=== PATIENT | female | born 1995 | race Caucasian/White ===

== ENCOUNTER 2024-03-14 14:55 | Outpatient (AMB) | payer OTHER, SELFPAY ==
--- NOTE | 2024-03-14 15:06 | MHC.OFFVIS ---
Vital Signs 03/14/24 15:10 Height 5 ft 5 in Weight 226 lb 8 oz BMI 37.7 BP 122/80 Blood Pressure Location Rt brachial Position Sitting Respiration 16 Pulse 79 Pulse Source Pulse Oximeter Pulse Oximetry (%) 98 Oxygen Delivery Method Room Air Intake Visit Reasons: ENP-L foot ? nerve pinched and vaginal shoot Intake Note: Pt presents to the office for new pt consultation for evaluation of a possibly pinched nerve that shoots pain to my vaginal area .She c/o numbness and tingling of left leg. 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 It started about 1 year ago - starts in her toes and moves up to her hip. If she strains to radiated to her pelvic area, vagina.she describes the pain as tingling , shooting pain with numbness and weakness.she also has chronic back pain which worsened. she became after and now her baby is 3 months old . Her labor and delivery was uneventful . But she started having sharp pain in her vagina .she didnt have any imaging done . she was sent for PT which helped a little. EMG showed Left L4-5 radiculopathy. Her discomfort in constant - numbness in her left leg and foot , when she strains she feels it in her thigh a swell/ She has trouble moving her left toe. [facility] Medical History Neuropathy Obesity UTI (urinary tract infection) Anxiety Bilateral carpal tunnel syndrome Multiple renal cysts Right ovarian cyst Social History Household Members: Spouse and Children Housing: Apartment Alcohol intake: current Comment: Seldom Patient Tobacco Use Status: Former Tobacco user Years Smoked: quit 2 years ago- on and off x 10years Use of substances other than those prescribed or required for medical reasons: No Physical Exam Vital Signs: Last Vital Signs Pulse 79 03/14/24 15:10 Resp 16 03/14/24 15:10 BP 122/80 03/14/24 15:10 Pulse Ox 98 03/14/24 15:10 Oxygen Delivery Method Room Air 03/14/24 15:10 BMI result Body Mass Index 37.7 Const General: cooperative, healthy appearing and comfortable Nutritional Appearance: obese Orientation/consciousness: patient oriented x3 Eyes Pupils: Equal, round and reactive pupils present Neck Neck: Yes no meningeal signs Neuro Other: Left foot drop- weakness of left dorsiflexion - 1/5 Knee extension 4/5 Gait- compensation, mild high steppage on right General: patient oriented x3, moves all extremities and no meningeal signs Cranial nerves: Yes Facial sensation intact/muscles of mastication intact, Yes Equal, round and reactive pupils present, Yes Bilaterally intact EOM present, Yes Nystagmus not present, Yes Normal facial strength present, Yes Midline tongue present and Yes Symmetric palate elevation present Cognition (Neuro): normal cognition Motor exam (neuro): Normal motor muscle tone present throughout Deep tendon reflexes (DTR's): Right triceps reflex intensity grade: 2+, Left triceps reflex intensity grade: 2+, Rt Biceps (C5, C6): 2+, Left biceps reflex intensity grade: 2+, Right brachioradialis reflex intensity grade: 2+, Left brachioradialis reflex intensity grade: 2+, Right patellar reflex intensity grade: 3+, Left patellar reflex intensity grade: 3+, Right ankle reflex intensity grade: 2+ and Left ankle reflex intensity grade: 2+ Coordination: [id number] test normal Assessment & Plan Assessment & Plan (1) Numbness and tingling of left leg: Comment: likely lumbar radiculopathy Code(s): R20.0 - Anesthesia of skin; R20.2 - Paresthesia of skin Category: Medical (2) Foot drop, left foot: Code(s): M21.372 - Foot drop, left foot Category: Medical Plan will evaluate her with MRI L spine EMGNCS PT for left leg weakness Orders: Orders NE electromyogram (EMG) Today M21.372 - Foot drop, left foot, R20.0 - Anesthesia of skin, R20.2 - Paresthesia of skin MR lumbar spine wo con Today M21.372 - Foot drop, left foot, R20.0 - Anesthesia of skin, R20.2 - Paresthesia of skin NE nerve conduction velocity Today M21.372 - Foot drop, left foot, R20.0 - Anesthesia of skin, R20.2 - Paresthesia of skin PT Evaluation and Treatment Today M21.372 - Foot drop, left foot Coding Level of Care Code New Pt Level 4 (14806) Diagnoses Numbness and tingling of left leg R20.0; R20.2 Foot drop, left foot M21.372
[2024-03-14 15:10] VITALS: BP 122/80; PULSE 79; RESP 16; O2SAT 98; BMI 37.7
== END 2024-03-14 15:48 | disposition home or self-care (01) ==
PROVIDERS: PCP Obstetrics & Gynecology; Visit Provider Psychiatry & Neurology Neurology
DX: R20.0 Anesthesia of skin (principal); R20.2 Paresthesia of skin; M21.372 Foot drop, left foot
CPT/HCPCS: 99204

== ENCOUNTER → 2024-03-14 14:55 | Outpatient (BNVA) | payer OTHER, SELFPAY | PROVIDERS: PCP Obstetrics & Gynecology; Visit Provider Psychiatry & Neurology Neurology | DX: M21.372 Foot drop, left foot (principal); R20.0 Anesthesia of skin; R20.2 Paresthesia of skin | CPT/HCPCS: 99202 ==

== ENCOUNTER 2024-03-17 18:54 | Outpatient (REF) | payer OTHER, SELFPAY ==
--- NOTE | ~2024-03-17 | MR_ITS ---
MRI OF THE LUMBAR SPINE WITHOUT CONTRAST CLINICAL INFORMATION: Foot drop. Left foot. COMPARISON: Lumbar spine radiographs March 23, 2013. TECHNIQUE: Multiplanar multisequence MR imaging of the lumbar spine obtained without contrast. FINDINGS: There are 5 non-rib bearing lumbar type vertebral bodies. Lumbar alignment is normal. Vertebral body heights are maintained. There is mild disc volume loss and disc desiccation at L5-S1. The remaining disc volumes are preserved and the remaining discs remain well-hydrated. Mild Modic type I endplate signal changes at L5-S1. There is no additional bone marrow edema. There are no acute fractures. The conus terminates at the L1-L2 level. There are no significant extraspinal soft tissue findings. Partially imaged sclerosis across the SI joints bilaterally. Retroaortic left renal vein. L1-L2: Disc contour is normal. No central canal stenosis and no foraminal stenosis. L2-L3: Disc contour is normal. No central canal stenosis and no foraminal stenosis. L3-L4: Disc contour is normal. No central canal stenosis and no foraminal stenosis. L4-L5: Small annular disc bulge and severe bilateral facet arthropathy. There is no central canal stenosis. There is mild foraminal encroachment bilaterally. L5-S1: There is a shallow right paracentral disc protrusion results in posterior deflection of the traversing right S1 nerve root within the right subarticular zone and neck contact the traversing left S1 nerve root within the left subarticular zone. There is also a left lateral disc osteophyte protrusion that results in moderate to severe left foraminal stenosis with compression of the foraminal and extraforaminal segments of the exiting left L5 nerve root. MR/MR lumbar spine wo con IMPRESSION: * At L5-S1, a shallow right paracentral disc protrusion results in posterior deflection of the traversing right S1 nerve root within the right subarticular zone and contacts the traversing left S1 nerve root within the left subarticular zone. There is also a left lateral disc osteophyte protrusion that results in moderate to severe left foraminal stenosis with compression of the foraminal and extraforaminal segments of the exiting left L5 nerve root. * Partially imaged sclerosis across the SI joints bilaterally. Electronically signed by: Ivan Prajapati MD 03/18/2024 08:41 AM EDT
== END 2024-03-17 18:55 | disposition home or self-care (01) ==
LOC: HO.MRI 18:54
PROVIDERS: PCP Internal Medicine; Visit Provider Psychiatry & Neurology Neurology
DX: M21.372 Foot drop, left foot (principal); R20.0 Anesthesia of skin; R20.2 Paresthesia of skin
CPT/HCPCS: 72148

== ENCOUNTER 2024-03-31 15:29 | Outpatient (REF) | payer OTHER, SELFPAY ==
--- NOTE | 2024-03-31 15:32 | EMG_ITS ---
Chief complaint: Left footdrop and numbness in left foot, chronic back pain 4/5 dorsiflexion, eversion, EHL left. Reason for referral: Evaluate for peroneal neuropathy versus lumbar radiculopathy Referred by: Dr. Bear Procedure done: Left lower extremity NCS/EMG Precautions and/or limitations: None The limb temperature was monitored continuously and remained between 32-36 degrees C during the performance of the NCS. Nerve Conduction Studies Anti Sensory Summary Table ?Stim Site NR Onset (ms) Norm Onset (ms) Peak (ms) Norm Peak (ms) O-P Amp (?V) Norm O-P Amp Site1 Site2 Delta-0 (ms) Dist (cm) Yanick (m/s) Norm Yanick (m/s) Left Sup Peron Anti Sensory (Ankle) Lateral Leg ? 1.3 1.8 <4.4 14.3 >5.0 Lateral Leg Ankle 1.3 14.0 108 Left Sural Anti Sensory (Lat Mall) Calf ? 2.8 3.4 <4.0 6.6 >5.0 Calf Lat Mall 2.8 14.0 50 Motor Summary Table ?Stim Site NR Onset (ms) Norm Onset (ms) O-P Amp (mV) Norm O-P Amp iAmp (mV) Amp (1st) (%) Site1 Site2 Delta-0 (ms) Dist (cm) Yanick (m/s) Norm Yanick (m/s) Left Peroneal Motor (Ext Dig Brev) Ankle ? 3.8 <4.0 7.0 >2.5 8.4 100.0 Ankle Ext Dig Brev 3.8 0.0 B Fib ? 9.9 6.5 7.9 92.9 B Fib Ankle 6.1 33.0 54 >40 Poplt ? 10.5 6.5 7.9 92.9 Poplt B Fib 0.6 4.5 75 >40 Left Tibial Motor (Abd Murrell Brev) Ankle ? 3.3 <5 7.7 >2.5 10.9 100.0 Ankle Abd Murrell Brev 3.3 0.0 Knee ? 10.9 5.5 7.6 71.4 Knee Ankle 7.6 39.0 51 >40 EMG ?Side Muscle Nerve Root Ins Act Fibs Psw Amp Dur Poly Recrt Int Pat Comment Left AbdHallucis MedPlantar S1-2 Nml Nml Nml Nml Nml 0 Nml Complete Left AntTibialis Dp Br Peron L4-5 Nml Nml Nml Nml Nml 0 Nml Complete Left MedGastroc Tibial S1-2 Nml Nml Nml Nml Nml 0 Nml Complete Left VastusMed Femoral L2-4 Nml Nml Nml Nml Nml 0 Nml Complete Left BicepsFemS Sciatic L5-S1 Nml Nml Nml Nml Nml 0 Nml Complete Paraspinal EMG ?Side Muscle Nerve Root Ins Act Fibs Psw Comment Left Lumbar Upper Rami Nml Nml Nml Left Lumbar Mid Rami Nml Nml Nml Left Lumbar Lower Rami Nml Nml Nml FINDINGS: All motor and sensory nerves tested showed normal latencies, amplitudes and conduction velocities. Concentric needle EMG was performed in selected muscles of the left lower extremity and lumbar paraspinals. Study did not reveal signs of electric abnormalities as shown in the table above. IMPRESSION: 1. This is a normal study. 2. There is no electrodiagnostic evidence for peroneal neuropathy, tibial neuropathy, lumbosacral plexopathy, lumbar radiculopathy, or peripheral neuropathy. Thank you for your kind referral. Josefina Montez MD, ANNE-MARIE Board Certified, [place] Board of Physical Medicine and Rehabilitation (ABPMR) Board Certified, [place] Board of Electrodiagnostic Medicine (ABEM) [place] [id number] [facility]
== END 2024-03-31 15:30 | disposition home or self-care (01) ==
LOC: HO.NEURO 15:29
PROVIDERS: PCP Internal Medicine; Visit Provider Psychiatry & Neurology Neurology
DX: M21.372 Foot drop, left foot (principal); R20.0 Anesthesia of skin; R20.2 Paresthesia of skin
CPT/HCPCS: 95886; 95908

== ENCOUNTER → 2024-03-31 15:32 | Outpatient (BNV) | payer OTHER, SELFPAY | PROVIDERS: PCP Internal Medicine; Visit Provider Physical Medicine & Rehabilitation | DX: M21.372 Foot drop, left foot (principal); R20.2 Paresthesia of skin; R20.0 Anesthesia of skin | CPT/HCPCS: 95886; 95908 ==

== ENCOUNTER 2024-05-11 15:05 | Outpatient (AMB) | payer OTHER, SELFPAY ==
--- NOTE | 2024-05-11 15:11 | A.SPINEOV_ITS ---
Intake Visit Reasons: Foot drop Intake Note: Ms. Isaac is here today c/o low back pain that radiates to the legs bilaterally. Director Biologics Required: No Allergies No Known Allergies Allergy (Verified 05/11/24 15:12) Assessment & Plan Assessment & Plan (1) Lumbar radiculopathy: Code(s): M54.16 - Radiculopathy, lumbar region Category: Medical Plan Dear Dr. Bear, Thank you for referring Leslie to our office today. She is a very pleasant 28 year old female who is referred to our office as a second opinion after being evaluated by [facility] neurosurgery. She presents with a CC of low back pain with shooting pain into her left lower extremity. She states that this has been ongoing for the past 1 year. She indentifies an inciting incident of spending a long day at a theme park going on rides. She reports by the end of the day she could hardly walk and had severe pain in her low back, shooting over her left hip, down her left anterior / lateral thigh, and into the top of her right foot. Her pain is slowly worsened over the course of the last few months and she has developed a left-sided footdrop. She has tried physical therapy, [id number] medications, and is scheduled to have a cortisone injection on 05/17/2014. She currently takes ibuprofen monotherapy for daily pain relief. She has a 5-month-old daughter and is unable to adequately care for due to her limited ability to complete basic ADLs. PMH: Partial removal of left kidney at 4 years old. Social hx: The patient does not smoke, reports no substance use. Medications: Ibuprofen. Allergies: NKDA. Physical exam: The patient has what I would call 2/5 strength with left-sided dorsiflexion and EHL. She has 4/5 strength with left-sided plantar flexion, knee extension, knee flexion, iliopsoas testing. Her right side lower extremity strength is 5/5. She has no upper extremity deficits. She has significant hypoesthesia over her left toes and on the top of her left foot. Her reflexes are 2+ intact. (+) left-sided straight leg raise. (-) clonus, (-) Babinski's. Imaging review: MRI of the lumbar spine completed here at [facility] shows a far lateral recess disc herniation causing severe compression of the exiting L5 nerve root in the left. Impression: Leslie is a pleasant 28-year-old female comes in today with a chief complaint of low back pain and shooting pain into her left lower extremity. She was previously told by individuals at [facility] that they do not believe she had any notable pathology in her lumbar spine, aside from minor disc bulge. I disagree with this and believe she has a lateral recess disc herniation that is difficult to assess in a plain sagittal view. This impression that I and reporting after reviewing this MRI imaging is also supported by the radiologist who read her MRI. I believe that unfortunately her symptoms have progressed to the point where she now has a left-sided L5 compression, and hypoesthesia in an L5 dermatomal distribution. I will be reviewing this case with Dr. Zelaya and recommending a left-sided L5-S1 microdiskectomy with metrics tubes to decompress the L5 nerve root and relieve her left leg pain. Unfortunately the extent to which numbness and weakness will recover is not known due to her longstanding nerve compression at this level. I will update this note after reviewing with Dr. Zelaya. Thank you for allowing us to care for your patient. The total time spent with this visit with this patient was 45 minutes reviewing history, physical exam, 45 imaging review, and implementation of treatment plan or further diagnostic testing Dante Zelaya MD,PhD [facility] Coding Level of Care Code New Pt Level 4 (98657) Diagnoses Lumbar radiculopathy M54.16
== END 2024-05-11 15:50 | disposition home or self-care (01) ==
LOC: HO.HNS 15:06
PROVIDERS: PCP Internal Medicine; Referring Provider Psychiatry & Neurology Neurology; Visit Provider Physician Assistant
DX: M54.16 Radiculopathy, lumbar region (principal)
CPT/HCPCS: 99204

== ENCOUNTER → 2024-05-11 15:05 | Outpatient (BNVA) | payer OTHER, SELFPAY | PROVIDERS: PCP Internal Medicine; Referring Provider Psychiatry & Neurology Neurology; Visit Provider Physician Assistant | DX: M54.16 Radiculopathy, lumbar region (principal) | CPT/HCPCS: 99202 ==

== ENCOUNTER 2024-05-19 11:00 | Day surgery (SDC) | payer OTHER, SELFPAY ==
[2024-05-17 10:36] VITALS: BMI 37.7
--- NOTE | 2024-05-17 14:31 | P.CONAN_ITS ---
Documented by User: Joan Cleary NP 05/17/24 14:32 HPI - Anesthesia Eval Consult details Narrative: 28yo F for Left L4-5 Foraminotomy PMFSH Active Problems Active Problems: All Active Problems Lumbar radiculopathy (Acute) Lumbosacral radiculopathy at S1 (Acute) Numbness and tingling of left leg (Acute) Foot drop, left foot (Acute) Past Medical History Medical History Lumbosacral radiculopathy at S1 Numbness and tingling of left leg Foot drop, left foot Neuropathy Obesity UTI (urinary tract infection) Anxiety Bilateral carpal tunnel syndrome Multiple renal cysts Right ovarian cyst Surgical History Surgical History Hx of partial nephrectomy Social History Social History Household Members: Spouse and Children Household Members Other:: in laws Housing: Apartment Are you a primary day care attendant to a significant other at home: No Do you presently have visiting nurse or other home services: No Alcohol intake: current Alcohol intake frequency: former alcohol drinker Comment: Seldom Patient Tobacco Use Status: Former Tobacco user Years Smoked: quit 2 years ago- on and off x 10years Have you been hit, kicked, punched, or otherwise hurt by someone within the past year? If so, by whom?: No Are you DNR?: No Advance Directives: No Advance Directives Information Provided: Yes Recently lost weight without trying: No Nutrition Risks: No Nutritional Risk FDLMP: just finished Meds Allergies Allergy/AdvReac Type Severity Reaction Status Date / Time No Known Allergies Allergy Verified 05/19/24 11:15 Home Medications ?Medication ?Instructions ?Recorded ?Confirmed ?Last Taken ?Type vitamin#30 30 mg iron-10 cap PO 03/11/24 03/14/24 05/18/24 History mg iron-folic acid 1 mg-omg3 capsule Exam Height,Weight and Vital Signs: Height 5 ft 5 in Weight 102.739 kg Assessment and Plan Assessment Anesthesia Assessment: Chart Reviewed Documented by User: Cindy Bernstein MD 05/19/24 12:03 [facility] Active Problems Active Problems: All Active Problems Lumbar radiculopathy (Acute) Lumbosacral radiculopathy at S1 (Acute) Numbness and tingling of left leg (Acute) Foot drop, left foot (Acute) Increased BMI 36.6 Ibuprofen for pain. Last 05/17/14 Snores but never had sleep study Past Medical History Medical History Lumbosacral radiculopathy at S1 Numbness and tingling of left leg Foot drop, left foot Neuropathy Obesity UTI (urinary tract infection) Anxiety Bilateral carpal tunnel syndrome Multiple renal cysts Right ovarian cyst Family History Family history of problems with anesthesia: No Surgical History Surgical History Hx of partial nephrectomy History of Problems with Anesthesia: No Social History Social History Household Members: Spouse and Children Household Members Other:: in laws Housing: Apartment Are you a primary day care attendant to a significant other at home: No Do you presently have visiting nurse or other home services: No Alcohol intake: current Alcohol intake frequency: former alcohol drinker Comment: Seldom Patient Tobacco Use Status: Former Tobacco user Years Smoked: quit 2 years ago- on and off x 10years Have you been hit, kicked, punched, or otherwise hurt by someone within the past year? If so, by whom?: No Are you DNR?: No Advance Directives: No Advance Directives Information Provided: Yes Recently lost weight without trying: No Nutrition Risks: No Nutritional Risk FDLMP: just finished Meds Allergies Allergy/AdvReac Type Severity Reaction Status Date / Time No Known Allergies Allergy Verified 05/19/24 11:15 Home Medications ?Medication ?Instructions ?Recorded ?Confirmed ?Last Taken ?Type vitamin#30 30 mg iron-10 cap PO 03/11/24 03/14/24 05/18/24 History mg iron-folic acid 1 mg-omg3 capsule Exam Height,Weight and Vital Signs: Height 5 ft 5 in Weight 102.739 kg Vital Signs Temp Pulse Resp BP Pulse Ox O2 Del Method 05/19/24 11:30 98.2 F 83 18 143/94 H 98 Room Air Pertinent Lab Results Pertinent Lab Results: Lab Results 05/19/24 Range/Units 11:00 Urine Test NEGATIVE (NEGATIVE) Airway Mallampati Class: II TM Dist: >3cm Neck ROM: Limited (Pain with extension ) Loose/Missing/Broken Teeth: No Heart: RRR Lungs: CTAB Assessment and Plan Assessment Anesthesia Assessment: Anesthesia Plan Discussed and Chart Reviewed Final Anesthetic Review Family History of Problems with Anesthesia: No History of Problems with Anesthesia: No NPO: Yes ASA Class: II Final Preanesthetic Review: No Changes in Pt Med Stat, Meds/Allgs Chart Reviewed, Consent Obtained/Reviewed and Anes Risks/Benef Reviewed Patient Risk: Intermediate Procedure Risk: Low Assessment/Block/Sedation in SS: Assess/Block/Sedation-SS Anesthetic Plan Anesthetic Plan: GA Disposition: Standard PACU
[2024-05-19] MEDS: Lactated Ringers 1,000 ML 100 ML IVCONT (11:21)
[2024-05-19 11:22] LABS: UPreg QC Valid YES; Urine Pregnancy NEGATIVE (NEGATIVE)
[2024-05-19 11:28] VITALS: BMI 36.6
[2024-05-19 11:30] VITALS: BP 143/94; PULSE 83; RESP 18; TEMP 36.8; O2SAT 98
--- NOTE | 2024-05-19 11:32 | MHC.SHP ---
Pre-Procedural Eval Section A - 24 Hr Update-Section A only Date of Service: 05/19/24 The patient is an INPATIENT: No Section B - Complete if H&P > 30 days Chief Complaint: Radiculopathy, lumbar region,foot drop Details of Present Illness: Left lumbar radiculopathy Allergies: Allergies Allergy/AdvReac Type Severity Reaction Status Date / Time No Known Allergies Allergy Verified 05/19/24 11:15 Review of Systems Sugical H&P ROS: Negative: Constitution, Cardiovascular, Respiratory, Neurological, Psychiatric, Hem-Onc, Allergic/Immunologic, Gastrointestinal, Genitourinary, Musculoskeletal, Integumentary, Endocrine and Eyes/Ears/Nose/Throat Exam Surgical H&P Exam: Normal: HEENT, Normal: Heart, Normal: Lungs, Normal: Extremities, Normal: Abdomen and Normal: Skin and Significant Findings: Neurological (Left footdrop) Plan I have reviewed the history and physical and performed a pertinent physical examination on my patient. No changes have occurred unless specified. Left L5 foraminotomy Time Spent With Patient Time: Total time managing care of this patient today __5__ minutes.
[2024-05-19] MEDS: methocarbamoL 750 MG TABLET PO (11:36)
[2024-05-19] MEDS: Gabapentin 300 MG CAPSULE PO (11:36)
--- NOTE | 2024-05-19 12:13 | PC.NURSE ---
patient was educated by her doctors regarding . patient stated has been supplementing formula at home due to upcoming procedure. dr sheppard discussed post op pain control as well.
--- NOTE | 2024-05-19 13:20 | W.PM.OPN ---
Operative Note Operative Note Date of Service: 05/19/24 Narrative: Preoperative Diagnosis: Spinal stenosis/lateral recess stenosis/neural foraminal stenosis Operation: Left L5 Laminotomy, Partial facetectomy and foraminotomy with use of microscope Consent Informed Consent was obtained for this operation. I have explained the nature, purpose and benefits of the operation. I have discussed the risks and benefit of the operation including possible complications or adverse events with patient/family. Alternative(s) were discussed with the patient with their relative benefits and risks as well as the consequences of not accepting the operation were included in obtaining consent. Surgeon: HAKEEM JACOBS MD, PHD Procedure Assisted By: Dante Mahan, [facility] Description of Procedure This patient is suffering from left leg pain, numbness and weakness. The MRI shows left L5 neuroforaminal stenosis. Neurological deficits are profound and although the foraminal stenosis is not severe, I offered her a decompression of the L5 nerve root. The patient was offered a decompression of the nervous structures. The procedure complications were explained. The patient was consented. The patient was brought to the operating room and endotracheally intubated. The patient was turned in prone position on the Favio frame. Prep and drape was done followed by timeout. Physician speech and language assistant provided access. A mid lumbar incision was made followed by release of the paravertebral muscle on the left side to expose the L5 lamina and facet joint. An intraoperative x-ray was obtained to confirm the correct level. The microscope was brought in. I took over the procedure. The high-speed drill was used to do a L5 laminotomy. #2 Kerrison was used to further remove the lamina towards the L5 foramen. With a nerve hook the medial wall of the L5 pedicle was palpated as well as the beginning of the L5 foramen. The facet joint was partially drilled down after which with a #2 Kerrison a foraminotomy was done. Finally a foraminotomy Kerrison was used to complete the foraminotomy. A long nerve hook could be easily passed lateral and dorsally from the nerve root, a sign of relief of the neuroforaminal stenosis and decompression of the nerve root . The microscope was removed. Hemostasis was done. Incision was closed in 2 layers. Steri-Strips were used to approximate incision. An OpSite with Tegaderm was used to cover the incision. All sponge needle counts were correct. Patient was extubated and transported in stable is to recovery room. Anesthesia: General Estimated Blood Loss (ml): Minimal Duration of Surgery: Under 40 Minutes Postoperative Plan: Discharge to home
--- NOTE | 2024-05-19 13:29 | P.DS_ITS ---
DS: Providers Provider Date of Service: 05/19/24 Primary care physician: Bobbi Conte MD DS: Summary Time Attestation Discharge Coordination Time (in mins): 10 Quality: Safe Use of Opioids Does Pt have an Active Cancer Diagnosis on the Problem List?: No Quality: Stroke Does the patient have a stroke diagnosis?: No Physical Exam Vital Signs: Vital Signs: Last Vital Signs Temp 98.2 F 05/19/24 11:30 Pulse 83 05/19/24 11:30 Resp 18 05/19/24 11:30 BP 143/94 H 05/19/24 11:30 Pulse Ox 98 05/19/24 11:30 O2 Del Method Room Air 05/19/24 11:30 BMI result Body Mass Index 36.6 DS: Data Data Completed and Pending Labs on day of discharge: Laboratory Results - last 24 hr 05/19/24 11:00 Urine Test NEGATIVE Discharge Plan Discharge Patient Disposition: Home, Self-Care Referrals: Bobbi Conte MD [Primary Care Provider] - 1 Week Discharge Medications: New tramadol 50 mg tablet See Rx Instructions .ROUTE .COMPLEX PRN (Reason: pain) Qty: 30 0RF Rx Instructions: Take 1-2 tablets by mouth every 6 hours. No Action PNV #[id number] acid-omega3 30 mg iron-10 mg iron-1 mg capsule PO Discharge Orders: Discharge Order (Routine); Ordered 05/19/24 Ordered By: Dante Mahan Diet: Advance to usual diet Activity on Discharge: As tolerated Activity Restrictions/Additional Instructions: After your spinal surgery we ask you to observe the following restrictions/guidelines: Activity: It is normal to feel some discomfort as you increase your activity, but that will improve with time. We ask you avoid heavy lifting or acitivities that cause pain. As a general rule, 8lbs is a safe limit for lifting right after surgery. Walk as much as you feel comfortable but not to exhaustion. You will feel extra tired the first few days after surgery. Stay well hydrated. It is OK to walk up and down stairs You may return to driving when you are off narcotics (such as vicodin, oxycodone, dilaudid, etc), and you are back to normal functional capacity. If you have any concerns please check with office before driving. Return to work is specific to each patient and each surgery, so please speak with your doctor/PA at first follow up. Please bring paperwork such as FMLA at that time if you need it filled out. Medications: Dr. Zelaya would like you to be prescribed Tramadol 50mg take 1-2 tablets by mouth every 6 hours as needed for pain. This medication shows no known risk of harm based on available human data, but it is a controlled narcotic medication that may secrete into breastmilk. We also recommend you take 1,000mg Tylenol every 8 hours for the first few weeks after surgery, if you do not have any liver issues and can tolerate this medication. Do not exceed 4,000mg daily. We will give you a short supply of narcotics after surgery (usually one weeks worth). If you need more please call the office but do not use more than prescribed. You will need to give our office 48 hours notice if you need narcotics refilled and we do not fill narcotics on weekends or evenings. If you are on a narcotic, it is a good idea to take a stool softener such as colace or senna to avoid constipation If you take blood thinner such as aspirin, Plavix, Coumadin, Effient, Eliquis etc for conditions such as Afib, DVT, Pulmonary embolus, coronary disease, garret nts etc please speak with your surgeon about specific details as to when you can resume these medications. You can resume NSAIDs on post op day 1 (eg: Motrin, Naproxen, etc). Follow up: Please call the office, , after surgery to arrange a 3 week follow up for wound check. Wound Care: You may remove your dressing on the first day after surgery. ?You may ?leave open to air. Please do not remove the steri strips underneath. they will fall off on their own in one week. IT IS NORMAL FOR THE WOUND TO OOZE OR BE BLOODY FOR A FEW DAYS AFTER SURGERY. ?IF THIS HAPPENS JUST PLACE NEW DRESSING OVER IT TO AVOID STAINING CLOTHES. You may shower on post op day # 1 We ask that you do not let the water soak the wound. If it does get wet, just towel dry lightly. Please do not scrub your incision or place any type of chemical/ointment on the wound. No tub baths, pools or jacuzzis for one month. If you have any leaking or redness from your wound, or fevers, please call the office. Print Language: Kyrgyz
[2024-05-19 13:43] VITALS: BP 164/86; PULSE 107; RESP 16; TEMP 36.4; O2SAT 100
[2024-05-19 13:45] VITALS: BP 143/85; PULSE 106; RESP 16; O2SAT 100
[2024-05-19 13:50] VITALS: BP 148/97; PULSE 106; RESP 16; O2SAT 100
[2024-05-19 13:55] VITALS: BP 158/98; PULSE 106; RESP 16; O2SAT 100
[2024-05-19 14:10] VITALS: BP 148/91; PULSE 92; RESP 16; TEMP 36.1; O2SAT 100
== END 2024-05-19 15:33 | disposition home or self-care (01) ==
PROVIDERS: Nurse Practitioner; PCP Internal Medicine; Visit Provider Neurological Surgery
PROC: (CPT 63047; principal; 2024-05-19 13:50)
DX: M48.061 Spinal stenosis, lumbar region without neurogenic claudication (principal); M54.16 Radiculopathy, lumbar region; M21.379 Foot drop, unspecified foot; Z90.5 Acquired absence of kidney; Z79.1 Long term (current) use of non-steroidal anti-inflammatories (NSAID)
CPT/HCPCS: 63047; 81025; J0131; J0690; J1100; J2003; J2405; J2704; J3010

== ENCOUNTER → 2024-05-19 11:00 | Outpatient (BNV) | payer OTHER, SELFPAY | PROVIDERS: PCP Internal Medicine; Visit Provider Neurological Surgery | DX: M48.062 Spinal stenosis, lumbar region with neurogenic claudication (principal) | CPT/HCPCS: 63047; 99499 ==

== ENCOUNTER 2024-06-09 15:03 | Outpatient (AMB) | payer OTHER, SELFPAY ==
--- NOTE | 2024-06-09 15:05 | A.SPINEOV_ITS ---
Intake Visit Reasons: 1st post op Intake Note: Ms. Isaac is here today for her 1st post op visit. [employer]essionals Required: No Allergies No Known Allergies Allergy (Verified 06/09/24 15:06) Assessment & Plan Assessment & Plan (1) Foot drop, left foot: Code(s): M21.372 - Foot drop, left foot Category: Medical Plan Mrs Isaac is here in follow-up. Unfortunately, her footdrop has returned after having improved right after surgery. She continues to have significant weakness with dorsiflexion and numbness going down from her lateral calf into the top of her foot. She continues to get fasciculations of her toes as well. Her wound is healed up very nicely. We discussed the fact that likely her footdrop is more than likely going to be permanent. Preoperatively she had an EMG showing a peroneal and tibial neuropathy from May of 2023 at the time of her initial evaluation at [facility]. It is not really understood well why this problem started, but unfortunately the L5 foraminotomy did not give her the relief she was hoping in terms of improvement in the strength in the numbness. She did feel some brief relief of the discomfort of the numbness on the gabapentin the day of surgery and was asking about filling this. I told her that I would be happy to give her a prescription for 300 t.i.d. but she needs to check with the pharmacist about the overlap with breast-feeding as it may cross over into the breast milk. She should start with it in the evening as well so she is does not get fatigued during the day as she is taking care of it young baby. We discussed activity guidelines restrictions etc. after lumbar laminotomy. I gave her prescription for an AFO. I would like to follow up with her in a month. Erick Zelaya MD, PhD [facility] Medications: New [AFO] left foot AFO 1 ea 0RF M21.372 - Foot drop, left foot gabapentin 300 mg PO TID 90 caps 0RF Coding Level of Care Code Global (51605) Diagnoses Foot drop, left foot M21.372
== END 2024-06-09 16:23 | disposition home or self-care (01) ==
PROVIDERS: PCP Internal Medicine; Visit Provider Physician Assistant
DX: M21.372 Foot drop, left foot (principal)
CPT/HCPCS: 99024

== ENCOUNTER → 2024-06-09 15:03 | Outpatient (BNVA) | payer OTHER, SELFPAY | PROVIDERS: PCP Internal Medicine; Visit Provider Physician Assistant | DX: M21.372 Foot drop, left foot (principal); Z47.89 Encounter for other orthopedic aftercare; Z98.890 Other specified postprocedural states | CPT/HCPCS: 99212 ==

== ENCOUNTER 2024-07-14 15:00 | Outpatient (AMB) | payer OTHER, SELFPAY ==
--- NOTE | 2024-07-14 15:03 | MHC.OFFVIS ---
Intake Visit Reasons: follow up L foot ? nerve pinched/vaginal shoot Intake Note: Patient presents for follow up nerve pinch Allergies No Known Allergies Allergy (Verified 07/14/24 15:07) Medication List - Last Reconciled 07/14/24 by Lynn Bear MD [AFO left foot AFO ] gabapentin 300 mg PO TID ibuprofen 600 mg PO TID PNV #27-[id number]-pztio acid-omega3 30 mg iron-10 mg iron-1 mg caps PO tramadol Take 1-2 tablets by mouth every 6 hours. HPI Comments Details: 28y/o female comes for evaluation of left leg pain . It started about 1 year ago - starts in her toes and moves up to her hip. If she strains to radiated to her pelvic area, vagina.she describes the pain as tingling , shooting pain with numbness and weakness.she also has chronic back pain which worsened. she became after and now her baby is 3 months old . Her labor and delivery was uneventful . But she started having sharp pain in her vagina .she didnt have any imaging done . she was sent for PT which helped a little. EMG showed Left L4-5 radiculopathy. Her discomfort in constant - numbness in her left leg and foot , when she strains she feels it in her thigh a swell/ She has trouble moving her left toe. [facility] Medical History Lumbosacral radiculopathy at S1 Numbness and tingling of left leg Foot drop, left foot Neuropathy Obesity UTI (urinary tract infection) Anxiety Bilateral carpal tunnel syndrome Multiple renal cysts Right ovarian cyst Surgical History Hx of partial nephrectomy Social History Household Members: Spouse and Children Household Members Other:: in laws Housing: Apartment Are you a primary transitional care nurse to a significant other at home: No Do you presently have visiting nurse or other home services: No Alcohol intake: current Alcohol intake frequency: former alcohol drinker Comment: Seldom Patient Tobacco Use Status: Former Tobacco user Years Smoked: quit 2 years ago- on and off x 10years Physical Exam Const General: cooperative, healthy appearing and comfortable Nutritional Appearance: obese Orientation/consciousness: patient oriented x3 Eyes Pupils: Equal, round and reactive pupils present Neck Neck: Yes no meningeal signs Neuro Other: Left foot drop- weakness of left dorsiflexion - 1/5 Knee extension 4/5 Gait- compensation, mild high steppage on right General: patient oriented x3, moves all extremities and no meningeal signs Cranial nerves: Yes Facial sensation intact/muscles of mastication intact, Yes Equal, round and reactive pupils present, Yes Bilaterally intact EOM present, Yes Nystagmus not present, Yes Normal facial strength present, Yes Midline tongue present and Yes Symmetric palate elevation present Cognition (Neuro): normal cognition Motor exam (neuro): Normal motor muscle tone present throughout Deep tendon reflexes (DTR's): Right triceps reflex intensity grade: 1+, Left triceps reflex intensity grade: 1+, Rt Biceps (C5, C6): 1+, Left biceps reflex intensity grade: 1+, Right brachioradialis reflex intensity grade: 1+, Left brachioradialis reflex intensity grade: 1+, Right patellar reflex intensity grade: 1+, Left patellar reflex intensity grade: 1+, Right ankle reflex intensity grade: 1+ and Left ankle reflex intensity grade: 1+ Coordination: eskxus-me-[id number] test normal Assessment & Plan Assessment & Plan (1) Acquired left foot drop: Comment: Left L5 radiculopathy s/P laminotomy on 05/2024 Code(s): M21.372 - Foot drop, left foot Category: Medical Plan reviewed Operative notes . PT for left leg weakness repeat EMG in 3 mths Orders: Orders PT Evaluation and Treatment Today M21.372 - Foot drop, left foot, M54.17 - Radiculopathy, lumbosacral region Referrals Pain Management Referral M54.16 - Radiculopathy, lumbar region, M54.17 - Radiculopathy, lumbosacral region Medications: New [left AFO] As directed 1 ea 0RF M21.372 - Foot drop, left foot Coding Level of Care Code Est Pt Level 4 (56217) Complex EM visit Add On G2211 Diagnoses Acquired left foot drop M21.372
== END 2024-07-14 15:36 | disposition home or self-care (01) ==
PROVIDERS: PCP Obstetrics & Gynecology; Visit Provider Psychiatry & Neurology Neurology
DX: M21.372 Foot drop, left foot (principal)
CPT/HCPCS: 99214; G2211

== ENCOUNTER → 2024-07-14 15:00 | Outpatient (BNVA) | payer OTHER, SELFPAY | PROVIDERS: PCP Obstetrics & Gynecology; Visit Provider Psychiatry & Neurology Neurology | DX: M21.372 Foot drop, left foot (principal) | CPT/HCPCS: 99212 ==

== ENCOUNTER 2024-07-28 14:25 | Outpatient (AMB) | payer OTHER, SELFPAY ==
--- NOTE | 2024-07-28 14:30 | A.OFFVIS_ITS ---
Vital Signs 07/28/24 14:34 Height 5 ft 5 in Weight 225 lb BMI 37.4 BP 148/78 H Blood Pressure Location Rt brachial Position Sitting Pulse 79 Pulse Source Pulse Oximeter Intake Visit Reasons: Radiculopathy, lumbar region Intake Note: Pain today 12/13 [employer] Worker Required: No Accompanied by: Spouse Allergies No Known Allergies Allergy (Verified 07/28/24 14:34) Is last menstrual period known: Yes Last menstrual period: 06/14/24 Patient : No (Home test was negative 07/28/24, behind on her period) HPI HPI Radiculopathy, lumbar region: Details: Patient is a pleasant 28-year-old female with history of recent left L5 Laminotomy, partial facetectomy and foraminotomy (05/19/24 Dr. Zelaya), presents today for initial evaluation of lower back pain with left-sided radiculopathy accompanied with constant burning, aching and numbness sensations. She reports back pain and left leg pain symptoms initially started in January of 2023 while she was in [employer] in hospital for special care and noted her left foot and toes with jerking movements and with shooting pains into her left hip. Patient completed EMG in May 2023 showing a peroneal and tibial neuropathy. She then got and had her baby girl in December 2023 but notes she has been experiencing significant shooting and sharp pains during in her pelvic floor and vagina without relief with Pelvic floor PT at that time. She continues to experiences same symptoms periodically. Patient reports no significant pain, left leg numbness and weakness improvement with recent back surgery. She is currently in active PT through [facility] but completes it virtually at home. Patient is concerned about ongoing back pain and left leg weakness which limits her ADLs, mobility, functioning or taking care of her baby. She was provided with AFO boot and also has been utilizing walker at home. Back pain is axial and also radiates into her left buttock and into her lateral calf and into her left foot. Pain is most severe during 10:00-15:00, rated at 8-9/10 and least severe at bedtime 21:00-0900, rated at 4-5/10. Denies previous spine injections. She has been taking Ibuprofen for pain and most of the time avoids medication as she is currently . Patient notes her menses are late by 18 days but recent home test was negative. Denies any fever or chills, rash, abdominal or groin pain, bladder or bowel dysfunction or saddle anesthesia. Patient also reports neck pain and bilateral hand weakness with numbness and tingling. Reports history of bilateral carpal tunnel syndrome. Oswestry Low Back Pain Disability Score=32 (severe disability) Location: Lower back radiates into left leg with left foot drop Duration: Chronic pain for 1.5 years Characteristics of symptom or complaint: Throbbing, stabbing, shooting, numbness, sharp, tingling, cramping Aggravating or associated factors: Movements, walking, climbing, bending, twisting, ADLs, weather changes Relieving factors: Ibuprofen, heat/cold therapy, rest, activity modifications Treatment: PT at [facility] ([facility] at home), Left L5 foraminotomy (2023) [facility] Medical History Acquired left foot drop Lumbosacral radiculopathy at S1 Numbness and tingling of left leg Foot drop, left foot Neuropathy Obesity UTI (urinary tract infection) Anxiety Bilateral carpal tunnel syndrome Multiple renal cysts Right ovarian cyst Surgical History (Updated 07/28/24 @ 20:57 by LILLY Rushing) Hx of decompressive lumbar laminectomy (05/19/24) Hx of partial nephrectomy (~1999) Social History Household Members: Spouse and Children Household Members Other:: in laws Housing: Apartment Are you a primary cardiac care nurse to a significant other at home: No Do you presently have visiting nurse or other home services: No Alcohol intake: current Alcohol intake frequency: former alcohol drinker Comment: Seldom Patient Tobacco Use Status: Former Tobacco user Years Smoked: quit 2 years ago- on and off x 10years Patient : No (Home test was negative 07/28/24, behind on her period) Female Reproductive History Menstrual Date of last menstrual period: 06/14/24 Review of Systems Const All systems reviewed & are unremarkable except as noted in HPI and below Physical Exam Vital Signs: Last Vital Signs Pulse 79 07/28/24 14:34 BP 148/78 H 07/28/24 14:34 BMI result Body Mass Index 37.4 General: Appears afebrile. Alert and oriented. Mood and affect appropriate. Follows and participates in conversation appropriately. Respiratory effort is unlabored. No cough. Able to transition from sit to stand unassisted. Uses walker at home per patient. Ambulates with right normal heel strike and toe off. Left foot drop. Presents w/o AFO on the left today. General: Yes no CVA tenderness Back/Spine/Pelvis Other: Patient is able to walk and stand on heels and tip toes with difficulty on the left due to pain and foot drop on the left. Antalgic gait. Can flex forward to 75-80 degrees and extend to 10-15 degrees before experiencing lumbar pain. Demonstrates 5/5 right and 4/5 left strength of quadriceps bilaterally as well as 5/5 right and 3/5 left flexion/dorsiflexion of bilateral feet against resistance. 2+ pedal pulses bilaterally. Straight leg rise with dorsiflexion is positive on the left. +2 patellar and +2 on the right and +1 left achilles reflexes bilaterally. Facet loading test positive bilaterally. Adele sign, Segun?s, Gaenslen and Stinchfield tests are positive bilaterally, left>right. No groin pain with I/E hip rotations. Valsalva maneuver is negative. Back: no CVA tenderness Cervical Spine: cervical ROM normal, cervical muscular tenderness, pain with cervical ROM, No Cervical spine scars present and No Cervical spine tenderness Thoracic/Lumbar Spine: thoracic and lumbar spine normal to inspection, Thoracic/lumbar spine scar(s), Lasegue's sign positive on the left and localized, pain with thoraco-lumbar ROM, paraspinal muscle tenderness, thoraco- lumbar ROM limited, No thoracic spinal tenderness and lumbar spinal tenderness (L4-S1) Pelvis: buttock tenderness on the left Sacroiliac joints: bilaterally (left>right) tender to palpation Extrem General: Yes capillary refill normal, Yes no clubbing, cyanosis or edema and Yes no calf tenderness Results Reviewed Results Reviewed: MRI OF THE LUMBAR SPINE WITHOUT CONTRAST 03/17/24 CLINICAL INFORMATION: Foot drop. Left foot. COMPARISON: Lumbar spine radiographs March 23, 2013. TECHNIQUE: Multiplanar multisequence MR imaging of the lumbar spine obtained without contrast. FINDINGS: There are 5 non-rib bearing lumbar type vertebral bodies. Lumbar alignment is normal. Vertebral body heights are maintained. There is mild disc volume loss and disc desiccation at L5-S1. The remaining disc volumes are preserved and the remaining discs remain well-hydrated. Mild Modic type I endplate signal changes at L5-S1. There is no additional bone marrow edema. There are no acute fractures. The conus terminates at the L1-L2 level. There are no significant extraspinal soft tissue findings. Partially imaged sclerosis across the SI joints bilaterally. Retroaortic left renal vein. L1-L2: Disc contour is normal. No central canal stenosis and no foraminal stenosis. L2-L3: Disc contour is normal. No central canal stenosis and no foraminal stenosis. L3-L4: Disc contour is normal. No central canal stenosis and no foraminal stenosis. L4-L5: Small annular disc bulge and severe bilateral facet arthropathy. There is no central canal stenosis. There is mild foraminal encroachment bilaterally. L5-S1: There is a shallow right paracentral disc protrusion results in posterior deflection of the traversing right S1 nerve root within the right subarticular zone and neck contact the traversing left S1 nerve root within the left subarticular zone. There is also a left lateral disc osteophyte protrusion that results in moderate to severe left foraminal stenosis with compression of the foraminal and extraforaminal segments of the exiting left L5 nerve root. IMPRESSION: * At L5-S1, a shallow right paracentral disc protrusion results in posterior deflection of the traversing right S1 nerve root within the right subarticular zone and contacts the traversing left S1 nerve root within the left subarticular zone. There is also a left lateral disc osteophyte protrusion that results in moderate to severe left foraminal stenosis with compression of the foraminal and extraforaminal segments of the exiting left L5 nerve root. * Partially imaged sclerosis across the SI joints bilaterally. Assessment & Plan Assessment & Plan (1) Numbness and tingling of left leg: Code(s): R20.0 - Anesthesia of skin; R20.2 - Paresthesia of skin Category: Medical (2) Lumbosacral radiculopathy at S1: Code(s): M54.17 - Radiculopathy, lumbosacral region Category: Medical (3) Acquired left foot drop: Comment: Left L5 radiculopathy s/P laminotomy on 05/2024 Code(s): M21.372 - Foot drop, left foot Category: Medical (4) Lumbar spondylosis: Code(s): M47.816 - Spondylosis without myelopathy or radiculopathy, lumbar region Category: Medical (5) Hx of decompressive lumbar laminectomy: Onset Date: 05/19/24 Code(s): Z98.890 - Other specified postprocedural states Category: Medical Plan MRI of the lumbar spine to assess for neural integrity and compression and follow up on previous MRI findings. Neurodiagnostic study of bilateral upper extremities and left lower extremity for follow up for chronic neuropathy sensations, reports previous history of bilateral CTS. For axial low back pain, we discussed diagnostic lumbar medial branch blocks for potential Sprint PNS trial vs RFA vs therapeutic injections. Informative pamphlet provided to patient and family. Continue daily physical therapy and home exercise program, AFO support for LLE, weight optimization, adequate hydration, good posture and well balanced diet. All questions and concerns have been answered and patient agreed with the treatment plan. Patient will return to the clinic to discuss results of the MRI? findings when it is done and consider interventional therapy as indicated.? Orders: Orders NE electromyogram (EMG) Today G56.03 - Carpal tunnel syndrome, bilateral upper limbs, M21.372 - Foot drop, left foot, R20.0 - Anesthesia of skin, R20.2 - Paresthesia of skin MR lumbar spine wo con Today M21.372 - Foot drop, left foot, M47.816 - Spondylosis without myelopathy or radiculopathy, lumbar region, M54.17 - Radiculopathy, lumbosacral region, R20.0 - Anesthesia of skin, R20.2 - Paresthesia of skin, Z98.890 - Other specified postprocedural states NE nerve conduction velocity Today G56.03 - Carpal tunnel syndrome, bilateral upper limbs, M21.372 - Foot drop, left foot, M54.17 - Radiculopathy, lumbosacral region, R20.0 - Anesthesia of skin, R20.2 - Paresthesia of skin Coding Level of Care Code New Pt Level 4 (16017) Complex EM visit Add On G2211 Diagnoses Numbness and tingling of left leg R20.0; R20.2 Lumbosacral radiculopathy at S1 M54.17 Acquired left foot drop M21.372 Lumbar spondylosis M47.816 Hx of decompressive lumbar laminectomy Z98.890
[2024-07-28 14:34] VITALS: BP 148/78; PULSE 79; BMI 37.4
== END 2024-07-28 15:29 | disposition home or self-care (01) ==
PROVIDERS: PCP Obstetrics & Gynecology; Referring Provider Psychiatry & Neurology Neurology; Visit Provider Nurse Practitioner Family
DX: R20.0 Anesthesia of skin (principal); R20.2 Paresthesia of skin; M54.17 Radiculopathy, lumbosacral region; M21.372 Foot drop, left foot; M47.816 Spondylosis without myelopathy or radiculopathy, lumbar region; Z98.890 Other specified postprocedural states
CPT/HCPCS: 99204; G2211

== ENCOUNTER → 2024-07-28 14:25 | Outpatient (BNVA) | payer OTHER, SELFPAY | PROVIDERS: PCP Obstetrics & Gynecology; Referring Provider Psychiatry & Neurology Neurology; Visit Provider Nurse Practitioner Family | DX: R20.0 Anesthesia of skin (principal); R20.2 Paresthesia of skin; M54.17 Radiculopathy, lumbosacral region; M21.372 Foot drop, left foot; M47.816 Spondylosis without myelopathy or radiculopathy, lumbar region; Z98.890 Other specified postprocedural states | CPT/HCPCS: 99202 ==

== ENCOUNTER 2024-08-20 13:04 | Outpatient (REF) | payer OTHER, SELFPAY ==
--- NOTE | ~2024-08-20 | MR_ITS ---
CLINICAL HISTORY: R20.0 - Anesthesia of skin Worsening lower back pain post lumbar surgery w/ numbne ss radiating through lower left extremity. MR lumbar spine with and without gadolinium Comparison: 03/17/2024 Findings: No scoliosis or spondylolisthesis. No acute fracture or pathologic bone lesion. Cauda equina and conus medullaris within normal limits. Postsurgical changes are present at L5-S1, with postsurgical enhancement of the paraspinal soft tissues and enhancement extending up to the thecal sac and along the posterior aspect of the disc space. This is likely expected postsurgical enhancement. No epidural abscess or epidural hematoma. Individual levels: T12-L5: No central canal stenosis or neural foraminal narrowing. L5-S1: No significant central canal stenosis. There is moderately severe left-sided neural foraminal narrowing. Reference post lesley axial T1 weighted image 38, there is asymmetric signal/enhancement involving the left L5 nerve root. Impression: No epidural abscess or hematoma. Postsurgical soft tissue and mild dural enhancement with asymmetric enhancement of the left L5 nerve root. Mild neuritis versus expected postoperative change. Continued follow-up recommended. There is moderately severe left-sided neural foraminal narrowing at L5-S1. This document has been electronically signed by: Jeremy Salomon MD on 08/20/2024 14:57:40
--- OUTSIDE RECORDS SUMMARY | 2024-08-20 13:07 | XMS_ITS | Encounter Summary ---
Author Organization [facility] Address [address] [place] [address] Care Team Providers Care High Speed Warper Tender Name Role Phone Bobbi Conte MD Primary Care Provider [phone] Kacy Velasquez MD Unavailable [phone] Akua Crenshaw PA-C Unavailable [phone] Alden Coates PA-C Unavailable [phone] Reason for Visit * Reason Onset Date Comments Nail Problem, Toes 11/27/2021 Encounter Details Date Type Department Care Team Description 11/27/2021 Telephone Internal Medicine - [address], [address] [place] [address] Bobbi Conte MD [address] [place] [phone] Nail Problem, Toes Social History Tobacco Use Types Packs/Day Years Used Date Smoking Tobacco: Light Smoker Cigarettes Smokeless Tobacco: Never Comments:on and off. Quit 3 months ago but smoked last week. Alcohol Use Standard Drinks/Week Comments Yes 0 (1 standard drink = 0.6 oz pur e alcohol) ocass Intimate Partner Violence Answer Date R ecorded Within the last year, have y ou been afraid of your partner or ex-partner? No 02/15/2020 Within the last year, have y ou been humiliated or emotionally abused in other ways by your partner or ex-partner? No Within the last year, have y ou been kicked, hit, slapped, or otherwise physically hurt by your partner or ex-partner? No 02/15/2020 Within the last year, have y ou been raped or forced to have any kind of sexual activity by your partner or ex-partner? No 02/15/2020 Sex Assigned at Date Recorded Not on file Job Start Date Occupation Industry Not on file Not on file Not on file COVID-19 Exposure Response Date Recorded In the last 10 days, have yo u been in contact with someone who was confirmed or suspected to have Coronavirus/COVID-19? Unable to assess 11/27/2021 9:16 AM EDT documented as of this encounter Miscellaneous Notes * Telephone Encounter - Antonette Beal RN - 11/27/2021 8:43 AM EDT Called patient, reports Thursday she noticed her feet were itchy and she had bumps which she thought for mosquito bites, didn't think anything of it, yesterday noticed that behind nails they are scabbyand have a pus like discharge, skin is very dry. Has the flu so is running a temp and feeling shortof breath at times, nothing severe. Had COVID 20 days ago, thought might be COVID toes, she also not ed rash on neck and shoulders. Denies injury to her feet, and reports she wears good fitting shoes. Scheduled telehealth appt at 10:15am with Ana María. * Telephone Encounter - Deanna Isaac - 11/27/2021 8:35 AM EDT Symptoms patient is presenting: Patient is having toe nail issues, her toe nails are turning purpleand itchy. For ALL patients calling to schedule any appointment (routine, sick visit, follow up, consult, etc.) in the outpatient setting please ask the following questions: ?? Do you have fever of higher than 101, sore throat with difficulty swallowing or severe shortnessof breath? NO If YES to any of these above symptoms, send a message to triage and do not book. Red dot. If no, an audio or video visit should be booked. ?? Have you had close contact with someone with Coronavirus in the last 14 days? NO ?? Have you traveled abroad? NO ?? Have you traveled recently to another state outside of [place], [place], [place], [place], [place], [place], [place]? NO o If yes, did you quarantine for 14 days or have a negative covid test? NO If yes to any of the above, patient is not to be scheduled in office until after 14 day quarantine or negative covid test. If pain or injury related was it due to an accident at work or from a motor vehicle accident? NO If yes, gather 3rd libertarian insurance information Date of accident/Injury: N/A How long has patient had these symptoms?: Yesterday PCP: Bobbi Conte Payor: [employer] / Plan: [employer] / Product Type: MEDICAID RISK documented in this encounter Plan of Treatment Not on file documented as of this encounter Visit Diagnoses Not on filedocumented in this encounter Care Teams High Speed Warper Tender Relationship Specialty Start Date End Date Bobbi Conte MD PCP - General Internal Medicine 11/06/20 Kacy Velasquez MD [address] [address] Surgeon Neurosurgery 07/09/23 Akua Crenshaw PA-C [address] [address] Specialist Neurosurgery 07/09/23 Alden Coates PA-C [address] [address] Specialist Neurosurgery 07/09/23 documented as of this encounter
--- OUTSIDE RECORDS SUMMARY | 2024-08-20 13:07 | XMS_ITS | Encounter Summary ---
Author Organization [facility] Address [address] [place] [address] Care Team Providers Care Macaroni Press Operator Name Role Phone Bobbi Conte MD Primary Care Provider [phone] Kacy Velasquez MD Unavailable [phone] Akua Crenshaw PA-C Unavailable [phone] Alden Coates PA-C Unavailable [phone] Encounter Details Date Type Department Care Team Description 04/20/2023 Pt. Non Urgent Medical Question Internal Medicine - [address], [address] [place] [address] Lizy Carpio MD [address] [place] [phone] Social History Tobacco Use Types Packs/Day Years Used Date Smoking Tobacco: Former Cigarettes Q uit: 08/2022 Smokeless Tobacco: Never Comments:on and off. Quit [...] was confirmed or suspected to have Coronavirus/COVID-19? No / Unsure 04/17/2023 8:56 AM EDT documented as of this encounter Miscellaneous Notes * Telephone Encounter - Akua Nicolas - 04/20/2023 10:43 AM EDTFrom: Leslie Isaac To: Irina Carpio Sent: 04/20/2023 9:20 AM EDT Subject: Work letter Andres just want to know when will I be able to bean picker my work letter? documented in this encounter Plan of Treatment Not on file documented as of this encounter Visit Diagnoses Not on filedocumented in this encounter Care Teams Macaroni Press Operator Relationship Specialty Start Date End Date Bobbi Conte MD PCP - General Internal Medicine 11/06/20 Kacy Velasquez MD [address] [address] Surgeon Neurosurgery 07/09/23 Akua Crenshaw PA-C [address] [address] Specialist Neurosurgery 07/09/23 Alden Coates PA-C [address] [address] Specialist Neurosurgery 07/09/23 documented as of this encounter
--- OUTSIDE RECORDS SUMMARY | 2024-08-20 13:07 | XMS_ITS | Encounter Summary ---
Author Organization [facility] Address [address] [place] [address] Care Team Providers Care Nurse Research Name Role Phone Bobbi Conte MD Primary Care Provider [phone] Kacy Velasquez MD Unavailable [phone] Akua Crenshaw PA-C Unavailable [phone] Alden Coates PA-C Unavailable [phone] Reason for Visit * Reason Onset Date Comments refill request 12/09/2023 Encounter Details Date Type Department Care Team Description 12/09/2023 Telephone OBGYN - [address] [place] [address] Cassandra Davis CN [address] [place] [address] refill request Social History Tobacco Use Types Packs/Day Years Used Date Smoking Tobacco: Former Cigarettes Q uit: 08/2022 Smokeless Tobacco: Never Comments:Pt quit vaping in a ugust 2022 Alcohol Use Standard Drinks/Week Comments Not Currently 0 (1 standard drink = 0.6 oz [...] file Not on file Not on file documented as of this encounter Miscellaneous Notes * Telephone Encounter - Ayesha Dukes M.A. - 2023 10:23 AM EDT Auth approved Exp 12/09/24 Ayesha Dukes Prior Auth Dep Ext [id number] * Telephone Encounter - Ayesha Dukes M.A. - 12/10/2023 2:52 PM EDT Auth called into [facility] Ayesha Dukes Prior Auth Dep Ext [id number] * Telephone Encounter - Jie Millan R.N. - 12/09/2023 2:55 PM EDT Prior auth, please obtain quantity limit override to allow for testing four times a day. Pt only has enough test strips to get her to Thursday. Thank you! Dx Gestational Diabetes Code: O24.419 * Telephone Encounter - Melonie Martinez - 12/09/2023 2:23 PM EDT Pt calling states her insurance will not cover her test strips for 4 times a day and patient is concerned because she only has enough to get her through 12-11-23. Pls advise documented in this encounter Plan of Treatment Not on file documented as of this encounter Visit Diagnoses Diagnosis Diet controlled gestational diabetes mellitus (GDM) in third trimester- Primary COVID-19 affecting in second trimester Rubella non-immune status, antepartum Other specified complication, antepartum Maternal obesity, antepartum Edema or excessive weight gain, antepartum Encounter for supervision of other normal , first trimester UTI in , antepartum Infections of genitourinary tract in , unspecified as to episode of care documented in this encounter Care Teams Nurse Research Relationship Specialty Start Date End Date Bobbi Conte MD PCP - General Internal Medicine 11/06/20 Kacy Velasquez MD 175 [facility] [address] [place] [address] Surgeon Neurosurgery 07/09/23 Akua Crenshaw PA-C [address] [address] Specialist Neurosurgery 07/09/23 Alden Coates PA-C 175 [facility] [address] [place] [address] Specialist Neurosurgery 07/09/23 documented as of this encounter
--- OUTSIDE RECORDS SUMMARY | 2024-08-20 13:07 | XMS_ITS | Encounter Summary ---
Author Organization [facility] Address [address] [place] [address] Care Team Providers Care Senior Site Manager Name Role Phone Bobbi Conte MD Primary Care Provider [phone] Kacy Velasquez MD Unavailable [phone] Akua Crenshaw PA-C Unavailable [phone] Alden Coates PA-C Unavailable [phone] Encounter Details Date Type Department Care Team Description 11/16/2023 Refill OBGYN - 271 [facility] [address] [place] [address] Cassandra Davis, DARSHAN [address] [place] [address] Social History Tobacco Use Types Packs/Day Years [...] on file documented as of this encounter Plan of Treatment Not on file documented as of this encounter Visit Diagnoses Diagnosis Diet controlled gestational diabetes mellitus (GDM) in third trimester documented in this encounter Care Teams Senior Site Manager Relationship Specialty Start Date End Date Bobbi Conte MD PCP - General Internal Medicine 11/06/20 Kacy Velasquez MD [address] [address] Surgeon Neurosurgery 07/09/23 Akua Crenshaw PA-C [address] [address] Specialist Neurosurgery 07/09/23 Alden Coates PA-C [address] [address] Specialist Neurosurgery 07/09/23 documented as of this encounter
--- OUTSIDE RECORDS SUMMARY | 2024-08-20 13:07 | XMS_ITS | Encounter Summary ---
Author Organization [facility] Address [address] [place] [address] Care Team Providers Care Customer Service Security Officer Name Role Phone Bobbi Conte MD Primary Care Provider [phone] Kacy Velasquez MD Unavailable [phone] Akua Crenshaw PA-C Unavailable [phone] Alden Coates PA-C Unavailable [phone] Encounter Details Date Type Department Care Team Description 04/24/2023 Pt. Non Urgent Medical Question Internal Medicine - [address], [address] [place] [address] Lizy Carpio MD [address] [place] [phone] Social History Tobacco Use Types Packs/Day [...] suspected to have Coronavirus/COVID-19? No / Unsure 04/27/2023 3:28 PM EDT documented as of this encounter Plan of Treatment Not on file documented as of this encounter Visit Diagnoses Not on filedocumented in this encounter Care Teams Customer Service Security Officer Relationship Specialty Start Date End Date Bobbi oCnte MD PCP - General Internal Medicine 11/06/20 Kacy Velasquez MD [address] [address] Surgeon Neurosurgery 07/09/23 Akua Crenshaw PA-C [address] [address] Specialist Neurosurgery 07/09/23 Alden Coates PA-C [address] [address] Specialist Neurosurgery 07/09/23 documented as of this encounter
--- OUTSIDE RECORDS SUMMARY | 2024-08-20 13:07 | XMS_ITS | Encounter Summary ---
Author Organization [facility] Address [address] [place] [address] Care Team Providers Care Pipeline Gang Supervisor Name Role Phone Bobbi Conte MD Primary Care Provider [phone] Kacy Velasquez MD Unavailable [phone] Akua Crenshaw PA-C Unavailable [phone] Alden Coates PA-C Unavailable [phone] Encounter Details Date Type Department Care Team Description 12/01/2023 Pt. Non Urgent Medical Question OBGYN - 271 [facility] 271 [place] [address] Chelsie Pal CN 175 [place] [address] Social History Tobacco Use Types [...] on filedocumented in this encounter Care Teams Pipeline Gang Supervisor Relationship Specialty Start Date End Date Bobbi Conte MD PCP - General Internal Medicine 11/06/20 Kacy Velasquez MD [address] [address] Surgeon Neurosurgery 07/09/23 Akua Crenshaw PA-C [address] [address] Specialist Neurosurgery 07/09/23 Alden Coates PA-C [address] [address] Specialist Neurosurgery 07/09/23 documented as of this encounter
--- OUTSIDE RECORDS SUMMARY | 2024-08-20 13:07 | XMS_ITS | Encounter Summary ---
Author Organization [facility] Address [address] [place] [address] Care Team Providers Care Labor Trainer Name Role Phone Bobbi Conte MD Primary Care Provider [phone] Kacy Velasquez MD Unavailable [phone] Akua Crenshaw PA-C Unavailable [phone] Alden Coates PA-C Unavailable [phone] Encounter Details Date Type Department Care Team Description 12/17/2023 Pt. Non Urgent Medical Question OBGYN - 271 [facility] [address] [place] [address] Chelsie Pal CN [address] [place] [address] Social History Tobacco Use Types [...] on filedocumented in this encounter Care Teams Labor Trainer Relationship Specialty Start Date End Date Bobbi Conte MD PCP - General Internal Medicine 11/06/20 Kacy Velasquez MD [address] [address] Surgeon Neurosurgery 07/09/23 Akua Crenshaw PA-C [address] [address] Specialist Neurosurgery 07/09/23 Alden Coates PA-C [address] [address] Specialist Neurosurgery 07/09/23 documented as of this encounter
--- OUTSIDE RECORDS SUMMARY | 2024-08-20 13:07 | XMS_ITS | Encounter Summary ---
Author Organization [facility] Address [address] [place] [address] Care Team Providers Care Gas Welding Equipment Mechanic Name Role Phone Bobbi Conte MD Primary Care Provider [phone] Kacy Velasquez MD Unavailable [phone] Akua Crenshaw PA-C Unavailable [phone] Alden Coates PA-C Unavailable [phone] Encounter Details Date Type Department Care Team Description 12/23/2023 Ichthyologist Report Medical Records [address] [place] [address] Abstract, Provider Social History Tobacco Use Types Packs/Day Years [...] on filedocumented in this encounter Care Teams Gas Welding Equipment Mechanic Relationship Specialty Start Date End Date Bobbi Conte MD PCP - General Internal Medicine 11/06/20 Kacy Velasquez MD [address] [address] Surgeon Neurosurgery 07/09/23 Akua Crenshaw PA-C [address] [address] Specialist Neurosurgery 07/09/23 Alden Coates PA-C [address] [address] Specialist Neurosurgery 07/09/23 documented as of this encounter
--- OUTSIDE RECORDS SUMMARY | 2024-08-20 13:07 | XMS_ITS | Encounter Summary ---
Author Organization [facility] Address [address] [place] [address] Care Team Providers Care Thermit Welding Machine Operator Name Role Phone Bobbi Conte MD Primary Care Provider [phone] Kacy Velasquez MD Unavailable [phone] Akua Crenshaw PA-C Unavailable [phone] Alden Coates PA-C Unavailable [phone] Encounter Details Date Type Department Care Team Description 08/20/2021 Refill Internal Medicine - [address], [address] [place] [address] Bobbi Conte MD [address] [place] [phone] Social History Tobacco Use Types Packs/Day [...] encounter Miscellaneous Notes * Telephone Encounter - Dilshad Miranda M.A. - 08/20/2021 1:30 PM EST Chris 01/25/21 Nov 08/27/21 Last filled on 08/02/21 Rx pended fwd to dr. Conte documented in this encounter Plan of Treatment Not on file documented as of this encounter Visit Diagnoses Not on filedocumented in this encounter Care Teams Thermit Welding Machine Operator Relationship Specialty Start Date End Date Bobbi Conte MD PCP - General Internal Medicine 11/06/20 Kacy Velasquez MD [address] [address] Surgeon Neurosurgery 07/09/23 Akua Crenshaw PA-C [address] [address] Specialist Neurosurgery 07/09/23 Alden Coates PA-C 175 [facility] [address] [place] [address] Specialist Neurosurgery 07/09/23 documented as of this encounter
--- OUTSIDE RECORDS SUMMARY | 2024-08-20 13:07 | XMS_ITS | Clinical Summary ---
Author Organization [facility] Address [address] [place] [address] Phone Care Team Providers Care Parts Counterperson Name Role Phone Bobbi Conte MD Primary Care Provider [phone] Allergies Active Allergy Reactions Criticality Noted Date Comments Allison 01/30/2021 Fish Containing Products 01/30/2021 Other 01/26/2020 Food allergy:cherries Medications cholecalciferol (VITAMIN D-3) 50 mcg (2,000 unit) tablet Take 1 tablet (2,000 Units total) by mouth 1 (one) time each day. 4 Active cyanocobalamin (VITAMIN B-12) 500 mcg tablet Take 1 tablet (500 mcg total) by mouth 1 (one) time each day. 4 Active famotidine (PEPCID) 20 mg tablet Take 1 tablet (20 mg total) by mouth 2 (two) times a day. 4 025 Active Vitamin iron fum-folic acid 27-0.8 mg per tablet Take 1 tablet by mouth 1 (one) time each day. 3 Active hydrOXYzine HCL (ATARAX) 25 mg tablet Take 1 tablet (25 mg total) by mouth every 8 (eight) hours if needed for itching. 3 Active ibuprofen (ADVIL,MOTRIN) 600 mg tablet Take 1 tablet (600 mg total) by mouth every 8 (eight) hours if needed for mild pain. 60 tablet 1 4 Active etonogestreL-ethi nyl estradioL (NUVARING) 0.12-0.015 mg/24 hr vaginal ringIndications:E ncounter for initial prescription of vaginal ring hormonal contraceptive Insert 1 each into the vagina every 28 (twenty-eight) days. Insert vaginally and leave in place for 3 consecutive weeks, then remove for 1 week. 1 each 026 Active Active Problems Problem Noted Date Diagnosed Date Paresthesias with subjective weakness 04/27/2024 Overview (05/18/2024): Last Assessment & Plan: Ms. Isaac describes an episode short while ago when she had some neck pain and felt like her arms froze and position out in front of her. She went to the emergency room at [facility] and it resolved spontaneously. She says the only other time she was ever paralyzed was after her second COVID shot. She denies any weakness in the arms at this time but does say that she has tingling in the bilateral upper extremities. She still has some neck pain. I am going to send her for some x-rays of the cervical spine and then for physical therapy of her neck including cervical traction. She will follow-up with us afterwards. I will try to obtain the report from [facility] emergency room. Gestational diabetes 10/22/2023 Overview (05/18/2024): Dx 31w3d 1hr glucose 243 1 hour test at 24-28 wks: >140 Perform 3 hour if 1 hr >200, patient is diagnosed with GDM and does not need 3-hr GTT Forward chart to P [id number] ([facility]) Nutrition: Appt 10/29/23 at 3:30pm with Talisha Adler RD- completed Diabetic teaching and visit with diabetic provider (Rufino or Vanda): Appt 11/01 at 3:00pm with Vanda Garcia CNM 4 times per day testing (fasting and 2 hour postprandial) to be reviewed weekly Goals: fasting <95, 2 hr PP <120 If > or = 1/3 elevated, send to diabetic provider for insulin therapy IF DIAGNOSED ON EARLY SCREENING: order a echocardiogram between 22-24 weeks - N/A Serial growth ultrasounds after diagnosis 11/19/23 at 2pm Growth Ultrasound: 6lb4oz ~ 62%tile 12/17/23 Growth: Cardiac Specialist on shoulder dystocia Deliver by 40 6/7 weeks 2 hour GTT at 6-12 weeks PP leave on problem list as ?history of? and add to overview recommendation for Q 1-3 year GTT with PCP Anemia 10/21/2023 Overview (05/18/2024): Cutoff hemoglobin levels: First trimester <11.0 Second trimester <10.5 Third trimester <11.0 <10.0 -If micro or normocytic anemia - tx with oral Fe (sulfate or gluconate) every other day, repeat CBC 2-3 weeks -If normalized, continue until 6 weeks -If not normalized, make sure compliant and if so, refer to Heme for iron infusion -If macrocytic anemia with MCV>100, then order B12 and folate levels and treat prn, recheck in 2-3 weeks -If normalized, continue until 6 weeks -If not, make sure compliant and if so, refer to Heme Iron deficiency anemia aliyah barboza to inadequate dietary iron intake 10/21/2023 COVID-19 affecting in second trimester 08/26/2023 Overview (05/18/2024): COVID in Growth scan at 4-6 weeks after COVID or 32 weeks, whichever is later. No other surveillance. Dx: 08/25/23 Sx: Started 08/24/23 Fever,Sore throat,Congestion,Body aches Chronic bilateral low back pain with left-sided sciatica 07/09/2023 Overview (05/18/2024): Last Assessment & Plan: Ms. Isaac describes chronic low back pain going on since before she knew she was last year. She describes pain from the low back coming down the anterolateral thigh to the knee and ca. She also has pain and numbness in the dorsum and toes of her foot. On exam, she walks with a short shuffling gait and does not lift her feet up much off of the floor. She has a little bit of a left-sided foot drop and some difficulty wiggling the toes of the left foot. Her MRI from [facility] on March 17, 2024 revealed degenerative changes with a disc bulge at L5-S1 with bilateral components. It deflected the traversing right S1 nerve root within the right subarticular zone. It also contacted the left S1 nerve root in the subarticular zone. There was a foraminal component that contacted the left L5 nerve root in the foramen. I explained to the patient that the MRI revealed disc bulging at L5-S1 but it did not really correlate with her symptoms which seemed more in line with a left L4 radiculopathy. 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 I told the patient I would review her films with Dr. Velasquez but that the MRI did not seem to match her symptoms and I did not think that there would be any surgery to offer. She asked for something for the neuropathy and we talked about Neurontin, but I would have concerns about the side effects as she says that her mental health is not good. I gave her a prescription for an AFO for the left foot. She is going to go for physical therapy and I will include the low back with her neck. She will follow-up with us in 6 to 8 weeks for repeat evaluation. ASCUS with positive high risk HPV cervical 06/30 Overview (05/18/2024): 2016 negative pap smear Colpo Alpha thalassemia silent carrier 06/15/2023 Overview (05/18/2024): + carrier for alpha thalessemia 06/15/2023 pt notified via [employer] in regards to getting fob tested.- NAYELI,RN Rubella non-immune status, antepartum 05/26/2023 Overview (05/18/2024): Equivocal Vaccinate PP - given 12/13/23 Maternal obesity, antepartum 05/25/2023 Overview (05/18/2024): BMI 37.4 HgbA1C and 1 hour GTT at initial labs ASA 162mg at 12 weeks until delivery Detailed anatomy ultrasound Repeat GTT 24-28 weeks if early is normal Pre-preg BMI 35-39.9: NST weekly at 37 weeks Pre-preg BMI >40: NST weekly at 34 weeks Pre-preg BMI >45: NST weekly at 32 weeks Growth US at 32 and 36 weeks for BMI >40 BMI of 50 by 28wks transfer to [facility] DVT prophylaxis- Lovenox if CS and BMI >35 Neuropathy 05/25/2023 Overview (05/18/2024): Of left leg and left foot Being followed by dr veras and physiatry. Pt wearing leg brace. She states the patient care will provide fmla forms if the condition should worsen as the progresses. UTI in , antepartum 05/25/2023 Overview (05/18/2024): Tx'd 05-20-23 WAN: 06/02/2023- Neg Anxiety 05/20/2023 Overview (05/18/2024): 05-19-23 pt advised she can take the vistaril as rx'd for anxiety and depression sx. [facility] going to refer her to behavioral health but pt also advised she can self refer herself. 05/25/2023 pt talks to a therapist q other week who she likes and is comfortable with. Pt states this person has known her since childhood. Pt denies depression or ever having negative thoughts about self/others - NAYELIRN Vaginal pain 05/18/2023 Overview (05/18/2024): Dr garcia referred pt to pelvic commercial floor covering installer 05-18-23 Last Assessment & Plan: GC/CT and genital culture collected to r/o infection. UA suspicious for UTI - urine culture sent, will treat as indicated. I suspect the pain is MSK related given exam findings. Recommend referral to pelvic floor PT, which patient accepts. I have agreed to give this patient intermittent leave given severity of symptoms every few days. Bilateral carpal tunnel syndrome 03/11/2023 Multiple renal cysts 03/20/2020 Overview (05/18/2024): Left upper pole nephrectomy age 4; multiple cysts Encounters Date Type Department Care Team Description 08/18/2024 2:45 PM EST Office Visit [facility] [address] [place] [phone] Vanda Garcia, DARSHANM Encounter for initial prescription of vaginal ring hormonal contraceptive (Primary Dx) 07/29/2024 3:00 PM EST Clinical Support [facility] [address] [place] [phone] Bad odor of urine (Primary Dx); Late menses from Last 3 Months Immunizations Name Administration Dates Next Due DTaP (Infanrix) 6wks to less than 7yo ,01/26/1996,12/23/1994,07/29,04/07/1994 DHaH-DYY-JIR (Pentacel) 2mo to less than 5yo 01/26/1996,07/29/1994,04/07/1994 HPV, Quadrivalent 04/04/2009,11/21/2008,08/31/19 09 Hepatitis A Adult (Havrix; V aqta) 19yo and older 02/05/2015 Hepatitis B Pediatric (Enger ix B; Recombivax HB) to less than 20 yo 01/02/1995,06/04/1994,01/02/1994 Influenza Quadravalent, MDCK , 0.5ml, preservative free (Flucelvax) 6mo and older 08/31/2023 Influenza trivalent, 0.5mL, preservative free (Fluarix; FluLaval; Fluzone) ages 6mo and older (Afluria) 3 years and older 05/21/2020,05/09/2014 MMR, measles mumps and rubel la Live (Priorix; M-M-R II) 12mo and older 12/13/2023,01/23/1999,12/23/1994 Meningococcal MCV4P 01/27/2006 OPV 01/23/1999, 5,07/29/1994,04/07 Tdap Tetanus diptheria acell ular pertussis (Boostrix; Adacel) 7yo and older 10/02/2023,01/27/2006 Surgical History Surgery Date Site/Laterality Comments NEPHRECTOMY 2000 Left PROCEDURE: HISTORICAL NEPHRECTOMY; COMMENT: partial WISDOM TOOTH EXTRACTION PROCEDURE: HISTORICAL WISDOM TEETH EXTRACTION Medical History Medical History Date Comments Infection of kidney 1999 DX:Infection of kidney; COMMENT: partial removal of left kidney Multiple renal cysts 03/20/2020 DX:Multiple renal cysts; COMMENT: Left upper pole nephrectomy age 4; multiple cysts Anxiety and depression 05/20/2023 DX:Anxiet y and depression Obesity 05/25/2023 DX:Obesity; COMM ENT: 37.4 Bilateral carpal tunnel syndrome DX:Bilateral carpal tunnel syndrome Mononeuropathy DX:Mononeuropath y; COMMENT: of left leg and left foot. being followed by physiatry, wearing a leg brace Thalassemia alpha carrier DX:Alex lassemia alpha carrier ASCUS with positive high ris k HPV cervical 06/30/2023 DX:ASCUS with positive high risk HPV cervical Right ovarian cyst 09/09/2022 DX:Right ovar rick cyst; COMMENT: 09/2022 The larger measures 4.1 x 3.7 x 4.9 cm. The smaller measures 4.5 x 3.8 x 2.4 cm. Resolved as of 06/2023 Iron deficiency anemia secon tamra to inadequate dietary iron intake 10/21/2023 DX:Iron deficiency anem ia secondary to inadequate dietary iron intake Gestational diabetes 10/22/2023 DX:Gestatio nal diabetes Family History Medical History Relation Name Comments No Known Problems Brother x2 Bipolar disorder Father Hypertension Father Hypertension Maternal Grandfather Diabetes Maternal Grandmother Hypertension Maternal Grandmother diabete s, arthritis Hypertension Mother history of DVT, Fibromyalgia; anxiety and depression Other: dvt Mother No Known Problems Paternal Grandfather No Known Problems Paternal Grandmother No Known Problems Sister x1 Other: autistic Son Other: kidney reflux Son Breast cancer Neg Hx Ovarian cancer Neg Hx Relation Name Status Comments Brother x2 Alive Father Alive Maternal Grandfather Alive Maternal Grandmother Alive Mother Alive Paternal Grandfather Paternal Grandmother Alive Sister x1 Alive Son Alive Social History Tobacco Use Types Packs/Day Years Used Date Smoking Tobacco: Former Cigarettes Q uit: 08/06/2022 Smokeless Tobacco: Never Alcohol Use Standard Drinks/Week Comments Not Currently 0 (1 standard drink = 0.6 oz pur e alcohol) Housing Instability Answer Date Recorde d Are you worried that in the next 2 months you may not have stable housing? No 08/18/2024 Food Access & Nutrition Answer Date Rec orded Do you have access to a vari ety of food including fruits and vegetables? Yes 08/18/2024 Health Literacy Answer Date Recorded How often do you need to hav e someone help you when you read instructions, pamphlets, or other written material from your doctor or pharmacy? Never 08/18/2024 Caregiver: How often do you need to have someone help you when you read instructions, pamphlets, or other written material from your doctor or pharmacy? Not on file 08/18/2024 Financial Risk Answer Date Recorded How hard is it for you to pa y for the very basics like food, housing, medical care, and air conditioning / heating? Not very hard 08/18/2024 Transportation Answer Date Recorded Has the lack of transportati on kept you from meetings, work, or from getting things needed for daily living? No Has the lack of transportati on kept you from medical appointments or from getting medications? No 08/18/2024 Social Isolation Answer Date Recorded How often do you feel lonely or isolated from those around you? Sometimes 08/18/2024 Food Risk Answer Date Recorded Within the past 12 months we worried whether our food would run out before we got money to buy more. Never true 08/18/2024 Within the past 12 months th e food we bought just didn't last and we didn't have money to get more. Never true 08/18/2024 Dependent Care Answer Date Recorded Do you need help finding or paying for care for your loved ones. For example, childhood teacher or elderly care for an older adult? No 08/18/2024 Education Answer Date Recorded Do you think completing more education or training, like finishing a GED, going to college, or learning a trade, would be helpful for you? Yes 08/18/2024 Employment and Income Answer Date Recor ded During the last four weeks, have you been actively looking for work? No 08/18/2024 Living Situation Answer Date Recorded What is your living situation? 0 08/18/2024 Comments No Sex and Gender Information Value Date Recorded Sex Assigned at Not on file Legal Sex Female 4:38 AM EST Gender Identity Not on file Sexual Orientation Not on file Obstetrics History Para Term AB IAB SAB Ectopic Multiple Livin g Live Births 2 2 2 2 2 Date Outcome GA Total Labor Labor/2nd/3rd Weight Sex Type Anes PTL Mily A1 A5 Name Clin 2011 Term 39w 0d 3175 g (112 oz) M Vag-S pont Epidur al N Livin g Jesse Complications:None Delivery Location:[facility] 2023 Term 38w 6d 3260 g (115 oz) F Vag-S pont Epidur al Livin g 8 9 Nhung ndra Allar d CNM Complications:None,Gestation al diabetes mellitus (GDM) Delivery Location:[facility] Comments:SROM. nuchal body cord & true knot. GDMA1 Last Filed Vital Signs Vital Sign Reading Time Taken Comments Blood Pressure 120/84 08/18/2024 2:49 PM EST Pulse 77 08/18/2024 2:49 PM EST Temperature - - Respiratory Rate 18 08/18/2024 2:49 PM EST Oxygen Saturation - - Inhaled Oxygen Concentration - - Weight 104 kg (229 lb) 08/18/2024 2:49 PM EST Height 165.1 cm (5' 5 ) 08/18/2024 2:49 PM EST Body Mass Index 38.11 08/18/2024 2:49 PM EST Plan of Treatment Health Maintenance Due Date Last Done Comments COVID-19 Vaccine ( season) 2024 10/16/2020, 09/25/2020 Influenza Vaccine (#1) 2024 , 05/21/2020, 05/09/2014, Additional history exists Depression Screening 08/18/2025 08/18/2024, 05/19/20 Social Influencers of Health Screening 08/18/2025 08/18/2024 Cholesterol Screening (Lipid Panel) 12/27/2027 12/26/2022 Cervical Cancer Screening: HPV 06/08/2028 06/08/2023 DTaP,Tdap,and Td Vaccines (8 - Td or Tdap) 10/01/2033 10/02/2023, 01/27/2006, 01/23/1999, Additional history exists Hepatitis B Vaccines Completed 01/02/1995, 06/04/1994, 01/02/1994 HIB Vaccines Completed 01/26/1996, 01/04, 07/29/1994, Additional history exists IPV Vaccines Completed 01/23/1999, 01/04, 12/23/1994, Additional history exists Meningococcal ACWY Vaccine Aged Out 01/27/2006 N o longer eligible based on patient's age to complete this topic HPV Vaccines Completed 04/04/2009, 11/03, 08/31/2008 Hepatitis A Vaccines Aged Out 02/05/2015 No long er eligible based on patient's age to complete this topic HIV Screening Completed 05/25/2023 Hepatitis C Screening Completed 05/25/2023 MMR Vaccines Completed 12/13/2023, 01/04, 12/23/1994 Meningococcal B Vacine Aged Out No lo nger eligible based on patient's age to complete this topic Pneumococcal Vaccine: Pediatrics (0 to 5 Years) and At-Risk Patients (6 to 64 Years) Aged Out No longer eligible based on patient's age to complete this topic RSV Immunization Patients Under 20 months Aged Out No longer eligible based on patient's age to complete this topic Varicella Vaccines Aged Out No longer eligible based on patient's age to complete this topic Procedures Procedure Name Priority Date/Time Associated Diagnosis Comments POC , URINE DIAGNOSTIC Routine 08/18/2024 3:41 PM EST Encounter for initial prescription of vaginal ring hormonal contraceptive POC , URINE DIAGNOSTIC Routine 07/29/2024 3:35 PM EST Late menses POC URINE AUTO W/O MICRO Routine 07/29/2024 3:27 PM EST Bad odor of urine HPV Routine 06/08/2023 HEPATITIS C SCREENING Routine 05/25/2023 HIV SCREENING Routine 05/25/2023 DEPRESSION SCREENING Routine 05/19/2023 LIPID PANEL Routine 12/26/2022 from Last 3 Months or Most Recently Relevant to Health Maintenance Results * POC , urine manually resulted (08/18/2024 3:41 PM EST) Only the most recent of2 resultswithin the time period is included. HCG, Ur POC Negative Negative POC hCG Int QC Pass? Yes Yes Urine Urine specimen obtained by clean catch procedure / Unknown 08/18/2024 3:41 PM EST Result [facility] Vanda Garcia [facility] POINT OF CARE TEST ENTE R/EDIT ORDERABLES Final Result * (ABNORMAL) POC Urine Auto W/O Micro (07/29/2024 3:27 PM EST) [facility] Leukocytes UA POC Positive(A) Negative Nitrite UA POC Negative Negative Urobilinogen UA POC Negative Negative Protein UA POC Negative Negative PH UA POC 5.0 5.0 - 9.0 Blood UA POC Negative Negative, Trace Specific [place] UA POC 1.020 1.001 - 1.035 Ketones UA POC Negative Negative Bilirubin UA POC Positive(A) Negative Glucose UA POC Normal Normal, Trace Urine Urine specimen obtained by clean catch procedure / Unknown 07/29/2024 3:27 PM EST Narrative Jie Millan RN - 07/29/2024 3:27 PM EST Dylan 1mg/dL ASC 10mg/dL Leuk 500 silverio/ul Result [facility] Talisha Cortes [facility] POINT OF CARE TEST ENTER/FLYNN T ORDERABLES Final Result * Cervical Cancer Screening: HPV (06/08/2023) [facility] Cervical Cancer Screening: HPV positive, abstracted [facility] Provider HEALTH MAINTENANCE Final Result * HIV Screening (05/25/2023) [facility] HIV Screening abstracted [facility] Provider HEALTH MAINTENANCE Final Result * Hepatitis C Screening (05/25/2023) [facility] Hepatitis C Screening abstracted [facility] Provider HEALTH MAINTENANCE Final Result * Depression Screening (05/19/2023) [facility] Depression Screening abstracted [facility] Provider HEALTH MAINTENANCE Final Result * Lipid panel (12/26/2022) LDL/HDL Ratio 3 0 - 4 Triglycerides 95 0 - 150 mg/dL Cholesterol 135 0 - 200 mg/dL HDL 46 >=40 mg/dL LDL Cholesterol 70 0 - 100 mg/dL Blood Venous blood specimen / Unknown us Historical Provider LAB BLOOD ORDERABLES Maribell l Result from Last 3 Months or Most Recently Relevant to Health Maintenance Insurance [address] [address] [place] [address] Care Teams Parts Counterperson Relationship Specialty Start Date End Date Bobbi Conte MD [address] [phone] PCP - General Internal Medicine 06/07/24
--- OUTSIDE RECORDS SUMMARY | 2024-08-20 13:07 | XMS_ITS | Encounter Summary ---
Author Organization [facility] Address [address] [place] [address] Care Team Providers Care Macaroni Maker Name Role Phone Bobbi Conte MD Primary Care Provider [phone] Kacy Velasquez MD Unavailable [phone] Akua Crenshaw PA-C Unavailable [phone] Alden Coates PA-C Unavailable [phone] Encounter Details Date Type Department Care Team Description 11/23/2023 Pt. Non Urgent Medical Question OBGYN - [address] [facility] [address] [place] [address] Chelsie Pal CN [address] [place] [address] Social History Tobacco Use Types [...] filedocumented in this encounter Care Teams Macaroni Maker Relationship Specialty Start Date End Date Bobbi Conte MD PCP - General Internal Medicine 11/06/20 Kacy Velasquez MD [address] [address] Surgeon Neurosurgery 07/09/23 Akua Crenshaw PA-C [address] [address] Specialist Neurosurgery 07/09/23 Alden Coates PA-C [address] [address] Specialist Neurosurgery 07/09/23 documented as of this encounter
--- OUTSIDE RECORDS SUMMARY | 2024-08-20 13:07 | XMS_ITS | Encounter Summary ---
Author Organization [facility] Address [address] [place] [address] Care Team Providers Care Remediation Consultant Name Role Phone Bobbi Conte MD Primary Care Provider [phone] Kacy Velasquez MD Unavailable [phone] Akua Crenshaw PA-C Unavailable [phone] Alden Coates PA-C Unavailable [phone] Encounter Details Date Type Department Care Team Description 08/02/2021 Refill Internal Medicine - [address], [address] [place] [address] Bobbi Conte MD [address] [place] [phone] Social History Tobacco Use Types Packs/Day [...] on filedocumented in this encounter Care Teams Remediation Consultant Relationship Specialty Start Date End Date Bobbi Conte MD PCP - General Internal Medicine 11/06/20 Kacy Velasquez MD 175 [facility] [address] [place] [address] Surgeon Neurosurgery 07/09/23 Akua Crenshaw PA-C [address] [address] Specialist Neurosurgery 07/09/23 Alden Coates PA-C 175 [facility] [address] [place] [address] Specialist Neurosurgery 07/09/23 documented as of this encounter
--- OUTSIDE RECORDS SUMMARY | 2024-08-20 13:07 | XMS_ITS | Encounter Summary ---
Author Organization [facility] Address [address] [place] [address] Care Team Providers Care Shop Mechanic Helper Name Role Phone Bobbi Conte MD Primary Care Provider [phone] Kacy Velasquez MD Unavailable [phone] Akua Crenshaw PA-C Unavailable [phone] Alden Coates PA-C Unavailable [phone] Reason for Visit * Reason Onset Date Comments 05/06/2023 Encounter Details Date Type Department Care Team Description 05/06/2023 Telephone OBGYN - 271 [facility] [address] [place] [address] Chelsie Pal CN 175 [place] [address] Social History Tobacco Use Types [...] suspected to have Coronavirus/COVID-19? No / Unsure 05/05/2023 10:50 AM EDT documented as of this encounter Miscellaneous Notes * Telephone Encounter - Candice Gilbert - 05/06/2023 11:39 AM EDT Chief Complaint/problem: Pt is 7 weeks and is having acute pelvic pain/cramps. Had some bleeding on Thursday. Is at work right now. How long has the patient had this problem? 20 mins ago Pt???s STOCK SORTER provider: Chelsie Pal CNM Last menstrual period (LMP) or EDC (due date): edc 12/27 Spoke with nurse and advised to go to the hospital documented in this encounter Plan of Treatment Not on file documented as of this encounter Visit Diagnoses Not on filedocumented in this encounter Care Teams Shop Mechanic Helper Relationship Specialty Start Date End Date Bobbi Conte MD PCP - General Internal Medicine 11/06/20 Kacy Velasquez MD 175 [facility] [address] [place] [address] Surgeon Neurosurgery 07/09/23 Akua Crenshaw PA-C 175 [facility] [address] [place] [address] Specialist Neurosurgery 07/09/23 Alden Coates PA-C 175 [facility] [address] [place] [address] Specialist Neurosurgery 07/09/23 documented as of this encounter
--- OUTSIDE RECORDS SUMMARY | 2024-08-20 13:08 | XMS_ITS | Encounter Summary ---
Author Organization [facility] Address [address] [place] [address] Care Team Providers Care Car Stower Name Role Phone Bobbi Conte MD Primary Care Provider Kacy Velasquez MD Unavailable [phone] Akua Crenshaw PA-C Unavailable [phone] Alden Coates PA-C Unavailable [phone] Encounter Details Date Type Department Care Team Description 06/18/2023 Pt. Non Urgent Medical Question OBGYN - 271 [facility] 271 [place] [address] Chelsie Pal CN 175 [place] [address] Social History Tobacco Use Types [...] on filedocumented in this encounter Care Teams Car Stower Relationship Specialty Start Date End Date Bobbi Conte MD PCP - General Internal Medicine 11/06/20 Kacy Velasquez MD [address] [address] Surgeon Neurosurgery 07/09/23 Akua Crenshaw PA-C [address] [address] Specialist Neurosurgery 07/09/23 Alden Coates PA-C [address] [address] Specialist Neurosurgery 07/09/23 documented as of this encounter
--- OUTSIDE RECORDS SUMMARY | 2024-08-20 13:08 | XMS_ITS | Encounter Summary ---
Author Organization [facility] Address [address] [place] [address] Care Team Providers Care Helicopter Repairer Name Role Phone Bobbi Conte MD Primary Care Provider Kacy Velasquez MD Unavailable [phone] Akua Crenshaw PA-C Unavailable Alden Coates PA-C Unavailable Encounter Details Date Type Department Care Team Description 04/27/2024 SCAN [facility] Neurosurgery [facility] [address] [phone] Alden Coates PA-C [address] [id number] Social History Tobacco Use Types Packs/Day Years [...] on filedocumented in this encounter Care Teams Helicopter Repairer Relationship Specialty Start Date End Date Bobbi Conte MD PCP - General Internal Medicine 11/06/20 Kacy Velasquez MD [address] [address] Surgeon Neurosurgery 07/09/23 Akua Crenshaw PA-C [address] [address] Specialist Neurosurgery 07/09/23 Alden Coates PA-C [address] [address] Specialist Neurosurgery 07/09/23 documented as of this encounter
--- OUTSIDE RECORDS SUMMARY | 2024-08-20 13:08 | XMS_ITS | Encounter Summary ---
Author Organization [facility] Address [address] [place] [address] Care Team Providers Care Underground Mine Machinery Mechanic Name Role Phone Bobbi Conte MD Primary Care Provider [phone] Kacy Velasquez MD Unavailable [phone] Akua Crenshaw PA-C Unavailable [phone] Alden Coates PA-C Unavailable [phone] Reason for Visit * Reason Onset Date Comments PT-1 03/03/2024 Encounter Details Date Type Department Care Team Description 03/03/2024 Telephone Internal Medicine - [address], [address] [place], [place] [phone] Bobbi Conte MD [address] [place] [address] PT-1 Social History Tobacco Use Types Packs/Day Years [...] on filedocumented in this encounter Care Teams Underground Mine Machinery Mechanic Relationship Specialty Start Date End Date Bobbi Conte MD PCP - General Internal Medicine 11/06/20 Kacy Velasquez MD [address] [address] Surgeon Neurosurgery 07/09/23 Akua Crenshaw PA-C [address] [address] Specialist Neurosurgery 07/09/23 Alden Coates PA-C [address] [address] Specialist Neurosurgery 07/09/23 documented as of this encounter
--- OUTSIDE RECORDS SUMMARY | 2024-08-20 13:08 | XMS_ITS | Encounter Summary ---
Author Organization [facility] Address [address] [place] [address] Care Team Providers Care Academic Affairs Director Name Role Phone Bobbi Conte MD Primary Care Provider [phone] Reason for Visit * Reason Comments Procedure Encounter Details Date Type Department Care Team (Latest Contact Info) Description 08/18/2024 2:45 PM EST Office Visit [facility]st[facility]s [facility] [address] [place] [address] Vanda Garcia, POWER [address] [place] [address] Encounter for initial prescription of vaginal ring hormonal contraceptive (Primary Dx) Social History Tobacco Use Types Packs/Day Years [...] care for your loved ones. For example, early childhood assistant or elderly care for an older adult? [...] on file Sexual Orientation Not on file documented as of this encounter Last Filed Vital Signs Vital Sign Reading [...] Mass Index 38.11 08/18/2024 2:49 PM EST documented in this encounter Ordered Prescriptions Prescription Sig Dispense Quantity Refills Last Filled Start Date End Date etonogestreL-ethin yl estradioL (NUVARING) 0.12-0.015 mg/24 hr vaginal ringIndications:En counter for initial prescription of vaginal ring hormonal contraceptive Insert 1 each into the vagina every 28 (twenty-eight) days. Insert vaginally and leave in place for 3 consecutive weeks, then remove for 1 week. 1 each 08/18/2024 documented in this encounter Progress Notes * Vanda Garcia, POWRE - 08/18/2024 2:45 PM EST 08/18/2024 Chief Complaint Patient presents with Procedure Subjective: Leslie Isaac is a 28 y.o. No obstetric history on file. who presents for discussion of control. Originally thought she wanted a paragard. When we discussed side effects and bleeding with paragard she wanted to know what her other options were. She has had the Mirena in the past but took it out because of abnormal bleeding. LMP07/30/2024. Normal periods. Reg x 4-5 days. Heavy first day. NoUPIC since LMP. UPT neg. Review of Systems: As in HPI. Review of Systems - General ROS: negative Psychological ROS: negative Breast ROS: negative for breast lumps Respiratory ROS: no cough, shortness of breath, or wheezing Cardiovascular ROS: no chest pain or dyspnea on exertion Gastrointestinal ROS: no abdominal pain, change in bowel habits, or black or bloody stools Genito-Urinary ROS: no dysuria, trouble voiding, or hematuria Patient Active Problem List Diagnosis Alpha thalassemia silent carrier Anemia Anxiety ASCUS with positive high risk HPV cervical Bilateral carpal tunnel syndrome Chronic bilateral low back pain with left-sided sciatica COVID-19 affecting in second trimester Gestational diabetes Iron deficiency anemia secondary to inadequate dietary iron intake Maternal obesity, antepartum Multiple renal cysts Neuropathy Paresthesias with subjective weakness Rubella non-immune status, antepartum UTI in , antepartum Vaginal pain Past Medical History: Diagnosis Date Anxiety and depression 05/20/2023 DX:Anxiety and depression ASCUS with positive high risk HPV cervical 06/30/2023 DX:ASCUS with positive high risk HPV cervical Bilateral carpal tunnel syndrome DX:Bilateral carpal tunnel syndrome Gestational diabetes 10/22/2023 DX:Gestational diabetes Infection of kidney 1999 DX:Infection of kidney; COMMENT: partial removal of left kidney Iron deficiency anemia secondary to inadequate dietary iron intake 10/21/2023 DX:Iron deficiency anemia secondary to inadequate dietary iron intake Mononeuropathy DX:Mononeuropathy; COMMENT: of left leg and left foot. being followed by physiatry, wearing a leg brace Multiple renal cysts 03/20/2020 DX:Multiple renal cysts; COMMENT: Left upper pole nephrectomy age 4; multiple cysts Obesity 05/25/2023 DX:Obesity; COMMENT: 37.4 Right ovarian cyst 09/09/2022 DX:Right ovarian cyst; COMMENT: 09/2022 The larger measures 4.1 x 3.7 x 4.9 cm. The smaller measures4.5 x 3.8 x 2.4 cm. Resolved as of 06/2023 Thalassemia alpha carrier DX:Thalassemia alpha carrier Past Surgical History: Procedure Laterality Date NEPHRECTOMY Left 1999 PROCEDURE: HISTORICAL NEPHRECTOMY; COMMENT: partial WISDOM TOOTH EXTRACTION PROCEDURE: HISTORICAL WISDOM TEETH EXTRACTION Family History Problem Relation Name Age of Onset Other (Other: dvt) Mother Hypertension Mother history of DVT, Fibromyalgia; anxiety and depression Hypertension Father Bipolar disorder Father No Known Problems Sister x1 No Known Problems Brother x2 Diabetes Maternal Grandmother Hypertension Maternal Grandmother diabetes, arthritis Hypertension Maternal Grandfather No Known Problems Paternal Grandmother No Known Problems Paternal Grandfather Other (Other: kidney reflux) Son Other (Other: autistic) Son Breast cancer Neg Hx Ovarian cancer Neg Hx Social History Socioeconomic History Marital status: Single Spouse name: Not on file Number of children: Not on file Years of education: Not on file Highest education level: Not on file Occupational History Not on file Tobacco Use Smoking status: Former Current packs/day: 0.00 Types: Cigarettes Quit date: 08/06/2022 Years since quittin.0 Smokeless tobacco: Never Substance and Sexual Activity Alcohol use: Not Currently Drug use: No Sexual activity: Not on file Other Topics Concern Not on file Social History Narrative Lives with her son in her own apartment 05/25/2023 10w1d based off of lmp confirmed by ultrasound. Pt is present with boyfriend of 7 months Clifford Verma 01[birth year]02[birth year]93, . Bothare happy about planned . FOB asking quest ions appropriately and interested in care. He has no living children. He is hoping for a boy. They currently live together in her apartment but just got pre-approved to buy a house. 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 She is taking otc vitamins. Her pregnacy has been c/b vaginal pain for which she saw dr garcia, referred to pelvic floor therapy, left leg/foot neuropathy referred to physiatry by dr veras, and nausea/vomiting. Pt states the fancy needleworker told her they could write her fmla if she is not able to work because of the pain and leg giving out. Ptis aware of early 1 hr and asa regimen . She accepts panorama and horizon genetic screening. She denies dv, substance abuse or mental illness. She does stewart ve anxiety , she talks to a therapist once q 2 weeks. Her therapist has known her since childhood. Per dr ballard pt can take vistaril prn for anxiety. Pt has one dose left of antibiotics for uti.Urine culture will be repeated at upcoming visit. Pts son goes to [facility]. Baby basics reviewed - NAYELI,RN 2023: Lives with son and partner, preg, unemployed now, OB History No obstetric history on file. Prior to Admission medications Medication Sig Start Date End Date Taking? Authorizing Provider cholecalciferol (VITAMIN D-3) 50 mcg (2,000 unit) tablet Take 1 tablet (2,000 Units total) by mouth1 (one) time each day. 04/07/24 Historical Provider, cyanocobalamin (VITAMIN B-12) 500 mcg tablet Take 1 tablet (500 mcg total) by mouth 1 (one) time each day. 04/07/24 Historical Provider, famotidine (PEPCID) 20 mg tablet Take 1 tablet (20 mg total) by mouth 2 (two) times a day. Patient not taking: Reported on 07/29/2024 08/04/23 08/28/24 Historical Provider, hydrOXYzine HCL (ATARAX) 25 mg tablet Take 1 tablet (25 mg total) by mouth every 8 (eight) hours ifneeded for itching. 03/11/23 Historical Provider, ibuprofen (ADVIL,MOTRIN) 600 mg tablet Take 1 tablet (600 mg total) by mouth every 8 (eight) hours if needed for mild pain. 06/16/24 Bobbi Conte MD Vitamin iron fum-folic acid 27-0.8 mg per tablet Take 1 tablet by mouth 1 (one) time each day. Patient not taking: Reported on 07/29/2024 04/17/23 Historical Provider, Allergies Allergen Reactions Allison Fish Containing Products Other Food allergy:cherries Objective: Vitals: 08/18/24 1449 BP: 120/84 BP Location: Left arm Patient Position: Sitting Pulse: 77 Resp: 18 Weight: 104 kg (229 lb) Height: 1.651 m (65 ) Gen: Well-appearing on today's exam NEUROLOGIC: speech fluent, grossly intact PSYCH: Mood and affect appropriate. Alert and oriented x 3. 1) control pill. This is the method that is the most popular and many consider the easiest. It also leads to a reduction in the intensity of bleeding and cramping with periods. However, it is dependent on a woman remembering to take the pill on a daily basis. Occasional side effects can include bloating, breast tenderness, headaches, and irregular bleeding, but these are usually short term and resolve with time. 2) The Nuvaring. This works in the same principle as the control pill. However, it does not require a daily action by the woman to be effective. The Nuvaring is inserted on the Thursday of her period. The ring isthen left in place for 3 weeks (until the Thursday). It is then removed and left out for a week. A new Nuvaring is then inserted the following Thursday and the cycle starts over. The potential side ef fects are similar to the pill, but the Nuvaring is slightly more effective because it won't be affected by GI issues. 3) Depo Provera. This is a shot that is given in the office every 90 days (3 months). The follow up shots can be scheduled and noted on a calendar to make it easy to remember. Some women do have irregular bleeding inthe first few months of the depo, but periods often subside after a woman has utilized this methos for several months. However, if a woman decides that they don't like the depo Provera, they have to wait for it to wear off, which can be a few months (longer than the 90 days from the last shot). 4) IUD. I discussed the device and the insertion procedure. I discussed that there is a 10 year copper IUD and a 8 year progesterone IUD. I discussed that women generally have a reduction in bleeding with the hormonal IUD. Less than 5% of women wish to have the IUD removed because of side effects they attribute to the IUD. Less than 5% of IUDs are displaced or expelled after being placed. We have women come back in a fewweeks after insertion to check proper placement with ultrasound. Significant risks are uncommon, but I did discuss the risk is of uterine perforation. If the IUD becomes embedded in the wall of the uterus during insertion it could eventually perforate all the way through the wall of the uterus into the abdominal cavity. If this occurred it would have to be removed surgically. 5) Nexplanon. I discussed the device and the insertion procedure. I told her that the Nexplanon is approved for 3 years. Many women have a reduction in bleeding, although there can be irregular vaginal bleeding at the beginning. This is the most effective method of the ones mentioned. PLAN: Reviewed with patient all options including pills, patch, ring, IUDs, implants and depoprovera. Discussed side effects, risks and benefits. After careful consideration, she has chosen NuvaRing vaginal inserts . Hormonal method. She was instructed in the proper initiation of the method and how to use, as well as the following side effects and potential complications, including headaches, nausea, irregular breakthrough bleeding for a few months, weight gain, risk of DVT, migraine headaches, cholelithiasis, hypertension. Advised control does not protect against STI and condoms should be used when entering a new relationship or in relationships that involve mulitple partners. Discussed strategies to reduce risk of exposure to STIs such as yearly screening, condoms. monogomous relationships, and communication with partners about STI status. documented in this encounter Plan of Treatment Not on file documented as of this encounter Procedures Procedure Name Priority Date/Time Associated Diagnosis Comments POC , URINE DIAGNOSTIC Routine 08/18/2024 3:41 PM EST Encounter for initial prescription of vaginal ring hormonal contraceptive documented in this encounter Results * POC , urine manually resulted (08/18/2024 3:41 PM EST) HCG, Ur POC Negative Negative POC hCG Int QC Pass? Yes Yes Urine Urine specimen obtained by clean catch procedure / Unknown 08/18/2024 3:41 PM EST Vanda Garcia CNM POINT OF CARE TEST ENTE R/EDIT ORDERABLES Final Result documented in this encounter Visit Diagnoses Diagnosis Encounter for initial prescription of vaginal ring hormonal contraceptive- Primary documented in this encounter Additional Health Concerns Assessment Noted Time PHQ-9 Depression Total Score: 5 08/18/19 25 10:29 AM EST documented as of this encounter Care Teams Academic Affairs Director Relationship Specialty Start Date End Date Bobbi Conte MD [address] [place] [phone] PCP - General Internal Medicine 06/07/24 documented as of this encounter
--- OUTSIDE RECORDS SUMMARY | 2024-08-20 13:08 | XMS_ITS | Encounter Summary ---
Author Organization [facility] Address [address] [place] [address] Care Team Providers Care Statistical Financial Analyst Name Role Phone Bobbi Conte MD Primary Care Provider [phone] Kacy Velasquez MD Unavailable [phone] Akua Crenshaw PA-C Unavailable [phone] Alden Coates PA-C Unavailable [phone] Encounter Details Date Type Department Care Team Description 09/23/2023 Pt. Non Urgent Medical Question OBGYN - 271 [facility] [address] [place] [address] Chelsie Pal CN 175 [place] [address] Social History Tobacco Use Types [...] on filedocumented in this encounter Care Teams Statistical Financial Analyst Relationship Specialty Start Date End Date Bobbi Conte MD PCP - General Internal Medicine 11/06/20 Kacy Velasquez MD [address] [address] Surgeon Neurosurgery 07/09/23 Akua Crenshaw PA-C [address] [address] Specialist Neurosurgery 07/09/23 Alden Coates PA-C [address] [address] Specialist Neurosurgery 07/09/23 documented as of this encounter
--- OUTSIDE RECORDS SUMMARY | 2024-08-20 13:08 | XMS_ITS | Encounter Summary ---
Author Organization [facility] Address [address] [place] [address] Care Team Providers Care Cracking Still Operator Name Role Phone Bobbi Conte MD Primary Care Provider [phone] Kacy Velasquez MD Unavailable [phone] Akua Crenshaw PA-C Unavailable [phone] Alden Coates PA-C Unavailable [phone] Reason for Visit * Reason Onset Date Comments Knee Pain 01/23/2021 Encounter Details Date Type Department Care Team Description 01/23/2021 Telephone Adult Medicine [address] [address] Bobbi Conte MD [address] [place] [phone] Knee Pain Social History Tobacco Use Types Packs/Day Years Used Date Smoking Tobacco: Some Days Cigarettes Smokeless Tobacco: Never Comments:on and off. [...] Exposure Response Date Recorded In the last month, have you been in contact with someone who was confirmed or suspected to have Coronavirus / COVID-19? No / Unsure 01/25/2021 11:02 AM EDT documented as of this encounter Miscellaneous Notes * Telephone Encounter - Karina Solano L.P.N. - 01/24/2021 10:47 AM EDT Spoke with patient states mone knee pain X 1 week with unsteady gait, painful when walks up stairs or long distance Denies any swelling or redness States mone ankles swell up at times Using ibuprofen and tylenol prn with minimal effect Will see you on Thursday thanks * Telephone Encounter - Kylah Jimi - 01/23/2021 2:51 PM EDT Symptoms patient is presenting: Both knees hurting. Pt states that it hurts when she goes up stairsand, long walks also, sometimes looses her balance. For ALL patients calling to schedule any [...] traveled recently to another state outside of [place], [place], [place], [place], [place], [place], [place]? NO o If yes, did you [...] vehicle accident? NO If yes, gather 3rd constitution party insurance information Date of accident/Injury: How long has patient had these symptoms?: ongoing for months PCP: Bobbi Conte Payor: [employer] FFS / Plan: Local Plant Source ALLIANCE / Product Type: MEDICAID RISK documented in this encounter Plan of Treatment Not on file documented as of this encounter Visit Diagnoses Not on filedocumented in this encounter Care Teams Cracking Still Operator Relationship Specialty Start Date End Date Bobbi Conte MD PCP - General Internal Medicine 11/06/20 Kacy Velasquez MD [address] [address] Surgeon Neurosurgery 07/09/23 Akua Crenshaw PA-C [address] [address] Specialist Neurosurgery 07/09/23 Alden Coates PA-C [address] [address] Specialist Neurosurgery 07/09/23 documented as of this encounter
--- OUTSIDE RECORDS SUMMARY | 2024-08-20 13:08 | XMS_ITS | Encounter Summary ---
Author Organization [facility] Address [address] [place] [address] Care Team Providers Care Installer Molding And Trim Name Role Phone Bobbi Conte MD Primary Care Provider [phone] Kacy Velasquez MD Unavailable [phone] Akua Crenshaw PA-C Unavailable [phone] Alden Coates PA-C Unavailable [phone] Encounter Details Date Type Department Care Team Description 04/04/2024 Refill Internal Medicine - [address], [address] [place] [address] Bobbi Conte MD [address] [place] [phone] Social History Tobacco Use Types Packs/Day [...] Miscellaneous Notes * Telephone Encounter - Akua Blount M.A. - 04/06/2024 12:59 PM EDT VITAMIN B12 Date/Time Value Ref Range Status 12/26/2022 07:43 AM 286 250 - 900 pg/mL Final Lab Results Component Value Date 25OHD 29 12/26/2022 documented in this encounter Plan of Treatment Not on file documented as of this encounter Visit Diagnoses Not on filedocumented in this encounter Care Teams Installer Molding And Trim Relationship Specialty Start Date End Date Bobbi Conte MD PCP - General Internal Medicine 11/06/20 Kacy Velasquez MD 175 [facility] [address] [place] [address] Surgeon Neurosurgery 07/09/23 Akua Crenshaw PA-C 175 [facility] [address] [place] [address] Specialist Neurosurgery 07/09/23 Alden Coates PA-C 175 [facility] [address] [place] [address] Specialist Neurosurgery 07/09/23 documented as of this encounter
--- OUTSIDE RECORDS SUMMARY | 2024-08-20 13:08 | XMS_ITS | Encounter Summary ---
Author Organization [facility] Address [address] [place] [address] Care Team Providers Care Child Health Associate Name Role Phone Basil Mcallister MD Primary Care Provider Bobbi Meek MD Primary Care Provider [phone] Kacy Velasquez MD Unavailable [phone] Akua Crenshaw PA-C Unavailable [phone] Alden Coates PA-C Unavailable [phone] Encounter Details Date Type Department Care Team Description 02/01/2020 Release of Information Medical Records [address] [place] [address] Abstract, Provider Social History Tobacco Use Types [...] on file documented as of this encounter Nursing Notes * Renuka Ferny - 02/01/2020 3:18 PM EDT AUTHORIZATION TO OBTAIN RECORDS MAILED TO [facility]. documented in this encounter Plan of Treatment Not on file documented as of this encounter Visit Diagnoses Not on filedocumented in this encounter Care Teams Child Health Associate Relationship Specialty Start Date End Date Basil Mcallister MD PCP - General Internal Medicine 07/28/19 11/05/20 Bobbi Conte MD PCP - General Internal Medicine 11/06/20 Kacy Velasquez MD [address] [address] Surgeon Neurosurgery 07/09/23 Akua Crenshaw PA-C [address] [address] Specialist Neurosurgery 07/09/23 Alden Coates PA-C 175 [facility] [address] [place] [address] Specialist Neurosurgery 07/09/23 documented as of this encounter
--- OUTSIDE RECORDS SUMMARY | 2024-08-20 13:08 | XMS_ITS | Encounter Summary ---
Author Organization [facility] Address [address] [place] [address] Care Team Providers Care Counseling Psychologist Name Role Phone Bobbi Conte MD Primary Care Provider [phone] Kacy Velasquez MD Unavailable [phone] Akua Crenshaw PA-C Unavailable [phone] Alden Coates PA-C Unavailable [phone] Reason for Visit * Reason Onset Date Comments REFERRAL 06/16/2023 Neurology Encounter Details Date Type Department Care Team Description 06/16/2023 Telephone OBGYN - 271 [facility] [address] [place] [address] Cassandra Davis CNM 175 [place] [address] REFERRAL (Neurology ) Social History Tobacco Use Types Packs/Day Years [...] suspected to have Coronavirus/COVID-19? No / Unsure 05/18/2023 1:01 PM EST documented as of this encounter Miscellaneous Notes * Telephone Encounter - Melonie Martinez - 06/16/2023 2:09 PM EST [facility] neurology calling, state they had received an referral for patient, however they state there is no further testing to be done at this point, due to patient being . They ask patientcan be referred once again once patient delivers. [phone] documented in this encounter Plan of Treatment Not on file documented as of this encounter Visit Diagnoses Diagnosis Obesity (BMI 35.0-39.9 without comorbidity)- Primary Obesity, unspecified Encounter for supervision of other normal , first trimester Neuropathy Mononeuritis of unspecified site Anxiety Anxiety state, unspecified Abnormal genetic test documented in this encounter Care Teams Counseling Psychologist Relationship Specialty Start Date End Date Bobbi Conte MD PCP - General Internal Medicine 11/06/20 Kacy Velasquez MD [address] [address] Surgeon Neurosurgery 07/09/23 Akua Crenshaw PA-C [address] [address] Specialist Neurosurgery 07/09/23 Alden Coates PA-C [address] [address] Specialist Neurosurgery 07/09/23 documented as of this encounter
--- OUTSIDE RECORDS SUMMARY | 2024-08-20 13:08 | XMS_ITS | Encounter Summary ---
Author Organization [facility] Address [address] [place] [address] Care Team Providers Care Armhole Baster Hand Name Role Phone Bobbi Conte MD Primary Care Provider [phone] Kacy Velasquez MD Unavailable [phone] Akua Crenshaw PA-C Unavailable [phone] Alden Coates PA-C Unavailable [phone] Encounter Details Date Type Department Care Team Description 06/16/2023 Pt. Non Urgent Medical Question OBGYN - 271 [facility] 271 [place] [address] Chelsie Pal CN 175 [place] [address] Social History Tobacco Use Types [...] PM EST documented as of this encounter Plan of Treatment Not on file documented as of this encounter Visit Diagnoses Not on filedocumented in this encounter Care Teams Armhole Baster Hand Relationship Specialty Start Date End Date Bobbi Conte MD PCP - General Internal Medicine 11/06/20 Kacy Velasquez MD [address] [address] Surgeon Neurosurgery 07/09/23 Akua Crenshaw PA-C [address] [address] Specialist Neurosurgery 07/09/23 Alden Coates PA-C [address] [address] Specialist Neurosurgery 07/09/23 documented as of this encounter
--- OUTSIDE RECORDS SUMMARY | 2024-08-20 13:08 | XMS_ITS | Encounter Summary ---
Author Organization [employer] Address [address] [place] [address] Care Team Providers Care Rod Tape Operator Name Role Phone Bobbi Conte MD Primary Care Provider [phone] Reason for Visit * Reason Comments test Encounter Details Date Type Department Care Team (Latest Contact Info) Description 07/29/2024 3:00 PM EST Clinical Support Obstetrics [facility]necology [facility] [address] [place] [address] Bad odor of urine (Primary Dx); Late menses Social History Tobacco Use Types Packs/Day Years Used Date Smoking Tobacco: Former Cigarettes Q uit: 08/06/2022 Smokeless Tobacco: Never Alcohol Use Standard Drinks/Week Comments Not Currently 0 (1 standard drink = 0.6 oz pur e alcohol) Comments Unknown Sex and Gender Information Value Date Recorded Sex Assigned at Not on file Legal Sex Female 4:38 AM EST Gender Identity Not on file Sexual Orientation Not on file documented as of this encounter Last Filed Vital Signs Vital Sign Reading Time Taken Comments Blood Pressure 114/72 07/29/2024 2:58 PM EST Pulse - - Temperature - - Respiratory Rate - - Oxygen Saturation - - Inhaled Oxygen Concentration - - Weight 101 kg (223 lb) 07/29/2024 2:58 PM EST Height 162.6 cm (5' 4 ) 07/29/2024 2:58 PM EST Body Mass Index 38.28 07/29/2024 2:58 PM EST documented in this encounter Progress Notes * Jie Millan RN - 07/29/2024 3:00 PM EST Pt here for test. LMP 06/14/24. Sent below [email or web address] message: Andres, I have an appointment scheduled for August 18 for IUD but it has been 16 days since my last menstrual cycle and I would like to know if you have any openings to do test. I did 2 at home but one I didn???t do correctly and the second one came out negative but I???m concerned on why my period hasn???t. I will need an appointment after 2:30 pm if possible. She is currently late with her menses. Does report surgery couple months ago. No other changes. Notcurrently sexually active so not sure why no period yet. Office test negative today. Discussed common causes of irregular/late periods. Pt is also complaining of foul odor to the urine when she voids. One time had burning but none currently. Urine sample was not a clean catch. Negative for nitrites. She is scheduled next month for control consult - wants Paragard IUD. Advised to call few days prior to appt to make sure we have IUD in stock. Advised no unprotected intercourse between now and appt. No questions offered at this time. Component Latest Ref Rng 07/29/2024 Leukocytes UA POC Negative Positive ! Nitrite UA POC Negative Negative Urobilinogen UA POC Negative Negative Protein UA POC Negative Negative PH UA POC 5.0 - 9.0 5.0 Blood UA POC Negative, Trace Negative Specific Hughes UA POC 1.001 - 1.035 1.020 Ketones UA POC Negative Negative Bilirubin UA POC Negative Positive ! Glucose UA POC Normal, Trace Normal HCG, Ur POC Negative Negative POC hCG Int QC Pass? Yes Yes Legend: ! Abnormal documented in this encounter Plan of Treatment Not on file documented as of this encounter Procedures Procedure Name Priority Date/Time Associated Diagnosis Comments POC , URINE DIAGNOSTIC Routine 07/29/2024 3:35 PM EST Late menses POC URINE AUTO W/O MICRO Routine 07/29/2024 3:27 PM EST Bad odor of urine documented in this encounter Results * POC , urine manually resulted (07/29/2024 3:35 PM EST) HCG, Ur POC Negative Negative POC hCG Int QC Pass? Yes Yes Urine Urine specimen obtained by clean catch procedure / Unknown 07/29/2024 3:35 PM EST Talisha SEXTON POINT OF CARE TEST ENTER/FLYNN T ORDERABLES Final Result * (ABNORMAL) POC Urine Auto W/O Micro (07/29/2024 3:27 PM EST) Leukocytes UA POC Positive(A) Negative Nitrite UA POC Negative Negative Urobilinogen UA POC Negative Negative Protein UA POC Negative Negative PH UA POC 5.0 5.0 - 9.0 Blood UA POC Negative Negative, Trace Specific Hughes UA POC 1.020 1.001 - 1.035 Ketones UA POC Negative Negative Bilirubin UA POC Positive(A) Negative Glucose UA POC Normal Normal, Trace Urine Urine specimen obtained by clean catch procedure / Unknown 07/29/2024 3:27 PM EST Narrative Jie Millan RN - 07/29/2024 3:27 PM EST Dylan 1mg/dL ASC 10mg/dL Leuk 500 silverio/ul Talisha SEXTON POINT OF CARE TEST ENTER/FLYNN T ORDERABLES Final Result documented in this encounter Visit Diagnoses Diagnosis Bad odor of urine- Primary Late menses Other disorder of menstruation and other abnormal bleeding from female genital tract documented in this encounter Care Teams Rod Tape Operator Relationship Specialty Start Date End Date Bobbi Conte MD [address] [place] [phone] PCP - General Internal Medicine 06/07/24 documented as of this encounter
--- OUTSIDE RECORDS SUMMARY | 2024-08-20 13:08 | XMS_ITS | Encounter Summary ---
Author Organization [facility] Address [address] [place] [address] Care Team Providers Care Glue Size Machine Operator Name Role Phone Basil Mcallister MD Primary Care Provider UnaBobbi Urbina MD Primary Care Provider Kacy Velasquez MD Unavailable [phone] Akua Crenshaw PA-C Unavailable [phone] Alden Coates PA-C Unavailable [phone] Encounter Details Date Type Department Care Team Description 05/24/2020 Orders Only OBGYN - 271 [facility] [address] [place] [address] Cassandra Davis, [facility] 175 [place] [id number] IUD (intrauterine device) in place; Left ovarian cyst Social History Tobacco Use Types Packs/Day Years [...] or suspected to have Coronavirus / COVID-19? Unable to assess 05/01/2020 8:06 AM EDT documented as of this encounter Plan of Treatment Not on file documented as of this encounter Procedures Procedure Name Priority Date/Time Associated Diagnosis Comments SONO PELVIS COMPLETE Routine 05/24/2020 IUD (intrauterine device) in place Left ovarian cyst documented in this encounter Results * SONO PELVIS COMPLETE (05/24/2020) Cassandra Davis CNM ULTRASOUND documented in this encounter Visit Diagnoses Diagnosis IUD (intrauterine device) in place Presence of intrauterine contraceptive device Left ovarian cyst Other and unspecified ovarian cyst documented in this encounter Care Teams Glue Size Machine Operator Relationship Specialty Start Date End Date Basil Mcallister MD PCP - General Internal Medicine 07/28/19 11/05/20 Bobbi Conte MD PCP - General Internal Medicine 11/06/20 Kacy Velasquez MD [address] [address] Surgeon Neurosurgery 07/09/23 Akua Crenshaw PA-C [address] [address] Specialist Neurosurgery 07/09/23 Alden Coates PA-C [address] [address] Specialist Neurosurgery 07/09/23 documented as of this encounter
--- OUTSIDE RECORDS SUMMARY | 2024-08-20 13:08 | XMS_ITS | Clinical Summary ---
Author Organization [facility] Address [address] [place] [address] Care Team Providers Care Associate Sales Name Role Phone Bobbi Conte MD Primary Care Provider [phone] Kacy Velasquez MD Unavailable [phone] Akua Crenshaw PA-C Unavailable Alden Coates PA-C Unavailable [phone] Allergies Active Allergy Reactions Severity Noted Date Comments Allison 01/30/2021 Fish 01/30/2021 Food Allergy 01/26/2020 cherries Medications Medication Sig Dispensed Refills Start Date End Date Status hydrOXYzine (ATARAX) 25 MG tablet Take 1 Tablet by mouth every 8 hours as needed for Itching. 60 Tablet 5 03/11/2023 Active Vit-Fe Fumarate-FA ( Vitamin) 27-0.8 MG Tab Take 1 Tablet by mouth daily. 90 Tablet 3 04/17/2023 Active metoclopramide (Reglan) 10 MG tablet Take 1 Tablet by mouth 4 times daily for 30 days. 60 Tablet 1 06/08/2023 Active famotidine (Pepcid) 20 MG tablet Take 1 Tablet by mouth 2 times daily. 60 Tablet 5 08/04/2023 08/28/2024 Active Cholecalciferol (Vitamin D) 50 MCG (1999) Tab Take 1 Tablet by mouth daily. 90 Tablet 1 04/07/2024 Active vitamin B-12 (CYANOCOBALAMIN) 500 MCG tablet Take 1 Tablet by mouth daily. 90 Tablet 1 04/07/2024 Active ibuprofen (ADVIL,MOTRIN) 600 MG tablet Take 1 Tablet by mouth every 8 hours as needed for Pain for up to 20 days. 60 Tablet 0 04/13/2024 Active Active Problems Problem Noted Date Paresthesias with subjective weakness Last Assessment & Plan: Ms. Isaac describes an episode short while ago when she had some neck pain and felt like her arms froze and position out in front of her. She went to the emergency room at [facility] and it resolved spontaneously. She says the [...] will try to obtain the report from [facility] emergency room. History of diet controlled gestational d iabetes mellitus (GDM) 12/14/2023 Overview: 2023 GDMA1 2 hour GTT at 6-12 weeks PP leave on problem list as ? history of? 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 history of? and add to overview recommendation for Q 1-3 year GTT with PCP Iron deficiency anemia secondary to inad equate dietary iron intake 10/21/2023 Anemia 10/21/2023 Overview: Cutoff hemoglobin levels: First trimester <11.0 Second [...] compliant and if so, refer to Heme COVID-19 affecting in second t rimester 08/26/2023 Overview: COVID in Growth scan at 4-6 weeks after COVID or 32 weeks, whichever is later. No other surveillance. Dx: 08/25/23 Sx: Started 08/24/23 Fever,Sore throat,Congestion,Body aches Chronic bilateral low back pain with lef t-sided sciatica 07/09/2023 Last Assessment & Plan: Ms. Isaac describes [...] of the left foot. Her MRI from [facility] on March 17, 2024 revealed degenerative [...] evaluation. ASCUS with positive high risk HPV cervic al 06/30/2023 Overview: 2016 negative pap smear Colpo Alpha thalassemia silent carrier 023 Overview: + carrier for alpha thalessemia 06/15/2023 pt notified via [employer] in regards to getting fob tested.- NAYELI,RN Rubella non-immune status, antepartum Overview: Equivocal Vaccinate PP - given 12/13/23 UTI in , antepartum 05/25/2023 Overview: Tx'd 05-20-23 WAN: 06/02/2023- Neg Maternal obesity, antepartum 05/25/2023 Overview: BMI 37.4 HgbA1C and 1 hour GTT [...] BMI of 50 by 28wks transfer to [facility] DVT prophylaxis- Lovenox if CS and BMI >35 Encounter for supervision of other jai sanabria , first trimester 05/25/2023 Overview: 1. [facility] site: [address]) 2. Delivery site: [facility] 3. Mobile Mommas: 4. Dating criteria: LMP confirmed by 1st trimester ultrasound 5. Blood type: Lab Results Component Value Date BLDTYPE B POSITIVE 05/25/2023 6. 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 GBS: Date: Neg 11/24/23 7. FOB name: Clifford Verma DOB [birth year] 8. Plans A. Epidural or other pain management - B. Labor support identified - C. Tdap - Date:, Flu - Date: 08/31/23 D. Breast or Bottle feed: breast E. Baby's name -baby girl F. Circumcision - 9. Hospital Course: Neuropathy 05/25/2023 Overview: Of left leg and left foot Being followed by dr veras and physiatry. Pt wearing leg brace. She states the coal inspector will provide fmla forms if the condition should worsen as the progresses. Anxiety 05/20/2023 Overview: 05-19-23 pt advised she can take the vistaril as rx'd for anxiety and depression sx. Her pcp at [facility] was going to refer her to behavioral health but pt also advised she can self refer herself. 05/25/2023 pt talks to a therapist q other week who she likes and is comfortable with. Pt states this person has known her since childhood. Pt denies depression or ever having negative thoughts about self/others - NAYELI,RN Vaginal pain 05/18/2023 Overview: Dr garcia referred pt to pelvic supervising floorperson 05-18-23 Last Assessment & Plan: GC/CT and [...] every few days. Bilateral carpal tunnel syndrome 023 Multiple renal cysts 03/20/2020 Overview: Left upper pole nephrectomy age 4; multiple cysts Resolved Problems Problem Noted Date Resolved Date Tarsal tunnel syndrome of left side 03/11/2023 05/25/2023 Right ovarian cyst 09/09/2022 07/07/2023 Overview: 09/2022 The larger measures 4.1 x 3.7 x 4.9 cm. The smaller measures 4.5 x 3.8 x 2.4 cm. Follow up 8-10 wks repeat sono Immunizations Name Administration Dates Next Due COVID-19 (Pfizer) 10/16/2020,09/25/2020 DTaP 01/23/1999, 6,12/23/1994,07/07,04/07/1994 HIB 01/26/1996,07/29/1994,04/07/1994 HPV (Gardasil) 04/04/2009,11/21/2008,08/31/2008 Hepatitis B-3 Dose (<19yrs) 01/02/1995, 4,01/02/1994 Hepatitis-A (>19YRS) 02/05/2015 Influenza (> 6 Months) 05/21/2020,05/09/2014 Influenza Vaccine-preservati ve Free-quadrivalent 4 Years 08/31/2023 08/31/2024 MMR (Tolyfjd-Xhlmr-Fnbldpq) 12/13/2023, 9,12/23/1994 Meningococcal (Menactra) 01/27/2006 Polio (OPV) 01/23/1999, 5,07/29/1994,09/1993 Tdap 10/02/2023,01/27/2006 Family History Medical History Relation Name Comments No Known Problems Brother x2 Bipolar Disorder Father Hypertension Father Hypertension Maternal Grandfather Diabetes Maternal Grandmother Hypertension Maternal Grandmother diabete s, arthritis Hypertension Mother history of DVT, Fibromyalgia; anxiety and depression dvt Mother No Known Problems Paternal Grandfather No Known Problems Paternal Grandmother No Known Problems Sister x1 autistic Son kidney reflux Son CA Breast Negative Hx CA Ovarian Negative Hx Relation Name Status Comments Brother x2 Alive Father Alive Maternal Grandfather Alive Maternal Grandmother Alive Mother Alive Paternal Grandfather Paternal Grandmother Alive Sister x1 Alive Son Alive Social History Tobacco Use Types Packs/Day Years Used Date Smoking Tobacco: Former Cigarettes Q uit: 08/2022 Smokeless Tobacco: Never Tobacco Cessation:Counseling Given: Not Answered Comments:Pt quit vaping in february 2023 Alcohol Use Standard Drinks/Week Comments Not Currently [...] file Not on file Not on file Last Filed Vital Signs Vital Sign Reading Time Taken Comments Blood Pressure 118/68 04/13/2024 3:36 PM EDT Pulse 85 04/13/2024 3:36 PM EDT Temperature 36.4 ??C (97.5 ??F) 04/13/2024 3:36 PM ED T Respiratory Rate 14 11/02/2023 3:04 PM EDT Oxygen Saturation 97% 04/13/2024 3:36 PM EDT Inhaled Oxygen Concentration - - Weight 99.3 kg (219 lb) 04/27/2024 2:17 PM EDT Height 162.6 cm (5' 4 ) 04/27/2024 2:17 PM EDT Body Mass Index 37.59 04/27/2024 2:17 PM EDT Plan of Treatment Health Maintenance Due Date Last Done Comments Covid-19 Vaccine (2022-2 4 season) 2024 10/16/2020, 09/25/2020 INFLUENZA (#1) 2024 08/31/2023, 05/06, 05/09/2014 BMI CHECK/ADVISE 07/06/2024 04/13/2024, 02/2024, 10/08/2023, Additional history exists DEPRESSION SCREENING/FOLLOWUP 07/06/2024, 05/19/2023, 11/07/2020 SOCIAL NEEDS SCREENING 07/06/2024 10/06/2023 CERVICAL CANCER SCREENING 06/08/20262022, 02/15/2020, 09/17/2015 CHOLESTEROL SCREENING 12/27/2027 12/26/2022, 020 BASELINE HEALTH EXAM 18-39 10/07/202810/07, 12/26/2022, 12/25/2022, Additional history exists DTAP/TDAP/TD (8 - Td or Tdap) 10/01/2033, 01/27/2006, 01/23/1999, Additional history exists PNEUMOCOCCAL VACCINE FOR HIG H RISK PATIENTS (#1) 2058 Care Teams Associate Sales Relationship Specialty Start Date End Date Bobbi Conte MD PCP - General Internal Medicine 11/06/20 Kacy Velasquez MD [address] [address] Surgeon Neurosurgery 07/09/23 Akua Crenshaw PA-C [address] [address] Specialist Neurosurgery 07/09/23 Alden Coates PA-C [address] [address] Specialist Neurosurgery 07/09/23
--- OUTSIDE RECORDS SUMMARY | 2024-08-20 13:08 | XMS_ITS | Encounter Summary ---
Author Organization [facility] Address [address] [place] [address] Care Team Providers Care Office Copy Selector Name Role Phone Basil Mcallister MD Primary Care Provider Bobbi Meek MD Primary Care Provider [phone] Kacy Velasquez MD Unavailable [phone] Akua Crenshaw PA-C Unavailable [phone] Alden Coates PA-C Unavailable [phone] Encounter Details Date Type Department Care Team Description 03/27/2020 Transfer Records Medical Records [address] [place] [address] Abstract, Provider Social History Tobacco Use Types [...] on filedocumented in this encounter Care Teams Office Copy Selector Relationship Specialty Start Date End Date Basil Mcallister MD PCP - General Internal Medicine 07/28/19 11/05/20 Bobbi Conte MD PCP - General Internal Medicine 11/06/20 Kacy Velasquez MD 175 [facility] [address] [place] [address] Surgeon Neurosurgery 07/09/23 Akua Crenshaw PA-C 175 [facility] [address] [place] [address] Specialist Neurosurgery 07/09/23 Alden Coates PA-C 175 [facility] [address] [place] [address] Specialist Neurosurgery 07/09/23 documented as of this encounter
--- OUTSIDE RECORDS SUMMARY | 2024-08-20 13:08 | XMS_ITS | Encounter Summary ---
Author Organization [facility] Address [address] [place] [address] Care Team Providers Care Head Of Marketing Analytics Name Role Phone Community, Pcp Primary Care Provider Nikko Rogers Primary Care Provider Basil Conryo MD Primary Care Provider Bobbi Meek MD Primary Care Provider Kacy Velasquez MD Unavailable [phone] Akua Crenshaw PA-C Unavailable [phone] Alden Coates PA-C Unavailable [phone] Encounter Details Date Type Department Care Team Description 04/04/2017 Transfer Records Medical Records [address] [place] [address] Abstract, Provider Social History Tobacco Use Types Packs/Day Years Used Date Smoking Tobacco: Never Smokeless Tobacco: Never Alcohol Use Standard Drinks/Week Comments No 0 (1 standard drink = 0.6 oz pur e alcohol) Intimate Partner Violence Answer Date R ecorded [...] on filedocumented in this encounter Care Teams Head Of Marketing Analytics Relationship Specialty Start Date End Date [facility], Pcp PCP - General Internal Medicine 11/04/11 10/15/17 Nikko Kaufman PCP - General Internal Medicine 10/16/17 07/27/19 Basil Mcallister MD PCP - General Internal Medicine 07/28/19 11/05/20 Bobbi Conte MD PCP - General Internal Medicine 11/06/20 Kacy Velasquez MD [address] [address] Surgeon Neurosurgery 07/09/23 Akua Crenshaw PA-C [address] [address] Specialist Neurosurgery 07/09/23 Alden Coates PA-C 175 [facility] [address] [place] [address] Specialist Neurosurgery 07/09/23 documented as of this encounter
--- OUTSIDE RECORDS SUMMARY | 2024-08-20 13:08 | XMS_ITS | Encounter Summary ---
Author Organization [facility] Address [address] [place] [address] Care Team Providers Care Developmental Mathematics Instructor Name Role Phone Bobbi Conte MD Primary Care Provider [phone] Kacy Velasquez MD Unavailable [phone] Akua Crenshaw PA-C Unavailable [phone] Alden Coates PA-C Unavailable Encounter Details Date Type Department Care Team Description 07/15/2023 SCAN [facility] Neurosurgery [place] [address] [phone] Alden Coates PA-C [address] [phone] Social History Tobacco Use Types Packs/Day Years [...] on filedocumented in this encounter Care Teams Developmental Mathematics Instructor Relationship Specialty Start Date End Date Bobbi Conte MD PCP - General Internal Medicine 11/06/20 Kacy Velasquze MD [address] [address] Surgeon Neurosurgery 07/09/23 Akua Crenshaw PA-C [address] [address] Specialist Neurosurgery 07/09/23 Alden Coates PA-C [address] [address] Specialist Neurosurgery 07/09/23 documented as of this encounter
--- OUTSIDE RECORDS SUMMARY | 2024-08-20 13:08 | XMS_ITS | Encounter Summary ---
Author Organization [facility] Address [address] [place] [address] Care Team Providers Care Police Booking Officer Name Role Phone Bobbi Conte MD Primary Care Provider [phone] Kacy Velasquez MD Unavailable [phone] Akua Crenshaw PA-C Unavailable [phone] Alden Coates PA-C Unavailable [phone] Encounter Details Date Type Department Care Team Description 11/08/2020 Telephone Adult Medicine [facility] [address] [place] [address] Bobbi Conte MD [address] [place] [phone] Social History Tobacco Use Types Packs/Day [...] on filedocumented in this encounter Care Teams Police Booking Officer Relationship Specialty Start Date End Date Bobbi Conte MD PCP - General Internal Medicine 11/06/20 Kacy Velasquez MD 175 [facility] [address] [place] [address] Surgeon Neurosurgery 07/09/23 Akua Crenshaw PA-C [address] [address] Specialist Neurosurgery 07/09/23 Alden Coates PA-C 175 [facility] [address] [place] [address] Specialist Neurosurgery 07/09/23 documented as of this encounter
--- OUTSIDE RECORDS SUMMARY | 2024-08-20 13:08 | XMS_ITS | Encounter Summary ---
Author Organization [facility] Address [address] [place] [address] Care Team Providers Care Telegraphic Typewriter Operator Name Role Phone Bobbi Conte MD Primary Care Provider Kacy Velasquez MD Unavailable [phone] Akua Crenshaw PA-C Unavailable [phone] Alden Coates PA-C Unavailable [phone] Encounter Details Date Type Department Care Team Description 05/27/2023 Pt. Non Urgent Medical Question OBGYN - 271 [facility] [address] [place] [address] Chelsie Pal CN 175 [place] [address] Social History Tobacco Use Types [...] on filedocumented in this encounter Care Teams Telegraphic Typewriter Operator Relationship Specialty Start Date End Date Bobbi Conte MD PCP - General Internal Medicine 11/06/20 Kacy Velasquez MD [address] [address] Surgeon Neurosurgery 07/09/23 Akua Crenshaw PA-C [address] [address] Specialist Neurosurgery 07/09/23 Alden Coates PA-C [address] [address] Specialist Neurosurgery 07/09/23 documented as of this encounter
--- OUTSIDE RECORDS SUMMARY | 2024-08-20 13:08 | XMS_ITS | Encounter Summary ---
Author Organization [facility] Address [address] [place] [address] Care Team Providers Care Rim Roller Operator Name Role Phone Bobbi Conte MD Primary Care Provider [phone] Kacy Velasquez MD Unavailable [phone] Akua Crenshaw PA-C Unavailable [phone] Alden Coates PA-C Unavailable [phone] Encounter Details Date Type Department Care Team Description 06/10/2023 Pt. Non Urgent Medical Question OBGYN - 271 [facility] [address] [place] [address] Chelsie Pal CN 175 [place] [address] Social History Tobacco Use Types [...] on filedocumented in this encounter Care Teams Rim Roller Operator Relationship Specialty Start Date End Date Bobbi Conte MD PCP - General Internal Medicine 11/06/20 Kacy Velasquez MD [address] [address] Surgeon Neurosurgery 07/09/23 Akua Crenshaw PA-C [address] [address] Specialist Neurosurgery 07/09/23 Alden Coates PA-C [address] [address] Specialist Neurosurgery 07/09/23 documented as of this encounter
[2024-08-20] MEDS: gadobutroL 10 ML VIAL IVPUSH (13:50)
== END 2024-08-20 13:05 | disposition home or self-care (01) ==
LOC: HO.MRI 13:04
PROVIDERS: PCP Internal Medicine; Visit Provider Nurse Practitioner Family
DX: M54.16 Radiculopathy, lumbar region (principal); R20.0 Anesthesia of skin; R20.2 Paresthesia of skin; M21.372 Foot drop, left foot; Z98.890 Other specified postprocedural states
CPT/HCPCS: 72158; A9585

== ENCOUNTER → 2024-08-20 13:13 | Outpatient (BNV) | payer OTHER, SELFPAY | PROVIDERS: PCP Internal Medicine; Visit Provider Radiology Vascular & Interventional Radiology | DX: M99.63 Osseous and subluxation stenosis of intervertebral foramina of lumbar region (principal) | CPT/HCPCS: 72158 ==

== ENCOUNTER 2024-09-01 14:55 | Outpatient (REF) | payer OTHER, SELFPAY ==
--- NOTE | 2024-09-01 14:57 | EMG_ITS ---
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 EMG left lower extremity done by me 03/31/2024 was normal. Patient underwent left L5 Laminotomy, partial facetectomy and foraminotomy 05/19/2024. Patient continues to have left footdrop. On exam today, it appears that she has full range on left ankle dorsiflexion but painful (tested while laying down). Left big toe extension appeared weak, less full range, 2/5, as compared to right. Reason for referral: Re-evaluate left lower extremity, evaluate bilateral upper extremities for Carpal Tunnel Syndrome Referred by: Ernestine Wilkerson NP Procedure done: Bilateral upper extremities and left lower extremity NCS/EMG Precautions and/or limitations: Previous lumbar surgery The limb temperature was monitored continuously and remained between 32-36 degrees C during the performance of the NCS. Nerve Conduction Studies Anti Sensory Summary Table ?Stim Site NR Onset (ms) Norm Onset (ms) Peak (ms) Norm Peak (ms) O-P Amp (?V) Norm O-P Amp Site1 Site2 Delta-0 (ms) Dist (cm) Yanick (m/s) Norm Yanick (m/s) Left Median Anti Sensory (2nd Digit) Wrist ? 2.4 2.9 <3.6 59.9 >10 Wrist 2nd Digit 2.4 14.0 58 Right Median Anti Sensory (2nd Digit) Wrist ? 2.2 2.9 <3.6 47.8 >10 Wrist 2nd Digit 2.2 14.0 64 Right Radial Anti Sensory (Thumb) Forearm ? 1.8 2.3 <3.1 16.4 Forearm Thumb 1.8 0.0 Left Sural Anti Sensory (Lat Mall) Calf ? 3.2 4.0 <4.0 13.2 >5.0 Calf Lat Mall 3.2 14.0 44 Left Ulnar Anti Sensory (5th Digit) Wrist ? 2.3 3.0 <3.7 30.7 >15.0 Wrist 5th Digit 2.3 14.0 61 Right Ulnar Anti Sensory (5th Digit) Wrist ? 2.4 3.1 <3.7 16.4 >15.0 Wrist 5th Digit 2.4 14.0 58 Motor Summary Table ?Stim Site NR Onset (ms) Norm Onset (ms) O-P Amp (mV) Norm O-P Amp iAmp (mV) Amp (1st) (%) Site1 Site2 Delta-0 (ms) Dist (cm) Yanick (m/s) Norm Yanick (m/s) Left Median Motor (Abd Poll Brev) Wrist ? 3.4 <3.9 14.7 >4.5 16.7 100.0 Elbow Wrist 3.3 20.0 61 >45 Elbow ? 6.7 14.6 17.2 99.3 Right Median Motor (Abd Poll Brev) Wrist ? 3.2 <3.9 12.4 >4.5 15.2 100.0 Elbow Wrist 3.4 20.0 59 >45 Elbow ? 6.6 12.4 15.3 100.0 Left Peroneal Motor (Ext Dig Brev) Ankle ? 4.0 <4.0 7.5 >2.5 9.7 100.0 Ankle Ext Dig Brev 4.0 0.0 B Fib ? 9.8 6.6 8.6 88.0 B Fib Ankle 5.8 32.0 55 >40 Poplt ? 10.9 6.4 8.3 85.3 Poplt B Fib 1.1 6.0 55 >40 Left Tibial Motor (Abd Murrell Brev) Ankle ? 4.0 <5 8.7 >2.5 14.1 100.0 Ankle Abd Murrell Brev 4.0 0.0 Knee ? 12.2 6.6 10.6 75.9 Knee Ankle 8.2 38.0 46 >40 Left Ulnar Motor (Abd Dig Minimi) Wrist ? 2.8 <3.0 8.7 >5 11.6 100.0 B Elbow Wrist 2.8 18.0 64 >45 B Elbow ? 5.6 8.8 10.5 101.1 A Elbow B Elbow 1.4 10.0 71 >45 A Elbow ? 7.0 8.5 10.1 97.7 Right Ulnar Motor (Abd Dig Minimi) Wrist ? 2.7 <3.0 8.8 >5 10.1 100.0 B Elbow Wrist 2.8 18.0 64 >45 B Elbow ? 5.5 8.6 10.2 97.7 A Elbow B Elbow 0.9 10.0 111 >45 A Elbow ? 6.4 8.4 10.0 95.5 EMG ?Side Muscle Nerve Root Ins Act Fibs Psw Amp Dur Poly Recrt Int Pat Comment Right 1stDorInt Ulnar C8-T1 Nml Nml Nml Nml Nml 0 Nml Complete Right FlexCarRad Median C6-7 Nml Nml Nml Nml Nml 0 Nml Complete Right Biceps Musculocut C5-6 Nml Nml Nml Nml Nml 0 Nml Complete Right Triceps Radial C6-7-8 Nml Nml Nml Nml Nml 0 Nml Complete Right Deltoid Axillary C5-6 Nml Nml Nml Nml Nml 0 Nml Complete Left 1stDorInt Ulnar C8-T1 Nml Nml Nml Nml Nml 0 Nml Complete Left FlexCarRad Median C6-7 Nml Nml Nml Nml Nml 0 Nml Complete Left Biceps Musculocut C5-6 Nml Nml Nml Nml Nml 0 Nml Complete Left Triceps Radial C6-7-8 Nml Nml Nml Nml Nml 0 Nml Complete Left Deltoid Axillary C5-6 Nml Nml Nml Nml Nml 0 Nml Complete Left AbdHallucis MedPlantar S1-2 Nml Nml Nml Nml Nml 0 Nml Complete Left AntTibialis Dp Br Peron L4-5 Nml Nml Nml Nml Nml 0 Nml Complete Left MedGastroc Tibial S1-2 Nml Nml Nml Nml Nml 0 Nml Complete Left VastusMed Femoral L2-4 Nml Nml Nml Nml Nml 0 Nml Complete Left ExtHallLong Dp Br Peron L5, S1 Nml Nml Nml Nml Nml 0 Nml Complete Left Peroneus Long Sup Br Peron L5-S1 Nml Nml Nml Nml Nml 0 Nml Complete FINDINGS: All motor and sensory nerves tested showed normal latencies, amplitudes and conduction velocities. Concentric needle EMG was performed in selected muscles of the bilateral upper extremities and left lower extremity. Study did not reveal signs of electric abnormalities as shown in the table above. IMPRESSION: 1. This is a normal study. 2. There is no electrodiagnostic evidence for median neuropathy, ulnar neuropathy, brachial plexopathy, or cervical radiculopathy on bilateral upper extremities. 3. There is no electrodiagnostic evidence for peroneal neuropathy, tibial neuropathy, lumbosacral plexopathy, lumbar radiculopathy, or peripheral neuropathy on left lower extremity. Clinical comment: Although still within normal, noted slight prolongation of left peroneal distal latency compared to study 03/31/2024. But no conduction block seen across fibular neck. Tibial and sural nerves within normal. Needle EMG did not show any active denervation on any peroneal or L5 innervated muscles. Thank you for your kind referral. Josefina Montez MD, ANNE-MARIE Board Certified, [place] Board of Physical Medicine and Rehabilitation (ABPMR) Board Certified, [place] Board of Electrodiagnostic Medicine (ABEM) CODIN 26070 x 3 MTDD
--- OUTSIDE RECORDS SUMMARY | 2024-09-01 18:16 | XMS_ITS | Clinical Summary ---
Author Organization [facility] Address [address] [place] [address] Phone Care Team Providers Care Inside Outside Sales Representative Name Role Phone Bobbi Conte MD Primary Care Provider [phone] Allergies Active Allergy Reactions Criticality Noted Date Comments Allison 01/30/2021 Fish Containing Products 01/30/2021 Other 01/26/2020 Food allergy:cherries Medications cholecalciferol (VITAMIN D-3) 50 mcg (2,000 unit) tablet Take 1 tablet (2,000 Units total) by mouth 1 (one) time each day. 04/07/20 24 Active cyanocobalamin (VITAMIN B-12) 500 mcg tablet Take 1 tablet (500 mcg total) by mouth 1 (one) time each day. 04/07/20 24 Active Vitamin iron fum-folic acid 27-0.8 mg per tablet Take 1 tablet by mouth 1 (one) time each day. 04/17/20 23 Active hydrOXYzine HCL (ATARAX) 25 mg tablet Take 1 tablet (25 mg total) by mouth every 8 (eight) hours if needed for itching. 03/11/20 23 Active ibuprofen (ADVIL,MOTRIN) 600 mg tablet Take 1 tablet (600 mg total) by mouth every 8 (eight) hours if needed for mild pain. 60 tablet 1 06/16/20 24 Active etonogestreL-ethi nyl estradioL (NUVARING) 0.12-0.015 mg/24 hr vaginal ringIndications:E ncounter for initial prescription of vaginal ring hormonal contraceptive Insert 1 each into the vagina every 28 (twenty-eight) days. Insert vaginally and leave in place for 3 consecutive weeks, then remove for 1 week. 1 each 08/18/19 026 Active famotidine (PEPCID) 20 mg tablet Take 1 tablet (20 mg total) by mouth 2 (two) times a day. 08/04/19 24 025 Active Problems Problem Noted Date Diagnosed Date Paresthesias with subjective weakness 04/27/2024 Overview (05/18/2024): Last Assessment & Plan: Ms. Isaac describes an episode short while ago when she had some neck pain and felt like her arms froze and position out in front of her. She went to the emergency room at [facility] and it resolved spontaneously. She says [...] will try to obtain the report from [facility] emergency room. 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 Her MRI from [facility] on March 17, 2024 revealed degenerative changes [...] for alpha thalessemia 06/15/2023 pt notified via [facility] in regards to getting fob tested.- NAYELI,RN [...] BMI of 50 by 28wks transfer [place] [facility] DVT prophylaxis- Lovenox if CS and BMI >35 Neuropathy 05/25/2023 Overview (05/18/2024): Of left leg and left foot Being followed by dr veras and physiatry. Pt wearing leg brace. She states the refinery operator gas plant will provide fmla forms if the condition should worsen as the progresses. UTI in , antepartum 05/25/2023 Overview (05/18/2024): Tx'd 05-20-23 WAN: 06/02/2023- Neg Anxiety 05/20/2023 Overview (05/18/2024): 05-19-23 pt advised she can take the vistaril as rx'd for anxiety and depression sx. [facility]cp at [facility] was going to refer her to behavioral [...] (05/18/2024): Dr garcia referred pt to pelvic floorhand 05-18-23 Last Assessment & Plan: GC/CT and [...] - [facility] [address] [place] [phone] Vanda Garcia, DARSHANM Encounter for initial prescription of vaginal ring hormonal contraceptive (Primary Dx) 07/29/2024 3:00 PM EST Clinical Support Obstetrics and Gynecology - [facility] [address] [place] [phone] Bad odor of urine (Primary Dx); Late menses from Last 3 Months Immunizations Name Administration Dates Next Due DTaP (Infanrix) 6wks to less than 7yo ,01/26/1996,12/23/1994,07/29,04/07/1994 [id number] (Pentacel) 2mo to less than 5yo 01/26/1996,07/29/1994,04/07/1994 [...] Surgical History Surgery Date Site/Laterality Comments NEPHRECTOMY 1999 Left PROCEDURE: HISTORICAL NEPHRECTOMY; COMMENT: partial WISDOM [...] care for your loved ones. For example, child & adolescent psychiatrist or elderly care for an older adult? [...] al N Livin g Jesse Complications:None Delivery Location:[facility] 2023 Term 38w 6d 3260 g (115 oz) F Vag-S pont Epidur al Livin g 8 9 Nhung ndra Allar d CNM Complications:None,Gestation al diabetes mellitus (GDM) Delivery Location:[facility] Comments:SROM. nuchal body cord & true [...] 08/18/2024 2:49 PM EST Plan of Treatment Upcoming Encounters Date Type Department Care Team ([facility] st Contact Info) Description 09/12/2024 3:00 PM EDT Office Visit Internal Medicine - [place] 175 [facility] [address] [place] [phone] Lizy Carpio MD [address] [address] Health Maintenance Due Date Last Done Comments COVID-19 Vaccine ( season) 2024 10/16/2020, 09/25/2020 Influenza Vaccine (#1) 2024 , 05/21/2020, 05/09/2014, Additional history exists Depression Screening 08/18/2025 08/18/2024, 05/19/20 23 Social Influencers of Health Screening 08/18/2025 08/18/2024 [...] of2 resultswithin the time period is included. Pathologist [facility] HCG, Ur POC Negative Negative POC hCG Int QC Pass? Yes Yes Urine Urine specimen obtained by clean catch procedure / Unknown 08/18/2024 3:41 PM EST Vanda SEXTON POINT OF CARE TEST ENTE R/EDIT ORDERABLES Final Result * (ABNORMAL) POC Urine Auto W/O Micro (07/29/2024 3:27 PM EST) Pathologist [facility] Leukocytes UA POC Positive(A) Negative Nitrite UA POC Negative Negative Urobilinogen UA POC Negative Negative Protein UA POC Negative Negative PH UA POC 5.0 5.0 - 9.0 Blood UA POC Negative Negative, Trace Specific [place] UA POC 1.020 1.001 - 1.035 Ketones UA POC Negative Negative Bilirubin UA POC Positive(A) Negative Glucose UA POC Normal Normal, Trace Urine Urine specimen obtained by clean catch procedure / Unknown 07/29/2024 3:27 PM EST Narrative Jie Millan RN - 07/29/2024 3:27 PM EST Dylan 1mg/dL ASC 10mg/dL Leuk 500 silverio/ul Talisha Cortes CNM POINT OF CARE TEST ENTER/FLYNN T ORDERABLES Final Result * Cervical Cancer Screening: HPV (06/08/2023) [facility] Cervical Cancer Screening: HPV positive, abstracted Historical Provider HEALTH MAINTENANCE Final Result * HIV Screening (05/25/2023) Pathologist [facility] HIV Screening abstracted Historical Provider HEALTH MAINTENANCE Final Result * Hepatitis C Screening (05/25/2023) Hepatitis C Screening abstracted Historical Provider HEALTH MAINTENANCE Final Result * Depression Screening (05/19/2023) Depression Screening abstracted Historical Provider HEALTH MAINTENANCE Final Result * Lipid panel (12/26/2022) LDL/HDL Ratio 3 0 - 4 Triglycerides 95 0 - 150 mg/dL Cholesterol 135 0 - 200 mg/dL HDL 46 >=40 mg/dL LDL Cholesterol 70 0 - 100 mg/dL Blood Venous blood specimen / Unknown Historical Provider LAB BLOOD ORDERABLES Maribell l Result from Last 3 Months or Most Recently Relevant to Health Maintenance [place] [address] [employer]ALTH PLAN Care Teams Inside Outside Sales Representative Relationship Specialty Start Date End Date Bobbi Conte MD [address] [place] [phone] PCP - General Internal Medicine 06/07/24
--- OUTSIDE RECORDS SUMMARY | 2024-09-01 18:16 | XMS_ITS | Encounter Summary ---
Author Organization [facility] Address [address] [place] [address] Care Team Providers Care Utility Engineer Name Role Phone Bobbi Conte MD Primary Care Provider [phone] Reason for Visit * Reason Comments Procedure Encounter Details Date Type Department Care Team (Latest Contact Info) Description 08/18/2024 2:45 PM EST Office Visit Obstetrics and Gynecology - [facility] [address] [place] [address] Vanda Garcia, POWER [address] [place] [address] Encounter for initial prescription of vaginal ring [...] care for your loved ones. For example, childcare administrator or elderly care for an older adult? [...] this encounter Progress Notes * Vanda Garcia, POWER - 08/18/2024 2:45 PM EST 08/18/2024 Chief [...] dr veras, and nausea/vomiting. Pt states the process control tech told her they could write her fmla [...] at upcoming visit. Pts son goes to [facility]. Baby basics reviewed - NAYELI,RN 2023: [...] documented in this encounter Plan of Treatment Upcoming Encounters Date Type Department Care Team ([facility] st Contact Info) Description 09/12/2024 3:00 PM EDT Office Visit Internal Medicine - [address] [phone] Lizy Carpio MD [address] [place] [phone] documented as of this encounter Procedures Procedure [...] Unknown 08/18/2024 3:41 PM EST Vanda Garcia [facility] POINT OF CARE TEST ENTE R/EDIT ORDERABLES Final Result documented in this encounter Visit Diagnoses Diagnosis Encounter for initial prescription of vaginal ring hormonal contraceptive- Primary documented in this encounter Additional Health Concerns Assessment Noted Time PHQ-9 Depression Total Score: 5 08/18/19 25 10:29 AM EST documented as of this encounter Care Teams Utility Engineer Relationship Specialty Start Date End Date Bobbi Conte MD [address] [place] [phone] PCP - General Internal Medicine 06/07/24 documented as of this encounter
== END 2024-09-01 14:56 | disposition home or self-care (01) ==
LOC: HO.NEURO 14:55
PROVIDERS: PCP Internal Medicine; Visit Provider Nurse Practitioner Family
DX: R20.0 Anesthesia of skin (principal); R20.2 Paresthesia of skin; G56.03 Carpal tunnel syndrome, bilateral upper limbs; M21.372 Foot drop, left foot
CPT/HCPCS: 95886; 95912

== ENCOUNTER → 2024-09-01 14:57 | Outpatient (BNV) | payer OTHER, SELFPAY | PROVIDERS: PCP Internal Medicine; Visit Provider Physical Medicine & Rehabilitation | DX: R20.0 Anesthesia of skin (principal); R20.2 Paresthesia of skin | CPT/HCPCS: 95886; 95912 ==

== ENCOUNTER 2024-09-26 15:08 | Outpatient (AMB) | payer OTHER, SELFPAY ==
--- NOTE | 2024-09-26 15:11 | A.SPINEOV_ITS ---
Vital Signs 09/26/24 15:12 Height 5 ft 5 in Weight 223 lb BMI 37.1 Intake Visit Reasons: Low back pain/leg is worst/nerve pain left foot Intake Note: Ms. Isaac is here today to Discuss the MRI results and C/o Low back pain/Leg that is getting worse. Digital Sales Executive Required: No Allergies No Known Allergies Allergy (Verified 09/26/24 15:13) Physical Exam Vital Signs: BMI result Body Mass Index 37.1 Assessment & Plan Assessment & Plan (1) Lumbar radiculopathy: Code(s): M54.16 - Radiculopathy, lumbar region Category: Medical Plan Leslie comes in today for a follow up visit after having a repeat lumbar MRI with gadolinium completed showing left sided foraminal stenosis at L5-S1. She is being followed by our colleagues in pain management and is scheduled to undergo left sided L5 TFESI. She comes in today wishing to discuss possible subsequent surgical interventions to resolve her current issues. She reports that she continues to have severe left leg pain shooting down from her low back. The pain radiates in a posterior fashion from her buttocks down to her ankle then wraps around to the top of her left foot. She also has developed a spasm of sorts in her left foot, causing her toes to curl and shake when she attempts to fully dorsiflex her left foot. This spasms she reports is the worst symptom she has. She is willing to consider any surgical options that could permanently fix this. On examination today the patient has about 3+/5 strength with left sided EHL, dorsiflexion, and 4/5 strength with left sided plantarflexion & knee extension. The remainder of her upper and lower extremity exam is 5/5. She has some sensational deficits reported over the left knee / anterior tibilias. She has L4 hyperreflexia, but her reflexes are 2+ intact elsewhere. (-) White's, (-) clonus, (-) Babinski's bilaterally. MRI of the lumbar spine w/wo gado completed here [place] [facility] shows ongoing foraminal stenosis of L5-S1. I believe that Leslie is most likely suffering from nerve damage of the L5 nerve to some extent, likely secondary to the compression that was seen in the foramen. After reviewing the microdiscectomy operative report I believe we did get a good posterior decompression on this nerve, however it may still be impinged in the foramen. My main concern for a subsequent foraminotomy in this patient is the obvious possibility of destabilization of L5-S1, as part of the lamina and part of the facet on that side have already been removed. I would like her to follow through with her injection at pain management. If she has very good relief from this injection then I may review her case with Dr. Zelaya for consideration of left L5 foraminotomy. She understands and agrees to this plan. Dante Zelaya MD,PhD [facility] Coding Level of Care Code Est Pt Level 3 (01403) Diagnoses Lumbar radiculopathy M54.16
[2024-09-26 15:12] VITALS: BMI 37.1
--- OUTSIDE RECORDS SUMMARY | 2024-09-26 18:03 | XMS_ITS | Encounter Summary ---
Author Organization [facility] Address [address] [place] [address] Care Team Providers Care Loan Interviewer Name Role Phone Bobbi Conte MD Primary Care Provider [phone] Reason for Referral * Consultation (Routine) - Pending Review Specialty Diagnoses / Procedures Referred By Daljit morel Referred To Contact Allergy Diagnoses Food allergy Lizy Carpio MD [address] [place] [phone] Phone: tel: fax: Referral ID Status Reason Start Date Expiration Date Visits Requested Visits Authorized [id number] Pending Review Specialty Services Required 09/12/2024 09/12/2025 9 9 Reason for Visit * Reason Comments Follow-up Encounter Details Date Type Department Care Team ([facility] Contact Info) Description 09/12/2024 3:00 PM EDT Office Visit Internal Medicine - [address] [phone] Lizy Carpio MD [address] [place] [id number] 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); Neuropathy; Iron deficiency anemia secondary to inadequate dietary iron intake; Diet controlled gestational diabetes mellitus (GDM), antepartum; Obesity (BMI 30-39.9); Food allergy Social History Tobacco Use Types Packs/Day Years [...] for your loved ones. For example, child abuse worker or elderly care for an older adult? [...] Sign Reading Time Taken Comments Blood Pressure 128/86 09/12/2024 3:16 PM EDT Pulse - - Temperature - - Respiratory Rate - - Oxygen Saturation 98% 09/12/2024 3:16 PM EDT Inhaled Oxygen Concentration - - Weight 101 kg (223 lb) 09/12/2024 3:16 PM EDT Height - - Body Mass Index 37.11 08/18/2024 2:49 PM EST documented in this encounter Progress Notes * Lizy Carpio MD - 09/12/2024 3:00 PM EDT Images from the original note were not included. Patient Education Learning About Cutting Calories How do calories affect your weight? Food gives your body energy. Energy from the food you eat is measured in calories. This energy keeps your heart beating, your brain active, and your muscles working. Your body needs a certain number of calories each day. After your body uses the calories it needs, it stores extra calories as fat. To lose weight safely, you have to eat fewer calories while eating in a healthy way. How many calories do you need each day? The more active you are, the more calories you need. When you are less active, you need fewer calories. How many calories you need each day also depends on several things, including your age and whether you are male or female. Here are some general guidelines for adults: Less active women and older adults need 1,600 to 2,000 calories each day. Active women and less active men need 2,000 to 2,400 calories each day. Active men need 2,400 to 3,000 calories each day. How can you cut calories and eat healthy meals? Whole grains, vegetables and fruits, and dried beans are good lower-calorie foods. They give you lots of nutrients and fiber. And they fill you up. Sweets, energy drinks, and soda pop are high in calories. They give you few nutrients and no fiber.Try to limit soda pop, fruit juice, and energy drinks. Drink water instead. Some fats can be part of a healthy diet. But cutting back on fats from highly processed foods like fast foods and many snack foods is a good way to lower the calories in your diet. Also, use smaller amounts of fats like butter, margarine, salad dressing, and mayonnaise. Add fresh garlic, lemon, or herbs to your meals to add flavor without adding fat. Meats and dairy products can be a big source of hidden fats. Try to choose lean or low-fat versionsof these products. Fat-free cookies, candies, chips, and frozen treats can still be high in sugar and calories. Some fat-free foods have more calories than regular ones. Eat fat- free treats in moderation, as you would other foods. If your favorite foods are high in fat, salt, sugar, or calories, limit how often you eat them. Eatsmaller servings, or look for healthy substitutes. Fill up on fruits, vegetables, and whole grains. Eating at home Use meat as a side dish instead of as the main part of your meal. Try main dishes that use whole wheat pasta, brown rice, dried beans, or vegetables. Find ways to cook with little or no fat, such as broiling, steaming, or grilling. Use cooking spray instead of oil. If you use oil, use a monounsaturated oil, such as canola or olive oil. Trim fat from meats before you cook them. Drain off fat after you brown the meat or while you roast it. Chill soups and stews after you cook them. Then skim the fat off the top after it hardens. Eating out Order foods that are broiled or poached rather than fried or breaded. Cut back on the amount of butter or margarine that you use on bread. Order sauces, gravies, and salad dressings on the side, and use only a little. When you order pasta, choose tomato sauce rather than cream sauce. Ask for salsa with your baked potato instead of sour cream, butter, cheese, or keys. Order meals in a small size instead of upgrading to a large. Share an entree, or take part of your food home to eat as another meal. Share appetizers and desserts. Where can you learn more? Scan the [employer] code or Go to https://www.Tethis.net/trinitymychart Enter V914 in the search box to learn more about Learning About Cutting Calories. Current as of: March 25, 2023 Content Version: 14.2 ?? 2023 [facility] [employer]. Care instructions adapted under license by your healthcare professional. If you have questions about a medical condition or this instruction, always ask your healthcare professional. [employer] disclaims any warranty or liability for your use of this information. * Lizy Carpio MD - 09/12/2024 3:00 PM EDT CHIEF COMPLAINT: Follow-up IDENTIFIER: Leslie Isaac is a 28 y.o. old female. History of Present Illness The patient is a 28-year-old female who presents for a follow-up visit. Leg Issues/back pain from prolapsed disc - Experiencing leg issues for 2 years, worsened post L5 decompression on 05/20/2024. - Initially planned L5-S1 microdiscectomy, but decompression performed due to sufficient space. - Mobility significantly compromised, difficulty walking, fatigue after 10 minutes. - History of pinched nerve, surgically addressed, no improvement post-surgery. - Second opinion at identified back issue. 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 - Seeking second opinion before considering another surgery. - Requesting referral for handicap sticker. - Scheduled for cortisone injection on 10/27/2024. - Experiences electric-like pain, numbness, fears dropping child due to leg weakness. - Two normal EMGs. - Unable to work, concerned about mental health. - , trying to wean. - Prescribed gabapentin, hesitant to start due to potential side effects on child. Diabetes - Had gestational diabetes, unsure about regular diabetes. - Overweight, difficult to exercise due to leg weakness. Allergies - Has a couple of allergies, wants to know if allergic to fish. - Can eat chicken in limited amounts. Supplemental information: None. MEDICATIONS Current: gabapentin ROS: as per HPI. GENERAL: No malaise, significant weight loss or fever HEENT: No changes in hearing or vision, nose bleeds or other nasal problems NECK: No lumps, goiter, pain or significant neck swelling RESPIRATORY: No cough, wheezing or shortness of breath CARDIOVASCULAR: No chest pain, leg swelling or palpitations BREAST: No lumps, discharge, pain or change in skin GI: No abdominal discomfort, blood in stools or black stools : No dysuria, frequency or incontinence DATA STORAGE SPECIALIST: No abnormal vaginal bleeding or abnormal vaginal discharge. MUSCULOSKELETAL: No joint pain or swelling, back pain, or muscle pain. SKIN: No lesions, rash or itching PSYCH: No sleep disturbance, mood disorder or recent psychosocial stressors. HEMATOLOGY/LYMPHOLOGY No prolonged bleeding, easy bruisability or swollen nodes ENDOCRINE: No cold or heat intolerance, polyuria, polydipsia or goiter. NEURO: No persistent headache, syncope, seizures, weakness or numbness The remainder of the review of systems is noncontributory PAST MEDICAL HISTORY: Patient Active Problem List Diagnosis Date Noted Obesity (BMI 30-39.9) 09/12/2024 Paresthesias with subjective weakness 04/27/2024 Gestational diabetes 10/22/2023 Anemia 10/21/2023 Iron deficiency anemia secondary to inadequate dietary iron intake 10/21/2023 COVID-19 affecting in second trimester 08/26/2023 Chronic bilateral low back pain with left-sided sciatica 07/09/2023 ASCUS with positive high risk HPV cervical 06/30/2023 Alpha thalassemia silent carrier 06/15/2023 Rubella non-immune status, antepartum 05/26/2023 Maternal obesity, antepartum 05/25/2023 Neuropathy 05/25/2023 UTI in , antepartum 05/25/2023 Anxiety 05/20/2023 Vaginal pain 05/18/2023 Bilateral carpal tunnel syndrome 03/11/2023 Multiple renal cysts 03/20/2020 Past Surgical History: Procedure Laterality Date NEPHRECTOMY Left 1999 PROCEDURE: HISTORICAL NEPHRECTOMY; COMMENT: partial WISDOM TOOTH EXTRACTION PROCEDURE: HISTORICAL WISDOM TEETH EXTRACTION SOCIAL HISTORY: Social History Tobacco Use Smoking status: Former Current packs/day: 0.00 Types: Cigarettes Quit date: 08/06/2022 Years since quittin.1 Smokeless tobacco: Never Substance Use Topics Alcohol use: Not Currently FAMILY HISTORY: Family History Problem Relation Name Age of [...] cancer Neg Hx Ovarian cancer Neg Hx Family Status Relation Name Status Mother Alive Father Alive Sister x1 Alive Brother x2 Alive MGM Alive MGF Alive PGM Alive PGF Son Alive Neg Hx (Not Specified) No partnership data on file MEDICATIONS DISCONTINUED/REORDERED: There are no discontinued medications. ACTIVE MEDICATIONS: No outpatient medications have been marked as taking for the 09/12/24 encounter (Office Visit) with Lizy Carpio MD. ALLERGIES: Allergies Allergen Reactions Allison Fish Containing Products Other Food allergy:cherries PHYSICAL EXAM: Visit Vitals BP 128/86 (BP Location: Left arm, Patient Position: Sitting, BP Cuff Size: Large adult) Wt 101 kg (223 lb) LMP 07/30/2024 (Exact Date) Comment: menses late this month SpO2 98% BMI 37.11 kg/m?? OB Status Having periods Smoking Status Former BSA 2.07 m?? Physical Exam Physical Exam General Appearance: well appearing and not in acute distress HEENT: Normocephalic. External ears normal. Nose normal. Mucous membranes are moist. Oropharynx is clear. Eyes: Conjunctivae normal. Respiratory: Lungs are clear. Cardiovascular: Heart rhythm is regular with no murmur. Gastrointestinal: Bowel sounds are normal. Abdomen is soft. Genitourinary: Lymphatic: Back, Musculoskeletal: Normal range of motion. Normal cervical range of motion and neck supple. Extremities: Skin: Warm and dry, no rash. Neurological: Alert. Psychiatric: Other observations: LABS/IMAGING: Office Visit on 08/18/2024 Component Date Value Ref Range Status HCG, Ur POC 08/18/2024 Negative Negative Final POC hCG Int QC Pass? 08/18/2024 Yes Yes Final Clinical Support on 07/29/2024 Component Date Value Ref Range Status HCG, Ur POC 07/29/2024 Negative Negative Final POC hCG Int QC Pass? 07/29/2024 Yes Yes Final Leukocytes UA POC 07/29/2024 Positive (A) Negative Final Nitrite UA POC 07/29/2024 Negative Negative Final Urobilinogen UA POC 07/29/2024 Negative Negative Final Protein UA POC 07/29/2024 Negative Negative Final PH UA POC 07/29/2024 5.0 5.0 - 9.0 Final Blood UA POC 07/29/2024 Negative Negative, Trace Final Specific [place] UA POC 07/29/2024 1.020 1.001 - 1.035 Final Ketones UA POC 07/29/2024 Negative Negative Final Bilirubin UA POC 07/29/2024 Positive (A) Negative Final Glucose UA POC 07/29/2024 Normal Normal, Trace Final Abstract on 05/18/2024 Component Date Value Ref Range Status Gonorrhea/Chlamydia Screening 06/08/2023 abstracted Final Hepatitis C Screening 05/25/2023 abstracted Final HIV Screening 05/25/2023 abstracted Final HM Depression Screening 05/19/2023 abstracted Final Annual BMP Blood Test 12/26/2022 abstracted Final Cervical Cancer Screening: HPV 06/08/2023 positive, abstracted Final Pap smear 06/08/2023 negative, abstracted Final LDL/HDL Ratio 12/26/2022 3 0 - 4 Final Triglycerides 12/26/2022 95 0 - 150 mg/dL Final Cholesterol 12/26/2022 135 0 - 200 mg/dL Final HDL 12/26/2022 46 >=40 mg/dL Final LDL Cholesterol 12/26/2022 70 0 - 100 mg/dL Final Hemoglobin A1C 05/25/2023 5.3 <=6.5 % Final Results Imaging MRI shows moderate to severe left sided foraminal stenosis. IMPRESSION: 1. Chronic bilateral low back pain with left-sided sciatica 2. Neuropathy 3. Iron deficiency anemia secondary to inadequate dietary iron intake 4. Diet controlled gestational diabetes mellitus (GDM), antepartum 5. Obesity (BMI 30-39.9) 6. Food allergy PLAN: Chronic bilateral low back pain with left-sided sciatica (Primary) Neuropathy Iron deficiency anemia secondary to inadequate dietary iron intake Diet controlled gestational diabetes mellitus (GDM), antepartum - Hemoglobin A1c; Future Obesity (BMI 30-39.9) Food allergy - Ambulatory referral to Allergy; Future Assessment & Plan 1. Post-surgical status following L5 decompression: Worsening symptoms post- surgery, difficulty walking, increased pain. 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 - Follow up with neurosurgeon for second opinion - Update phone number - Ensure specialist accepts insurance - Referral for handicap sticker - Scheduled for cortisone injection on 10/27/2024 by physiatry doctor - Avoid holding child while standing. -For given for handicap placard and ordered for wheelchair for the patient, as patient cannot walk more than 5 minutes 2. Gestational diabetes. - Maintain calorie-restricted diet - Incorporate more vegetables - Ensure half of plate consists of vegetables - Monitor portion sizes, especially rice and pasta - Referral for diabetes screening to determine if developed diabetes or prediabetes 3. Allergies. - Referral to regional telecommunications specialist for necessary tests Follow-up - Follow up with neurosurgeon for second opinion - Scheduled for cortisone injection on 10/27/2024 by physiatry doctor PROCEDURE The patient underwent an L5 decompression surgery on 05/20/2024. I have obtained verbal consent from Leslie Isaac prior to the recording. I have advised Leslie Isaac that she may refuse the recording and require the recording to be turned off at any time during this encounter. Advised the patient to call me if any problems. Patient understands the plan. Patient is in agreement with the plan. Lizy Carpio MD on 09/12/2024 at 5:48 PM EDT documented in this encounter Plan of Treatment Upcoming Encounters Date Type Department Care Team (Late st Contact Info) Description 09/29/2024 2:15 PM EDT Office Visit Obstetrics and Gynecology - [address] [phone] Talisha Cortes [address] [address] Scheduled Orders Name Type Priority Associated Diagnoses Orde r Schedule Hemoglobin A1c Lab Routine Diet controlled gestational diabetes mellitus (GDM), antepartum 1 Occurrences starting 09/12/2024 until 09/12/2025 Scheduled Referrals Name Type Priority Associated Diagnoses Order Schedule Ambulatory referral to Allergy Outpatient Referral Routine Food allergy Expected: 10/13/2024, Expires: 09/12/2025 documented as of this encounter Visit Diagnoses Diagnosis Chronic bilateral low back pain with left-sided sciatica- Primary Neuropathy Mononeuritis of unspecified site Iron deficiency anemia secondary to inadequate dietary iron intake Diet controlled gestational diabetes mellitus (GDM), antepartum Obesity (BMI 30-39.9) Food allergy 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
--- OUTSIDE RECORDS SUMMARY | 2024-09-26 18:03 | XMS_ITS | Clinical Summary ---
Author Organization [facility] Address [address] [place] [address] Phone Care Team Providers Care Digital Media Associate Name Role Phone Bobbi Conte MD Primary Care Provider [phone] Allergies Active Allergy Reactions Criticality Noted Date [...] if needed for itching. 03/11/20 23 Active etonogestreL-eth inyl estradioL (NUVARING) 0.12-0.015 mg/24 hr vaginal ringIndications: Encounter for initial prescription of vaginal ring hormonal contraceptive Insert 1 each into the vagina every 28 (twenty-eight) days. Insert vaginally and leave in place for 3 consecutive weeks, then remove for 1 week. 1 each 11 08/18/192025 Active ibuprofen (ADVIL,MOTRIN) 600 mg tablet TAKE 1 TABLET BY MOUTH EVERY 8 HOURS IF NEEDED FOR MILD PAIN. 60 tablet 1 09/08/19 25 Active levonorgestreL (PLAN B) 1.5 mg tabletIndication s:Unprotected sexual intercourse Take 1 tablet (1.5 mg total) by mouth 1 (one) time for 1 dose. 1 tablet 09/27/19 25 Active famotidine (PEPCID) 20 mg tablet Take 1 tablet (20 mg total) by mouth 2 (two) times a day. 08/04/19 24 2024 ibuprofen (ADVIL,MOTRIN) 600 mg tablet Take 1 tablet (600 mg total) by mouth every 8 (eight) hours if needed for mild pain. 60 tablet 1 06/16/20 24 2024 Discontinued Active Problems Problem Noted Date Diagnosed Date Obesity (BMI 30-39.9) 09/12/2024 Paresthesias with subjective weakness 04/27/2024 Overview (05/18/2024): Last Assessment & Plan: Ms. Isaac describes an episode short while ago when she had some neck pain and felt like her arms froze and position out in front of her. She went to the emergency room at [facility] and it resolved spontaneously. She says [...] will try to obtain the report from [facility] emergency room. 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 Her MRI from [facility] on March 17, 2024 revealed degenerative changes [...] for alpha thalessemia 06/15/2023 pt notified via [employer] in regards to getting fob tested.- NAYELI,RN [...] BMI of 50 by [address] transfer to [facility] DVT prophylaxis- Lovenox if CS and BMI >35 Neuropathy 05/25/2023 Overview (05/18/2024): Of left leg and left foot Being followed by dr veras and physiatry. Pt wearing leg brace. She states the valet cashier will provide fmla forms if the condition should worsen as the progresses. UTI in , antepartum 05/25/2023 Overview (05/18/2024): Tx'd 05-20-23 WAN: 06/02/2023- Neg Anxiety 05/20/2023 Overview (05/18/2024): 05-19-23 pt advised she can take the vistaril as rx'd for anxiety and depression sx. Her pcp at one was going to refer her to behavioral health but pt also advised she can self refer herself. 05/25/2023 pt talks to a therapist q other week who she likes and is comfortable with. Pt states this person has known her since childhood. Pt denies depression or ever having negative thoughts about self/others - NAYELI,RN Vaginal pain 05/18/2023 Overview (05/18/2024): Dr garcia referred pt to pelvic shock absorption floor layer 05-18-23 Last Assessment & Plan: GC/CT and [...] Encounters Date Type Department Care Team Description 09/21/2024 Nurse Triage Internal Medicine [address] [phone] Lizy Carpio MD Wheelchair Evaluation 09/12/2024 3:00 PM EDT Office Visit Internal Medicine [address] [phone] Lizy Carpio MD 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); Neuropathy; Iron deficiency anemia secondary to inadequate dietary iron intake; Diet controlled gestational diabetes mellitus (GDM), antepartum; Obesity (BMI 30-39.9); Food allergy 09/12/2024 Telephone Internal Medicine [address] [address] Bobbi Conte MD Form:RMAlida Segovia 09/12/2024 Telephone Internal Medicine [address] [phone] Rita Isaac MA DME 08/18/2024 2:45 PM EST Office Visit [facility] [address] [place] [address] Vanda Garcia CNM Encounter for initial prescription of vaginal ring hormonal contraceptive (Primary Dx) 07/29/2024 3:00 PM EST Clinical Support Obstetrics and Gynecology - [facility] [address] [facility] [place] [address] Bad odor of urine (Primary Dx); Late menses from Last 3 Months Immunizations Name Administration Dates Next Due DTaP (Infanrix) 6wks to less than 7yo ,01/26/1996,12/23/1994,07/29,04/07/1994 [id number] (Pentacel) 2mo to less than 5yo 01/26/1996,07/29/1994,04/07/1994 [...] care for your loved ones. For example, attendant children's institution or elderly care for an older adult? [...] al N Livin g Jesse Complications:None Delivery Location:[facility] 2023 Term 38w 6d 3260 g (115 oz) F Vag-S pont Epidur al Livin g 8 9 Nhung adair bond CNM Complications:None,Gestation al diabetes mellitus (GDM) Delivery Location:[facility] Comments:SROM. nuchal body cord & true knot. GDMA1 Last Filed Vital Signs Vital Sign Reading Time Taken Comments Blood Pressure 128/86 09/12/2024 3:16 PM EDT Pulse 77 08/18/2024 2:49 PM EST Temperature - - Respiratory Rate 18 08/18/2024 2:49 PM EST Oxygen Saturation 98% 09/12/2024 3:16 PM EDT Inhaled Oxygen Concentration - - Weight 101 kg (223 lb) 09/12/2024 3:16 PM EDT Height 165.1 cm (5' 5 ) 08/18/2024 2:49 PM EST Body Mass Index 37.11 08/18/2024 2:49 PM EST Plan of Treatment Upcoming Encounters Date Type Department Care Team (Late st Contact Info) Description 09/29/2024 2:15 PM EDT Office Visit Obstetrics and Gynecology - [address] [phone] Talisha Cortes CNM [address] [place] [phone] Health Maintenance Due Date Last Done Comments [...] Procedure Name Priority Date/Time Associated Diagnosis Comments EXTERNAL MRI REPORT 08/20/2024 EXTERNAL MRI REPORT 08/20/2024 POC , URINE DIAGNOSTIC Routine 08/18/2024 3:41 [...] Recently Relevant to Health Maintenance Results * External MRI Report (08/20/2024) Only the most recent of2 resultswithin the time period is included. Anatomical Region Laterality Modality Magnetic Resonan ce Provider [facility] MRI PROCEDURES Final Result * POC , urine manually resulted (08/18/2024 3:41 PM EST) Only the most recent of2 resultswithin the time period is included. [facility] HCG, Ur POC Negative Negative POC hCG Int QC Pass? Yes Yes Urine Urine specimen obtained by clean catch procedure / Unknown 08/18/2024 3:41 PM EST Result [facility] Vanda Garcia [facility] POINT OF CARE TEST ENTE R/EDIT ORDERABLES Final Result * (ABNORMAL) POC Urine Auto W/O Micro (07/29/2024 3:27 PM EST) [facility] Leukocytes UA POC Positive(A) Negative Nitrite UA POC Negative Negative Urobilinogen UA POC Negative Negative Protein UA POC Negative Negative PH UA POC 5.0 5.0 - 9.0 Blood UA POC Negative Negative, Trace Specific [place]well UA POC 1.020 1.001 - 1.035 Ketones UA POC Negative Negative Bilirubin UA POC Positive(A) Negative Glucose UA POC Normal Normal, Trace Urine Urine specimen obtained by clean catch procedure / Unknown 07/29/2024 3:27 PM EST Narrative Jie Millan RN - 07/29/2024 3:27 PM EST Dylan 1mg/dL ASC 10mg/dL Leuk 500 silverio/ul Result [facility] Talisha Cortes [facility] POINT OF CARE TEST ENTER/FLYNN T ORDERABLES Final Result * Cervical Cancer Screening: HPV (06/08/2023) [facility] Cervical Cancer Screening: HPV positive, abstracted Historical Provider HEALTH MAINTENANCE Final Result * HIV Screening (05/25/2023) [facility] HIV Screening abstracted Result [facility] Historical Provider HEALTH MAINTENANCE Final Result * Hepatitis C Screening (05/25/2023) [facility] Hepatitis C Screening abstracted Historical Provider HEALTH MAINTENANCE Final Result * Depression Screening (05/19/2023) Pathologist [facility] Depression Screening abstracted Historical Provider HEALTH MAINTENANCE [...] Most Recently Relevant to Health Maintenance Insurance [facility] Care Teams Digital Media Associate Relationship Specialty Start Date End Date Bobbi Conte MD [address] [phone] PCP - General Internal Medicine 06/07/24
--- OUTSIDE RECORDS SUMMARY | 2024-09-26 18:03 | XMS_ITS | Encounter Summary ---
Author Organization [facility] Address [address] [place] [address] Care Team Providers Care Child Protective Services Specialist Name Role Phone Bobbi Conte MD Primary Care Provider [phone] Reason for Visit * Reason Onset Date Comments Wheelchair Evaluation 09/21/2024 Encounter Details Date Type Department Care Team (Late st Contact Info) Description 09/21/2024 Nurse Triage Internal Medicine - [place] 175 [facility] [address] [place] [address] Lizy Carpio MD 175 [facility] [address] [place] [address] Wheelchair Evaluation Social History Tobacco Use Types Packs/Day Years [...] for your loved ones. For example, child care group leader or elderly care for an older adult? [...] on file documented as of this encounter Progress Notes * Rita Isaac MA - 09/26/2024 12:34 PM EDT Trey will need to fax medical necessity form. * Akua Nicolas MA - 09/26/2024 10:53 AM EDT Pt called stated she called [facility] today and they need you to put ' lifetime qty on ordereven if she is using it temporally, pls advise? documented in this encounter Plan of Treatment Upcoming Encounters Date Type Department Care Team (Late st Contact Info) Description 09/29/2024 2:15 PM EDT Office Visit Obstetrics and Gynecology - [address] [phone] Talisha Cortes CNM [address] [place] [address] documented as of this encounter Visit Diagnoses Not on filedocumented in this encounter Additional Health Concerns Assessment Noted Time PHQ-9 Depression Total Score: 5 08/18/19 25 10:29 AM EST documented as of this encounter Care Teams Child Protective Services Specialist Relationship Specialty Start Date End Date Bobbi Conte MD 175 [facility] [address] [place] [address] PCP - General Internal Medicine 06/07/24 documented as of this encounter
--- OUTSIDE RECORDS SUMMARY | 2024-09-26 18:03 | XMS_ITS | Encounter Summary ---
Author Organization [facility] Address [address] [place] [address] Care Team Providers Care Hatchery Manager Name Role Phone Bobbi Conte MD Primary Care Provider [phone] Reason for Visit * Reason Onset Date Comments DME 09/12/2024 Encounter Details Date Type Department Care Team (Late st Contact Info) Description 09/12/2024 Telephone Internal Medicine [facility] [address] [place] [phone] Rita Isaac MA DME Social History Tobacco Use Types Packs/Day Years [...] for your loved ones. For example, childcare teacher or elderly care for an older [...] Notes * Rita Isaac MA - 09/26/2024 11:25 AM EDT Trey will need to fax medical necessity form. * Jocelyn Cash - 09/26/2024 10:42 AM EDT Patient called and requested for this DME be sent to [facility] as necessary indefinitely so she wont have to call every month to ask for the same item. Please advise Cb# [phone] * iRta Isaac MA - 09/13/2024 1:02 PM EDT Faxed to [facility] [phone] * Rita Isaac MA - 09/12/2024 3:59 PM EDT Pended. documented in this encounter Plan of Treatment Upcoming Encounters Date Type Department Care Team (Late st Contact Info) Description 09/29/2024 2:15 PM EDT Office Visit Obstetrics and Gynecology - [address] [phone] [address] [address] documented as of this encounter Visit Diagnoses Diagnosis Chronic bilateral low back pain with left-sided sciatica- Primary Paresthesias with subjective weakness documented in this encounter Orders General Supply Count Last Ordered Date First Or dered Date WHEELCHAIR 1 09/13/2024 documented in this encounter Additional Health Concerns Assessment Noted Time PHQ-9 Depression Total Score: 5 08/18/19 25 10:29 AM EST documented as of this encounter Care Teams Hatchery Manager Relationship Specialty Start Date End Date Bobbi Conte MD [address] [place] [address] [address] [place] [address] PCP - General Internal Medicine 06/07/24 documented as of this encounter
--- OUTSIDE RECORDS SUMMARY | 2024-09-26 18:03 | XMS_ITS | Encounter Summary ---
Author Organization [facility] Address [address] [place] [address] Care Team Providers Care Steel Placer Name Role Phone Bobbi Conte MD Primary Care Provider [phone] Reason for Visit * Reason Onset Date Comments Form:DEBORA Segovia 09/12/2024 Encounter Details Date Type Department Care Team ([facility] st Contact Info) Description 09/12/2024 Telephone Internal Medicine - [place] [address] [place] [phone] Bobbi Conte MD [address] [place] [phone] Form:DEBORA Segovia Social History Tobacco Use Types Packs/Day Years [...] for your loved ones. For example, child welfare specialist or elderly care for an older adult? [...] Progress Notes * Rita Isaac MA - 09/20/2024 8:30 AM EDT Mailed to [facility]. [address] [address] [place] [address] * Rita Isaac MA - 09/15/2024 3:45 PM EDT Placed in providers folder for signature. * Lizy Carpio MD - 09/12/2024 5:20 PM EDT Patient want a wheelchair, not a walker * Alee Cabrera - 09/12/2024 4:01 PM EDT [employer] Neuropsychologist: Partner (Evy Campo) Medical Reasoning: Numbness of left leg due to pinched nerve. documented in this encounter Plan of Treatment Upcoming Encounters Date Type Department Care Team (Late st Contact Info) Description 09/29/2024 2:15 PM EDT Office Visit Obstetrics and Gynecology - [address] [phone] Talisha Cortes [address] [address] documented as of this encounter Visit Diagnoses Not on filedocumented in this encounter Additional Health Concerns Assessment Noted Time PHQ-9 Depression Total Score: 5 08/18/19 25 10:29 AM EST documented as of this encounter Care Teams Steel Placer Relationship Specialty Start Date End Date Bobbi Conte MD [address] [phone] PCP - General Internal Medicine 06/07/24 documented as of this encounter
== END 2024-09-26 16:00 | disposition home or self-care (01) ==
LOC: HO.HNS 15:09
PROVIDERS: PCP Internal Medicine; Visit Provider Physician Assistant
DX: M54.16 Radiculopathy, lumbar region (principal)
CPT/HCPCS: 99213

== ENCOUNTER → 2024-09-26 15:08 | Outpatient (BNVA) | payer OTHER, SELFPAY | PROVIDERS: PCP Internal Medicine; Visit Provider Physician Assistant | DX: M54.16 Radiculopathy, lumbar region (principal) | CPT/HCPCS: 99212 ==

== ENCOUNTER 2024-10-06 15:22 | Outpatient (AMB) | payer OTHER, SELFPAY ==
[2024-10-06 15:25] VITALS: BP 124/76; PULSE 84; O2SAT 97
--- NOTE | 2024-10-06 15:25 | MHC.OFFVIS ---
Vital Signs 10/06/24 15:25 Height 5 ft 5 in BP 124/76 Blood Pressure Location Rt brachial Position Sitting Pulse 84 Pulse Source Pulse Oximeter Pulse Oximetry (%) 97 Oxygen Delivery Method Room Air Intake Visit Reasons: follow up L foot ? nerve pinched/vaginal shoot Intake Note: Patient presents 3 month follow up for Acquired left foot numbness. Shop Supervisor Required: No Accompanied by: Self / Same As Patient Allergies No Known Allergies Allergy (Verified 09/26/24 15:13) HPI Comments Details: 28y/o female comes for evaluation of left leg pain. It started about 1 year ago - starts in her toes and moves up to her hip. If she strains radiated to her pelvic area, vagina.she describes the pain as tingling , shooting pain with numbness and weakness.she also has chronic back pain which worsened. she became after and now her baby is 3 months old. Her labor and delivery was uneventful. But she started having sharp pain in her vagina .she didnt have any imaging done . she was sent for PT which helped a little. EMG showed Left L4-5 radiculopathy. 09/01/2024. Labs are pending. Lumbar decompression and laminectomy was completed in [facility] December 2023, with little relief L5 nerve root impingement at S1, so the nerve traverses. She continues to have pain with spasms of the L toes on flexion and extension, cramps at rest at night so severe they wake her up from sleep. She no longer has numbness or tingling in her arms and is not dropping things. [facility] ER Visit DecemberMar 2024. She has difficulty caring for her 9month old baby and requesting SOLAR THERMAL TECHNICIAN services, referred to jovan Sam f/u. She was nursing and Gabapentin not started, will r/o today and she will start Gabapentin and Tramadol as needed. MRI 08/20/2024 Impression: No epidural abscess or hematoma. Postsurgical soft tissue and mild dural enhancement with asymmetric enhancement of the left L5 nerve root. Mild neuritis versus expected postoperative change. Continued follow-up recommended. There is moderately severe left-sided neural foraminal narrowing at L5-S1. [facility] Medical History Acquired left foot drop Lumbosacral radiculopathy at S1 Numbness and tingling of left leg Foot drop, left foot Neuropathy Obesity UTI (urinary tract infection) Anxiety Bilateral carpal tunnel syndrome Multiple renal cysts Right ovarian cyst Surgical History Hx of decompressive lumbar laminectomy (05/19/24) Hx of partial nephrectomy (~1999) Social History Household Members: Spouse and Children Household Members Other:: in laws Housing: Apartment Are you a primary health care specialist to a significant other at home: No Do you presently have visiting nurse or other home services: No Alcohol intake: current Alcohol intake frequency: former alcohol drinker Comment: Seldom Patient Tobacco Use Status: Former Tobacco user Years Smoked: quit 2 years ago- on and off x 10years Review of Systems Const All systems reviewed & are unremarkable except as noted in HPI and below Physical Exam Vital Signs: Last Vital Signs Pulse 84 10/06/24 15:25 BP 124/76 10/06/24 15:25 Pulse Ox 97 10/06/24 15:25 Oxygen Delivery Method Room Air 10/06/24 15:25 Const General: cooperative, healthy appearing and comfortable Nutritional Appearance: obese Orientation/consciousness: patient oriented x3 Eyes Pupils: Equal, round and reactive pupils present Neck Neck: Yes no meningeal signs Neuro Other: Left foot drop- weakness of left dorsiflexion - 1/5 Knee extension 4/5 Gait- compensation, mild high steppage on right General: patient oriented x3, moves all extremities and no meningeal signs Cranial nerves: Yes Facial sensation intact/muscles of mastication intact, Yes Equal, round and reactive pupils present, Yes Bilaterally intact EOM present, Yes Nystagmus not present, Yes Normal facial strength present, Yes Midline tongue present and Yes Symmetric palate elevation present Cognition (Neuro): normal cognition Motor exam (neuro): Normal motor muscle tone present throughout Deep tendon reflexes (DTR's): Right triceps reflex intensity grade: 1+, Left triceps reflex intensity grade: 1+, Rt Biceps (C5, C6): 1+, Left biceps reflex intensity grade: 1+, Right brachioradialis reflex intensity grade: 1+, Left brachioradialis reflex intensity grade: 1+, Right patellar reflex intensity grade: 1+, Left patellar reflex intensity grade: 1+, Right ankle reflex intensity grade: 1+ and Left ankle reflex intensity grade: 1+ Coordination: [id number] test normal Results Reviewed Results Reviewed: Lumbar MRI 08/20/2024 Impression: No epidural abscess or hematoma. Postsurgical soft tissue and mild dural enhancement with asymmetric enhancement of the left L5 nerve root. Mild neuritis versus expected postoperative change. Continued follow-up recommended. There is moderately severe left-sided neural foraminal narrowing at L5-S1. Neuro Spine note: 09/2024 My main concern for a subsequent foraminotomy in this patient is the obvious possibility of destabilization of L5-S1, as part of the lamina and part of the facet on that side have already been removed. I would like her to follow through with her injection at pain management. If she has very good relief from this injection then I may review her case with Dr. Zelaya for consideration of left L5 foraminotomy. She understands and agrees to this plan. Assessment & Plan Assessment & Plan (1) Acquired left foot drop: Comment: Left L5 radiculopathy s/P laminotomy on 05/2024 Code(s): M21.372 - Foot drop, left foot Category: Medical (2) Lumbar radiculopathy: Code(s): M54.16 - Radiculopathy, lumbar region Category: Medical (3) Numbness and tingling of left leg: Code(s): R20.0 - Anesthesia of skin; R20.2 - Paresthesia of skin Category: Medical (4) Lumbosacral radiculopathy at S1: Code(s): M54.17 - Radiculopathy, lumbosacral region Category: Medical (5) Cramps of left lower extremity: Code(s): R25.2 - Cramp and spasm Category: Medical Plan L. Foot cramps Complete Labs to r/o deficiencies. Lumbar Radiculopathy she will start Gabapentin 300mg TID after r/o HCG Quant today. Reviewed Operative notes with patient re: laminectomy with Dr. Zelaya at [facility] Continue PT for left leg weakness and foot drop AFOs f/u with [facility] or check [facility] L. foot orthosis. Orthopedic consult for L. foot orhtosis if insurance does not cover this expense with FSA account. Repeat EMG in 3 mths ? F/U in 2 months Orders: Orders Hemoglobin A1c Today R20.0 - Anesthesia of skin, R20.2 - Paresthesia of skin Lipid Panel with Reflex Today M54.17 - Radiculopathy, lumbosacral region, R20.0 - Anesthesia of skin, R20.2 - Paresthesia of skin TSH reflex Free T4 Today M54.17 - Radiculopathy, lumbosacral region Calcium Today M21.372 - Foot drop, left foot, M54.16 - Radiculopathy, lumbar region HCG Quantitative Today M21.372 - Foot drop, left foot Complete Blood Count no Diff Today R20.0 - Anesthesia of skin, R20.2 - Paresthesia of skin Comprehensive Met. Panel Today R20.0 - Anesthesia of skin, R20.2 - Paresthesia of skin Ferritin Today R20.0 - Anesthesia of skin, R20.2 - Paresthesia of skin IRON PROFILE Today G47.9 - Sleep disorder, unspecified, R53.83 - Other fatigue Vitamin D 25-OH Total Today R20.0 - Anesthesia of skin, R20.2 - Paresthesia of skin Magnesium Today R20.0 - Anesthesia of skin, R20.2 - Paresthesia of skin Vitamin B12 and Folate Today R20.0 - Anesthesia of skin, R20.2 - Paresthesia of skin Methylmalonic Acid Today G47.9 - Sleep disorder, unspecified, R53.83 - Other fatigue Homocysteine Today G47.9 - Sleep disorder, unspecified, R53.83 - Other fatigue Referrals Orthopedics Referral M21.372 - Foot drop, left foot Medications: Refilled gabapentin 300 mg PO TID 90 caps 0RF Patient Instructions: RE: Radiculopathy, Nueropathy: Start Gabapentin 300mg TID RE: F/U with Orthopedic re: AFO braarabella LLucia foot or purchase on [employer] if Karla is not able to fill the RX. Complete all labs, r/o and deficiencies. SOLAR THERMAL TECHNICIAN services f/u with [facility] to see about assessment for services. Pain management Ernestine Stout, as needed Tramadol or PT services. Weight management to decrease weight, and better eating strategies with meal planning, weight loss can help with LBP compression at the nerve root. L5/ S1. Coding Level of Care Code Est Pt Level 4 (84555) Complex EM visit Add On G2211 Diagnoses Acquired left foot drop M21.372 Lumbar radiculopathy M54.16 Numbness and tingling of left leg R20.0; R20.2 Lumbosacral radiculopathy at S1 M54.17 Cramps of left lower extremity R25.2 Time Spent (min) 40
--- OUTSIDE RECORDS SUMMARY | 2024-10-06 16:46 | XMS_ITS | Encounter Summary ---
Author Organization [facility] Address [address] [place] [address] Care Team Providers Care Wharf Builder Name Role Phone Bobbi Conte MD Primary Care Provider [phone] Reason for Visit * Reason Onset Date Comments faxed order 10/04/2024 L&C Encounter Details Date Type Department Care Team (Late st Contact Info) Description 10/04/2024 Telephone Internal Medicine - [place] [address] [place] [phone] Rita Isaac MA faxed order (L&C) Social History Tobacco Use Types Packs/Day Years [...] care for your loved ones. For example, infant childcare provider or elderly care for an older adult? [...] Progress Notes * Rita Isaac MA - 10/06/2024 1:35 PM EDT Faxed to L&C [phone] * Rita Isaac MA - 10/04/2024 1:41 PM EDT [facility]la [facility] prescription K1 / K3 wheelchair K0001 w/ footrest Placed in providers folder for signature. documented in this encounter Plan of Treatment Upcoming Encounters Date Type Department Care Team (Late st Contact Info) Description 10/11/2024 3:30 PM EDT Office Visit Internal Medicine - [place] 175 [facility] 200 [place] [address] Bobbi Conte MD 175 [facility] 200 [place] [phone] documented as of this encounter Visit Diagnoses Not on filedocumented in this encounter Additional Health Concerns Assessment Noted Time PHQ-9 Depression Total Score: 5 08/18/19 25 10:29 AM EST documented as of this encounter Care Teams Wharf Builder Relationship Specialty Start Date End Date Bobbi Conte MD [address] [address] PCP - General Internal Medicine 06/07/24 documented as of this encounter
--- OUTSIDE RECORDS SUMMARY | 2024-10-06 16:46 | XMS_ITS | Clinical Summary ---
Author Organization [facility] Address [address] [place] [address] Phone Care Team Providers Care Machine Adjuster Leader Case Trim Name Role Phone Bobbi Conte MD Primary Care Provider [phone] Allergies Active Allergy Reactions Criticality Noted Date [...] 1 dose. 1 tablet 09/27/19 25 Active norethindrone (MADHURI,CORTNEY,HE ATHER,MICRONOR) 0.35 mg tablet Take 1 tablet (0.35 mg total) by mouth 1 (one) time each day. 28 tablet 11 09/30/19 25 2025 Active ibuprofen (ADVIL,MOTRIN) 600 mg tablet Take [...] She went to the emergency room at [facility] and it resolved spontaneously. She says the [...] will try to obtain the report from [facility] emergency room. Gestational diabetes 10/22/2023 Overview (05/18/2024): Dx 31w3d 1hr glucose 243 1 hour test at 24-28 wks: >140 Perform 3 hour if 1 hr >200, patient is diagnosed with GDM and does not need 3-hr GTT Forward chart to P [id number] ([facility]) Nutrition: Appt 10/29/23 at 3:30pm with [...] Growth Ultrasound: 6lb4oz ~ 62%tile 12/17/23 Growth: [employer] on shoulder dystocia Deliver by 40 6/7 [...] for alpha thalessemia 06/15/2023 pt notified via [email or web address] in regards to getting fob tested.- NAYELI,RN [...] BMI of 50 by 28wks transfer to [facility] [place] DVT prophylaxis- Lovenox if CS and BMI >35 Neuropathy 05/25/2023 Overview (05/18/2024): Of left leg and left foot Being followed by dr veras and physiatry. Pt wearing leg brace. She states the tar roofer will provide fmla forms if the condition should worsen as the progresses. UTI in , antepartum 05/25/2023 Overview (05/18/2024): Tx'd 05-20-23 WAN: 06/02/2023- Neg Anxiety 05/20/2023 Overview (05/18/2024): 05-19-23 pt advised she can take the vistaril as rx'd for anxiety and depression sx. Her pcp at [facility] was going to refer her to [...] (05/18/2024): Dr garcia referred pt to pelvic floor mechanic 05-18-23 Last Assessment & Plan: GC/CT and [...] Encounters Date Type Department Care Team Description 10/04/2024 Telephone Internal Medicine [address] [address] Rita Isaac MA faxed order (L&C) 09/29/2024 2:15 PM EDT Office Visit Obstetrics and Gynecology [place] [address] [place], [place] [address] [place] [address] Talisha Cortes CNM control counseling (Primary Dx); test negative 09/21/2024 Nurse Triage Internal Medicine [address] [address] Lizy Carpio MD Wheelchair Evaluation 09/12/2024 3:00 PM EDT Office Visit Internal Medicine [address] [address] Lizy Carpio MD 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); Neuropathy; Iron deficiency anemia secondary to inadequate dietary iron intake; Diet controlled gestational diabetes mellitus (GDM), antepartum; Obesity (BMI 30-39.9); Food allergy 09/12/2024 Telephone Internal Medicine [address] [address] Bobbi Conte MD Form:DEBORA Segovia 09/12/2024 Telephone Internal Medicine [address] [address] Rita Isaac MA DME 08/18/2024 2:45 PM EST Office Visit Obstetrics and Gynecology - [place] [address] [facility] [place] [address] Vanda Garcia, DARSHANM Encounter for initial prescription of vaginal ring hormonal contraceptive (Primary Dx) 07/29/2024 3:00 PM EST Clinical Support Obstetrics and Gynecology - [place] [address] [place] [address] Bad odor of urine (Primary Dx); Late menses from Last 3 Months Immunizations Name Administration Dates Next Due DTaP (Infanrix) 6wks to less than 7yo ,01/26/1996,12/23/1994,07/29,04/07/1994 [id number] (Pentacel) 2mo to less than 5yo 01/26/1996,07/29/1994,04/07/1994 [...] al N Livin g Jesse Complications:None Delivery Location:[facility] 2023 Term 38w 6d 3260 g (115 oz) F Vag-S pont Epidur al Livin g 8 9 Nhung adair bond CNM Complications:None,Gestation al diabetes mellitus (GDM) Delivery Location:[facility] Comments:SROM. nuchal body cord & true knot. GDMA1 Last Filed Vital Signs Vital Sign Reading Time Taken Comments Blood Pressure 124/90 09/29/2024 2:16 PM EDT Pulse 71 09/29/2024 2:16 PM EDT Temperature - - Respiratory Rate 18 09/29/2024 2:16 PM EDT Oxygen Saturation 98% 09/12/2024 3:16 PM EDT Inhaled Oxygen Concentration - - Weight 101 kg (223 lb) 09/29/2024 2:16 PM EDT Height 165.1 cm (5' 5 ) 09/29/2024 2:16 PM EDT Body Mass Index 37.11 09/29/2024 2:16 PM EDT Plan of Treatment Upcoming Encounters Date Type Department Care Team (Late st Contact Info) Description 10/11/2024 3:30 PM EDT Office Visit Internal Medicine - [place] [address] [facility] [address] [place] [phone] Bobbi Conte MD [address] [facility] [address] [place] [phone] Health Maintenance Due Date Last Done Comments COVID-19 Vaccine ( season) 2024 10/16/2020, 09/25/2020 Influenza Vaccine (Season Ended) 2025 08/31/2023, 05/21/2020, 05/09/2014, Additional history exists Depression Screening [...] Diagnosis Comments POC , URINE DIAGNOSTIC Routine 09/29/2024 2:27 PM EDT test negative EXTERNAL MRI REPORT 08/20/2024 EXTERNAL MRI REPORT 08/20/2024 POC , URINE DIAGNOSTIC Routine 08/18/2024 3:41 PM EST Encounter for initial prescription of vaginal ring hormonal contraceptive POC , URINE DIAGNOSTIC Routine 07/29/2024 3:35 PM EST Late menses POC URINE AUTO W/O MICRO Routine 07/29/2024 3:27 PM EST Bad odor of urine HM HPV Routine 06/08/2023 HEPATITIS C SCREENING Routine 05/25/2023 HIV SCREENING Routine 05/25/2023 DEPRESSION SCREENING Routine 05/19/2023 LIPID PANEL Routine 12/26/2022 from Last 3 Months or Most Recently Relevant to Health Maintenance Results * POC , urine manually resulted (09/29/2024 2:27 PM EDT) Only the most recent of3 resultswithin the time period is included. HCG, Ur POC Negative Negative POC hCG Int QC Pass? Yes Yes Urine Urine specimen obtained by clean catch procedure / Unknown 09/29/2024 2:27 PM EDT Talisha SEXTON POINT OF CARE TEST ENTER/FLYNN T ORDERABLES Final Result * External MRI Report (08/20/2024) Only the most recent of2 resultswithin the time period is included. Anatomical Region Laterality Modality Magnetic Resonan ce Provider [facility] IMG MRI PROCEDURES Final Result * (ABNORMAL) POC Urine Auto W/O Micro (07/29/2024 3:27 PM EST) Leukocytes UA POC Positive(A) Negative Nitrite UA POC Negative Negative Urobilinogen UA POC Negative Negative Protein UA POC Negative Negative PH UA POC 5.0 5.0 - 9.0 Blood UA POC Negative Negative, Trace Specific Bronson UA POC 1.020 1.001 - 1.035 Ketones UA POC Negative Negative Bilirubin UA POC Positive(A) Negative Glucose UA POC Normal Normal, Trace Urine Urine specimen obtained by clean catch procedure / Unknown 07/29/2024 3:27 PM EST Narrative Jie Millan RN - 07/29/2024 3:27 PM EST Dylan 1mg/dL ASC 10mg/dL Leuk 500 silverio/ul Talisha Sebastian CNM POINT OF CARE TEST ENTER/FLYNN T ORDERABLES Final Result * Cervical Cancer Screening: HPV (06/08/2023) [facility] Cervical Cancer Screening: HPV positive, abstracted [facility] Provider HEALTH MAINTENANCE Final Result * HIV Screening (05/25/2023) [facility] HIV Screening abstracted [facility] Provider HEALTH MAINTENANCE Final Result * Hepatitis C Screening (05/25/2023) [facility] Hepatitis C Screening abstracted [facility] Provider HEALTH MAINTENANCE Final Result * Depression Screening (05/19/2023) [facility] Depression Screening abstracted Result [facility] Provider HEALTH MAINTENANCE Final Result * Lipid panel (12/26/2022) [facility] LDL/HDL Ratio 3 0 - 4 Triglycerides 95 0 - 150 mg/dL Cholesterol 135 0 - 200 mg/dL HDL 46 >=40 mg/dL LDL Cholesterol 70 0 - 100 mg/dL Blood Venous blood specimen / Unknown Result [facility] Provider LAB BLOOD ORDERABLES Maribell l Result from Last 3 Months or Most Recently Relevant to Health Maintenance Insurance [facility] [facility] Care Teams Machine Adjuster Leader Case Trim Relationship Specialty Start Date End Date Bobbi Conte MD [address] [place] [phone] PCP - General Internal Medicine 06/07/24
== END 2024-10-06 16:39 | disposition home or self-care (01) ==
LOC: HO.HSMS 15:23
PROVIDERS: PCP Obstetrics & Gynecology; Visit Provider Physician Assistant Medical
DX: M21.372 Foot drop, left foot (principal); M54.16 Radiculopathy, lumbar region; R20.0 Anesthesia of skin; R20.2 Paresthesia of skin; M54.17 Radiculopathy, lumbosacral region; R25.2 Cramp and spasm
CPT/HCPCS: 99214; G2211

== ENCOUNTER 2024-10-06 15:22 | Outpatient (REF) | payer OTHER, SELFPAY ==
--- OUTSIDE RECORDS SUMMARY | 2024-10-06 17:10 | XMS_ITS | Encounter Summary ---
Author Organization [facility] Address [address] [place] [address] Care Team Providers Care Fuel Island Attendant Name Role Phone Bobbi Conte MD Primary Care Provider [phone] Kacy Velasquez MD Unavailable [phone] Akua Crenshaw PA-C Unavailable [phone] Alden Coates PA-C Unavailable [phone] Reason for Visit * Reason Onset Date Comments TEST RESULTS 01/23/2023 Encounter Details Date Type Department Care Team Description 01/23/2023 Tele[facility] [address] [place], [place] [phone] Cassandra Davis, DARSHAN 175 [place] [address] TEST RESULTS Social History Tobacco Use Types Packs/Day Years [...] suspected to have Coronavirus/COVID-19? No / Unsure 01/22/2023 9:17 AM EDT documented as of this encounter Miscellaneous Notes * Telephone Encounter - Tiffanie Isaac - 01/23/2023 2:18 PM EDT Left message for pt to return call to office. * Telephone Encounter - Tiffanie Isaac - 01/23/2023 2:18 PM EDT ----- Message from Cassandra Davis CNM sent at 01/23/2023 2:11 PM EDT ----- + BV, script Flagy po bid x 7 days sent to pharmacy documented in this encounter Plan of Treatment Not on file documented as of this encounter Visit Diagnoses Not on filedocumented in this encounter Care Teams Fuel Island Attendant Relationship Specialty Start Date End Date Bobbi Conte MD PCP - General Internal Medicine 11/06/20 Kacy Velasquez MD [address] [address] Surgeon Neurosurgery 07/09/23 Akua Crenshaw PA-C [address] [address] Specialist Neurosurgery 07/09/23 Alden Coates PA-C [address] [address] Specialist Neurosurgery 07/09/23 documented as of this encounter
--- OUTSIDE RECORDS SUMMARY | 2024-10-06 17:10 | XMS_ITS | Encounter Summary ---
Author Organization [facility] Address [address] [place] [address] Care Team Providers Care Retail Tire Sales Manager Name Role Phone Bobbi Conte MD Primary Care Provider [phone] Kacy Velasquez MD Unavailable [phone] Akua Crenshaw PA-C Unavailable [phone] Alden Coates PA-C Unavailable [phone] Encounter Details Date Type Department Care Team Description 02/23/2023 Refill Internal Medicine - [address], [address] [place] [address] Bobbi Conte MD [address] [place] [address] Social History Tobacco Use Types Packs/Day [...] encounter Miscellaneous Notes * Telephone Encounter - Earlene Hope - 02/24/2023 7:37 AM EDT BP Readings from Last 3 Encounters: 01/22/23 128/86 12/25/22 118/72 11/21/22 110/72 documented in this encounter Plan of Treatment Not on file documented as of this encounter Visit Diagnoses Not on filedocumented in this encounter Care Teams Retail Tire Sales Manager Relationship Specialty Start Date End Date Bobbi Conte MD PCP - General Internal Medicine 11/06/20 Kacy Velasquez MD 175 [facility] [address] [place] [address] Surgeon Neurosurgery 07/09/23 Akua Crenshaw PA-C [address] [address] Specialist Neurosurgery 07/09/23 Alden Coates PA-C 175 [facility] [address] [place] [address] Specialist Neurosurgery 07/09/23 documented as of this encounter
--- OUTSIDE RECORDS SUMMARY | 2024-10-06 17:10 | XMS_ITS | Encounter Summary ---
Author Organization [facility] Address [address] [place] [address] Care Team Providers Care Commercial Truck Driver Name Role Phone Bobbi Conte MD Primary Care Provider [phone] Kacy Velasquez MD Unavailable [phone] Akua Crenshaw PA-C Unavailable [phone] Alden Coates PA-C Unavailable [phone] Encounter Details Date Type Department Care Team Description 09/19/2021 Telephone Adult Medicine [facility] [address] [place] [address] Bobbi Conte MD [address] [place] [address] Social History Tobacco Use Types Packs/Day [...] on filedocumented in this encounter Care Teams Commercial Truck Driver Relationship Specialty Start Date End Date Bobbi Conte MD PCP - General Internal Medicine 11/06/20 Kacy Velasquez MD 175 [facility] [address] [place] [address] Surgeon Neurosurgery 07/09/23 Akua Crenshaw PA-C [address] [address] Specialist Neurosurgery 07/09/23 Alden Coates PA-C 175 [facility] [address] [place] [address] Specialist Neurosurgery 07/09/23 documented as of this encounter
--- OUTSIDE RECORDS SUMMARY | 2024-10-06 17:10 | XMS_ITS | Encounter Summary ---
Author Organization [facility] Address [address] [place] [address] Care Team Providers Care Recreational Therapy Aide Name Role Phone Bobbi Conte MD Primary Care Provider [phone] Kacy Velasquez MD Unavailable [phone] Akua Crenshaw PA-C Unavailable [phone] Alden Coates PA-C Unavailable [phone] Encounter Details Date Type Department Care Team Description 11/23/2023 Pt. Non Urgent Medical Question OBGYN - 271 [facility] 271 [place] [address] Chelsie Pal CN 175 [place] [address] Social History Tobacco Use Types [...] on filedocumented in this encounter Care Teams Recreational Therapy Aide Relationship Specialty Start Date End Date Bobbi Conte MD PCP - General Internal Medicine 11/06/20 Kacy Velasquez MD [address] [address] Surgeon Neurosurgery 07/09/23 Akua Crenshaw PA-C [address] [address] Specialist Neurosurgery 07/09/23 Alden Coates PA-C [address] [address] Specialist Neurosurgery 07/09/23 documented as of this encounter
--- OUTSIDE RECORDS SUMMARY | 2024-10-06 17:10 | XMS_ITS | Encounter Summary ---
Author Organization [facility] Address [address] [place] [address] Care Team Providers Care Electrician Apprentice Powerhouse Name Role Phone Bobbi Conte MD Primary Care Provider [phone] Kacy Velasquez MD Unavailable [phone] Akua Crenshaw PA-C Unavailable [phone] Alden Coates PA-C Unavailable [phone] Encounter Details Date Type Department Care Team Description 12/23/2023 Card Clothier Report Medical Records [address] [place] [address] Abstract, Provider Social History Tobacco Use Types [...] on filedocumented in this encounter Care Teams Electrician Apprentice Powerhouse Relationship Specialty Start Date End Date Bobbi Conte MD PCP - General Internal Medicine 11/06/20 Kacy Velasquez MD [address] [address] Surgeon Neurosurgery 07/09/23 Akua Crenshaw PA-C [address] [address] Specialist Neurosurgery 07/09/23 Alden Coates PA-C [address] [address] Specialist Neurosurgery 07/09/23 documented as of this encounter
--- OUTSIDE RECORDS SUMMARY | 2024-10-06 17:10 | XMS_ITS | Encounter Summary ---
Author Organization [facility] Address [address] [place] [address] Care Team Providers Care Stringed Instrument Repairer Name Role Phone Bobbi Conte MD Primary Care Provider [phone] Kacy Velasquez MD Unavailable [phone] Akua Crenshaw PA-C Unavailable [phone] Alden Coates PA-C Unavailable [phone] Encounter Details Date Type Department Care Team Description 10/01/2021 Refill Internal Medicine - [address], [address] [place] [address] Bobbi Conte MD [address] [place] [address] Social History Tobacco Use Types Packs/Day [...] on filedocumented in this encounter Care Teams Stringed Instrument Repairer Relationship Specialty Start Date End Date Bobbi Conte MD PCP - General Internal Medicine 11/06/20 Kacy Velasquez MD 175 [facility] [address] [place] [address] Surgeon Neurosurgery 07/09/23 Akua Crenshaw PA-C [address] [address] Specialist Neurosurgery 07/09/23 Alden Coates PA-C 175 [facility] [address] [place] [address] Specialist Neurosurgery 07/09/23 documented as of this encounter
--- OUTSIDE RECORDS SUMMARY | 2024-10-06 17:10 | XMS_ITS | Encounter Summary ---
Author Organization [facility] Address [address] [place] [address] Care Team Providers Care Urologist Physician Name Role Phone Bobbi Conte MD Primary Care Provider [phone] Kacy Velasquez MD Unavailable [phone] Akua Crenshaw PA-C Unavailable [phone] Alden Coates PA-C Unavailable [phone] Encounter Details Date Type Department Care Team Description 05/13/2023 Pt. Non Urgent Medical Question [facility] [address] [phone] Franco Crawley DPM [address] [address] Social History Tobacco Use Types Packs/Day Years [...] encounter Miscellaneous Notes * Telephone Encounter - Criss Peters C.M.A. - 05/13/2023 10:19 AM ESTFrom: Leslie Isaac To: Franco Crawley DPM Sent: 05/13/2023 10:09 AM EST Subject: Fmla Good morning I recently got off the phone with you guys regarding the fmla. I wanted to take a second to further explain what is going on. Since March I have continuously attempted to fight through the pain of my leg and continued to work. As the the time goes by the pain in my leg has become more and more unbearable. It has gotten to the point where I can???t feel it anymore and it gives outon me. On top of all that I am 2 months . 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 It???s an intensive classroom where the kids have higher needs and area lot more physical. The students run off and you have to glenys them. Due to issues with staffing the classroom has been understaffed. They pull the other supporting paraprofessional to other classrooms leaving me alone at times. Just this week my leg gave out making me almost fall. As I mentioned I am and this has become a huge risk for me and my baby. I have had to use up all of my sick time and am put in such a difficult position. At this time I am not able to work under this conditio n. So I write this letter for the doctor to consider all of this and possibly put me on bed rest until a solution is found. documented in this encounter Plan of Treatment Not on file documented as of this encounter Visit Diagnoses Not on filedocumented in this encounter Care Teams Urologist Physician Relationship Specialty Start Date End Date Bobbi Conte MD PCP - General Internal Medicine 11/06/20 Kacy Velasquez MD [address] [phone] Surgeon Neurosurgery 07/09/23 Akua Crenshaw PA-C [address] [address] Specialist Neurosurgery 07/09/23 Alden Coates PA-C 175 [facility] [address] [place] [address] Specialist Neurosurgery 07/09/23 documented as of this encounter
--- OUTSIDE RECORDS SUMMARY | 2024-10-06 17:10 | XMS_ITS | Encounter Summary ---
Author Organization [facility] Address [address] [place] [address] Care Team Providers Care Shell Mold Bonder Name Role Phone Bobbi Conte MD Primary Care Provider [phone] Kacy Velasquez MD Unavailable [phone] Akua Crenshaw PA-C Unavailable [phone] Alden Coates PA-C Unavailable [phone] Encounter Details Date Type Department Care Team Description 09/23/2023 Pt. Non Urgent Medical Question OBGYN - 271 [facility] 271 [place] [address] Chelsie Pal CN 175 [place] [address] Social History Tobacco Use Types [...] on filedocumented in this encounter Care Teams Shell Mold Bonder Relationship Specialty Start Date End Date Bobbi Conte MD PCP - General Internal Medicine 11/06/20 Kacy Velasquez MD [address] [address] Surgeon Neurosurgery 07/09/23 Akua Crenshaw PA-C [address] [address] Specialist Neurosurgery 07/09/23 Alden Coates PA-C [address] [address] Specialist Neurosurgery 07/09/23 documented as of this encounter
--- OUTSIDE RECORDS SUMMARY | 2024-10-06 17:10 | XMS_ITS | Encounter Summary ---
Author Organization [facility] Address [address] [place] [address] Care Team Providers Care Pipefitter Helper Name Role Phone Bobbi Conte MD Primary Care Provider [phone] Kacy Velasquez MD Unavailable [phone] Akua Crenshaw PA-C Unavailable [phone] Alden Coates PA-C Unavailable [phone] Reason for Visit * Reason Onset Date Comments 05/06/2023 Encounter Details Date Type Department Care Team Description 05/06/2023 Telephone OBGYN - 271 [facility] 271 [place] [address] Chelsie Pal CN 175 [place] [address] Social History Tobacco Use Types [...] had this problem? 20 mins ago Pt???s CLINICAL LABORATORY ASSISTANT provider: Chelsie Pal CNM Last menstrual period (LMP) or EDC (due date): edc 12/27 Spoke with nurse and advised to go to the hospital documented in this encounter Plan of Treatment Not on file documented as of this encounter Visit Diagnoses Not on filedocumented in this encounter Care Teams Pipefitter Helper Relationship Specialty Start Date End Date Bobbi Conte MD PCP - General Internal Medicine 11/06/20 Kacy Vealsquez MD 175 [facility] [address] [place] [address] Surgeon Neurosurgery 07/09/23 Akua Crenshaw PA-C 175 [facility] [address] [place] [address] Specialist Neurosurgery 07/09/23 Alden Coates PA-C 175 [facility] [address] [place] [address] Specialist Neurosurgery 07/09/23 documented as of this encounter
--- OUTSIDE RECORDS SUMMARY | 2024-10-06 17:10 | XMS_ITS | Encounter Summary ---
Author Organization [facility] Address [address] [place] [address] Care Team Providers Care Gui Developer Name Role Phone Bobbi Conte MD Primary Care Provider +[phone]- [phone] Kacy Velasquez MD Unavailable [phone] Akua Crenshaw PA-C Unavailable [phone] Alden Coates PA-C Unavailable [phone] Encounter Details Date Type Department Care Team Description 07/15/2023 SCAN [facility] Medical [facility] Neurosurgery [place] [address] [phone] Alden Coates PA-C [address] [id number] Social History Tobacco Use Types Packs/Day Years [...] on filedocumented in this encounter Care Teams Gui Developer Relationship Specialty Start Date End Date Bobbi Conte MD PCP - General Internal Medicine 11/06/20 Kacy Velasquez MD [address] [address] Surgeon Neurosurgery 07/09/23 Akua Crenshaw PA-C [address] [address] Specialist Neurosurgery 07/09/23 Alden Coates PA-C [address] [address] Specialist Neurosurgery 07/09/23 documented as of this encounter
--- OUTSIDE RECORDS SUMMARY | 2024-10-06 17:10 | XMS_ITS | Encounter Summary ---
Author Organization [facility] Address [address] [place] [address] Care Team Providers Care Bleacher Pulp Name Role Phone Bobbi Conte MD Primary Care Provider Kacy Velasquez MD Unavailable [phone] Akua Crenshaw PA-C Unavailable [phone] Alden Coates PA-C Unavailable [phone] Encounter Details Date Type Department Care Team Description 06/18/2023 Pt. Non Urgent Medical Question OBGYN - 271 [facility] 271 [place] [address] Chelsie Pal CN 175 [place] [address] Social History Tobacco Use Types [...] on filedocumented in this encounter Care Teams Bleacher Pulp Relationship Specialty Start Date End Date Bobbi Conte MD PCP - General Internal Medicine 11/06/20 Kacy Velasquez MD [address] [address] Surgeon Neurosurgery 07/09/23 Akua Crenshaw PA-C [address] [address] Specialist Neurosurgery 07/09/23 Alden Coates PA-C [address] [address] Specialist Neurosurgery 07/09/23 documented as of this encounter
--- OUTSIDE RECORDS SUMMARY | 2024-10-06 17:10 | XMS_ITS | Encounter Summary ---
Author Organization [facility] Address [address] [place] [address] Care Team Providers Care Wire Preparation Machine Tender Name Role Phone Bobbi Conte MD Primary Care Provider Kacy Velasquez MD Unavailable [phone] Akua Crenshaw PA-C Unavailable [phone] Alden Coates PA-C Unavailable [phone] Reason for Referral * EXTERNAL (Routine) - Authorized/Booked Specialty Diagnoses / Procedures Referred By Daljit morel Referred To Contact Mental Health Procedures REFERRAL TO BEHAVIORAL HEALTH Bobbi Conte MD [address] [place] [address] External B/Health Referral ID Status Reason Start Date Expiration Date V isits Requested Visits Authorized [id number] Authorized/B ooked 05/19/2023 08/20/2023 1 1 Reason for Visit * Reason Onset Date Comments Orders Call 05/19/2023 Encounter Details Date Type Department Care Team Description 05/19/2023 Telephone Internal Medicine - [place] 175 [facility], [address] [place] [address] Bobbi Conte MD [address] [place] [address] Orders Call Social History Tobacco Use Types Packs/Day Years [...] encounter Miscellaneous Notes * Telephone Encounter - Bobbi Conte MD - 05/19/2023 3:41 PM EST I placed a referal, but she does not really need a referral for behavior health. She can call the places on her own and schedule an appointment * Telephone Encounter - Akua Nicolas - 05/19/2023 12:03 PM EST Spoke to pt, she is asking for a referral to see someone for therapy and depression and anxiety help? * Telephone Encounter - Bobbi Conte MD - 05/19/2023 11:52 AM EST Ask her to get therapy.not pills * Telephone Encounter - Akua Nicolas - 05/19/2023 11:30 AM EST Pls advise? Patient is and requested anxiety medication from [facility] which they refused to order. Suggested she contact her PCP re: What anxiety medication would she be able to order Contact patient with reponse if in fact dr. Conte will order medication. * Telephone Encounter - Darleen Gallego - 05/19/2023 11:07 AM EST Patient is and requested anxiety medication from [facility] which they refused to order. Suggested she contact her PCP re: What anxiety medication would she be able to order Contact patient with reponse if in fact dr. Conte will order medication. Patient has upcoming appt with dr. Carpio on 05-25-2023 for leg numbness documented in this encounter Plan of Treatment Not on file documented as of this encounter Visit Diagnoses Not on filedocumented in this encounter Care Teams Wire Preparation Machine Tender Relationship Specialty Start Date End Date Bobbi Conte MD PCP - General Internal Medicine 11/06/20 Kacy Velasquez MD [address] [address] Surgeon Neurosurgery 07/09/23 Akua Crenshaw PA-C [address] [address] Specialist Neurosurgery 07/09/23 Alden Coates PA-C 175 [facility] [address] [place] [address] Specialist Neurosurgery 07/09/23 documented as of this encounter
--- OUTSIDE RECORDS SUMMARY | 2024-10-06 17:10 | XMS_ITS | Encounter Summary ---
Author Organization [facility] Address [address] [place] [address] Care Team Providers Care Parenting Skills Instructor Name Role Phone Bobbi Conte MD Primary Care Provider [phone]- [phone] Kacy Velasquez MD Unavailable [phone] Akua Crenshaw PA-C Unavailable [phone] Alden Coates PA-C Unavailable Encounter Details Date Type Department Care Team Description 07/10/2023 SCAN [facility] Medical [facility] Neurosurgery [place] [address] [phone] Alden Coates PA-C [address] [phone] Social History Tobacco Use Types Packs/Day Years [...] on filedocumented in this encounter Care Teams Parenting Skills Instructor Relationship Specialty Start Date End Date Bobbi Conte MD PCP - General Internal Medicine 11/06/20 Kacy Velasquez MD [address] [address] Surgeon Neurosurgery 07/09/23 Akua Crenshaw PA-C [address] [address] Specialist Neurosurgery 07/09/23 Alden Coates PA-C [address] [address] Specialist Neurosurgery 07/09/23 documented as of this encounter
--- OUTSIDE RECORDS SUMMARY | 2024-10-06 17:10 | XMS_ITS | Encounter Summary ---
Author Organization [facility] Address [address] [place] [address] Care Team Providers Care Gold Leaf Layer Name Role Phone Bobbi Conte MD Primary Care Provider [phone]- [phone] Kacy Velasquez MD Unavailable [phone] Akua Crenshaw PA-C Unavailable [phone] Alden Coates PA-C Unavailable [phone] Encounter Details Date Type Department Care Team Description 06/16/2023 Pt. Non Urgent Medical Question OBGYN - 271 [facility] 271 [place] [address] Chelsie Pal CN 175 [place] [address] Social History Tobacco Use Types [...] on filedocumented in this encounter Care Teams Gold Leaf Layer Relationship Specialty Start Date End Date Bobbi Conte MD PCP - General Internal Medicine 11/06/20 Kacy Velasquez MD [address] [address] Surgeon Neurosurgery 07/09/23 Akua Crenshaw PA-C [address] [address] Specialist Neurosurgery 07/09/23 Alden Coates PA-C [address] [address] Specialist Neurosurgery 07/09/23 documented as of this encounter
--- OUTSIDE RECORDS SUMMARY | 2024-10-06 17:10 | XMS_ITS | Encounter Summary ---
Author Organization [facility] Address [address] [place] [address] Care Team Providers Care Manager China Name Role Phone Bobbi Conte MD Primary Care Provider [phone]- [phone] Kacy Velasquez MD Unavailable [phone] Akua Crenshaw PA-C Unavailable [phone] Alden Coates PA-C Unavailable [phone] Encounter Details Date Type Department Care Team Description 11/08/2020 Telephone Adult Medicine [facility] [address] [place] [address] Bobbi Conte MD [address] [place] [address] Social History Tobacco Use Types Packs/Day [...] on filedocumented in this encounter Care Teams Manager China Relationship Specialty Start Date End Date Bobbi Conte MD PCP - General Internal Medicine 11/06/20 Kacy Velasquez MD 175 [facility] [address] [place] [address] Surgeon Neurosurgery 07/09/23 Akua Crenshaw PA-C [address] [address] Specialist Neurosurgery 07/09/23 Alden Coates PA-C 175 [facility] [address] [place] [address] Specialist Neurosurgery 07/09/23 documented as of this encounter
--- OUTSIDE RECORDS SUMMARY | 2024-10-06 17:10 | XMS_ITS | Encounter Summary ---
Author Organization [facility] Address [address] [place] [address] Care Team Providers Care Customs Inspector Name Role Phone Bobbi Conte MD Primary Care Provider [phone]- [phone] Kacy Velasquez MD Unavailable [phone] Akua Crenshaw PA-C Unavailable [phone] Alden Coates PA-C Unavailable [phone] Encounter Details Date Type Department Care Team Description 12/01/2023 Pt. Non Urgent Medical Question OBGYN - 271 [facility] 271 [place] [address] Chelsie Pal CN 175 [place] [address] Social History Tobacco Use Types [...] on filedocumented in this encounter Care Teams Customs Inspector Relationship Specialty Start Date End Date Bobbi Conte MD PCP - General Internal Medicine 11/06/20 Kacy Velasquez MD [address] [address] Surgeon Neurosurgery 07/09/23 Akua Crenshaw PA-C [address] [address] Specialist Neurosurgery 07/09/23 Alden Coates PA-C [address] [address] Specialist Neurosurgery 07/09/23 documented as of this encounter
--- OUTSIDE RECORDS SUMMARY | 2024-10-06 17:10 | XMS_ITS | Encounter Summary ---
Author Organization [facility] Address [address] [place] [address] Care Team Providers Care Flotation Tender Helper Name Role Phone Basil Mcallister MD Primary Care Provider UnaBobbi Urbina MD Primary Care Provider [phone] Kacy Velasquez MD Unavailable [phone] Akua Crenshaw PA-C Unavailable [phone] Alden Coaets PA-C Unavailable [phone] Encounter Details Date Type Department Care Team Description 05/24/2020 Orders Only OBGYN - 271 [facility] 271 [place] [address] Cassandra Davis, [facility] 175 [place] [phone] IUD (intrauterine device) in place; Left ovarian [...] cyst documented in this encounter Care Teams Flotation Tender Helper Relationship Specialty Start Date End Date Basil Mcallister MD PCP - General Internal Medicine 07/28/19 11/05/20 Bobbi Conte MD PCP - General Internal Medicine 11/06/20 Kacy Velasquez MD [address] [address] Surgeon Neurosurgery 07/09/23 Akua Crenshaw PA-C [address] [address] Specialist Neurosurgery 07/09/23 Alden Coates PA-C [address] [address] Specialist Neurosurgery 07/09/23 documented as of this encounter
--- OUTSIDE RECORDS SUMMARY | 2024-10-06 17:10 | XMS_ITS | Encounter Summary ---
Author Organization [facility] Address [address] [place] [address] Care Team Providers Care Deployment Manager Name Role Phone Bobbi Conte MD Primary Care Provider [phone]- [phone] Kacy Velasquez MD Unavailable [phone] Akua Crenshaw PA-C Unavailable [phone] Alden Coates PA-C Unavailable [phone] Reason for Visit * Reason Onset Date Comments refill request 12/09/2023 Encounter Details Date Type Department Care Team Description 12/09/2023 Telephone OBGYN - 271 [facility] 271 [place] [address] Cassandra Davis CN 175 [place] [address] refill request Social History Tobacco [...] 12/09/24 Ayesha Dukes Prior Auth Dep Ext [id number] * Telephone Encounter - Ayesha Dueks M.A. - 12/10/2023 2:52 PM EDT Auth called into [facility] Ayesha Dukes Prior Auth Dep Ext [id number] * Telephone Encounter - Jie Millan R.N. [...] care documented in this encounter Care Teams Deployment Manager Relationship Specialty Start Date End Date Bobbi Conte MD PCP - General Internal Medicine 11/06/20 Kacy Velasquez MD 175 [facility] [address] [place] [address] Surgeon Neurosurgery 07/09/23 Akua Crenshaw PA-C [address] [address] Specialist Neurosurgery 07/09/23 Alden Coates PA-C 175 [facility] [address] [place] [address] Specialist Neurosurgery 07/09/23 documented as of this encounter
--- OUTSIDE RECORDS SUMMARY | 2024-10-06 17:10 | XMS_ITS | Encounter Summary ---
Author Organization [facility] Address [address] [place] [address] Care Team Providers Care Service Mechanic Name Role Phone Basil Mcallister MD Primary Care Provider Bobbi Meek MD Primary Care Provider [phone] Kacy Velasquez MD Unavailable [phone] Akua Crenshaw PA-C Unavailable [phone] Alden Coates PA-C Unavailable [phone] Encounter Details Date Type Department Care Team Description 03/27/2020 Transfer Records Medical Records [address] [place] [address] Abstract, Provider Social History Tobacco Use Types [...] on filedocumented in this encounter Care Teams Service Mechanic Relationship Specialty Start Date End Date Basil Mcallister MD PCP - General Internal Medicine 07/28/19 11/05/20 Bobbi Conte MD PCP - General Internal Medicine 11/06/20 Kacy Velasquez MD 175 [facility] [address] [place] [address] Surgeon Neurosurgery 07/09/23 Akua Crenshaw PA-C 175 [facility] [address] [place] [address] Specialist Neurosurgery 07/09/23 Alden Coates PA-C 175 [facility] [address] [place] [address] Specialist Neurosurgery 07/09/23 documented as of this encounter
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
--- OUTSIDE RECORDS SUMMARY | 2024-10-06 17:10 | XMS_ITS | Encounter Summary ---
Author Organization [facility] Address [address] [place] [address] Care Team Providers Care Returns Processor Name Role Phone Bobbi Conte MD Primary Care Provider [phone] Kacy Velasquez MD Unavailable [phone] Akua Crenshaw PA-C Unavailable [phone] Alden Coates PA-C Unavailable [phone] Encounter Details Date Type Department Care Team Description 12/12/2023 Hospital Medical Records [address] [place], [place] [phone] [place] [address] Social History Tobacco Use Types Packs/Day Years [...] on filedocumented in this encounter Care Teams Returns Processor Relationship Specialty Start Date End Date Bobbi Conte MD PCP - General Internal Medicine 11/06/20 Kacy Velasquez MD [address] [phone] Surgeon Neurosurgery 07/09/23 Akua Crenshaw PA-C [address] [address] Specialist Neurosurgery 07/09/23 Alden Coates PA-C [address] [address] Specialist Neurosurgery 07/09/23 documented as of this encounter
--- OUTSIDE RECORDS SUMMARY | 2024-10-06 17:10 | XMS_ITS | Encounter Summary ---
Author Organization [facility] Address [address] [place] [address] Care Team Providers Care Cup Setter Lockstitch Name Role Phone Bobbi Conte MD Primary Care Provider [phone]- [phone] Kacy Velasquez MD Unavailable [phone] Akua Crenshaw PA-C Unavailable [phone] Alden Coates PA-C Unavailable [phone] Encounter Details Date Type Department Care Team Description 06/10/2023 Pt. Non Urgent Medical Question OBGYN - 271 [facility] 271 [place] [address] Chelsie Pal CN 175 [place] [address] Social History Tobacco Use Types [...] on filedocumented in this encounter Care Teams Cup Setter Lockstitch Relationship Specialty Start Date End Date Bobbi Conte MD PCP - General Internal Medicine 11/06/20 Kacy Velasquez MD [address] [address] Surgeon Neurosurgery 07/09/23 Akua Crenshaw PA-C [address] [address] Specialist Neurosurgery 07/09/23 Alden Coates PA-C [address] [address] Specialist Neurosurgery 07/09/23 documented as of this encounter
--- OUTSIDE RECORDS SUMMARY | 2024-10-06 17:10 | XMS_ITS | Clinical Summary ---
Author Organization [facility] Address [address] [place] [address] Care Team Providers Care Water Plant Pump Operator Name Role Phone Bobbi Conte MD Primary Care Provider Kacy Velasquez MD Unavailable [phone] Akua Crenshaw PA-C Unavailable [phone] Alden Coates PA-C Unavailable Allergies Active Allergy Reactions Severity Noted Date [...] 2 times daily. 60 Tablet 5 08/04/2023 Active Cholecalciferol (Vitamin D) 50 MCG (1999) [...] She went to the emergency room at [facility] and it resolved spontaneously. She says [...] will try to obtain the report from [facility] emergency room. History of diet controlled gestational [...] need 3-hr GTT Forward chart to P [id number] ([place] [facility]) Nutrition: Appt 10/29/23 at 3:30pm [...] Growth Ultrasound: 6lb4oz ~ 62%tile 12/17/23 Growth: Membership Administrator on shoulder dystocia Deliver by 40 6/7 [...] of the left foot. Her MRI from [facility] on March 17, 2024 revealed degenerative [...] for alpha thalessemia 06/15/2023 pt notified via [employer] in regards to getting fob tested.- NAYELI,RN [...] BMI of 50 by 28wks transfer to [facility] DVT prophylaxis- Lovenox if CS and BMI >35 Encounter for supervision of other jai sanabria , first trimester 05/25/2023 Overview: 1. [facility] site: [address] ([place]) 2. Delivery site: [facility] 3. Mobile Mommas: 4. Dating criteria: LMP confirmed by 1st trimester ultrasound 5. Blood type: Lab Results Component Value Date BLDTYPE B POSITIVE 05/25/2023 6. 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 GBS: Date: Neg 11/24/23 7. FOB name: Clifford Verma [birth year] 8. Plans A. Epidural or other pain management - B. Labor support identified - C. Tdap - Date:, Flu - Date: 08/31/23 D. Breast or Bottle feed: breast E. Baby's name -baby girl F. Circumcision - 9. Hospital Course: Neuropathy 05/25/2023 Overview: Of left leg and left foot Being followed by dr veras and physiatry. Pt wearing leg brace. She states the tooth cutter spur will provide fmla forms if the condition [...] Overview: Dr garcia referred pt to pelvic packing floor worker 05-18-23 Last Assessment & Plan: GC/CT and [...] ve Free-quadrivalent 4 Years 08/31/2023 08/31/2024 MMR (Gdastom-Lonws-Htqgiqd) 12/13/2023, 9,12/23/1994 Meningococcal (Menactra) 01/27/2006 Polio (OPV) [...] Due Date Last Done Comments Covid-19 Vaccine (2022- 4 season) 2024 10/16/2020, 09/25/2020 BMI CHECK/ADVISE 07/06/2024 04/13/2024, 02/2024, 10/08/2023, Additional history exists DEPRESSION SCREENING/FOLLOWUP 07/06/2024, 05/19/2023, 11/07/2020 SOCIAL NEEDS SCREENING 07/06/2024 10/06/2023 INFLUENZA (Season Ended) 2025 024, 05/21/2020, 05/09/2014 CERVICAL CANCER SCREENING 06/08/20262022, 02/15/2020, 09/17/2015 CHOLESTEROL SCREENING 12/27/2027 12/26/2022, 020 BASELINE HEALTH EXAM 18-39 10/07/202810/07, 12/26/2022, 12/25/2022, Additional history exists DTAP/TDAP/TD (8 - Td or Tdap) 10/01/2033, 01/27/2006, 01/23/1999, Additional history exists PNEUMOCOCCAL VACCINE FOR HIG H RISK PATIENTS (#1) 2058 Care Teams Water Plant Pump Operator Relationship Specialty Start Date End Date Bobbi Conte MD PCP - General Internal Medicine 11/06/20 Kacy Velasquez MD [address] [address] Surgeon Neurosurgery 07/09/23 Akua Crenshaw PA-C [address] [address] Specialist Neurosurgery 07/09/23 Alden Coates PA-C [address] [address] Specialist Neurosurgery 07/09/23
--- OUTSIDE RECORDS SUMMARY | 2024-10-06 17:10 | XMS_ITS | Encounter Summary ---
Author Organization [facility] Address [address] [place] [address] Care Team Providers Care Religious Education Director Name Role Phone Bobbi Conte MD Primary Care Provider [phone]- [phone] Kacy Velasquez MD Unavailable [phone] Akua Crenshaw PA-C Unavailable [phone] Alden Coates PA-C Unavailable [phone] Reason for Visit * Reason Onset Date Comments Nail Problem, Toes 11/27/2021 Encounter Details Date Type Department Care Team Description 11/27/2021 Telephone Internal Medicine - [address], [address] [place] [address] Bobbi Conte MD [address] [place] [address] Nail Problem, Toes Social History Tobacco [...] these symptoms?: Yesterday PCP: Bobbi Conte Payor: [employer] FFS / Plan: [employer] / Product Type: MEDICAID RISK documented in this encounter Plan of Treatment Not on file documented as of this encounter Visit Diagnoses Not on filedocumented in this encounter Care Teams Religious Education Director Relationship Specialty Start Date End Date Bobbi Conte MD PCP - General Internal Medicine 11/06/20 Kacy Velasquez MD [address] [address] Surgeon Neurosurgery 07/09/23 Akua Crenshaw PA-C [address] [address] Specialist Neurosurgery 07/09/23 Alden Coates PA-C [address] [address] Specialist Neurosurgery 07/09/23 documented as of this encounter
--- OUTSIDE RECORDS SUMMARY | 2024-10-06 17:10 | XMS_ITS | Encounter Summary ---
Author Organization [facility] Address [address] [place] [address] Care Team Providers Care Transformer Builder Name Role Phone Bobbi Conte MD Primary Care Provider [phone]- [phone] Kacy Velasquez MD Unavailable [phone] Akua Crenshaw PA-C Unavailable [phone] Alden Coates PA-C Unavailable [phone] Encounter Details Date Type Department Care Team Description 05/13/2023 Pt. Non Urgent Medical Question OBGYN - 271 [facility] 271 [place] [address] Chelsie Pal CN 175 [place] [address] Social History Tobacco Use Types [...] on filedocumented in this encounter Care Teams Transformer Builder Relationship Specialty Start Date End Date Bobbi Conte MD PCP - General Internal Medicine 11/06/20 Kacy Velasquez MD [address] [address] Surgeon Neurosurgery 07/09/23 Akua Crenshaw PA-C [address] [address] Specialist Neurosurgery 07/09/23 Alden Coates PA-C [address] [address] Specialist Neurosurgery 07/09/23 documented as of this encounter
--- OUTSIDE RECORDS SUMMARY | 2024-10-06 17:10 | XMS_ITS | Encounter Summary ---
Author Organization [facility] Address [address] [place] [address] Care Team Providers Care Group Marketing Vp Name Role Phone Bobbi Conte MD Primary Care Provider [phone] Kacy Velasquez MD Unavailable [phone] Akua Crenshaw PA-C Unavailable [phone] Alden Coates PA-C Unavailable [phone] Encounter Details Date Type Department Care Team Description 04/20/2023 Pt. Non Urgent Medical Question Internal Medicine - [address], [address] [place] [address] Lizy Carpio MD [address] [place] [phone] Social History Tobacco Use Types Packs/Day [...] know when will I be able to crop picker my work letter? documented in this encounter Plan of Treatment Not on file documented as of this encounter Visit Diagnoses Not on filedocumented in this encounter Care Teams Group Marketing Vp Relationship Specialty Start Date End Date Bobbi Conte MD PCP - General Internal Medicine 11/06/20 Kacy Velasquez MD [address] [address] Surgeon Neurosurgery 07/09/23 Akua Crenshaw PA-C [address] [address] Specialist Neurosurgery 07/09/23 Alden Coates PA-C [address] [address] Specialist Neurosurgery 07/09/23 documented as of this encounter
--- OUTSIDE RECORDS SUMMARY | 2024-10-06 17:10 | XMS_ITS | Clinical Summary ---
Author Organization [facility] Address [address] [place] [address] Phone Care Team Providers Care Charging Plug Placer Name Role Phone Bobbi Conte MD Primary Care Provider [phone] Allergies Active Allergy Reactions Criticality Noted Date [...] went to the emergency room at [facility] and it resolved spontaneously. She says [...] try to obtain the report from [facility] emergency room. Gestational diabetes 10/22/2023 Overview (05/18/2024): Dx 31w3d 1hr glucose 243 1 hour test at 24-28 wks: >140 Perform 3 hour if 1 hr >200, patient is diagnosed with GDM and does not need 3-hr GTT Forward chart to P [id number] ([facility]) Nutrition: Appt 10/29/23 at 3:30pm [...] Growth Ultrasound: 6lb4oz ~ 62%tile 12/17/23 Growth: Web Applications Programmer on shoulder dystocia Deliver by 40 6/7 [...] of the left foot. Her MRI from [facility] on March 17, 2024 revealed degenerative [...] for alpha thalessemia 06/15/2023 pt notified via [employer] in regards to getting fob tested.- NAYELI,RN [...] BMI of 50 by 28wks transfer to [facility] DVT prophylaxis- Lovenox if CS and BMI >35 Neuropathy 05/25/2023 Overview (05/18/2024): Of left leg and left foot Being followed by dr veras and physiatry. Pt wearing leg brace. She states the terrazzo tile setter will provide fmla forms if the condition should worsen as the progresses. UTI in , antepartum 05/25/2023 Overview (05/18/2024): Tx'd 05-20-23 WAN: 06/02/2023- Neg Anxiety 05/20/2023 Overview (05/18/2024): 05-19-23 pt advised she can take the vistaril as rx'd for anxiety and depression sx. Her pcp at [facility] was going to refer her to [...] Dr garcia referred pt to pelvic floor covering printer 05-18-23 Last Assessment & Plan: GC/CT and [...] Care Team Description 10/04/2024 Telephone Internal Medicine [address] [address] Rita Isaac MA faxed order (L&C) 09/29/2024 2:15 PM EDT Office Visit Obstetrics [facility]necology - [place] [address] [place], [place] [address] [place] [address] Talisha Cortes CNM control counseling (Primary Dx); test negative 09/21/2024 Nurse Triage Internal Medicine [address] [address] Lizy Carpio MD Wheelchair Evaluation 09/12/2024 3:00 PM EDT Office Visit Internal Medicine [address] [address] Lizy Carpio MD 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); Neuropathy; Iron deficiency anemia secondary to inadequate dietary iron intake; Diet controlled gestational diabetes mellitus (GDM), antepartum; Obesity (BMI 30-39.9); Food allergy 09/12/2024 Telephone Internal Medicine [address] [address] Bobbi Conte MD Form:DEBORA Segovia 09/12/2024 Telephone Internal Medicine [address] [address] Rita Isaac MA DME 08/18/2024 2:45 PM EST Office Visit Obstetrics and Gynecology - [place] [address] [place] [address] Vanda Garcia, DARSHANM Encounter for initial prescription of vaginal ring hormonal contraceptive (Primary Dx) 07/29/2024 3:00 PM EST Clinical Support Obstetrics and Gynecology - [place] [address] [place] [address] Bad odor of urine (Primary Dx); Late menses from Last 3 Months Immunizations Name Administration Dates Next Due DTaP (Infanrix) 6wks to less than 7yo ,01/26/1996,12/23/1994,07/29,04/07/1994 BIfD-NYK-[id number] (Pentacel) 2mo to less than 5yo 01/26/1996,07/29/1994,04/07/1994 [...] your loved ones. For example, early childhood associate or elderly care for an older adult? [...] al N Livin g Jesse Complications:None Delivery Location:[facility] 2023 Term 38w 6d 3260 g (115 oz) F Vag-S pont Epidur al Livin g 8 9 Nhung adair bond CNM Complications:None,Gestation al diabetes mellitus (GDM) Delivery Location:[facility] Comments:SROM. nuchal body cord & true [...] PM EDT Office Visit Internal Medicine - [place] [address] [place] [phone] Bobbi Conte MD [address] [place] [phone] Health Maintenance Due Date Last Done Comments [...] Blood UA POC Negative Negative, Trace Specific [place] UA POC 1.020 1.001 - 1.035 Ketones [...] Result * Cervical Cancer Screening: HPV (06/08/2023) [facility] Cervical Cancer Screening: HPV positive, abstracted [facility] Provider HEALTH MAINTENANCE Final Result * HIV Screening (05/25/2023) [facility] HIV Screening abstracted [facility] Provider HEALTH MAINTENANCE Final Result * Hepatitis C Screening (05/25/2023) [facility] Hepatitis C Screening abstracted [facility] Provider HEALTH MAINTENANCE Final Result * Depression Screening (05/19/2023) [facility] Depression Screening abstracted Result [facility] Provider HEALTH MAINTENANCE Final Result * Lipid panel (12/26/2022) [facility] LDL/HDL Ratio 3 0 - 4 Triglycerides 95 0 - 150 mg/dL Cholesterol 135 0 - 200 mg/dL HDL 46 >=40 mg/dL LDL Cholesterol 70 0 - 100 mg/dL Blood Venous blood specimen / Unknown Result [facility] Provider LAB BLOOD ORDERABLES Maribell l Result from Last 3 Months or Most Recently Relevant to Health Maintenance Insurance [facility] Care Teams Charging Plug Placer Relationship Specialty Start Date End Date Bobbi Conte MD [address] [place] [phone] PCP - General Internal Medicine 06/07/24
--- OUTSIDE RECORDS SUMMARY | 2024-10-06 17:11 | XMS_ITS | Encounter Summary ---
Author Organization [facility] Address [address] [place] [address] Care Team Providers Care Hvac Sheet Metal Installer Helper Name Role Phone Bobbi Conte MD Primary Care Provider Kacy Velasquez MD Unavailable [phone] Akua Crenshaw PA-C Unavailable [phone] Alden Coates PA-C Unavailable [phone] Encounter Details Date Type Department Care Team Description 05/27/2023 Pt. Non Urgent Medical Question OBGYN - [address] [facility] [address] [place] [address] Chelsie Pal CN [address] [place] [address] Social History Tobacco Use Types [...] on filedocumented in this encounter Care Teams Hvac Sheet Metal Installer Helper Relationship Specialty Start Date End Date Bobbi Conte MD PCP - General Internal Medicine 11/06/20 Kacy Velasquez MD [address] [address] Surgeon Neurosurgery 07/09/23 Akua Crenshaw PA-C [address] [address] Specialist Neurosurgery 07/09/23 Alden Coates PA-C [address] [address] Specialist Neurosurgery 07/09/23 documented as of this encounter
--- OUTSIDE RECORDS SUMMARY | 2024-10-06 17:11 | XMS_ITS | Encounter Summary ---
Author Organization [facility] Address [address] [place] [address] Care Team Providers Care Rrt Name Role Phone Community, Pcp Primary Care Provider Nikko Rogers Primary Care Provider Basil Conroy MD Primary Care Provider Bobbi Meek MD Primary Care Provider Kacy Velasquez MD Unavailable [phone] Akua Crenshaw PA-C Unavailable [phone] Alden Coates PA-C Unavailable [phone] Encounter Details Date Type Department Care Team Description 02/19/2017 Release of Information Medical Records [address] [place] [address] Abstract, Provider Social History Tobacco Use Types [...] on filedocumented in this encounter Care Teams Rrt Relationship Specialty Start Date End Date [facility], Pcp PCP - General Internal Medicine 11/04/11 10/15/17 Nikko Kaufman PCP - General Internal Medicine 10/16/17 07/27/19 Basil Mcallister MD PCP - General Internal Medicine 07/28/19 11/05/20 Bobbi Conte MD PCP - General Internal Medicine 11/06/20 Kacy Velasquez MD [address] [address] Surgeon Neurosurgery 07/09/23 Akua Crenshaw PA-C [address] [address] Specialist Neurosurgery 07/09/23 Alden Coates PA-C 175 [facility] [address] [place] [address] Specialist Neurosurgery 07/09/23 documented as of this encounter
--- OUTSIDE RECORDS SUMMARY | 2024-10-06 17:11 | XMS_ITS | Encounter Summary ---
Author Organization [facility] Address [address] [place] [address] Care Team Providers Care Power Plant Operator Name Role Phone Community, Pcp Primary Care Provider Nikko Rogers Primary Care Provider Basil Conroy MD Primary Care Provider Bobbi Meek MD Primary Care Provider [phone] Kacy Velasquez MD Unavailable [phone] Akua Crenshaw PA-C Unavailable [phone] Alden Coates PA-C Unavailable [phone] Encounter Details Date Type Department Care Team Description 04/04/2017 Transfer Records Medical Records [address] [place] [address] Abstract, Provider Social History Tobacco Use Types [...] on filedocumented in this encounter Care Teams Power Plant Operator Relationship Specialty Start Date End Date [facility], Pcp PCP - General Internal Medicine 11/04/11 10/15/17 Nikko Kaufman PCP - General Internal Medicine 10/16/17 07/27/19 Basil Mcallister MD PCP - General Internal Medicine 07/28/19 11/05/20 Bobbi Conte MD PCP - General Internal Medicine 11/06/20 Kacy Velasquez MD [address] [address] Surgeon Neurosurgery 07/09/23 Akua Crenshaw PA-C [address] [address] Specialist Neurosurgery 07/09/23 Alden Coates PA-C 175 [facility] [address] [place] [address] Specialist Neurosurgery 07/09/23 documented as of this encounter
--- OUTSIDE RECORDS SUMMARY | 2024-10-06 17:11 | XMS_ITS | Encounter Summary ---
Author Organization [facility] Address [address] [place] [address] Care Team Providers Care Technical Support 1 Software Engineer Name Role Phone Bobbi Conte MD Primary Care Provider [phone] Kacy Velasquez MD Unavailable [phone] Akua Crenshaw PA-C Unavailable [phone] Alden Coates PA-C Unavailable [phone] Reason for Visit * Reason Onset Date Comments PT-1 03/03/2024 Encounter Details Date Type Department Care Team Description 03/03/2024 Telephone Internal Medicine - [address], [address] [place], [place] [phone] Bobbi Conte MD [address] [place] [address] PT-1 Social History Tobacco Use Types [...] on filedocumented in this encounter Care Teams Technical Support 1 Software Engineer Relationship Specialty Start Date End Date Bobbi Conte MD PCP - General Internal Medicine 11/06/20 Kayc Velasquez MD [address] [address] Surgeon Neurosurgery 07/09/23 Akua Crenshaw PA-C [address] [address] Specialist Neurosurgery 07/09/23 Alden Coates PA-C [address] [address] Specialist Neurosurgery 07/09/23 documented as of this encounter
--- OUTSIDE RECORDS SUMMARY | 2024-10-06 17:11 | XMS_ITS | Encounter Summary ---
Author Organization [facility] Address [address] [place] [address] Care Team Providers Care Coating Engineer Name Role Phone Bobbi Conte MD Primary Care Provider [phone] Reason for Visit * Reason Onset Date Comments faxed order 10/04/2024 L&C Encounter Details Date Type Department Care Team (Late st Contact Info) Description 10/04/2024 Telephone Internal Medicine - [place] [address] [place] [address] Rita Isaac MA faxed order (L&C) Social [...] your loved ones. For example, early childhood or elderly care for an older adult? [...] 10/06/2024 1:35 PM EDT Faxed to L&C [phone] * Rita Isaac MA - 10/04/2024 1:41 PM EDT [facility] General prescription K1 / K3 wheelchair K0001 w/ footrest Placed in providers folder for signature. documented in this encounter Plan of Treatment Upcoming Encounters Date Type Department Care Team (Late st Contact Info) Description 10/11/2024 3:30 PM EDT Office Visit Internal Medicine - [place] 175 [facility] [address] [place] [address] Bobbi Conte MD 175 [facility] [address] [place] [phone] documented as of this encounter Visit Diagnoses Not on filedocumented in this encounter Additional Health Concerns Assessment Noted Time PHQ-9 Depression Total Score: 5 08/18/19 25 10:29 AM EST documented as of this encounter Care Teams Coating Engineer Relationship Specialty Start Date End Date Bobbi Conte MD [address] [address] PCP - General Internal Medicine 06/07/24 documented as of this encounter
--- OUTSIDE RECORDS SUMMARY | 2024-10-06 17:11 | XMS_ITS | Encounter Summary ---
Author Organization [facility] Address [address] [place] [address] Care Team Providers Care Skull Splitter Name Role Phone Bobbi Conte MD Primary Care Provider [phone] Kacy Velasquez MD Unavailable [phone] Akua Crenshaw PA-C Unavailable [phone] Alden Coates PA-C Unavailable [phone] Reason for Referral * EXTERNAL (Routine) - Authorized/Booked Specialty Diagnoses / Procedures Referred By Daljit morel Referred To Contact Physical Therapy Diagnoses Pelvic pressure in female Encounter for supervision of other normal , first trimester Procedures REFERRAL TO PHYSICAL THERAPY Rahat Ram DO [address] [place] [address] Referral ID Status Reason Start Date Expiration Date V isits Requested Visits Authorized [id number] Authorized/B ooked 06/04/2023 09/23/2023 1 1 Encounter Details Date Type Department Care Team Description 06/04/2023 Orders Only OBGYN - [address] [address] Rahat Ram DO Pelvic pressure in female (Primary Dx); Encounter for supervision of other normal , first trimester Social History Tobacco Use Types Packs/Day Years [...] as of this encounter Visit Diagnoses Diagnosis Pelvic pressure in female- Primary Other specified symptom associated with female genital organs Encounter for supervision of other normal , first trimester documented in this encounter Care Teams Skull Splitter Relationship Specialty Start Date End Date Bobbi Conte MD PCP - General Internal Medicine 11/06/20 Kacy Velasquez MD [address] [address] Surgeon Neurosurgery 07/09/23 Akua Crenshaw PA-C [address] [address] Specialist Neurosurgery 07/09/23 Alden Coates PA-C [address] [address] Specialist Neurosurgery 07/09/23 documented as of this encounter
[2024-10-06 17:53] LABS: Estimated Average Glucose 108 mg/dL; Hemoglobin A1C 127.3024 umol/L; Hemoglobin A1c % 5.4 % (<6.0); Total Hemoglobin (HGBA1C) 3547.8261 umol/L
[2024-10-06 18:12] LABS: Calcium 9.4 mg/dL (8.4-10.2); Iron 50 mcg/dL (30-160); Magnesium 2.3 mg/dL (1.6-2.6); Percent Iron Saturation 16 % (15-50); Total Iron Binding Capacity 307 mcg/dL (228-428); Unsaturated Iron Binding 257 ug/dL
[2024-10-06 18:14] LABS: Hematocrit 42.8 % (37.0-47.0); Hemoglobin 13.9 g/dl (12.0-16.0); Mean Corpuscular HGB Conc 32.5 g/dl (31.0-35.0); Mean Corpuscular Hemoglobin 26.4 pg (27.0-33.0); Mean Corpuscular Volume 81.2 fL (80.0-98.0); Mean Platelet Volume 9.6 fL (9.4-12.3); Platelet Count 319 X10*3/uL (160-400); Red Blood Count 5.27 X10*6/uL (4.20-5.50); Red Cell Distribution Width 13.3 % (11.0-16.0); White Blood Count 9.9 X10*3/uL (4.8-10.8)
[2024-10-06 18:32] LABS: Ferritin 58 ng/mL (10-122); HCG Quantitative < 2 mIU/mL; Vitamin D 25-OH Total 29.9 ng/mL (>30)
[2024-10-06 18:38] LABS: TSH reflex Free T4 1.55 uIU/mL (0.32-4.0)
[2024-10-06 18:46] LABS: Folate 12.7 ng/mL (> or = 4.0); Vitamin B12 503 pg/mL (200-900)
[2024-10-11 08:33] LABS: Methylmalonic Acid 96 nmol/L (55-335)
== END 2024-10-06 15:23 | disposition home or self-care (01) ==
LOC: HO.HKASLDS 15:22
PROVIDERS: PCP Obstetrics & Gynecology; Visit Provider Physician Assistant Medical
DX: M21.372 Foot drop, left foot (principal); R20.0 Anesthesia of skin; R20.2 Paresthesia of skin; M54.17 Radiculopathy, lumbosacral region; M54.16 Radiculopathy, lumbar region; R25.2 Cramp and spasm; G47.9 Sleep disorder, unspecified; R53.83 Other fatigue
CPT/HCPCS: 36415; 82306; 82310; 82607; 82728; 82746; 83036; 83540; 83735; 83921; 84443; 84702; 85027; 99212

== ENCOUNTER 2024-10-27 06:18 | Outpatient (REF) | payer OTHER, SELFPAY ==
--- NOTE | ~2024-10-27 | FL_ITS ---
EXAMINATION: FL GUIDANCE ONLY HISTORY: M54.16 - Radiculopathy, lumbar region COMPARISON: None available. TECHNIQUE: Fluoroscopy time: 0.1 minutes. Cumulative Dose: 3.55 mGy. DAP: 0.0224 mGym2 Images: 2. FINDINGS: Images demonstrate a needle and contrast material in the region of the left L4-5 facet joint. FL/FL guidance in treatment room IMPRESSION: Fluoroscopy during procedure. Please see procedure report for additional information. Electronically signed by: Bob Mitchell MD 10/28/2024 11:13 AM EDT
[2024-10-27 12:36] LABS: Alanine Aminotransferase 28 U/L (0-31); Albumin Level 4.2 g/dL (3.5-5.0); Alkaline Phosphatase 66 U/L (39-117); Anion Gap 9 (12-20); Aspartate Amino Transferase 25 U/L (5-31); Bilirubin Total 0.5 mg/dL (0.0-1.0); Blood Urea Nitrogen 11 mg/dL (9-16); Calcium 9.4 mg/dL (8.4-10.2); Carbon Dioxide 24 mmol/L (22-29); Chloride 109 mmol/L (96-108); Cholesterol 131 mg/dL (<200); Estimated Glomerular Filt Rate > 60; Glucose Random 89 mg/dL (60-115); HDL Cholesterol 41 mg/dL (>40); LDL Cholesterol Calculated 73 mg/dL (<100); Potassium 4.2 mmol/L (3.3-5.1); Sodium 138 mmol/L (135-145); Total Protein 7.4 g/dL (6.5-8.0); Triglycerides 88 mg/dL (<150)
[2024-10-27 13:50] LABS: Reflex LDLD? No
[2024-10-28 18:09] LABS: Homocysteine 5.7 umol/L (<10.4)
== END 2024-10-27 06:19 | disposition home or self-care (01) ==
LOC: HO.LAB 06:18
PROVIDERS: Absent Provider Physician Assistant Medical; PCP Internal Medicine; Visit Provider Internal Medicine
DX: M54.16 Radiculopathy, lumbar region (principal); R20.0 Anesthesia of skin; R20.2 Paresthesia of skin; G47.9 Sleep disorder, unspecified; R53.83 Other fatigue
CPT/HCPCS: 36415; 64483; 80053; 80061; 83090; J1100; J2003; Q9967

== ENCOUNTER 2024-10-27 10:44 | Outpatient (AMB) | payer OTHER, SELFPAY ==
[2024-10-27 10:53] VITALS: BP 108/78; PULSE 82; RESP 16; O2SAT 97
--- NOTE | 2024-10-27 10:53 | A.OFFVIS_ITS ---
Vital Signs 10/27/24 10:53 10/27/24 11:23 BP 108/78 120/70 Blood Pressure Location Lt brachial Lt brachial Position Sitting Sitting Respiration 16 16 Pulse 82 77 Pulse Source Pulse Oximeter Pulse Oximeter Pulse Oximetry (%) 97 100 Oxygen Delivery Method Room Air Room Air Intake Visit Reasons: Left L5-S1 TFESI/ Ativan Mechanical Supervisor Required: No Allergies No Known Allergies Allergy (Verified 10/27/24 10:54) Medication List - Last Reconciled 10/27/24 by Staci Suero LPN [AFO left foot AFO ] cholecalciferol (vitamin D3) 1,250 mcg PO QWEEK 12 days gabapentin 300 mg PO TID ibuprofen 600 mg PO TID [left AFO As directed- to prevent falls] lorazepam (Ativan) 1 mg PO ONCE magnesium oxide 400 mg PO DAILY 90 days pyridoxine (vitamin B6) 200 mg (2 x 100 mg) PO BID 60 days tramadol Take 1-2 tablets by mouth every 6 hours. HPI HPI Left L5-S1 TFESI/ Ativan: Details: Patient presents for scheduled procedure. Denies any recent cough, cold, infection, fever or other significant changes in medical history since last office visit. [facility] Medical History Acquired left foot drop Lumbosacral radiculopathy at S1 Numbness and tingling of left leg Foot drop, left foot Neuropathy Obesity UTI (urinary tract infection) Anxiety Bilateral carpal tunnel syndrome Multiple renal cysts Right ovarian cyst Surgical History Hx of decompressive lumbar laminectomy (05/19/24) Hx of partial nephrectomy (~1999) Social History Household Members: Spouse and Children Household Members Other:: in laws Housing: Apartment Are you a primary career specialist to a significant other at home: No Do you presently have visiting nurse or other home services: No Alcohol intake: current Alcohol intake frequency: former alcohol drinker Comment: Seldom Patient Tobacco Use Status: Former Tobacco user Years Smoked: quit 2 years ago- on and off x 10years Physical Exam Vital Signs: Last Vital Signs Pulse 77 04/24/25 11:23 Resp 16 10/27/24 11:23 BP 120/70 10/27/24 11:23 Pulse Ox 100 10/27/24 11:23 Oxygen Delivery Method Room Air 10/27/24 11:23 Office Procedures Details: Transforaminal epidural steroid injection, Left L5/S1 After obtaining written consent, pre-procedure blood pressure and heart rate were stable and recorded in the nursing record. The patient was placed in the prone position on the fluoroscopy table. The lumb osacral area was prepped with chloraprep, allowed to dry and draped in sterile fashion. Using fluoroscopy, the skin overlying our target was anesthetized with 0.5% lidocaine. A 22 gauge 3.5 inch spinal needle was advanced to the safe triangle in the upper pole of the left L5 foramen. No paresthesias were elicited with needle placement and aspiration was negative for blood and CSF. Correct needle position was confirmed with approximately 1 ml contrast dye (Omnipaque 180 mg/ml) injected under real-time fluoroscopy. No evidence of vascular or intrathecal uptake was seen and there was both epidural and peripheral spread of the contrast agent. 10 mg dexamethasone plus 1 ml containing 0.5% lidocaine was slowly injected. The needle was flushed and removed. The skin was cleansed and a sterile bandages were applied. The patient tolerated the procedure well and no complications were encountered. Following the procedure the patient's vital signs were stable. The patient was discharged home in good condition with post-procedural instructions. Time Out: Immediately prior to the procedure, the following was verbally confirmed that there is a signed consent form and that the correct patient, p lanned procedure, site and side are consistent with documentation and that necessary equipment and/or blood products are available prior to the start of the case. Complications: none EBL: <5 cc 32758 - Lumbar/Sacral Procedure code (CPT) selection complete Assessment & Plan Assessment & Plan (1) Lumbar radiculopathy: Code(s): M54.16 - Radiculopathy, lumbar region Category: Medical Plan Patient is status post left L5 TFESI. Patient tolerated procedure well and was discharged home in stable condition with discharge instructions. All questions were answered. We will follow-up via telephone or in clinic to assess response to therapy. A follow-up appointment was made during today's visit. Orders: Orders FL guidance in treatment room Today M54.16 - Radiculopathy, lumbar region Medications: New lorazepam (Ativan) Take 30 minutes prior to arrival to procedure 1 mg PO ONCE 1 tab 0RF anxiety Coding Level of Care Code Procedure Only Diagnoses Lumbar radiculopathy M54.16 CPT Codes Transforaminal Epidural Steroid Inj - TESI 3: 34947 - Lumbar/Sacral ([id number])
[2024-10-27 11:23] VITALS: BP 120/70; PULSE 77; RESP 16; O2SAT 100
--- OUTSIDE RECORDS SUMMARY | 2024-10-27 12:33 | XMS_ITS | Clinical Summary ---
Author Organization [facility] Address [address] [place] [address] Phone Care Team Providers Care Sample Weaver Name Role Phone Bobbi Conte MD Primary Care Provider Allergies Active Allergy Reactions Criticality Noted Date Comments Allison 01/30/2021 Fish Containing Products 01/30/2021 Other 01/26/2020 Food allergy:cherries Medications cholecalciferol (VITAMIN D-3) 50 mcg (2,000 unit) tablet Take 1 tablet (2,000 Units total) by mouth 1 (one) time each day. 4 Active cyanocobalamin (VITAMIN B-12) 500 mcg tablet Take 1 tablet (500 mcg total) by mouth 1 (one) time each day. 4 Active Vitamin iron fum-folic acid 27-0.8 mg per tablet Take 1 tablet by mouth 1 (one) time each day. 3 Active hydrOXYzine HCL (ATARAX) 25 mg tablet Take 1 tablet (25 mg total) by mouth every 8 (eight) hours if needed for itching. 3 Active etonogestreL-ethi nyl estradioL (NUVARING) 0.12-0.015 mg/24 hr vaginal ringIndications:E ncounter for initial prescription of vaginal ring hormonal contraceptive Insert 1 each into the vagina every 28 (twenty-eight) days. Insert vaginally and leave in place for 3 consecutive weeks, then remove for 1 week. 1 each 11 5 026 Active ibuprofen (ADVIL,MOTRIN) 600 mg tablet TAKE 1 TABLET BY MOUTH EVERY 8 HOURS IF NEEDED FOR MILD PAIN. 60 tablet 1 Active levonorgestreL (PLAN B) 1.5 mg tabletIndications :Unprotected sexual intercourse Take 1 tablet (1.5 mg total) by mouth 1 (one) time for 1 dose. 1 tablet Active Additional Information Patient not taking.Reported on 10/11/2024 norethindrone (MADHURI,CORTNEY,HEA THER,MICRONOR) 0.35 mg tablet Take 1 tablet (0.35 mg total) by mouth 1 (one) time each day. 28 tablet 11 5 026 Active gabapentin (NEURONTIN) 300 mg capsule Take 1 capsule (300 mg total) by mouth. 5 Active Active Problems Problem Noted Date Diagnosed Date Obesity (BMI 30-39.9) 09/12/2024 Paresthesias with subjective weakness 04/27/2024 Overview (05/18/2024): Last Assessment & Plan: Ms. Isaac describes an episode short while ago when she had some neck pain and felt like her arms froze and position out in front of her. She went to the emergency room at [facility] and it resolved spontaneously. She says [...] will try to obtain the report from [facility] emergency room. Gestational diabetes 10/22/2023 Overview (05/18/2024): Dx 31w3d 1hr glucose 243 1 hour test at 24-28 wks: >140 Perform 3 hour if 1 hr >200, patient is diagnosed with GDM and does not need 3-hr GTT Forward chart to P [id number] [facility] Nutrition: Appt 10/29/23 at 3:30pm [...] Growth Ultrasound: 6lb4oz ~ 62%tile 12/17/23 Growth: Mold Maker Plaster on shoulder dystocia Deliver by 40 6/7 [...] refer to Heme Iron deficiency anemia aliyah zeey to inadequate dietary iron intake 10/21/2023 COVID-19 [...] of the left foot. Her MRI from [facility] on March 17, 2024 revealed degenerative [...] for alpha thalessemia 06/15/2023 pt notified via [employer] in regards to getting fob tested.- NAYELI,RN [...] BMI of 50 by 28wks transfer to [facility] DVT prophylaxis- Lovenox if CS and BMI >35 Neuropathy 05/25/2023 Overview (05/18/2024): Of left leg and left foot Being followed by dr veras and physiatry. Pt wearing leg brace. She states the plush cutter will provide fmla forms if the condition should worsen as the progresses. UTI in , antepartum 05/25/2023 Overview (05/18/2024): Tx'd 05-20-23 WAN: 06/02/2023- Neg Anxiety 05/20/2023 Overview (05/18/2024): 05-19-23 pt advised she can take the vistaril as rx'd for anxiety and depression sx. Her pcp at [facility] was going to refer her to [...] (05/18/2024): Dr garcia referred pt to pelvic machine feeder floorperson 05-18-23 Last Assessment & Plan: GC/CT [...] Encounters Date Type Department Care Team Description 10/11/2024 3:30 PM EDT Office Visit Internal Medicine [address] [phone] Bobbi Conte MD Adult general medical examination (Primary Dx); Obesity (BMI 30-39.9); Diet controlled gestational diabetes mellitus (GDM), antepartum; Vitamin D deficiency 10/04/2024 Telephone Internal Medicine [address] [phone] Rita Isaac MA faxed order (L&C) 09/29/2024 2:15 PM EDT Office Visit Obstetrics [facility]necology [facility] [address] [place] [phone] Talisha Cortes CNM control counseling (Primary Dx); test negative 09/21/2024 Nurse Triage Internal Medicine [address] [phone] Lizy Carpio MD Wheelchair Evaluation 09/12/2024 3:00 PM EDT Office Visit Internal Medicine [address] [phone] Lizy Carpio MD 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); Neuropathy; Iron deficiency anemia secondary to inadequate dietary iron intake; Diet controlled gestational diabetes mellitus (GDM), antepartum; Obesity (BMI 30-39.9); Food allergy 09/12/2024 Telephone Internal [address] [phone] Bobbi Conte MD Form:DEBORA Segovia 09/12/2024 Telephone Internal Medicine - [address] [place] [address] Rita Isaac MA DME 08/18/2024 2:45 PM EST Office Visit Obstetrics and Gynecology - [address] [phone] Vanda Garcia, CNM Encounter for initial prescription of vaginal ring hormonal contraceptive (Primary Dx) 07/29/2024 3:00 PM EST Clinical Support Obstetrics and Gynecology - [address] [phone] Bad odor of urine (Primary Dx); Late menses from Last 3 Months Immunizations Name Administration Dates Next Due DTaP (Infanrix) 6wks to less than 7yo ,01/26/1996,12/23/1994,07/29,04/07/1994 [id number] (Pentacel) 2mo to less than 5yo 01/26/1996,07/29/1994,04/07/1994 [...] Cigarettes Q uit: 08/06/2022 Smokeless Tobacco: Never Tobacco Cessation:Counseling Given: Not Answered Alcohol Use Standard Drinks/Week Comments Not Currently [...] al N Livin g Jesse Complications:None Delivery Location:[facility] 2023 Term 38w 6d 3260 g (115 oz) F Vag-S pont Epidur al Livin g 8 9 Nhung ndra Allar d CNM Complications:None,Gestation al diabetes mellitus (GDM) Delivery Location:[facility] Comments:SROM. nuchal body cord & true knot. GDMA1 Last Filed Vital Signs Vital Sign Reading Time Taken Comments Blood Pressure 124/86 10/11/2024 3:43 PM EDT Pulse 70 10/11/2024 3:43 PM EDT Temperature 36.4 ??C (97.5 ??F) 10/11/2024 3:43 PM ED T Respiratory Rate 18 09/29/2024 2:16 PM EDT Oxygen Saturation 100% 10/11/2024 3:43 PM EDT Inhaled Oxygen Concentration - - Weight 99.8 kg (220 lb) 10/11/2024 3:43 PM EDT Height 165.1 cm (5' 5 ) 09/29/2024 2:16 PM EDT Body Mass Index 36.61 09/29/2024 2:16 PM EDT Plan of Treatment Health Maintenance [...] Vaccines Completed 12/13/2023, 01/04, 12/23/1994 Meningococcal B Vaccine Aged Out No l onger eligible based on patient's age to complete [...] / Unknown 09/29/2024 2:27 PM EDT Talisha Cortes CNM POINT OF CARE TEST [...] Blood UA POC Negative Negative, Trace Specific [place] UA POC 1.020 1.001 - 1.035 Ketones [...] Result * Cervical Cancer Screening: HPV (06/08/2023) [facility] Cervical Cancer Screening: HPV positive, abstracted Historical Provider HEALTH MAINTENANCE Final Result * HIV Screening (05/25/2023) [facility] HIV Screening abstracted Result [facility] Historical Provider HEALTH MAINTENANCE Final Result * Hepatitis C Screening (05/25/2023) [facility] Hepatitis C Screening abstracted [facility] Provider HEALTH MAINTENANCE Final Result * Depression Screening (05/19/2023) [facility] Depression Screening abstracted Result [facility] Provider HEALTH MAINTENANCE Final Result * Lipid panel (12/26/2022) [facility] LDL/HDL Ratio 3 0 - 4 Triglycerides 95 0 - 150 mg/dL Cholesterol 135 0 - 200 mg/dL HDL 46 >=40 mg/dL LDL Cholesterol 70 0 - 100 mg/dL Blood Venous blood specimen / Unknown Result [facility] Historical Provider LAB BLOOD ORDERABLES Maribell l Result from Last 3 Months or Most Recently Relevant to Health Maintenance Insurance [facility] Care Teams Sample Weaver Relationship Specialty Start Date End Date Bobbi Conte MD [address] [place] [phone] PCP - General Internal Medicine 06/07/24
== END 2024-10-27 11:25 | disposition home or self-care (01) ==
LOC: HO.PMCPRC 10:44
PROVIDERS: PCP Obstetrics & Gynecology; Visit Provider Internal Medicine
DX: M54.16 Radiculopathy, lumbar region (principal)
CPT/HCPCS: 64483

== ENCOUNTER → 2024-11-07 15:54 | Outpatient (BNV) | payer OTHER, SELFPAY | PROVIDERS: Visit Provider Radiology Diagnostic Radiology | DX: M99.63 Osseous and subluxation stenosis of intervertebral foramina of lumbar region (principal) | CPT/HCPCS: 72158 ==

== ENCOUNTER 2024-11-07 15:55 | Outpatient (REF) | payer OTHER, SELFPAY ==
--- NOTE | ~2024-11-07 | MR_ITS ---
CLINICAL HISTORY: R20.0 - Anesthesia of skin --- Additional Notes or Special Instructions: Status pos t Left L5-S1 TFESI on 10 27 24, now reports leg numbness and pain in low back. Left leg/foot twitchin g uncontrollable, unable to repeat any picture due to pt was in so much pain. MR lumbar spine with and without IV contrast. COMPARISON: MR lumbar spine dated 08/20/24 at 13:25 EST FINDINGS: Normal alignment of the anterior and posterior elements without evidence of subluxation. Vertebral heights are maintained. Marrow signal is benign. The conus terminates at inferior endplate of L1 and is otherwise unremarkable. Increased sclerosis along the sacroiliac joints bilaterally, unchanged. L5-S1: Desiccation of the disc. Posterior disc annular tear. Facet joint arthrosis. [id number] left neural foraminal narrowing. There is persistent enhancement of the paraspinal muscles at L5-S1 on the left. And No organizing fluid collection. L4-L5: Intervertebral disc is normal in height. No significant disc bulge or central canal stenosis. L3-L4: Intervertebral disc is normal in height. No significant disc bulge or central canal stenosis. L2-L3: Intervertebral disc is normal in height. No significant disc bulge or central canal stenosis. L1-L2: Intervertebral disc is normal in height. No significant disc bulge or central canal stenosis. IMPRESSION: 1. Persistent enhancement of the paraspinal soft tissues at L5-S1 on the left with involvement of the facet joint consistent with facet joint synovitis and myositis. No organizing or drainable fluid collection identified. 2. [id number] left-sided neural foraminal narrowing at L5-S1 This document has been electronically signed by: Mohinder Hector MD on 11/07/2024 17:32:44
[2024-11-07] MEDS: gadobutroL 10 ML VIAL IVPUSH (16:38)
--- OUTSIDE RECORDS SUMMARY | 2024-11-07 17:26 | XMS_ITS | Encounter Summary ---
Author Organization [facility] Address [address] [place] [address] Care Team Providers Care Roller Maker Name Role Phone Bobbi Conte MD Primary Care Provider [phone] Kacy Velasquez MD Unavailable [phone] Akua Crenshaw PA-C Unavailable [phone] Alden Coates PA-C Unavailable [phone] Encounter Details Date Type Department Care Team Description 2023 Pt. Non Urgent Medical Question OBGYN - 271 [facility] [address] [place] [address] Chelsie Pal CN [address] [place] [address] Social History Tobacco Use Types [...] on filedocumented in this encounter Care Teams Roller Maker Relationship Specialty Start Date End Date Bobbi Conte MD PCP - General Internal Medicine 11/06/20 Kacy Velasquez MD [address] [address] Surgeon Neurosurgery 07/09/23 Akua Crenshaw PA-C [address] [address] Specialist Neurosurgery 07/09/23 Alden Coates PA-C [address] [address] Specialist Neurosurgery 07/09/23 documented as of this encounter
--- OUTSIDE RECORDS SUMMARY | 2024-11-07 17:26 | XMS_ITS | Encounter Summary ---
Author Organization [facility] Address [address] [place] [address] Care Team Providers Care Packer Fuser Name Role Phone Bobbi Conte MD Primary Care Provider [phone] Kacy Velasquez MD Unavailable [phone] Akua Crenshaw PA-C Unavailable [phone] Alden Coates PA-C Unavailable [phone] Reason for Visit * Reason Onset Date Comments refill request 12/09/2023 Encounter Details Date Type Department Care Team Description 12/09/2023 Telephone OBGYN - 271 [facility] [address] [place] [address] Cassandra Davis CN [address] [place] [address] refill request Social History Tobacco [...] 12/09/24 Ayesha Dukes Prior Auth Dep Ext 510 * Telephone Encounter - Ayesha Dukes M.A. - 12/10/2023 2:52 PM EDT Auth called into [facility] Ayesha Dukes Prior Auth Dep Ext 4098 * Telephone Encounter - Jie Millan R.N. [...] care documented in this encounter Care Teams Packer Fuser Relationship Specialty Start Date End Date Bobbi Conte MD PCP - General Internal Medicine 11/06/20 Kacy Velasquez MD 175 [facility] [address] [place] [address] Surgeon Neurosurgery 07/09/23 Akua Crenshaw PA-C [address] [address] Specialist Neurosurgery 07/09/23 Alden Coates PA-C 175 [facility] [address] [place] [address] Specialist Neurosurgery 07/09/23 documented as of this encounter
--- OUTSIDE RECORDS SUMMARY | 2024-11-07 17:26 | XMS_ITS | Encounter Summary ---
Author Organization [facility] Address [address] [place] [address] Care Team Providers Care Linux Vmware Administrator Name Role Phone Bobbi Conte MD Primary Care Provider [phone] Kacy Velasquez MD Unavailable [phone] Akua Crenshaw PA-C Unavailable [phone] Alden Coates PA-C Unavailable [phone] Encounter Details Date Type Department Care Team Description 12/23/2023 Sheet Pile Hammer Operator Report Medical Records [address] [place] [address] Abstract, Provider Social History Tobacco Use Types [...] on filedocumented in this encounter Care Teams Linux Vmware Administrator Relationship Specialty Start Date End Date Bobbi Conte MD PCP - General Internal Medicine 11/06/20 Kacy Velasquez MD [address] [address] Surgeon Neurosurgery 07/09/23 Akua Crenshaw PA-C [address] [address] Specialist Neurosurgery 07/09/23 Alden Coates PA-C [address] [address] Specialist Neurosurgery 07/09/23 documented as of this encounter
--- OUTSIDE RECORDS SUMMARY | 2024-11-07 17:26 | XMS_ITS | Encounter Summary ---
Author Organization [facility] Address [address] [place] [address] Care Team Providers Care Granite Fabricator Name Role Phone Bobbi Conte MD Primary Care Provider [phone] Kacy Velasquez MD Unavailable [phone] Akua Crenshaw PA-C Unavailable [phone] Alden Coates PA-C Unavailable [phone] Reason for Visit * Reason Onset Date Comments 05/06/2023 Encounter Details Date Type Department Care Team Description 05/06/2023 Telephone OBGYN - 271 [facility] [address] [place] [address] Chelsie Pal CN [address] [place] [address] Social History Tobacco Use Types [...] had this problem? 20 mins ago Pt???s ENTERPRISE ENGINEER provider: Chelsie Pla CNM Last menstrual period (LMP) or EDC (due date): edc 12/27 Spoke with nurse and advised to go to the hospital documented in this encounter Plan of Treatment Not on file documented as of this encounter Visit Diagnoses Not on filedocumented in this encounter Care Teams Granite Fabricator Relationship Specialty Start Date End Date Bobbi Conte MD PCP - General Internal Medicine 11/06/20 Kacy Velasquez MD 175 [facility] [address] [place] [address] Surgeon Neurosurgery 07/09/23 Akua Crenshaw PA-C 175 [facility] [address] [place] [address] Specialist Neurosurgery 07/09/23 Alden Coates PA-C 175 [facility] [address] [place] [address] Specialist Neurosurgery 07/09/23 documented as of this encounter
--- OUTSIDE RECORDS SUMMARY | 2024-11-07 17:26 | XMS_ITS | Encounter Summary ---
Author Organization [facility] Address [address] [place] [address] Care Team Providers Care Crossword Puzzle Maker Name Role Phone Bobbi Conte MD Primary Care Provider [phone] Kacy Velasquez MD Unavailable [phone] Akua Crenshaw PA-C Unavailable [phone] Alden Coates PA-C Unavailable [phone] Encounter Details Date Type Department Care Team Description 05/13/2023 Pt. Non Urgent Medical Question [facility] [address] [phone] Franco Crawley DPM [address] [address] Social History Tobacco Use Types Packs/Day Years [...] on filedocumented in this encounter Care Teams Crossword Puzzle Maker Relationship Specialty Start Date End Date Bobbi Conte MD PCP - General Internal Medicine 11/06/20 Kacy Velasquez MD [address] [phone] Surgeon Neurosurgery 07/09/23 Akua Crenshaw PA-C [address] [address] Specialist Neurosurgery 07/09/23 Alden Coates PA-C 175 [facility] [address] [place] [address] Specialist Neurosurgery 07/09/23 documented as of this encounter
--- OUTSIDE RECORDS SUMMARY | 2024-11-07 17:27 | XMS_ITS | Clinical Summary ---
Author Organization [facility] Address [address] [place] [address] Phone Care Team Providers Care Tuber Machine Cutter Name Role Phone Bobbi Conte MD Primary Care Provider [phone] Allergies Active Allergy Reactions Criticality Noted Date [...] She went to the emergency room at [facility] and it resolved spontaneously. She says [...] will try to obtain the report from [facility] emergency room. Gestational diabetes 10/22/2023 Overview (05/18/2024): Dx 31w3d 1hr glucose 243 1 hour test at 24-28 wks: >140 Perform 3 hour if 1 hr >200, patient is diagnosed with GDM and does not need 3-hr GTT Forward chart to P [id number] ([facility]) Nutrition: Appt 10/29/23 at 3:30pm with [...] Growth Ultrasound: 6lb4oz ~ 62%tile 12/17/23 Growth: Scheduler Maintenance on shoulder dystocia Deliver by 40 6/7 [...] of the left foot. Her MRI from [facility] on March 17, 2024 revealed degenerative [...] for alpha thalessemia 06/15/2023 pt notified via [employer] in regards to getting fob tested.- NAYELI,RN [...] BMI of 50 by 28wks transfer to [facility] DVT prophylaxis- Lovenox if CS and BMI >35 Neuropathy 05/25/2023 Overview (05/18/2024): Of left leg and left foot Being followed by dr veras and physiatry. Pt wearing leg brace. She states the kiln pusher will provide fmla forms if the condition should worsen as the progresses. UTI in , antepartum 05/25/2023 Overview (05/18/2024): Tx'd 05-20-23 WAN: 06/02/2023- Neg Anxiety 05/20/2023 Overview (05/18/2024): 05-19-23 pt advised she can take the vistaril as rx'd for anxiety and depression sx. Her pcp at [facility] was going to refer her to [...] (05/18/2024): Dr garcia referred pt to pelvic flooring grader 05-18-23 Last Assessment & Plan: GC/CT and [...] 3:30 PM EDT Office Visit Internal Medicine [address] [phone] Bobbi Conte MD Adult general medical examination (Primary Dx); Obesity (BMI 30-39.9); Diet controlled gestational diabetes mellitus (GDM), antepartum; Vitamin D deficiency 10/04/2024 Telephone Internal Medicine [address] [phone] Rita Isaac MA faxed order (L&C) 09/29/2024 2:15 PM EDT Office Visit Obstetrics and [facility]necology - [address] [place] [phone] Talisha Cortes CNM control counseling (Primary Dx); test negative 09/21/2024 Nurse Triage Internal Medicine [address] [phone] Lizy Carpio MD Wheelchair Evaluation 09/12/2024 3:00 PM EDT Office Visit Internal Medicine [address] [phone] Lizy Carpio MD 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); Neuropathy; Iron deficiency anemia secondary to inadequate dietary iron intake; Diet controlled gestational diabetes mellitus (GDM), antepartum; Obesity (BMI 30-39.9); Food allergy 09/12/2024 Telephone Internal [address] [address] Bobbi Conte MD Form:DEBORA Segovia 09/12/2024 Telephone Internal Medicine - [address] [place] [address] Rita Isaac MA DME 08/18/2024 2:45 PM EST [facility] [address] [place] [address] Vanda Garcia, CNM Encounter for initial prescription of vaginal ring hormonal contraceptive (Primary Dx) from Last 3 Months Immunizations Name Administration Dates Next Due DTaP (Infanrix) 6wks to less than 7yo ,01/26/1996,12/23/1994,07/29,04/07/1994 ENpL-[id number] (Pentacel) 2mo to less than 5yo 01/26/1996,07/29/1994,04/07/1994 [...] as of 06/2023 Iron deficiency anemia secon tamar to inadequate dietary iron intake 10/21/2023 DX:Iron [...] for your loved ones. For example, child development director or elderly care for an older adult? [...] al N Livin g Jesse Complications:None Delivery Location:[facility] 2023 Term 38w 6d 3260 g (115 oz) F Vag-S pont Epidur al Livin g 8 9 Nhung ndra Allar d CNM Complications:None,Gestation al diabetes mellitus (GDM) Delivery [facility] Comments:SROM. nuchal body cord & true knot. [...] Name Priority Date/Time Associated Diagnosis Comments EXTERNAL CLINICAL LAB 10/27/2024 EXTERNAL CLINICAL LAB 10/27/2024 EXTERNAL XRAY REPORT 10/27/2024 EXTERNAL XRAY REPORT 10/27/2024 POC , URINE DIAGNOSTIC Routine 09/29/2024 2:27 PM EDT test negative EXTERNAL MRI REPORT 08/20/2024 EXTERNAL MRI REPORT 08/20/2024 POC , URINE DIAGNOSTIC Routine 08/18/2024 3:41 PM EST Encounter for initial prescription of vaginal ring hormonal contraceptive HPV Routine 06/08/2023 HEPATITIS C SCREENING Routine 05/25/2023 HIV SCREENING Routine 05/25/2023 DEPRESSION SCREENING Routine 05/19/2023 LIPID PANEL Routine 12/26/2022 from Last 3 Months or Most Recently Relevant to Health Maintenance Results * External Xray Report (10/27/2024) Only the most recent of2 resultswithin the time period is included. Anatomical Region Laterality Modality Radiographic Taylor ging Provider [facility] IMG XR PROCEDURES Final Result * External clinical lab (10/27/2024) Only the most recent of2 resultswithin the time period is included. Provider [facility] LAB BLOOD ORDERABLES Fin al Result * POC , urine manually resulted (09/29/2024 2:27 PM EDT) Only the most recent of2 resultswithin the time period is included. [facility] HCG, Ur POC Negative Negative POC hCG Int QC Pass? Yes Yes Urine Urine specimen obtained by clean catch procedure / Unknown 09/29/2024 2:27 PM EDT Result [facility] Talisha Cortes CNM POINT OF CARE TEST ENTER/FLYNN T ORDERABLES Final Result * External MRI Report (08/20/2024) Only the most recent of2 resultswithin the time period is included. Anatomical Region Laterality Modality Magnetic Resonan ce Provider [facility] IMG MRI PROCEDURES Final Result * Cervical Cancer Screening: HPV (06/08/2023) [facility] Cervical Cancer Screening: HPV positive, abstracted [facility] Provider HEALTH MAINTENANCE Final Result * HIV Screening (05/25/2023) [facility] HIV Screening abstracted Result [facility] Provider HEALTH MAINTENANCE Final Result * Hepatitis C Screening (05/25/2023) [facility] Hepatitis C Screening abstracted Result [facility] Provider HEALTH MAINTENANCE Final Result * [...] Most Recently Relevant to Health Maintenance Insurance [facility] [employer] Care Teams Tuber Machine Cutter Relationship Specialty Start Date End Date Bobbi Conte MD [address] [phone] PCP - General Internal Medicine 06/07/24
--- OUTSIDE RECORDS SUMMARY | 2024-11-07 17:27 | XMS_ITS | Encounter Summary ---
Author Organization [facility] Address [address] [place] [address] Care Team Providers Care Manager Strategic Development Name Role Phone Bobbi Conte MD Primary Care Provider [phone] Kacy Velasquez MD Unavailable [phone] Akua Crenshaw PA-C Unavailable [phone] Alden Coates PA-C Unavailable [phone] Encounter Details Date Type Department Care Team Description 06/16/2023 Pt. Non Urgent Medical Question OBGYN - 271 [facility] [address] [place] [address] Chelsie Pal CN [address] [place] [address] Social History Tobacco Use Types [...] filedocumented in this encounter Care Teams Manager Strategic Development Relationship Specialty Start Date End Date Bobbi Conte MD PCP - General Internal Medicine 11/06/20 Kacy Velasquez MD [address] [address] Surgeon Neurosurgery 07/09/23 Akua Crenshaw PA-C [address] [address] Specialist Neurosurgery 07/09/23 Alden Coates PA-C [address] [address] Specialist Neurosurgery 07/09/23 documented as of this encounter
--- OUTSIDE RECORDS SUMMARY | 2024-11-07 17:27 | XMS_ITS | Encounter Summary ---
Author Organization [facility] Address [address] [place] [address] Care Team Providers Care Mail Clerk Name Role Phone Bobbi Conte MD Primary Care Provider +1- [phone] Kacy Velasquez MD Unavailable [phone] Akua Crenshaw PA-C Unavailable [phone] Alden Coates PA-C Unavailable [phone] Reason for Visit * Reason Onset Date Comments Letter 04/23/2023 Encounter Details Date Type Department Care Team Description 04/23/2023 Telephone Internal Medicine - [address], [address] [place] [address] Bobbi Conte MD [address] [place] [address] Letter Social History Tobacco Use Types Packs/Day Years [...] encounter Miscellaneous Notes * Telephone Encounter - Lizy Carpio MD - 04/24/2023 2:59 PM EDT Letter done. 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 Add this addendum to the 2nd letter: The patient may return to work with the following restrictions: light duty. Please provide her someaccommodation so that, she will be able to sit in between her work period. If you have any questions or concerns please contact my office at [phone]. ADD: accommodate the patient to go to a different classroom, if possible (the classroom patient is in has no place for patient to rest her leg-that is why she needs to go to a different classroom). Patient will picking tech the letter - call @ [phone] documented in this encounter Plan of Treatment Not on file documented as of this encounter Visit Diagnoses Not on filedocumented in this encounter Care Teams Mail Clerk Relationship Specialty Start Date End Date Bobbi Conte MD PCP - General Internal Medicine 11/06/20 Kacy Velasquez MD [address] [address] Surgeon Neurosurgery 07/09/23 Akua Crenshaw PA-C [address] [address] Specialist Neurosurgery 07/09/23 Alden Coates PA-C [address] [address] Specialist Neurosurgery 07/09/23 documented as of this encounter
--- OUTSIDE RECORDS SUMMARY | 2024-11-07 17:27 | XMS_ITS | Encounter Summary ---
Author Organization [facility] Address [address] [place] [address] Care Team Providers Care Diamond Powder Mixer Name Role Phone Bobbi Conte MD Primary Care Provider +[phone] Kacy Velasquez MD Unavailable [phone] Akua Crenshaw PA-C Unavailable [phone] Alden Coates PA-C Unavailable [phone] Encounter Details Date Type Department Care Team Description 08/02/2021 Refill Internal Medicine - [address], [address] [place] [address] Bobbi Conte MD [address] [place] [address] Social History Tobacco Use Types Packs/Day [...] on filedocumented in this encounter Care Teams Diamond Powder Mixer Relationship Specialty Start Date End Date Bobbi Conte MD PCP - General Internal Medicine 11/06/20 Kacy Velasquez MD 175 [facility] [address] [place] [address] Surgeon Neurosurgery 07/09/23 Akua Crenshaw PA-C [address] [address] Specialist Neurosurgery 07/09/23 Alden Coates PA-C 175 [facility] [address] [place] [address] Specialist Neurosurgery 07/09/23 documented as of this encounter
--- OUTSIDE RECORDS SUMMARY | 2024-11-07 17:27 | XMS_ITS | Encounter Summary ---
Author Organization [facility] Address [address] [place] [address] Care Team Providers Care Relocation Commissioner Name Role Phone Bobbi Conte MD Primary Care Provider +1- [phone] Kacy Velasquez MD Unavailable [phone] Akua Crenshaw PA-C Unavailable [phone] Alden Coates PA-C Unavailable [phone] Encounter Details Date Type Department Care Team Description 04/20/2023 Pt. Non Urgent Medical Question Internal Medicine - [address], [address] [place] [address] Lizy Carpio MD [address] [place] [address] Social History Tobacco Use Types Packs/Day [...] know when will I be able to grape picker my work letter? documented in this encounter Plan of Treatment Not on file documented as of this encounter Visit Diagnoses Not on filedocumented in this encounter Care Teams Relocation Commissioner Relationship Specialty Start Date End Date Bobbi Conte MD PCP - General Internal Medicine 11/06/20 Kacy Velasquez MD [address] [address] Surgeon Neurosurgery 07/09/23 Akua Crenshaw PA-C [address] [address] Specialist Neurosurgery 07/09/23 Alden Coates PA-C [address] [address] Specialist Neurosurgery 07/09/23 documented as of this encounter
--- OUTSIDE RECORDS SUMMARY | 2024-11-07 17:27 | XMS_ITS | Encounter Summary ---
Author Organization [facility] Address [address] [place] [address] Care Team Providers Care Sheeter Operator Name Role Phone Bobbi Conte MD Primary Care Provider +[phone]- [phone] Kacy Velasquez MD Unavailable [phone] Akua Crenshaw PA-C Unavailable [phone] Alden Coates PA-C Unavailable [phone] Encounter Details Date Type Department Care Team Description 11/02/2023 Pt. Non Urgent Medical Question OBGYN - 271 [facility] 271 [place] [address] Chelsie Pal CN 175 [place] [address] Social History Tobacco Use Types [...] on filedocumented in this encounter Care Teams Sheeter Operator Relationship Specialty Start Date End Date Bobbi Conte MD PCP - General Internal Medicine 11/06/20 Kacy Velasquez MD [address] [address] Surgeon Neurosurgery 07/09/23 Akua Crenshaw PA-C [address] [address] Specialist Neurosurgery 07/09/23 Alden Coates PA-C [address] [address] Specialist Neurosurgery 07/09/23 documented as of this encounter
--- OUTSIDE RECORDS SUMMARY | 2024-11-07 17:27 | XMS_ITS | Encounter Summary ---
Author Organization [facility] Address [address] [place] [address] Care Team Providers Care Photographic Colorist Name Role Phone Bobbi Conte MD Primary Care Provider [phone]- [phone] Kacy Velasquez MD Unavailable [phone] Akua Crenshaw PA-C Unavailable [phone] Alden Coates PA-C Unavailable [phone] Encounter Details Date Type Department Care Team Description 11/16/2023 Refill OBGYN - 271 [facility] 271 [place] [address] Cassandra Davis, DARSHAN 175 [place] [address] Social History Tobacco Use Types [...] trimester documented in this encounter Care Teams Photographic Colorist Relationship Specialty Start Date End Date Bobbi Conte MD PCP - General Internal Medicine 11/06/20 Kacy Velasquez MD [address] [address] Surgeon Neurosurgery 07/09/23 Akua Crenshaw PA-C [address] [address] Specialist Neurosurgery 07/09/23 Alden Coates PA-C [address] [address] Specialist Neurosurgery 07/09/23 documented as of this encounter
--- OUTSIDE RECORDS SUMMARY | 2024-11-07 17:27 | XMS_ITS | Encounter Summary ---
Author Organization [facility] Address [address] [place] [address] Care Team Providers Care Wearing Apparel Assembler Name Role Phone Bobbi Conte MD Primary Care Provider +1- [phone] Kacy Velasquez MD Unavailable [phone] Akua Crenshaw PA-C Unavailable [phone] Alden Coates PA-C Unavailable [phone] Encounter Details Date Type Department Care Team Description 06/10/2023 Pt. Non Urgent Medical Question OBGYN - 271 [facility] 271 [place] [address] Chelsie Pal CN 175 [place] [address] Social History Tobacco Use Types [...] on filedocumented in this encounter Care Teams Wearing Apparel Assembler Relationship Specialty Start Date End Date Bobbi Conte MD PCP - General Internal Medicine 11/06/20 Kacy Velasquez MD [address] [address] Surgeon Neurosurgery 07/09/23 Akua Crenshaw PA-C [address] [address] Specialist Neurosurgery 07/09/23 Alden Coates PA-C [address] [address] Specialist Neurosurgery 07/09/23 documented as of this encounter
--- OUTSIDE RECORDS SUMMARY | 2024-11-07 17:27 | XMS_ITS | Encounter Summary ---
Author Organization [facility] Address [address] [place] [address] Care Team Providers Care Rehabilitation Therapist Name Role Phone Bobbi Conte MD Primary Care Provider +1- [phone] Kacy Velasquez MD Unavailable [phone] Akua Crenshaw PA-C Unavailable [phone] Alden Coates PA-C Unavailable [phone] Encounter Details Date Type Department Care Team Description 09/19/2021 Telephone Adult Medicine [facility] [address] [place] [address] Bobbi Conte MD [address] [place] [address] Social History Tobacco Use Types Packs/Day [...] on filedocumented in this encounter Care Teams Rehabilitation Therapist Relationship Specialty Start Date End Date Bobbi Conte MD PCP - General Internal Medicine 11/06/20 Kacy Velasquez MD 175 [facility] [address] [place] [address] Surgeon Neurosurgery 07/09/23 Akua Crenshaw PA-C [address] [address] Specialist Neurosurgery 07/09/23 Alden Coates PA-C 175 [facility] [address] [place] [address] Specialist Neurosurgery 07/09/23 documented as of this encounter
--- OUTSIDE RECORDS SUMMARY | 2024-11-07 17:27 | XMS_ITS | Encounter Summary ---
Author Organization [facility] Address [address] [place] [address] Care Team Providers Care Tank Wagon Operator Name Role Phone Bobbi Conte MD Primary Care Provider +[phone]- [phone] Kacy Velasquez MD Unavailable [phone] Akua Crenshaw PA-C Unavailable [phone] Alden Coates PA-C Unavailable [phone] Encounter Details Date Type Department Care Team Description 11/23/2023 Pt. Non Urgent Medical Question OBGYN - 271 [facility] 271 [place] [address] Chelsie Pal CN 175 [place] [address] Social History Tobacco Use Types [...] on filedocumented in this encounter Care Teams Tank Wagon Operator Relationship Specialty Start Date End Date Bobbi Conte MD PCP - General Internal Medicine 11/06/20 Kacy Velasquez MD [address] [address] Surgeon Neurosurgery 07/09/23 Akua Crenshaw PA-C [address] [address] Specialist Neurosurgery 07/09/23 Alden Coates PA-C [address] [address] Specialist Neurosurgery 07/09/23 documented as of this encounter
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
--- OUTSIDE RECORDS SUMMARY | 2024-11-07 17:27 | XMS_ITS | Encounter Summary ---
Author Organization [facility] Address [address] [place] [address] Care Team Providers Care Net Developer With Wcf Name Role Phone Bobbi Conte MD Primary Care Provider +[phone] Kacy Velasquez MD Unavailable [phone] Akua Crenshaw PA-C Unavailable [phone] Alden Coates PA-C Unavailable [phone] Encounter Details Date Type Department Care Team Description 01/28/2021 SCAN Medical Records [address] [place] [address] Abstract, Provider Chronic pain of both knees Social History Tobacco Use Types Packs/Day Years [...] have Coronavirus / COVID-19? No / Unsure 01/30/2021 8:06 AM EDT documented as of this encounter Plan of Treatment Not on file documented as of this encounter Procedures Procedure Name Priority Date/Time Associated Diagnosis Comments CHG RADIOLOGIC EXAMINATION KNEE 3 VIEWS Routine 01/25/2021 Chronic pain of both knees documented in this encounter Results * X-RAY KNEE 3 VIEW - W/O INJURY (01/25/2021) Bobbi Conte MD RADIOLOGY documented in this encounter Visit Diagnoses Diagnosis Chronic pain of both knees documented in this encounter Care Teams Net Developer With Wcf Relationship Specialty Start Date End Date Bobbi Conte MD PCP - General Internal Medicine 11/06/20 Kacy Velasquez MD [address] [address] Surgeon Neurosurgery 07/09/23 Akua Crenshaw PA-C [address] [address] Specialist Neurosurgery 07/09/23 Alden Coates PA-C [address] [address] Specialist Neurosurgery 07/09/23 documented as of this encounter
--- OUTSIDE RECORDS SUMMARY | 2024-11-07 17:27 | XMS_ITS | Encounter Summary ---
Author Organization [facility] Address [address] [place] [address] Care Team Providers Care Page Technician Name Role Phone Community, Pcp Primary Care Provider Nikko Rogers Primary Care Provider Basil Conroy MD Primary Care Provider Bobbi Meek MD Primary Care Provider +[phone]- [phone] Kacy Velasquez MD Unavailable [phone] Akua Crenshaw PA-C Unavailable [phone] Alden Coates PA-C Unavailable [phone] Encounter Details Date Type Department Care Team Description 04/04/2017 Transfer Records Medical Records [address] [place] [address] Abstract, Provider Social History Tobacco Use Types [...] on filedocumented in this encounter Care Teams Page Technician Relationship Specialty Start Date End Date [facility], Pcp PCP - General Internal Medicine 11/04/11 10/15/17 Nikko Kaufman PCP - General Internal Medicine 10/16/17 07/27/19 Basil Mcallister MD PCP - General Internal Medicine 07/28/19 11/05/20 Bobbi Conte MD PCP - General Internal Medicine 11/06/20 Kacy Velasquez MD [address] [address] Surgeon Neurosurgery 07/09/23 Akua Crenshaw PA-C [address] [address] Specialist Neurosurgery 07/09/23 Alden Coates PA-C 175 [facility] [address] [place] [address] Specialist Neurosurgery 07/09/23 documented as of this encounter
--- OUTSIDE RECORDS SUMMARY | 2024-11-07 17:27 | XMS_ITS | Encounter Summary ---
Author Organization [facility] Address [address] [place] [address] Care Team Providers Care Machine Operator Slitter Technician Name Role Phone Bobbi Conte MD Primary Care Provider Kacy Velasquez MD Unavailable [phone] Akua Crenshaw PA-C Unavailable Alden Coates PA-C Unavailable Encounter Details Date Type Department Care Team Description 04/27/2024 SCAN [facility] Medical [facility] Neurosurgery [place] [address] [id number] Alden Coates PA-C [address] [id number] Social History Tobacco Use Types Packs/Day Years [...] on filedocumented in this encounter Care Teams Machine Operator Slitter Technician Relationship Specialty Start Date End Date Bobbi Conte MD PCP - General Internal Medicine 11/06/20 Kacy Velasquez MD [address] [address] Surgeon Neurosurgery 07/09/23 Akua Crenshaw PA-C [address] [address] Specialist Neurosurgery 07/09/23 Alden Coates PA-C [address] [address] Specialist Neurosurgery 07/09/23 documented as of this encounter
--- OUTSIDE RECORDS SUMMARY | 2024-11-07 17:27 | XMS_ITS | Encounter Summary ---
Author Organization [facility] Address [address] [place] [address] Care Team Providers Care Line Producer Name Role Phone Bobbi Conte MD Primary Care Provider +[phone]- [phone] Kacy Velasquez MD Unavailable [phone] Akua Crenshaw PA-C Unavailable [phone] Alden Coates PA-C Unavailable [phone] Reason for Visit * Reason Onset Date Comments Nail Problem, Toes 11/27/2021 Encounter Details Date Type Department Care Team Description 11/27/2021 Telephone Internal Medicine - [address], [address] [place], [place] [address] Bobbi Conte MD [address] [place] [address] Nail Problem, Toes Social History Tobacco [...] constitution party insurance information Date of accident/Injury: N/A How long has patient had these symptoms?: Yesterday PCP: Bobbi Conte Payor: [employer] FFS / Plan: [employer] / Product Type: MEDICAID RISK documented in this encounter Plan of Treatment Not on file documented as of this encounter Visit Diagnoses Not on filedocumented in this encounter Care Teams Line Producer Relationship Specialty Start Date End Date Bobbi Conte MD PCP - General Internal Medicine 11/06/20 Kacy Velasquez MD [address] [address] Surgeon Neurosurgery 07/09/23 Akua Crenshaw PA-C [address] [address] Specialist Neurosurgery 07/09/23 Alden Coates PA-C [address] [address] Specialist Neurosurgery 07/09/23 documented as of this encounter
--- OUTSIDE RECORDS SUMMARY | 2024-11-07 17:27 | XMS_ITS | Encounter Summary ---
Author Organization [facility] Address [address] [place] [address] Care Team Providers Care Caser Up Name Role Phone Bobbi Conte MD Primary Care Provider Kacy Velasquez MD Unavailable [phone] Akua Crenshaw PA-C Unavailable [phone] Alden Coates PA-C Unavailable [phone] Encounter Details Date Type Department Care Team Description 06/18/2023 Pt. Non Urgent Medical Question OBGYN - 271 [facility] 271 [place] [address] Chelsie Pal CN 175 [place] [address] Social History Tobacco Use Types [...] on filedocumented in this encounter Care Teams Caser Up Relationship Specialty Start Date End Date Bobbi Conte MD PCP - General Internal Medicine 11/06/20 Kacy Velasquez MD [address] [address] Surgeon Neurosurgery 07/09/23 Akua Crenshaw PA-C [address] [address] Specialist Neurosurgery 07/09/23 Alden Coates PA-C [address] [address] Specialist Neurosurgery 07/09/23 documented as of this encounter
--- OUTSIDE RECORDS SUMMARY | 2024-11-07 17:27 | XMS_ITS | Encounter Summary ---
Author Organization [facility] Address [address] [place] [address] Care Team Providers Care Bellstand Attendant Name Role Phone Bobbi Conte MD Primary Care Provider +[phone]- [phone] Kacy Velasquez MD Unavailable [phone] Akua Crenshaw PA-C Unavailable [phone] Alden Coates PA-C Unavailable [phone] Encounter Details Date Type Department Care Team Description 11/23/2023 Pt. Non Urgent Medical Question OBGYN - 271 [facility] 271 [place] [address] Chelsie Pal CN 175 [place] [address] Social History Tobacco Use Types [...] on filedocumented in this encounter Care Teams Bellstand Attendant Relationship Specialty Start Date End Date Bobbi Conte MD PCP - General Internal Medicine 11/06/20 Kacy Velasquez MD [address] [address] Surgeon Neurosurgery 07/09/23 Akua Crenshaw PA-C [address] [address] Specialist Neurosurgery 07/09/23 Alden Coates PA-C [address] [address] Specialist Neurosurgery 07/09/23 documented as of this encounter
--- OUTSIDE RECORDS SUMMARY | 2024-11-07 17:27 | XMS_ITS | Encounter Summary ---
Author Organization [facility] Address [address] [place] [address] Care Team Providers Care Race Starter Name Role Phone Bobbi Conte MD Primary Care Provider +[phone]- [phone] Kacy Velasquez MD Unavailable [phone] Akua Crenshaw PA-C Unavailable [phone] Alden Coates PA-C Unavailable [phone] Encounter Details Date Type Department Care Team Description 05/27/2023 Pt. Non Urgent Medical Question OBGYN - 271 [facility] 271 [place] [address] Chelsie Pal CN 175 [place] [address] Social History Tobacco Use Types [...] on filedocumented in this encounter Care Teams Race Starter Relationship Specialty Start Date End Date Bobbi Conte MD PCP - General Internal Medicine 11/06/20 Kacy Velasquez MD [address] [address] Surgeon Neurosurgery 07/09/23 Akua Crenshaw PA-C [address] [address] Specialist Neurosurgery 07/09/23 Alden Coates PA-C [address] [address] Specialist Neurosurgery 07/09/23 documented as of this encounter
--- OUTSIDE RECORDS SUMMARY | 2024-11-07 17:27 | XMS_ITS | Encounter Summary ---
Author Organization [facility] Address [address] [place] [address] Care Team Providers Care Hair Blender Name Role Phone Bobbi Conte MD Primary Care Provider +[phone]- [phone] Kacy Velasquez MD Unavailable [phone] Akua Crenshaw PA-C Unavailable [phone] Alden Coates PA-C Unavailable [phone] Encounter Details Date Type Department Care Team Description 05/14/2023 Orders Only [facility] [address] [phone] Franco Crawley DPM [address] [address] Neuropathy Social History Tobacco Use Types Packs/Day Years [...] as of this encounter Visit Diagnoses Diagnosis Neuropathy Mononeuritis of unspecified site documented in this encounter Care Teams Hair Blender Relationship Specialty Start Date End Date Bobbi Conte MD PCP - General Internal Medicine 11/06/20 Kacy Velasquez MD [address] [address] Surgeon Neurosurgery 07/09/23 Akua Crenshaw PA-C [address] [address] Specialist Neurosurgery 07/09/23 Alden Coates PA-C [address] [address] Specialist Neurosurgery 07/09/23 documented as of this encounter
--- OUTSIDE RECORDS SUMMARY | 2024-11-07 17:27 | XMS_ITS | Encounter Summary ---
Author Organization [facility] Address [address] [place] [address] Care Team Providers Care Footwear Sales Associate Name Role Phone Bobbi Conte MD Primary Care Provider [phone] Kacy Velasquez MD Unavailable [phone] Akua Crenshaw PA-C Unavailable [phone] Alden Coates PA-C Unavailable [phone] Reason for Visit * Reason Onset Date Comments Leg Pain 04/01/2023 Encounter Details Date Type Department Care Team Description 04/01/2023 Telephone Internal Medicine - [address], [address] [place] [address] Bobbi Conte MD [address] [place] [phone] Leg Pain Social History Tobacco Use Types Packs/Day [...] suspected to have Coronavirus/COVID-19? No / Unsure 03/11/2023 2:38 PM EDT documented as of this encounter Miscellaneous Notes * Telephone Encounter - Prema Vann - 04/17/2023 4:10 PM EDT Revised letter written on your desk to review and advise and sign will inform pt when letter is ready * Telephone Encounter - Darleen Gallego - 04/17/2023 3:53 PM EDT Now the patient is calling again re: Letter needs to be revised What is needed for verbage Patient due to limited issues with her leg will need to have more breaks during the work day Ambulation limited to do leg - brace . . Once completed contact patient on phone : [phone] * Telephone Encounter - Stephanie Negron RN - 04/01/2023 11:[address] Carpio please review, pt wondering if she can have an accomodation letter or light duty letter for her work Call to pt # [phone], spoke w/ pt. Pt had appt 03/11/23 w/ Dr. Carpio to discuss her left ankle and foot pain - since this appt left foot and ankle continue to have pain. Last night the pain was severe - her toes curled up and was not able to move them - sharp pain went from the foot all the way to the knee Has bought a knee brace, ankle compression. Also using some heat. 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 Is unsure if the cold weather is making this worse. Her appt with podiatry is May 05, they had no sooner appts. 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 Advised to pt to continue to contact podiatry office in the [facility] to check for cancellations and see if she can be seen sooner. * Telephone Encounter - Kelly Hopper - 04/01/2023 11:12 AM EDT Patient is returning your call [phone], * Telephone Encounter - Stephanie Negron RN - 04/01/2023 10:00 AM EDT Call to pt # [phone], Left message for pt to call office back * Telephone Encounter - Kelly Hopper - 04/01/2023 9:01 AM EDT Symptoms patient is presenting: left leg pain Sense 03/11/[address] Carpio same reason still in pain For ALL patients calling to schedule any [...] days or have a negative covid test? No If yes to any of the above, patient is not to be scheduled in office until after 14 day quarantine or negative covid test. If pain or injury related was it due to an accident at work or from a motor vehicle accident? NO If yes, gather 3rd libertarian insurance information Date of accident/Injury: How long has patient had these symptoms?: 03/11/2023 PCP: Bobbi Conte Payor: [facility] Track the Bet [facility] FFS / Plan: [facility] [employer]formerly [employer] / Product Type: MEDICAID RISK documented in this encounter Plan of Treatment Not on file documented as of this encounter Visit Diagnoses Not on filedocumented in this encounter Care Teams Footwear Sales Associate Relationship Specialty Start Date End Date Bobbi Conte MD PCP - General Internal Medicine 11/06/20 Kacy Velasquez MD [address] [address] Surgeon Neurosurgery 07/09/23 Akua Crenshaw PA-C [address] [address] Specialist Neurosurgery 07/09/23 Alden Coates PA-C 175 [facility] [address] [place] [address] Specialist Neurosurgery 07/09/23 documented as of this encounter
--- OUTSIDE RECORDS SUMMARY | 2024-11-07 17:27 | XMS_ITS | Encounter Summary ---
Author Organization [facility] Address [address] [place] [address] Care Team Providers Care Curriculum Consultant Name Role Phone Bobbi Conte MD Primary Care Provider [phone] Kacy Velasquez MD Unavailable [phone] Akua Crenshaw PA-C Unavailable [phone] Alden Coates PA-C Unavailable [phone] Encounter Details Date Type Department Care Team Description 05/13/2023 Pt. Non Urgent Medical Question OBGYN - [address] [facility] [address] [place] [address] Chelsie Pal CN [address] [place] [address] Social History Tobacco Use Types [...] on filedocumented in this encounter Care Teams Curriculum Consultant Relationship Specialty Start Date End Date Bobbi Conte MD PCP - General Internal Medicine 11/06/20 Kacy Velasquez MD [address] [address] Surgeon Neurosurgery 07/09/23 Akua Crenshaw PA-C [address] [address] Specialist Neurosurgery 07/09/23 Alden Coates PA-C [address] [address] Specialist Neurosurgery 07/09/23 documented as of this encounter
--- OUTSIDE RECORDS SUMMARY | 2024-11-07 17:27 | XMS_ITS | Encounter Summary ---
Author Organization [facility] Address [address] [place] [address] Care Team Providers Care Solar Designer Name Role Phone Bobbi Conte MD Primary Care Provider [phone] Kacy Velasquez MD Unavailable [phone] Akua Crenshaw PA-C Unavailable [phone] Alden Coates PA-C Unavailable [phone] Reason for Referral * EXTERNAL (Routine) - Authorized/Booked Specialty Diagnoses / Procedures Referred By Daljit morel Referred To Contact Physical Therapy Diagnoses Pelvic pressure in female Encounter for supervision of other normal , first trimester Procedures REFERRAL TO PHYSICAL THERAPY Rahat Ram DO [address] [place] [address] Referral ID Status Reason Start Date Expiration Date V isits Requested Visits Authorized [id number] Authorized/B ooked 06/04/2023 09/23/2023 1 1 Encounter Details Date Type Department Care Team Description 06/04/2023 Orders Only OBGYN - [address] [address] Rahat Ram DO Pelvic pressure in female [...] trimester documented in this encounter Care Teams Solar Designer Relationship Specialty Start Date End Date Bobbi Conte MD PCP - General Internal Medicine 11/06/20 Kacy Velasquez MD [address] [address] Surgeon Neurosurgery 07/09/23 Akua Crenshaw PA-C [address] [address] Specialist Neurosurgery 07/09/23 Alden Coates PA-C [address] [address] Specialist Neurosurgery 07/09/23 documented as of this encounter
--- OUTSIDE RECORDS SUMMARY | 2024-11-07 17:27 | XMS_ITS | Encounter Summary ---
Author Organization [facility] Address [address] [place] [address] Care Team Providers Care Freight Dispatcher Name Role Phone Bobbi Conte MD Primary Care Provider [phone] Kacy Velasquez MD Unavailable [phone] Akua Crenshaw PA-C Unavailable [phone] Alden Coates PA-C Unavailable Encounter Details Date Type Department Care Team Description 07/10/[address] [facility] Medical [facility] Neurosurgery [place] [address] [id number] Alden Coates PA-C [address] [id number] Social History Tobacco Use Types Packs/Day Years [...] on filedocumented in this encounter Care Teams Freight Dispatcher Relationship Specialty Start Date End Date Bobbi Conte MD PCP - General Internal Medicine 11/06/20 Kacy Velasquez MD [address] [address] Surgeon Neurosurgery 07/09/23 Akua Crenshaw PA-C [address] [address] Specialist Neurosurgery 07/09/23 Alden Coates PA-C [address] [address] Specialist Neurosurgery 07/09/23 documented as of this encounter
--- OUTSIDE RECORDS SUMMARY | 2024-11-07 17:27 | XMS_ITS | Encounter Summary ---
Author Organization [facility] Address [address] [place] [address] Care Team Providers Care Triple Valve Tester Name Role Phone Bobbi Conte MD Primary Care Provider [phone] Kacy Velasquez MD Unavailable [phone] Akua Crenshaw PA-C Unavailable [phone] Alden Coates PA-C Unavailable Encounter Details Date Type Department Care Team Description 07/15/2023 SCAN [facility] Medical [facility] Neurosurgery [place] [address] [phone] Alden Coates PA-C [address] [id number] Social History Tobacco Use Types Packs/Day Years [...] on filedocumented in this encounter Care Teams Triple Valve Tester Relationship Specialty Start Date End Date Bobbi Conte MD PCP - General Internal Medicine 11/06/20 Kacy Velasquez MD [address] [address] Surgeon Neurosurgery 07/09/23 Akua Crenshaw PA-C [address] [address] Specialist Neurosurgery 07/09/23 Alden Coates PA-C [address] [address] Specialist Neurosurgery 07/09/23 documented as of this encounter
--- OUTSIDE RECORDS SUMMARY | 2024-11-07 17:27 | XMS_ITS | Encounter Summary ---
Author Organization [facility] Address [address] [place] [address] Care Team Providers Care Spa Assistant Manager Name Role Phone Bobbi Conte MD Primary Care Provider [phone] Kacy Velasquez MD Unavailable [phone] Akua Crenshaw PA-C Unavailable [phone] Alden Coates PA-C Unavailable [phone] Encounter Details Date Type Department Care Team Description 04/04/2024 Pt. Non Urgent Medical Question Internal Medicine - [address], [address] [place] [address] Bobbi Conte MD [address] [place] [phone] Social History Tobacco Use Types Packs/Day [...] on filedocumented in this encounter Care Teams Spa Assistant Manager Relationship Specialty Start Date End Date Bobbi Conte MD PCP - General Internal Medicine 11/06/20 Kacy Velasquez MD [address] [address] Surgeon Neurosurgery 07/09/23 Akua Crenshaw PA-C [address] [address] Specialist Neurosurgery 07/09/23 Alden Coates PA-C [address] [address] Specialist Neurosurgery 07/09/23 documented as of this encounter
--- OUTSIDE RECORDS SUMMARY | 2024-11-07 17:27 | XMS_ITS | Encounter Summary ---
Author Organization [facility] Address [address] [place] [address] Care Team Providers Care Florist'S Decorator Name Role Phone Bobbi Conte MD Primary Care Provider [phone] Kacy Velasquez MD Unavailable [phone] Akua Crenshaw PA-C Unavailable [phone] Alden Coates PA-C Unavailable [phone] Encounter Details Date Type Department Care Team Description 04/24/2023 Pt. Non Urgent Medical Question Internal Medicine - [address], [address] [place] [address] Lizy Carpio MD [address] [place] [address] Social History Tobacco Use Types Packs/Day [...] on filedocumented in this encounter Care Teams Florist'S Decorator Relationship Specialty Start Date End Date Bobbi Conte MD PCP - General Internal Medicine 11/06/20 Kacy Velasquez MD [address] [address] Surgeon Neurosurgery 07/09/23 Akua Crenshaw PA-C [address] [address] Specialist Neurosurgery 07/09/23 Alden Coates PA-C [address] [address] Specialist Neurosurgery 07/09/23 documented as of this encounter
== END 2024-11-07 15:56 | disposition home or self-care (01) ==
LOC: HO.MRI 15:55
PROVIDERS: Visit Provider Nurse Practitioner Family
DX: R20.0 Anesthesia of skin (principal); R20.2 Paresthesia of skin; M21.372 Foot drop, left foot; M54.16 Radiculopathy, lumbar region; S06.4XAA Epidural hemorrhage with loss of consciousness status unknown, initial encounter
CPT/HCPCS: 72158; A9585

== ENCOUNTER 2024-11-14 15:19 | Outpatient (AMB) | payer OTHER, SELFPAY ==
--- NOTE | 2024-11-14 15:20 | MHC.OFFVIS ---
Vital Signs 11/14/24 15:24 Height 5 ft 5 in Weight 220 lb BMI 36.6 BP 166/93 H Blood Pressure Location Lt brachial Position Sitting Pulse 85 Pulse Source Pulse Oximeter Pulse Oximetry (%) 100 Oxygen Delivery Method Room Air Intake Visit Reasons: MRI FOLLOW/NUMBNESS AFTER INJECTION Intake Note: Pain today 01/12 Hemodialysis Charge Nurse Required: No Accompanied by: Family/Other Allergies No Known Allergies Allergy (Verified 11/14/24 15:25) HPI Comments Details: The patient is a 28-year-old female presenting with persistent back pain and episodic urinary incontinence, transient left buttock weakness s/p Left L5-S1 TFESI on 10/27/24. The recent MRI ruled out an epidural hematoma but detected ongoing amagnnkk-gf-thoqui left-sided neural foraminal narrowing at L5-S1 as well as persistent enhancement of the paraspinal soft tissues at L5-S1 on the left with involvement of the facet joint consistent with facet joint synovitis and myositis. No organizing or drainable fluid collection identified. Patient reports had 2 day partial pain relief after injection without significant improvement in her daily activities or functioning. Lifestyle factors including obesity are complicating factors. She monitors her symptoms and plans to make lifestyle changes upon consultation with her primary care doctor. Her current functional activities, primarily caring for a young child, are hindered by her symptoms, positioning weight management and alleviation of symptoms in her long-term goals. She is wearing left AFO support although notes that is uncomfortable and plans to exchanges to a different AFO brace. Past Procedures: 10/27/24: Left L5-S1 TFESI-40% pain relief for 2 days PRIOR: Patient is a pleasant 28-year-old female with history of recent left L5 Laminotomy, partial facetectomy and foraminotomy (05/19/24 Dr. Zelaya), presents today for initial evaluation of lower back pain with left-sided radiculopathy accompanied with constant burning, aching and numbness sensations. She reports back pain and left leg pain symptoms initially started in January of 2023 while she was in [employer] in [facility] and noted her left foot and toes with jerking movements and with shooting pains into her left hip. Patient completed EMG in May 2023 showing a peroneal and tibial neuropathy. She then got and had her baby girl in December 2023 but notes she has been experiencing significant shooting and sharp pains during in her pelvic floor and vagina without relief with Pelvic floor PT at that time. She continues to experiences same symptoms periodically. Patient reports no significant pain, left leg numbness and weakness improvement with recent back surgery. She is currently in active PT through [facility] but completes it virtually at home. Patient is concerned about ongoing back pain and left leg weakness which limits her ADLs, mobility, functioning or taking care of her baby. She was provided with AFO boot and also has been utilizing walker at home. Back pain is axial and also radiates into her left buttock and into her lateral calf and into her left foot. Pain is most severe during 10:00-15:00, rated at 8-9/10 and least severe at bedtime 21:00-0900, rated at 4-5/10. Denies previous spine injections. She has been taking Ibuprofen for pain and most of the time avoids medication as she is currently . Patient notes her menses are late by 18 days but recent home test was negative. Denies any fever or chills, rash, abdominal or groin pain, bladder or bowel dysfunction or saddle anesthesia. Patient also reports neck pain and bilateral hand weakness with numbness and tingling. Reports history of bilateral carpal tunnel syndrome. Oswestry Low Back Pain Disability Score=32 (severe disability) Location: Lower back radiates into left leg with left foot drop Duration: Chronic pain for 1.5 years Characteristics of symptom or complaint: Throbbing, stabbing, shooting, numbness, sharp, tingling, cramping Aggravating or associated factors: Movements, walking, climbing, bending, twisting, ADLs, weather changes Relieving factors: Ibuprofen, heat/cold therapy, rest, activity modifications Treatment: PT at [facility] (virtual at home), Left L5 foraminotomy (2023) [facility] Medical History Acquired left foot drop Lumbosacral radiculopathy at S1 Numbness and tingling of left leg Foot drop, left foot Neuropathy Obesity UTI (urinary tract infection) Anxiety Bilateral carpal tunnel syndrome Multiple renal cysts Right ovarian cyst Surgical History Hx of decompressive lumbar laminectomy (05/19/24) Hx of partial nephrectomy (~1999) Social History Household Members: Spouse and Children Household Members Other:: in laws Housing: Apartment Are you a primary farm or ranch animal caretaker to a significant other at home: No Do you presently have visiting nurse or other home services: No Alcohol intake: current Alcohol intake frequency: former alcohol drinker Comment: Seldom Patient Tobacco Use Status: Former Tobacco user Years Smoked: quit 2 years ago- on and off x 10years Review of Systems Const Details: - Neurological: Reports persistent numbness, denies new neurological deficits. - Genitourinary: Reports urinary incontinence. All systems reviewed & are unremarkable except as noted in HPI and below Physical Exam General: Appears afebrile. Alert and oriented. Mood and affect appropriate. Follows and participates in conversation appropriately. Respiratory effort is unlabored. No cough. Able to transition from sit to stand unassisted. Uses walker at home per patient. Ambulates with right normal heel strike and toe off. Left foot drop, wearing AFO brace. General: Yes no CVA tenderness Back/Spine/Pelvis Other: Patient is able to walk and stand on heels and tip toes with difficulty on the left due to pain and foot drop on the left. Antalgic gait with mild steppage on the right. Lumbar flexion and bending reproduces moderate-severe pain, lumbar extension reproduces mild pain. Demonstrates 5/5 right and 4/5 left strength of quadriceps bilaterally as well as 5/5 right and 3/5 left flexion/dorsiflexion of bilateral feet against resistance. 2+ pedal pulses bilaterally. Straight leg rise with dorsiflexion is positive on the left. +1 patellar and + +1 achilles reflexes bilaterally. Facet loading test positive bilaterally. Adele sign, Segun?s, Gaenslen and Stinchfield tests are positive bilaterally, left>right. No groin pain with I/E hip rotations. Valsalva maneuver is negative. Back: no CVA tenderness Cervical Spine: cervical ROM normal, cervical muscular tenderness, pain with cervical ROM, No Cervical spine scars present and No Cervical spine tenderness Thoracic/Lumbar Spine: thoracic and lumbar spine normal to inspection, Thoracic/lumbar spine scar(s), Lasegue's sign positive on the left and localized, pain with thoraco-lumbar ROM, paraspinal muscle tenderness, thoraco-lumbar ROM limited, No thoracic spinal tenderness and lumbar spinal tenderness (L4-S1) Pelvis: buttock tenderness on the left Sacroiliac joints: bilaterally (left>right) tender to palpation Extrem General: Yes capillary refill normal, Yes no clubbing, cyanosis or edema and Yes no calf tenderness Results Reviewed Results Reviewed: MR lumbar spine wo/w con 11/07/24 CLINICAL HISTORY: R20.0 - Anesthesia of skin --- Additional Notes or Special Instructions: Status post Left L5-S1 TFESI on 10 27 24, now reports leg numbness and pain in low back. Left leg/foot twitching uncontrollable, unable to repeat any picture due to pt was in so much pain. COMPARISON: MR lumbar spine dated 08/20/24 at 13:25 EST FINDINGS: Normal alignment of the anterior and posterior elements without evidence of subluxation. Vertebral heights are maintained. Marrow signal is benign. The conus terminates at inferior endplate of L1 and is otherwise unremarkable. Increased sclerosis along the sacroiliac joints bilaterally, unchanged. L5-S1: Desiccation of the disc. Posterior disc annular tear. Facet joint arthrosis. Gvzbfflq-ud-nqdsum left neural foraminal narrowing. There is persistent enhancement of the paraspinal muscles at L5-S1 on the left. And No organizing fluid collection. L4-L5: Intervertebral disc is normal in height. No significant disc bulge or central canal stenosis. L3-L4: Intervertebral disc is normal in height. No significant disc bulge or central canal stenosis. L2-L3: Intervertebral disc is normal in height. No significant disc bulge or central canal stenosis. L1-L2: Intervertebral disc is normal in height. No significant disc bulge or central canal stenosis. IMPRESSION: 1. Persistent enhancement of the paraspinal soft tissues at L5-S1 on the left with involvement of the facet joint consistent with facet joint synovitis and myositis. No organizing or drainable fluid collection identified. 2. Llpoycuf-kd-igevrz left-sided neural foraminal narrowing at L5-S1 Assessment & Plan Assessment & Plan (1) Numbness and tingling of left leg: Code(s): R20.0 - Anesthesia of skin; R20.2 - Paresthesia of skin Category: Medical (2) Lumbar radiculopathy: Code(s): M54.16 - Radiculopathy, lumbar region Category: Medical (3) Acquired left foot drop: Comment: Left L5 radiculopathy s/P laminotomy on 05/2024 Code(s): M21.372 - Foot drop, left foot Category: Medical (4) Lumbar spondylosis: Code(s): M47.816 - Spondylosis without myelopathy or radiculopathy, lumbar region Category: Medical (5) Neuroforaminal stenosis of lumbosacral spine: Code(s): M48.07 - Spinal stenosis, lumbosacral region Category: Medical Plan Lumbar MRI results post recent left L5-S1 TFESI was reviewed with patient and family today. For spinal stenosis and associated symptoms, pursue Neurosurgical re-evaluation for potential Left L5 foraminotomy as previously discussed at [facility], given persistent severe symptoms, notably the urinary incontinence and ongoing numbness radiating from the back into left lower extremity and no sustained relief with recent left L5-S1 TFESI injection. Transition from gabapentin to duloxetine as per the patient's report of adverse effects and lack of relief for current symptoms. Recommend continued engagement with weight management strategies to support post-surgical recovery. All questions and concerns have been answered and patient agreed with the plan. Follow up as needed. Patient was informed and verbally consented to the use of an ambient scribe for clinic note documentation during this visit. Coding Level of Care Code Est Pt Level 4 (63004) Complex EM visit Add On G2211 Diagnoses Numbness and tingling of left leg R20.0; R20.2 Lumbar radiculopathy M54.16 Acquired left foot drop M21.372 Lumbar spondylosis M47.816 Neuroforaminal stenosis of lumbosacral spine M48.07
--- OUTSIDE RECORDS SUMMARY | 2024-11-14 15:23 | XMS_ITS | Encounter Summary ---
Author Organization [facility] Address [address] [place] [address] Care Team Providers Care Machine Brush Maker Name Role Phone Bobbi Conte MD Primary Care Provider [phone] Kacy Velasquez MD Unavailable [phone] Akua Crenshaw PA-C Unavailable [phone] Alden Coates PA-C Unavailable [phone] Encounter Details Date Type Department Care Team Description 11/02/2023 Pt. Non Urgent Medical Question OBGYN - 271 [facility] 271 [place] [address] Chelsie Pal CN 175 [place] [address] Social History Tobacco Use Types [...] filedocumented in this encounter Care Teams Machine Brush Maker Relationship Specialty Start Date End Date Bobbi Conte MD PCP - General Internal Medicine 11/06/20 Kacy Velasquez MD [address] [address] Surgeon Neurosurgery 07/09/23 Akua Crenshaw PA-C [address] [address] Specialist Neurosurgery 07/09/23 Alden Coates PA-C [address] [address] Specialist Neurosurgery 07/09/23 documented as of this encounter
--- OUTSIDE RECORDS SUMMARY | 2024-11-14 15:23 | XMS_ITS | Encounter Summary ---
Author Organization [facility] Address [address] [place] [address] Care Team Providers Care Electrolytic De Scaler Name Role Phone Basil Mcallister MD Primary Care Provider Bobbi Meek MD Primary Care Provider [phone] Kacy Velasquez MD Unavailable [phone] Akua Crenshaw PA-C Unavailable [phone] Alden Coates PA-C Unavailable [phone] Encounter Details Date Type Department Care Team Description 03/27/2020 Transfer Records Medical Records [address] [place] [address] Abstract, Provider Social History Tobacco Use Types [...] on filedocumented in this encounter Care Teams Electrolytic De Scaler Relationship Specialty Start Date End Date Basil Mcallister MD PCP - General Internal Medicine 07/28/19 11/05/20 Bobbi Conte MD PCP - General Internal Medicine 11/06/20 Kacy Velasquez MD 175 [facility] [address] [place] [address] Surgeon Neurosurgery 07/09/23 Akua Crenshaw PA-C 175 [facility] [address] [place] [address] Specialist Neurosurgery 07/09/23 Alden Coates PA-C 175 [facility] [address] [place] [address] Specialist Neurosurgery 07/09/23 documented as of this encounter
--- OUTSIDE RECORDS SUMMARY | 2024-11-14 15:23 | XMS_ITS | Encounter Summary ---
Author Organization [facility] Address [address] [place] [address] Care Team Providers Care Lamp Assembler Name Role Phone Bobbi Conte MD Primary Care Provider [phone] Kacy Velasquez MD Unavailable [phone] Akua Crenshaw PA-C Unavailable [phone] Alden Coates PA-C Unavailable [phone] Encounter Details Date Type Department Care Team Description 06/16/2023 Pt. Non Urgent Medical Question OBGYN - 271 [facility] 271 [place] [address] Chelsie Pal CN [address] [place] [address] Social History Tobacco Use Types [...] on filedocumented in this encounter Care Teams Lamp Assembler Relationship Specialty Start Date End Date Bobbi Conte MD PCP - General Internal Medicine 11/06/20 Kacy Velasquez MD [address] [address] Surgeon Neurosurgery 07/09/23 Akua Crenshaw PA-C [address] [address] Specialist Neurosurgery 07/09/23 Alden Coates PA-C [address] [address] Specialist Neurosurgery 07/09/23 documented as of this encounter
--- OUTSIDE RECORDS SUMMARY | 2024-11-14 15:23 | XMS_ITS | Encounter Summary ---
Author Organization [facility] Address [address] [place] [address] Care Team Providers Care Automotive Consultant Name Role Phone Bobbi Conte MD Primary Care Provider [phone] Kacy Velasquez MD Unavailable [phone] Akua Crenshaw PA-C Unavailable [phone] Alden Coates PA-C Unavailable [phone] Encounter Details Date Type Department Care Team Description 08/20/2021 Refill Internal Medicine - [address], [address] [place] [address] Bobbi Conte MD [address] [place] [address] Social History Tobacco Use Types Packs/Day [...] on filedocumented in this encounter Care Teams Automotive Consultant Relationship Specialty Start Date End Date Bobbi Conte MD PCP - General Internal Medicine 11/06/20 Kacy Velasquez MD [address] [address] Surgeon Neurosurgery 07/09/23 Akua Crenshaw PA-C [address] [address] Specialist Neurosurgery 07/09/23 Alden Coates PA-C 175 [facility] [address] [place] [address] Specialist Neurosurgery 07/09/23 documented as of this encounter
--- OUTSIDE RECORDS SUMMARY | 2024-11-14 15:23 | XMS_ITS | Encounter Summary ---
Author Organization [facility] Address [address] [place] [address] Care Team Providers Care Scallop Dredger Name Role Phone Bobbi Conte MD Primary Care Provider Kacy Velasquez MD Unavailable [phone] Akua Crenshaw PA-C Unavailable [phone] Alden Coates PA-C Unavailable [phone] Encounter Details Date Type Department Care Team Description 05/27/2023 Pt. Non Urgent Medical Question OBGYN - 271 [facility] 271 [place] [address] Chelsie Pal CN 175 [place] [address] Social History Tobacco Use Types [...] on filedocumented in this encounter Care Teams Scallop Dredger Relationship Specialty Start Date End Date Bobbi Conte MD PCP - General Internal Medicine 11/06/20 Kacy Velasquez MD [address] [address] Surgeon Neurosurgery 07/09/23 Akua Crenshaw PA-C [address] [address] Specialist Neurosurgery 07/09/23 Alden Coates PA-C [address] [address] Specialist Neurosurgery 07/09/23 documented as of this encounter
--- OUTSIDE RECORDS SUMMARY | 2024-11-14 15:23 | XMS_ITS | Encounter Summary ---
Author Organization [facility] Address [address] [place] [address] Care Team Providers Care Director Internal Control Name Role Phone Bobbi Conte MD Primary Care Provider [phone] Kacy Velasquez MD Unavailable [phone] Akua Crenshaw PA-C Unavailable [phone] Alden Coates PA-C Unavailable [phone] Encounter Details Date Type Department Care Team Description 06/18/2023 Pt. Non Urgent Medical Question OBGYN - 271 [facility] 271 [place] [address] Chelsie Pal CN [address] [place] [address] Social History Tobacco Use Types [...] on filedocumented in this encounter Care Teams Director Internal Control Relationship Specialty Start Date End Date Bobbi Conte MD PCP - General Internal Medicine 11/06/20 Kacy Velasquez MD [address] [address] Surgeon Neurosurgery 07/09/23 Akua Crenshaw PA-C [address] [address] Specialist Neurosurgery 07/09/23 Alden Coates PA-C [address] [address] Specialist Neurosurgery 07/09/23 documented as of this encounter
--- OUTSIDE RECORDS SUMMARY | 2024-11-14 15:23 | XMS_ITS | Encounter Summary ---
Author Organization [facility] Address [address] [place] [address] Care Team Providers Care Shaft Tender Name Role Phone Bobbi Conte MD Primary Care Provider [phone] Kacy Velasquez MD Unavailable [phone] Akua Crenshaw PA-C Unavailable [phone] Alden Coates PA-C Unavailable [phone] Encounter Details Date Type Department Care Team Description 04/04/2024 Refill Internal Medicine - [address], [address] [place] [address] Bobbi Conte MD [address] [place] [address] Social History Tobacco Use Types Packs/Day [...] on filedocumented in this encounter Care Teams Shaft Tender Relationship Specialty Start Date End Date Bobbi Conte MD PCP - General Internal Medicine 11/06/20 Kacy Velasquez MD 175 [facility] [address] [place] [address] Surgeon Neurosurgery 07/09/23 Akua Crenshaw PA-C 175 [facility] [address] [place] [address] Specialist Neurosurgery 07/09/23 Alden Coates PA-C 175 [facility] [address] [place] [address] Specialist Neurosurgery 07/09/23 documented as of this encounter
--- OUTSIDE RECORDS SUMMARY | 2024-11-14 15:23 | XMS_ITS | Encounter Summary ---
Author Organization [facility] Address [address] [place] [address] Care Team Providers Care Farmworker Livestock Name Role Phone Bobbi Conte MD Primary Care Provider Kacy Velasquez MD Unavailable [phone] Akua Crenshaw PA-C Unavailable [phone] Alden Coates PA-C Unavailable [phone] Encounter Details Date Type Department Care Team Description 04/27/2024 SCAN [facility] Medical [facility] Neurosurgery [place] [address] [id number] Alden Coates PA-C [address] [id number] Social History Tobacco Use Types Packs/Day Years [...] on filedocumented in this encounter Care Teams Farmworker Livestock Relationship Specialty Start Date End Date Bobbi Conte MD PCP - General Internal Medicine 11/06/20 Kacy Velasquez MD [address] [address] Surgeon Neurosurgery 07/09/23 Akua Crenshaw PA-C [address] [address] Specialist Neurosurgery 07/09/23 Alden Coates PA-C [address] [address] Specialist Neurosurgery 07/09/23 documented as of this encounter
--- OUTSIDE RECORDS SUMMARY | 2024-11-14 15:23 | XMS_ITS | Encounter Summary ---
Author Organization [facility] Address [address] [place] [address] Care Team Providers Care Tools Programmer Name Role Phone Bobbi Conte MD Primary Care Provider [phone] Kacy Velasquez MD Unavailable [phone] Akua Crenshaw PA-C Unavailable [phone] Alden Coates PA-C Unavailable [phone] Encounter Details Date Type Department Care Team Description 12/17/2023 Pt. Non Urgent Medical Question OBGYN - 271 [facility] 271 [place] [address] Chelsie Pal CN [address] [place] [address] Social History Tobacco Use Types [...] on filedocumented in this encounter Care Teams Tools Programmer Relationship Specialty Start Date End Date Bobbi Conte MD PCP - General Internal Medicine 11/06/20 Kacy Velasquez MD [address] [address] Surgeon Neurosurgery 07/09/23 Akua Crenshaw PA-C [address] [address] Specialist Neurosurgery 07/09/23 Alden Coates PA-C [address] [address] Specialist Neurosurgery 07/09/23 documented as of this encounter
--- OUTSIDE RECORDS SUMMARY | 2024-11-14 15:23 | XMS_ITS | Encounter Summary ---
Author Organization [facility] Address [address] [place] [address] Care Team Providers Care Collar Setter Overlock Name Role Phone Bobbi Conte MD Primary Care Provider [phone] Kacy Velasquez MD Unavailable [phone] Akua Crenshaw PA-C Unavailable [phone] Alden Coates PA-C Unavailable [phone] Encounter Details Date Type Department Care Team Description 08/02/2021 Refill Internal Medicine - [address], [address] [place] [address] Bobbi Conte MD [address] [place] [address] Social History Tobacco Use Types Packs/Day [...] on filedocumented in this encounter Care Teams Collar Setter Overlock Relationship Specialty Start Date End Date Bobbi Conte MD PCP - General Internal Medicine 11/06/20 Kacy Velasquez MD 175 [facility] [address] [place] [address] Surgeon Neurosurgery 07/09/23 Akua Crenshaw PA-C [address] [address] Specialist Neurosurgery 07/09/23 Alden Coates PA-C 175 [facility] [address] [place] [address] Specialist Neurosurgery 07/09/23 documented as of this encounter
--- OUTSIDE RECORDS SUMMARY | 2024-11-14 15:23 | XMS_ITS | Encounter Summary ---
Author Organization [facility] Address [address] [place] [address] Care Team Providers Care Social Staff Worker Name Role Phone Bobbi Conte MD Primary Care Provider Kacy Velasquez MD Unavailable [phone] Akua Crneshaw PA-C Unavailable [phone] Alden Coates PA-C Unavailable [phone] Reason for Referral * EXTERNAL (Routine) - Authorized/Booked Specialty Diagnoses / Procedures Referred By Daljit morel Referred To Contact Mental Health Procedures REFERRAL TO BEHAVIORAL HEALTH Bobbi Conte MD [address] [place] [address] External B/Health Referral ID Status Reason Start Date Expiration Date V isits Requested Visits Authorized [id number] Authorized/B ooked 05/19/2023 08/20/2023 1 1 Reason for Visit * Reason Onset Date Comments Orders Call 05/19/2023 Encounter Details Date Type Department Care Team Description 05/19/2023 Telephone Internal Medicine - [place] 175 [facility], [address] [place] [address] Bobbi Conte MD [address] [place] [address] Orders Call Social History Tobacco [...] Patient is and requested anxiety medication from [facility] which they refused to order. Suggested she contact her PCP re: What anxiety medication would she be able to order Contact patient with reponse if in fact dr. Conte will order medication. * Telephone Encounter - Darleen Gallego - 05/19/2023 11:07 AM EST Patient is and requested anxiety medication from [facility] which they refused to order. Suggested she [...] on filedocumented in this encounter Care Teams Social Staff Worker Relationship Specialty Start Date End Date Bobbi Conte MD PCP - General Internal Medicine 11/06/20 Kacy Velasquez MD [address] [address] Surgeon Neurosurgery 07/09/23 Akua Crenshaw PA-C [address] [address] Specialist Neurosurgery 07/09/23 Alden Coates PA-C 175 [facility] [address] [place] [address] Specialist Neurosurgery 07/09/23 documented as of this encounter
--- OUTSIDE RECORDS SUMMARY | 2024-11-14 15:23 | XMS_ITS | Encounter Summary ---
Author Organization [facility] Address [address] [place] [address] Care Team Providers Care Stock Transfer Clerk Name Role Phone Bobbi Conte MD Primary Care Provider [phone]- [phone] Kacy Velasquez MD Unavailable [phone] Akua Crenshaw PA-C Unavailable [phone] Alden Coates PA-C Unavailable [phone] Encounter Details Date Type Department Care Team Description 11/16/2023 Pt. Non Urgent Medical Question OBGYN - 271 [facility] 271 [place] [address] Chelsie Pal CN 175 [place] [address] Social History Tobacco Use Types [...] on filedocumented in this encounter Care Teams Stock Transfer Clerk Relationship Specialty Start Date End Date Bobbi Conte MD PCP - General Internal Medicine 11/06/20 Kacy Velasquez MD [address] [address] Surgeon Neurosurgery 07/09/23 Akua Crenshaw PA-C [address] [address] Specialist Neurosurgery 07/09/23 Alden Coates PA-C [address] [address] Specialist Neurosurgery 07/09/23 documented as of this encounter
--- OUTSIDE RECORDS SUMMARY | 2024-11-14 15:23 | XMS_ITS | Clinical Summary ---
Author Organization [facility] Address [address] [place] [address] Care Team Providers Care Industrial Gas Fitter Helper Name Role Phone Bobbi Conte MD Primary Care Provider Kacy Velasquez MD Unavailable [phone] Akua Crenshaw PA-C Unavailable Alden Coates PA-C Unavailable [phone] Allergies Active Allergy Reactions Severity Noted Date [...] She went to the emergency room at [facility] and it resolved spontaneously. She says [...] will try to obtain the report from [facility] emergency room. History of diet controlled [...] need 3-hr GTT Forward chart to P [id number] ([facility]) Nutrition: Appt 10/29/23 at 3:30pm [...] Growth Ultrasound: 6lb4oz ~ 62%tile 12/17/23 Growth: Scoop Machine Operator on shoulder dystocia Deliver by [...] of the left foot. Her MRI from [facility] on March 17, 2024 revealed degenerative [...] for alpha thalessemia 06/15/2023 pt notified via [facility] in regards to getting fob tested.- NAYELI,RN [...] BMI of 50 by 28wks transfer to [facility] DVT prophylaxis- Lovenox if CS and BMI >35 Encounter for supervision of other jai sanabria , first trimester 05/25/2023 Overview: 1. [facility] site: [address] ([facility]) 2. Delivery site: [facility] 3. Mobile Mommas: 4. Dating criteria: [...] Pt wearing leg brace. 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
--- OUTSIDE RECORDS SUMMARY | 2024-11-14 15:23 | XMS_ITS | Encounter Summary ---
Author Organization [facility] Address [address] [place] [address] Care Team Providers Care Intake Specialist Name Role Phone Bobbi Conte MD Primary Care Provider [phone]- [phone] Kacy Velasquez MD Unavailable [phone] Akua Crenshaw PA-C Unavailable [phone] Alden Coates PA-C Unavailable [phone] Reason for Visit * Reason Onset Date Comments TEST RESULTS 01/23/2023 Encounter Details Date Type Department Care Team Description 01/23/2023 [facility] [address] [place], [place] [id number] Cassandra Davis, [facility] 175 [place] [address] TEST RESULTS Social History Tobacco [...] on filedocumented in this encounter Care Teams Intake Specialist Relationship Specialty Start Date End Date Bobbi Conte MD PCP - General Internal Medicine 11/06/20 Kacy Velasquez MD [address] [address] Surgeon Neurosurgery 07/09/23 Akua Crenshaw PA-C [address] [address] Specialist Neurosurgery 07/09/23 Alden Coates PA-C [address] [address] Specialist Neurosurgery 07/09/23 documented as of this encounter
--- OUTSIDE RECORDS SUMMARY | 2024-11-14 15:23 | XMS_ITS | Encounter Summary ---
Author Organization [facility] Address [address] [place] [address] Care Team Providers Care Black Oxide Operator Name Role Phone Bobbi Conte MD Primary Care Provider [phone]- [phone] Kacy Velasquez MD Unavailable [phone] Akua Crenshaw PA-C Unavailable [phone] Alden Coates PA-C Unavailable [phone] Reason for Visit * Reason Onset Date Comments 05/06/2023 Encounter Details Date Type Department Care Team Description 05/06/2023 Telephone OBGYN - 271 [facility] 271 [place] [address] Chelsie Pal CN 175 [place] [address] Social History Tobacco Use Types [...] had this problem? 20 mins ago Pt???s ORAL SURGERY ASSISTANT provider: Chelsie Pal CNM Last menstrual period (LMP) or EDC (due date): edc 12/27 Spoke with nurse and advised to go to the hospital documented in this encounter Plan of Treatment Not on file documented as of this encounter Visit Diagnoses Not on filedocumented in this encounter Care Teams Black Oxide Operator Relationship Specialty Start Date End Date Bobbi Conte MD PCP - General Internal Medicine 11/06/20 Kacy Velasquez MD 175 [facility] [address] [place] [address] Surgeon Neurosurgery 07/09/23 Akua Crenshaw PA-C 175 [facility] [address] [place] [address] Specialist Neurosurgery 07/09/23 Alden Coates PA-C 175 [facility] [address] [place] [address] Specialist Neurosurgery 07/09/23 documented as of this encounter
--- OUTSIDE RECORDS SUMMARY | 2024-11-14 15:23 | XMS_ITS | Encounter Summary ---
Author Organization [facility] Address [address] [place] [address] Care Team Providers Care Configuration Specialist Name Role Phone Bobbi Conte MD Primary Care Provider Kacy Velasquez MD Unavailable [phone] Akua Crenshaw PA-C Unavailable Alden Coates PA-C Unavailable [phone] Encounter Details Date Type Department Care Team Description 04/27/2024 [facility] Neurosurgery [place] Sylvester [address] [phone] Alden Coates PA-C [address] [id number] Social History Tobacco Use Types Packs/Day Years [...] on filedocumented in this encounter Care Teams Configuration Specialist Relationship Specialty Start Date End Date Bobbi Conte MD PCP - General Internal Medicine 11/06/20 Kacy Velasquez MD [address] [address] Surgeon Neurosurgery 07/09/23 Akua Crenshaw PA-C [address] [address] Specialist Neurosurgery 07/09/23 Alden Coates PA-C [address] [address] Specialist Neurosurgery 07/09/23 documented as of this encounter
--- OUTSIDE RECORDS SUMMARY | 2024-11-14 15:23 | XMS_ITS | Encounter Summary ---
Author Organization [facility] Address [address] [place] [address] Care Team Providers Care Web Analyst Name Role Phone Bobbi Conte MD Primary Care Provider [phone]- [phone] Kacy Velasquez MD Unavailable [phone] Akua Crenshaw PA-C Unavailable [phone] Alden Coates PA-C Unavailable [phone] Encounter Details Date Type Department Care Team Description 2023 Pt. Non Urgent Medical Question OBGYN - 271 [facility] 271 [place] [address] Chelsie Pal CN 175 [place] [address] Social History Tobacco Use Types [...] on filedocumented in this encounter Care Teams Web Analyst Relationship Specialty Start Date End Date Bobbi Conte MD PCP - General Internal Medicine 11/06/20 Kacy Velasquez MD [address] [address] Surgeon Neurosurgery 07/09/23 Akua Crenshaw PA-C [address] [address] Specialist Neurosurgery 07/09/23 Alden Coates PA-C [address] [address] Specialist Neurosurgery 07/09/23 documented as of this encounter
--- OUTSIDE RECORDS SUMMARY | 2024-11-14 15:23 | XMS_ITS | Encounter Summary ---
Author Organization [facility] Address [address] [place] [address] Care Team Providers Care Livestock Ranch Hand Name Role Phone Bobbi Conte MD Primary Care Provider [phone] Kacy Velasquez MD Unavailable [phone] Akua Crenshaw PA-C Unavailable [phone] Alden Cotaes PA-C Unavailable [phone] Reason for Visit * Reason Onset Date Comments Letter 04/23/2023 Encounter Details Date Type Department Care Team Description 04/23/2023 Telephone Internal Medicine - [address], [address] [place] [address] Bobbi Conte MD [address] [place] [address] Letter Social History Tobacco Use Types [...] written informed pt left in front for fruit picker * Telephone Encounter - Prema Vann - [...] or concerns please contact my office at [phone]. ADD: accommodate the patient to go to a different classroom, if possible (the classroom patient is in has no place for patient to rest her leg-that is why she needs to go to a different classroom). Patient will fruit picker the letter - call @ [phone] documented in this encounter Plan of Treatment Not on file documented as of this encounter Visit Diagnoses Not on filedocumented in this encounter Care Teams Livestock Ranch Hand Relationship Specialty Start Date End Date Bobbi Conte MD PCP - General Internal Medicine 11/06/20 Kacy Velasquez MD [address] [address] Surgeon Neurosurgery 07/09/23 Akua Crenshaw PA-C [address] [address] Specialist Neurosurgery 07/09/23 Alden Coates PA-C [address] [address] Specialist Neurosurgery 07/09/23 documented as of this encounter
--- OUTSIDE RECORDS SUMMARY | 2024-11-14 15:23 | XMS_ITS | Encounter Summary ---
Author Organization [facility] Address [address] [place] [address] Care Team Providers Care Scientist Immunology Name Role Phone Basil Mcallister MD Primary Care Provider Bobbi Meek MD Primary Care Provider [phone] Kacy Velasquez MD Unavailable [phone] Akua Crenshaw PA-C Unavailable [phone] Alden Coates PA-C Unavailable [phone] Encounter Details Date Type Department Care Team Description 02/01/2020 Release of Information Medical Records [address] [place] [address] Abstract, Provider Social History Tobacco Use Types [...] EDT AUTHORIZATION TO OBTAIN RECORDS MAILED TO [facility]. documented in this encounter Plan of Treatment Not on file documented as of this encounter Visit Diagnoses Not on filedocumented in this encounter Care Teams Scientist Immunology Relationship Specialty Start Date End Date Basil Mcallister MD PCP - General Internal Medicine 07/28/19 11/05/20 Bobbi Conte MD PCP - General Internal Medicine 11/06/20 Kacy Velasquez MD [address] [address] Surgeon Neurosurgery 07/09/23 Akua Crenshaw PA-C [address] [address] Specialist Neurosurgery 07/09/23 Alden Coates PA-C 175 [facility] [address] [place] [address] Specialist Neurosurgery 07/09/23 documented as of this encounter
--- OUTSIDE RECORDS SUMMARY | 2024-11-14 15:23 | XMS_ITS | Encounter Summary ---
Author Organization [facility] Address [address] [place] [address] Care Team Providers Care Senior Fire Protection Engineer Name Role Phone Community, Pcp Primary Care Provider Nikko Rogers Primary Care Provider Basil Conroy MD Primary Care Provider Bobbi Meek MD Primary Care Provider [phone] Kacy Velasquez MD Unavailable [phone] Akua Crenshaw PA-C Unavailable [phone] Alden Coates PA-C Unavailable [phone] Encounter Details Date Type Department Care Team Description 02/19/2017 Release of Information Medical Records [address] [place] [address] Abstract, Provider Social History Tobacco Use Types [...] on filedocumented in this encounter Care Teams Senior Fire Protection Engineer Relationship Specialty Start Date End Date [facility], Pcp PCP - General Internal Medicine 11/04/11 10/15/17 Nikko Kaufman PCP - General Internal Medicine 10/16/17 07/27/19 Basil Mcallister MD PCP - General Internal Medicine 07/28/19 11/05/20 Bobbi Conte MD PCP - General Internal Medicine 11/06/20 Kacy Velasquez MD [address] [address] Surgeon Neurosurgery 07/09/23 Akua Crenshaw PA-C [address] [address] Specialist Neurosurgery 07/09/23 Alden Coates PA-C 175 [facility] [address] [place] [address] Specialist Neurosurgery 07/09/23 documented as of this encounter
--- OUTSIDE RECORDS SUMMARY | 2024-11-14 15:23 | XMS_ITS | Encounter Summary ---
Author Organization [facility] Address [address] [place] [address] Care Team Providers Care Die Maker Electronic Name Role Phone Bobbi Conte MD Primary Care Provider [phone]- [phone] Kacy Velasquez MD Unavailable [phone] Akua Crenshaw PA-C Unavailable [phone] Alden Coates PA-C Unavailable [phone] Encounter Details Date Type Department Care Team Description 05/13/2023 Pt. Non Urgent Medical Question [facility] [address] [phone] Franco Crawley DPM [address] [address] Social History Tobacco Use Types Packs/Day Years [...] encounter Miscellaneous Notes * Telephone Encounter - rCiss Peters C.M.A. - 05/13/2023 10:19 AM ESTFrom: [...] on filedocumented in this encounter Care Teams Die Maker Electronic Relationship Specialty Start Date End Date Bobbi Conte MD PCP - General Internal Medicine 11/06/20 Kacy Velasquez MD [address] [id number] Surgeon Neurosurgery 07/09/23 Akua Crenshaw PA-C [address] [address] Specialist Neurosurgery 07/09/23 Alden Coates PA-C 175 [facility] [address] [place] [address] Specialist Neurosurgery 07/09/23 documented as of this encounter
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
--- OUTSIDE RECORDS SUMMARY | 2024-11-14 15:23 | XMS_ITS | Encounter Summary ---
Author Organization [facility] Address [address] [place] [address] Care Team Providers Care Light Rail Train Operator Name Role Phone Bobbi Conte MD Primary Care Provider [phone]- [phone] Kacy Velasquez MD Unavailable [phone] Akua Crenshaw PA-C Unavailable [phone] Alden Coates PA-C Unavailable [phone] Encounter Details Date Type Department Care Team Description 09/23/2023 Pt. Non Urgent Medical Question OBGYN - 271 [facility] 271 [place] [address] Chelsie Pal CN 175 [place] [address] Social History Tobacco Use Types [...] on filedocumented in this encounter Care Teams Light Rail Train Operator Relationship Specialty Start Date End Date Bobbi Conte MD PCP - General Internal Medicine 11/06/20 Kacy Velasquez MD [address] [address] Surgeon Neurosurgery 07/09/23 Akua Crenshaw PA-C [address] [address] Specialist Neurosurgery 07/09/23 Alden Coates PA-C [address] [address] Specialist Neurosurgery 07/09/23 documented as of this encounter
--- OUTSIDE RECORDS SUMMARY | 2024-11-14 15:23 | XMS_ITS | Encounter Summary ---
Author Organization [facility] Address [address] [place] [address] Care Team Providers Care Traffic Control Signaler Name Role Phone Bobbi Conte MD Primary Care Provider +[phone]- [phone] Kacy Velasquez MD Unavailable [phone] Akua Crenshaw PA-C Unavailable [phone] Alden Coates PA-C Unavailable [phone] Reason for Referral * EXTERNAL (Routine) - Authorized/Booked Specialty Diagnoses / Procedures Referred By Daljit morel Referred To Contact Physical Therapy Diagnoses Pelvic pressure in female Encounter for supervision of other normal , first trimester Procedures REFERRAL TO PHYSICAL THERAPY Rahat Ram DO [address] [place] [address] Referral ID Status Reason Start Date Expiration Date V isits Requested Visits Authorized [id number] Authorized/B ooked 06/04/2023 09/23/2023 1 1 Encounter Details Date Type Department Care Team Description 06/04/2023 Orders Only OBGYN - [address] [address] Rahat Ram DO Pelvic pressure in female [...] trimester documented in this encounter Care Teams Traffic Control Signaler Relationship Specialty Start Date End Date Bobbi Conte MD PCP - General Internal Medicine 11/06/20 Kacy Velasquez MD [address] [address] Surgeon Neurosurgery 07/09/23 Akua Crenshaw PA-C [address] [address] Specialist Neurosurgery 07/09/23 Alden Coates PA-C [address] [address] Specialist Neurosurgery 07/09/23 documented as of this encounter
--- OUTSIDE RECORDS SUMMARY | 2024-11-14 15:23 | XMS_ITS | Encounter Summary ---
Author Organization [facility] Address [address] [place] [address] Care Team Providers Care Road Train Driver Name Role Phone Bobbi Conte MD Primary Care Provider +[phone]- [phone] Kacy Velasquez MD Unavailable [phone] Akua Crenshaw PA-C Unavailable [phone] Alden Coates PA-C Unavailable [phone] Reason for Visit * Reason Onset Date Comments refill request 12/09/2023 Encounter Details Date Type Department Care Team Description 12/09/2023 Telephone OBGYN - 271 [facility] 271 [place] [address] Cassandra Davis CN 175 [place] [address] refill request Social History Tobacco [...] 12/09/24 Ayesha Dukes Prior Auth Dep Ext [id number] * Telephone Encounter - Ayesha Dukes M.A. - 12/10/2023 2:52 PM EDT Auth called into [facility] Ayesha Dukes Prior Auth Dep Ext [id number] * Telephone Encounter - Jie Millan R.N. [...] care documented in this encounter Care Teams Road Train Driver Relationship Specialty Start Date End Date Bobbi Conte MD PCP - General Internal Medicine 11/06/20 Kacy Velasquez MD 175 [facility] [address] [place] [address] Surgeon Neurosurgery 07/09/23 Akua Crenshaw PA-C [address] [address] Specialist Neurosurgery 07/09/23 Alden Coates PA-C 175 [facility] [address] [place] [address] Specialist Neurosurgery 07/09/23 documented as of this encounter
--- OUTSIDE RECORDS SUMMARY | 2024-11-14 15:23 | XMS_ITS | Encounter Summary ---
Author Organization [facility] Address [address] [place] [address] Care Team Providers Care Stone Carver Name Role Phone Bobbi Conte MD Primary Care Provider [phone] Kacy Velasquez MD Unavailable [phone] Akua Crenshaw PA-C Unavailable [phone] Alden Coates PA-C Unavailable [phone] Encounter Details Date Type Department Care Team Description 12/23/2023 Sharepoint Developer Report Medical Records [address] [place] [address] Abstract, Provider Social History Tobacco Use Types [...] on filedocumented in this encounter Care Teams Stone Carver Relationship Specialty Start Date End Date Bobbi Conte MD PCP - General Internal Medicine 11/06/20 Kacy Velasquez MD [address] [address] Surgeon Neurosurgery 07/09/23 Akua Crenshaw PA-C [address] [address] Specialist Neurosurgery 07/09/23 Alden Coates PA-C [address] [address] Specialist Neurosurgery 07/09/23 documented as of this encounter
--- OUTSIDE RECORDS SUMMARY | 2024-11-14 15:23 | XMS_ITS | Encounter Summary ---
Author Organization [facility] Address [address] [place] [address] Care Team Providers Care Printing Supplies Sales Representative Name Role Phone Bobbi Conte MD Primary Care Provider [phone] Kacy Velasquez MD Unavailable [phone] Akua Crenshaw PA-C Unavailable [phone] Alden Caotes PA-C Unavailable [phone] Encounter Details Date Type Department Care Team Description 05/13/2023 Pt. Non Urgent Medical Question OBGYN - 271 [facility] 271 [place] [address] Chelsie Pal CN 175 [place] [address] Social History Tobacco Use Types [...] on filedocumented in this encounter Care Teams Printing Supplies Sales Representative Relationship Specialty Start Date End Date Bobbi Conte MD PCP - General Internal Medicine 11/06/20 Kacy Velasquez MD [address] [address] Surgeon Neurosurgery 07/09/23 Akua Crenshaw PA-C [address] [address] Specialist Neurosurgery 07/09/23 Alden Coates PA-C [address] [address] Specialist Neurosurgery 07/09/23 documented as of this encounter
--- OUTSIDE RECORDS SUMMARY | 2024-11-14 15:23 | XMS_ITS | Encounter Summary ---
Author Organization [facility] Address [address] [place] [address] Care Team Providers Care Tissue Coordinator Name Role Phone Bobbi Conte MD Primary Care Provider [phone] Kacy Velasquez MD Unavailable [phone] Akua Crenshaw PA-C Unavailable [phone] Alden Coates PA-C Unavailable [phone] Encounter Details Date Type Department Care Team Description 06/10/2023 Pt. Non Urgent Medical Question OBGYN - 271 [facility] 271 [place] [address] Chelsie Pal CN 175 [place] [address] Social History Tobacco Use Types [...] on filedocumented in this encounter Care Teams Tissue Coordinator Relationship Specialty Start Date End Date Bobbi Conte MD PCP - General Internal Medicine 11/06/20 Kacy Velasquez MD [address] [address] Surgeon Neurosurgery 07/09/23 Akua Crenshaw PA-C [address] [address] Specialist Neurosurgery 07/09/23 Alden Coates PA-C [address] [address] Specialist Neurosurgery 07/09/23 documented as of this encounter
[2024-11-14 15:24] VITALS: BP 166/93; PULSE 85; O2SAT 100; BMI 36.6
== END 2024-11-14 15:51 | disposition home or self-care (01) ==
LOC: HO.PMC 15:20
PROVIDERS: Visit Provider Nurse Practitioner Family
DX: R20.0 Anesthesia of skin (principal); R20.2 Paresthesia of skin; M54.16 Radiculopathy, lumbar region; M21.372 Foot drop, left foot; M47.816 Spondylosis without myelopathy or radiculopathy, lumbar region; M48.07 Spinal stenosis, lumbosacral region
CPT/HCPCS: 99214; G2211

== ENCOUNTER → 2024-11-14 15:19 | Outpatient (BNVA) | payer OTHER, SELFPAY | PROVIDERS: Visit Provider Nurse Practitioner Family | DX: M54.16 Radiculopathy, lumbar region (principal); M47.816 Spondylosis without myelopathy or radiculopathy, lumbar region; M21.372 Foot drop, left foot; M48.07 Spinal stenosis, lumbosacral region; R20.0 Anesthesia of skin; R20.2 Paresthesia of skin | CPT/HCPCS: 99212 ==

== ENCOUNTER 2024-11-16 15:07 | Outpatient (AMB) | payer OTHER, SELFPAY ==
--- OUTSIDE RECORDS SUMMARY | 2024-11-16 15:10 | XMS_ITS | Encounter Summary ---
Author Organization [facility] Address [address] [place] [address] Care Team Providers Care Machine Scallop Cutter Name Role Phone Bobbi Conte MD Primary Care Provider [phone] Kacy Velasquez MD Unavailable [phone] Akua Crenshaw PA-C Unavailable [phone] Alden Coates PA-C Unavailable [phone] Encounter Details Date Type Department Care Team Description 12/17/2023 Pt. Non Urgent Medical Question OBGYN - 271 [facility] 271 [place] [address] Chelsie Pal CN 175 [place] [address] Social History Tobacco Use Types [...] filedocumented in this encounter Care Teams Machine Scallop Cutter Relationship Specialty Start Date End Date Bobbi Conte MD PCP - General Internal Medicine 11/06/20 Kacy Velasquez MD [address] [address] Surgeon Neurosurgery 07/09/23 Akua Crenshaw PA-C [address] [address] Specialist Neurosurgery 07/09/23 Alden Coates PA-C [address] [address] Specialist Neurosurgery 07/09/23 documented as of this encounter
--- OUTSIDE RECORDS SUMMARY | 2024-11-16 15:10 | XMS_ITS | Encounter Summary ---
Author Organization [facility] Address [address] [place] [address] Care Team Providers Care Web Content Executive Name Role Phone Bobbi Conte MD Primary Care Provider [phone] Kacy Velasquez MD Unavailable [phone] Akua Crenshaw PA-C Unavailable [phone] Alden Coates PA-C Unavailable [phone] Reason for Visit * Reason Onset Date Comments 05/06/2023 Encounter Details Date Type Department Care Team Description 05/06/2023 Telephone OBGYN - 271 [facility] 271 [place] [address] Chelsie Pal CN 175 [place] [address] Social History Tobacco Use Types [...] had this problem? 20 mins ago Pt???s TAXONOMY TEACHER provider: Chelsie Pal CNM Last menstrual period (LMP) or EDC (due date): edc 12/27 Spoke with nurse and advised to go to the hospital documented in this encounter Plan of Treatment Not on file documented as of this encounter Visit Diagnoses Not on filedocumented in this encounter Care Teams Web Content Executive Relationship Specialty Start Date End Date Bobbi Conte MD PCP - General Internal Medicine 11/06/20 Kacy Velasquez MD 175 [facility] [address] [place] [address] Surgeon Neurosurgery 07/09/23 Akua Crenshaw PA-C 175 [facility] [address] [place] [address] Specialist Neurosurgery 07/09/23 Alden Coates PA-C 175 [facility] [address] [place] [address] Specialist Neurosurgery 07/09/23 documented as of this encounter
--- OUTSIDE RECORDS SUMMARY | 2024-11-16 15:10 | XMS_ITS | Encounter Summary ---
Author Organization [facility] Address [address] [place] [address] Care Team Providers Care Asset Protection Representative Name Role Phone Bobbi Conte MD Primary Care Provider [phone] Kacy Velasquez MD Unavailable [phone] Akua Crensahw PA-C Unavailable [phone] Alden Coates PA-C Unavailable [phone] Encounter Details Date Type Department Care Team Description 12/23/2023 Reservationist Report Medical Records [address] [place] [address] Abstract, Provider Social History Tobacco Use Types [...] on filedocumented in this encounter Care Teams Asset Protection Representative Relationship Specialty Start Date End Date Bobbi Conte MD PCP - General Internal Medicine 11/06/20 Kacy Velasquez MD [address] [address] Surgeon Neurosurgery 07/09/23 Akua Crenshaw PA-C [address] [address] Specialist Neurosurgery 07/09/23 Alden Coates PA-C [address] [address] Specialist Neurosurgery 07/09/23 documented as of this encounter
--- OUTSIDE RECORDS SUMMARY | 2024-11-16 15:10 | XMS_ITS | Encounter Summary ---
Author Organization [facility] Address [address] [place] [address] Care Team Providers Care Emergency Medicine Medical Director Name Role Phone Bobbi Conte MD Primary Care Provider [phone] Kacy Velasquez MD Unavailable [phone] Akua Crenshaw PA-C Unavailable [phone] Alden Coates PA-C Unavailable [phone] Encounter Details Date Type Department Care Team Description 05/06/2023 Orders Only Medical Records [address] [place] [address] Jyoti Valentin PA-C Social History Tobacco Use Types Packs/Day Years [...] Procedure Name Priority Date/Time Associated Diagnosis Comments OUTSIDE ULTRASOUND Routine 05/06/2023 documented in this encounter Results * OUTSIDE ULTRASOUND (05/06/2023) Jyoti Valentin PA-C RADIOLOGY documented in this encounter Visit Diagnoses Not on filedocumented in this encounter Care Teams Emergency Medicine Medical Director Relationship Specialty Start Date End Date Bobbi Conte MD PCP - General Internal Medicine 11/06/20 Kacy Velasquez MD 175 [facility] [address] [place] [address] Surgeon Neurosurgery 07/09/23 Akua Crenshaw PA-C 175 [facility] [address] [place] [address] Specialist Neurosurgery 07/09/23 Alden Coates PA-C 175 [facility] [address] [place] [address] Specialist Neurosurgery 07/09/23 documented as of this encounter
--- OUTSIDE RECORDS SUMMARY | 2024-11-16 15:10 | XMS_ITS | Encounter Summary ---
Author Organization [facility] Address [address] [place] [address] Care Team Providers Care Drier Transfer Car Operator Name Role Phone Bobbi Conte MD Primary Care Provider [phone] Kacy Velasquez MD Unavailable [phone] Akua Crenshaw PA-C Unavailable [phone] Alden Coates PA-C Unavailable [phone] Encounter Details Date Type Department Care Team Description 12/12/2023 Hospital Medical Records [address] [place], [place] [id number] [place] [address] Social History Tobacco Use Types Packs/Day Years [...] on filedocumented in this encounter Care Teams Drier Transfer Car Operator Relationship Specialty Start Date End Date Bobbi Conte MD PCP - General Internal Medicine 11/06/20 Kacy Velasquez MD [address] [phone] Surgeon Neurosurgery 07/09/23 Akua Crenshaw PA-C [address] [address] Specialist Neurosurgery 07/09/23 Alden Coates PA-C [address] [address] Specialist Neurosurgery 07/09/23 documented as of this encounter
--- OUTSIDE RECORDS SUMMARY | 2024-11-16 15:10 | XMS_ITS | Encounter Summary ---
Author Organization [facility] Address [address] [place] [address] Care Team Providers Care Plate Former Name Role Phone Bobbi Conte MD Primary Care Provider [phone] Kacy Velasquez MD Unavailable [phone] Akua Crenshaw PA-C Unavailable [phone] Alden Coates PA-C Unavailable [phone] Encounter Details Date Type Department Care Team Description 05/13/2023 Pt. Non Urgent Medical Question [facility] [address] [phone] Franco Crawley DPM [address] [address] Social History Tobacco Use Types Packs/Day Years [...] on filedocumented in this encounter Care Teams Plate Former Relationship Specialty Start Date End Date Bobbi Conte MD PCP - General Internal Medicine 11/06/20 Kacy Velasquez MD [address] [phone] Surgeon Neurosurgery 07/09/23 Akua Crenshaw PA-C [address] [address] Specialist Neurosurgery 07/09/23 Alden Coates PA-C 175 [facility] [address] [place] [address] Specialist Neurosurgery 07/09/23 documented as of this encounter
--- OUTSIDE RECORDS SUMMARY | 2024-11-16 15:10 | XMS_ITS | Encounter Summary ---
Author Organization [facility] Address [address] [place] [address] Care Team Providers Care Hydraulic Technician Name Role Phone Bobbi Conte MD Primary Care Provider Kacy Velasquez MD Unavailable [phone] Akua Crenshaw PA-C Unavailable [phone] Alden Coates PA-C Unavailable [phone] Encounter Details Date Type Department Care Team Description 12/01/2023 Pt. Non Urgent Medical Question OBGYN - 271 [facility] 271 [place] [address] Chelsie Pal CN 175 [place] [address] Social History Tobacco Use Types [...] on filedocumented in this encounter Care Teams Hydraulic Technician Relationship Specialty Start Date End Date Bobbi Conte MD PCP - General Internal Medicine 11/06/20 Kacy Velasquez MD [address] [address] Surgeon Neurosurgery 07/09/23 Akua Crenshaw PA-C [address] [address] Specialist Neurosurgery 07/09/23 Alden Coates PA-C [address] [address] Specialist Neurosurgery 07/09/23 documented as of this encounter
--- OUTSIDE RECORDS SUMMARY | 2024-11-16 15:11 | XMS_ITS | Encounter Summary ---
Author Organization [facility] Address [address] [place] [address] Care Team Providers Care Charge Preparation Technician Name Role Phone Bobbi Conte MD Primary Care Provider [phone] Kacy Velasquez MD Unavailable [phone] Akua Crenshaw PA-C Unavailable [phone] lAden Coates PA-C Unavailable [phone] Reason for Visit * Reason Onset Date Comments Leg Pain 04/01/2023 Encounter Details Date Type Department Care Team Description 04/01/2023 Telephone Internal Medicine - [address], [address] [place] [address] Bobbi Conte MD [address] [place] [address] Leg Pain Social History Tobacco Use [...] Once completed contact patient on phone : [phone] * Telephone Encounter - Stephanie Negron RN - 04/01/2023 11:[address] Carpio please review, pt wondering if she can have an accomodation letter or light duty letter for her work Call to pt # [phone], spoke w/ pt. Pt had appt 03/11/23 [...] continue to contact podiatry office in the [facility] to check for cancellations and see if she can be seen sooner. * Telephone Encounter - Kelly Hopper - 04/01/2023 11:12 AM EDT Patient is returning your call [phone], * Telephone Encounter - Stephanie Negron RN - 04/01/2023 10:00 AM EDT Call to pt # [phone], Left message for pt to call office [...] these symptoms?: 03/11/2023 PCP: Bobbi Conte Payor: [facility] [employer] [facility] / Plan: [facility] [employer] / Product Type: MEDICAID RISK documented in this encounter Plan of Treatment Not on file documented as of this encounter Visit Diagnoses Not on filedocumented in this encounter Care Teams Charge Preparation Technician Relationship Specialty Start Date End Date Bobbi Conte MD PCP - General Internal Medicine 11/06/20 Kacy Velasquez MD [address] [address] Surgeon Neurosurgery 07/09/23 Akua Crenshaw PA-C [address] [address] Specialist Neurosurgery 07/09/23 Alden Coates PA-C 175 [facility] [address] [place] [address] Specialist Neurosurgery 07/09/23 documented as of this encounter
--- OUTSIDE RECORDS SUMMARY | 2024-11-16 15:11 | XMS_ITS | Encounter Summary ---
Author Organization [facility] Address [address] [place] [address] Care Team Providers Care Lumber Sales Supervisor Name Role Phone Bobbi Conte MD Primary Care Provider Kacy Velasquez MD Unavailable [phone] Akua Crenshaw PA-C Unavailable [phone] Alden Coates PA-C Unavailable [phone] Encounter Details Date Type Department Care Team Description 04/27/2024 SCAN [facility] Medical [facility] Neurosurgery [place] [address] [phone] Alden Coates PA-C [address] [phone] Social History Tobacco Use Types Packs/Day Years [...] on filedocumented in this encounter Care Teams Lumber Sales Supervisor Relationship Specialty Start Date End Date Bobbi Conte MD PCP - General Internal Medicine 11/06/20 Kacy Velasquez MD [address] [address] Surgeon Neurosurgery 07/09/23 Akua Crenshaw PA-C [address] [address] Specialist Neurosurgery 07/09/23 Alden Coates PA-C [address] [address] Specialist Neurosurgery 07/09/23 documented as of this encounter
--- OUTSIDE RECORDS SUMMARY | 2024-11-16 15:11 | XMS_ITS | Encounter Summary ---
Author Organization [facility] Address [address] [place] [address] Care Team Providers Care Shift Supervisor Melting Name Role Phone Bobbi Conte MD Primary Care Provider [phone] Kacy Velasquez MD Unavailable [phone] Akua Crenshaw PA-C Unavailable [phone] Alden Coates PA-C Unavailable [phone] Reason for Visit * Reason Onset Date Comments REFERRAL 06/16/2023 Neurology Encounter Details Date Type Department Care Team Description 06/16/2023 Telephone OBGYN - 271 [facility] 271 [place] [address] Cassandra Davis CNM 175 [place] [address] REFERRAL (Neurology ) Social History [...] Melonie Martinez - 06/16/2023 2:09 PM EST [facility] neurology calling, state they had received an referral for patient, however they state there is no further testing to be done at this point, due to patient being . They ask patientcan be referred once again once patient delivers. [phone] documented in this encounter Plan of Treatment Not on file documented as of this encounter Visit Diagnoses Diagnosis Obesity (BMI 35.0-39.9 without comorbidity)- Primary Obesity, unspecified Encounter for supervision of other normal , first trimester Neuropathy Mononeuritis of unspecified site Anxiety Anxiety state, unspecified Abnormal genetic test documented in this encounter Care Teams Shift Supervisor Melting Relationship Specialty Start Date End Date Bobbi Conte MD PCP - General Internal Medicine 11/06/20 Kacy Velasquez MD [address] [address] Surgeon Neurosurgery 07/09/23 Akua Crenshaw PA-C [address] [address] Specialist Neurosurgery 07/09/23 Alden Coates PA-C [address] [address] Specialist Neurosurgery 07/09/23 documented as of this encounter
--- OUTSIDE RECORDS SUMMARY | 2024-11-16 15:11 | XMS_ITS | Encounter Summary ---
Author Organization [facility] Address [address] [place] [address] Care Team Providers Care Dry Food Products Mixer Name Role Phone Bobbi Conte MD Primary Care Provider Kacy Velasquez MD Unavailable [phone] Akau Crenshaw PA-C Unavailable [phone] Alden Coates PA-C Unavailable [phone] Encounter Details Date Type Department Care Team Description 05/13/2023 Pt. Non Urgent Medical Question OBGYN - 271 [facility] 271 [place] [address] Chelsie Pal CN 175 [place] [address] Social History Tobacco Use Types [...] on filedocumented in this encounter Care Teams Dry Food Products Mixer Relationship Specialty Start Date End Date Bobbi Conte MD PCP - General Internal Medicine 11/06/20 Kacy Velasquez MD [address] [address] Surgeon Neurosurgery 07/09/23 Akua Crenshaw PA-C [address] [address] Specialist Neurosurgery 07/09/23 Alden Coates PA-C [address] [address] Specialist Neurosurgery 07/09/23 documented as of this encounter
--- OUTSIDE RECORDS SUMMARY | 2024-11-16 15:11 | XMS_ITS | Clinical Summary ---
Author Organization [facility] Address [address] [place] [address] Phone Care Team Providers Care Metal Roaster Name Role Phone Bobbi Conte MD Primary Care Provider [phone] Allergies Active Allergy Reactions Criticality Noted Date [...] She went to the emergency room at [facility] and it resolved spontaneously. She says [...] will try to obtain the report from [facility] emergency room. Gestational diabetes 10/22/2023 Overview (05/18/2024): Dx 31w3d 1hr glucose 243 1 hour test at 24-28 wks: >140 Perform 3 hour if 1 hr >200, patient is diagnosed with GDM and does not need 3-hr GTT Forward [facility] to P [id number] [facility] Nutrition: Appt 10/29/23 at 3:30pm with [...] Growth Ultrasound: 6lb4oz ~ 62%tile 12/17/23 Growth: Deputy Sheriff Custody on shoulder dystocia Deliver by 40 6/7 [...] of the left foot. Her MRI from [facility] on March 17, 2024 revealed degenerative [...] for alpha thalessemia 06/15/2023 pt notified via [employer] in regards to getting fob tested.- NAYELI,RN [...] BMI of 50 by 28wks transfer to [facility] DVT prophylaxis- Lovenox if CS and BMI >35 Neuropathy 05/25/2023 Overview (05/18/2024): Of left leg and left foot Being followed by dr veras and physiatry. Pt wearing leg brace. She states the process owner will provide fmla forms if the condition should worsen as the progresses. UTI in , antepartum 05/25/2023 Overview (05/18/2024): Tx'd 05-20-23 WAN: 06/02/2023- Neg Anxiety 05/20/2023 Overview (05/18/2024): 05-19-23 pt advised she can take the vistaril as rx'd for anxiety and depression sx. Her pcp at [facility] was going to refer her to behavioral [...] (05/18/2024): Dr garcia referred pt to pelvic slot floorperson 05-18-23 Last Assessment & Plan: GC/CT [...] PM EDT Office Visit Internal Medicine [address] [phone] Bobbi Conte MD Adult general medical examination (Primary Dx); Obesity (BMI 30-39.9); Diet controlled gestational diabetes mellitus (GDM), antepartum; Vitamin D deficiency 10/04/2024 Telephone Internal Medicine [address] [phone] Rita Isaac MA faxed order (L&C) 09/29/2024 2:15 PM EDT Office Visit [facility] [address] [place] [phone] Talisha Cortes CNM control counseling (Primary Dx); test negative 09/21/2024 Nurse Triage Internal Medicine [address] [address] Lizy Carpio MD Wheelchair Evaluation 09/12/2024 3:00 PM EDT Office Visit Internal Medicine [address] [address] Lizy Carpio MD 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); Neuropathy; Iron deficiency anemia secondary to inadequate dietary iron intake; Diet controlled gestational diabetes mellitus (GDM), antepartum; Obesity (BMI 30-39.9); Food allergy 09/12/2024 Telephone Internal [address] [address] Bobbi Conte MD Form:DEBORA Segov[place] 09/12/2024 Telephone Internal Medicine - [address] [place] [address] Rita Isaac MA DME from Last 3 Months Immunizations Name Administration Dates Next Due DTaP (Infanrix) 6wks to less than 7yo ,01/26/1996,12/23/1994,07/29,04/07/1994 [id number] (Pentacel) 2mo to less than 5yo 01/26/1996,07/29/1994,04/07/1994 [...] your loved ones. For example, child care cook or elderly care for an older adult? [...] al N Livin g Jesse Complications:None Delivery Location:[facility] 2023 Term 38w 6d 3260 g (115 oz) F Vag-S pont Epidur al Livin g 8 9 Nhung adair bond CNM Complications:None,Gestation al diabetes mellitus (GDM) Delivery Location:[facility] Comments:SROM. nuchal body cord & true knot. [...] Care Team (Late st Contact Info) Description 03/24/2025 10:30 AM EDT Office Visit Bariatric Surgery - [place] 175 [facility] [address] [place] [phone] Prachi Roque PA [address] [facility] [address] [place] [address] Health Maintenance Due Date Last Done Comments [...] MRI REPORT 08/20/2024 EXTERNAL MRI REPORT 08/20/2024 HPV Routine 06/08/2023 HEPATITIS C SCREENING Routine 05/25/2023 HIV SCREENING Routine 05/25/2023 DEPRESSION SCREENING Routine 05/19/2023 LIPID PANEL Routine 12/26/2022 from Last 3 Months or Most Recently Relevant to Health Maintenance Results * External Xray Report (10/27/2024) Only the most recent of2 resultswithin the time period is included. Anatomical Region Laterality Modality Radiographic Taylor ging Result [facility] Provider [facility] IMG XR PROCEDURES Final Result * External clinical lab (10/27/2024) Only the most recent of2 resultswithin the time period is included. Result [facility] Provider [facility] LAB BLOOD ORDERABLES Fin al Result * POC , urine manually resulted (09/29/2024 2:27 PM EDT) [facility] HCG, Ur POC Negative Negative POC hCG Int QC Pass? Yes Yes Urine Urine specimen obtained by clean catch procedure / Unknown 09/29/2024 2:27 PM EDT Result [facility] Talisha SEXTON POINT OF CARE TEST ENTER/FLYNN T ORDERABLES Final Result * External MRI Report (08/20/2024) Only the most recent of2 resultswithin the time period is included. Anatomical Region Laterality Modality Magnetic Resonan ce Result [facility] Final Result * Cervical Cancer Screening: HPV (06/08/2023) [facility] Cervical Cancer Screening: HPV positive, abstracted Result [facility] Provider HEALTH MAINTENANCE Final Result * HIV Screening (05/25/2023) [facility] HIV Screening abstracted Result [facility] Provider HEALTH MAINTENANCE Final Result * Hepatitis C Screening (05/25/2023) [facility] Hepatitis C Screening abstracted Result [facility] Provider HEALTH MAINTENANCE Final Result * Depression Screening (05/19/2023) [facility] Depression Screening abstracted us Historical Provider HEALTH MAINTENANCE Final Result * [...] Most Recently Relevant to Health Maintenance Insurance [facility] [employer] Care Teams Metal Roaster Relationship Specialty Start Date End Date Bobbi Conte MD [address] [phone] PCP - General Internal Medicine 06/07/24
--- OUTSIDE RECORDS SUMMARY | 2024-11-16 15:11 | XMS_ITS | Encounter Summary ---
Author Organization [facility] Address [address] [place] [address] Care Team Providers Care Sewing Machine Operator Floorperson Name Role Phone Bobbi Conte MD Primary Care Provider +[phone]- [phone] Kacy Velasquez MD Unavailable [phone] Akua Crenshaw PA-C Unavailable [phone] Alden Coates PA-C Unavailable [phone] Encounter Details Date Type Department Care Team Description 04/04/2024 Refill Internal Medicine - [address], [address] [place] [address] Bobbi Conte MD [address] [place] [address] Social History Tobacco Use Types Packs/Day [...] on filedocumented in this encounter Care Teams Sewing Machine Operator Floorperson Relationship Specialty Start Date End Date Bobbi Conte MD PCP - General Internal Medicine 11/06/20 Kacy Velasquez MD 175 [facility] [address] [place] [address] Surgeon Neurosurgery 07/09/23 Akua Crenshaw PA-C 175 [facility] [address] [place] [address] Specialist Neurosurgery 07/09/23 Alden Coates PA-C 175 [facility] [address] [place] [address] Specialist Neurosurgery 07/09/23 documented as of this encounter
--- OUTSIDE RECORDS SUMMARY | 2024-11-16 15:11 | XMS_ITS | Encounter Summary ---
Author Organization [facility] Address [address] [place] [address] Care Team Providers Care Hotel Supplies Salesperson Name Role Phone Basil Mcallister MD Primary Care Provider Bobbi Meek MD Primary Care Provider +[phone]- [phone] Kacy Velasquez MD Unavailable [phone] Akua Crenshaw PA-C Unavailable [phone] Alden Coates PA-C Unavailable [phone] Encounter Details Date Type Department Care Team Description 03/27/2020 Transfer Records Medical Records [address] [place] [address] Abstract, Provider Social History Tobacco Use Types [...] on filedocumented in this encounter Care Teams Hotel Supplies Salesperson Relationship Specialty Start Date End Date Basil Mcallister MD PCP - General Internal Medicine 07/28/19 11/05/20 Bobbi Conte MD PCP - General Internal Medicine 11/06/20 Kacy Velasquez MD 175 [facility] [address] [place] [address] Surgeon Neurosurgery 07/09/23 Akua Crenshaw PA-C 175 [facility] [address] [place] [address] Specialist Neurosurgery 07/09/23 Alden Coates PA-C 175 [facility] [address] [place] [address] Specialist Neurosurgery 07/09/23 documented as of this encounter
--- OUTSIDE RECORDS SUMMARY | 2024-11-16 15:11 | XMS_ITS | Clinical Summary ---
Author Organization [facility] Address [address] [place] [address] Care Team Providers Care Licensed Real Estate Broker Name Role Phone Bobbi Conte MD Primary Care Provider Kacy Velasquez MD Unavailable [phone] Akua Crenshaw PA-C Unavailable Alden Coates PA-C Unavailable [phone] Allergies Active Allergy Reactions Severity Noted Date [...] She went to the emergency room at [facility] and it resolved spontaneously. She [...] will try to obtain the report from [facility] emergency room. History of diet controlled [...] need 3-hr GTT Forward chart to P [id number] ([facility]) Nutrition: Appt 10/29/23 at 3:30pm [...] Growth Ultrasound: 6lb4oz ~ 62%tile 12/17/23 Growth: Educational Psychology Teacher on shoulder dystocia Deliver by 40 6/7 [...] of the left foot. Her MRI from [facility] on March 17, 2024 [...] for alpha thalessemia 06/15/2023 pt notified via Qonf in regards to getting fob tested.- NAYELI,RN [...] first trimester 05/25/2023 Overview: 1. [facility] site: [address] ([facility]) 2. Delivery site: [facility] 3. Mobile Mommas: 4. Dating criteria: [...] Pt wearing leg brace. She states the fire protection specialist will provide fmla forms if the condition [...] Overview: Dr garcia referred pt to pelvic floor waxer 05-18-23 Last Assessment & Plan: GC/CT and [...] ve Free-quadrivalent 4 Years 08/31/2023 08/31/2024 MMR (Atyfswv-Uwdid-Selczqs) 12/13/2023, 9,12/23/1994 Meningococcal (Menactra) 01/27/2006 Polio (OPV) [...] H RISK PATIENTS (#1) 2058 Care Teams Licensed Real Estate Broker Relationship Specialty Start Date End Date Bobbi Conte MD PCP - General Internal Medicine 11/06/20 Kacy Velasquez MD [address] [address] Surgeon Neurosurgery 07/09/23 Akua Crenshaw PA-C [address] [address] Specialist Neurosurgery 07/09/23 Alden Coates PA-C [address] [address] Specialist Neurosurgery 07/09/23
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
--- OUTSIDE RECORDS SUMMARY | 2024-11-16 15:11 | XMS_ITS | Encounter Summary ---
Author Organization [facility] Address [address] [place] [address] Care Team Providers Care Scorekeeper Name Role Phone Bobbi Conte MD Primary Care Provider [phone] Kacy Velasquez MD Unavailable [phone] Akua Crenshaw PA-C Unavailable [phone] Alden Coates PA-C Unavailable [phone] Encounter Details Date Type Department Care Team Description 08/20/2021 Refill Internal Medicine - [address], [address] [place] [address] Bobbi Conte MD [address] [place] [address] Social History Tobacco Use Types Packs/Day [...] on filedocumented in this encounter Care Teams Scorekeeper Relationship Specialty Start Date End Date Bobbi Conte MD PCP - General Internal Medicine 11/06/20 Kacy Velasquez MD [address] [address] Surgeon Neurosurgery 07/09/23 Akua Crenshaw PA-C [address] [address] Specialist Neurosurgery 07/09/23 Alden Coates PA-C 175 [facility] [address] [place] [address] Specialist Neurosurgery 07/09/23 documented as of this encounter
--- OUTSIDE RECORDS SUMMARY | 2024-11-16 15:11 | XMS_ITS | Encounter Summary ---
Author Organization [facility] Address [address] [place] [address] Care Team Providers Care Mechanical Design Engineer Name Role Phone Bobbi Conte MD Primary Care Provider Kacy Velasquez MD Unavailable [phone] Akua Crenshaw PA-C Unavailable [phone] Alden Coates PA-C Unavailable [phone] Encounter Details Date Type Department Care Team Description 11/23/2023 Pt. Non Urgent Medical Question OBGYN - 271 [facility] [address] [place] [address] Chelsie Pal CN 175 [place] [address] Social History Tobacco Use Types [...] on filedocumented in this encounter Care Teams Mechanical Design Engineer Relationship Specialty Start Date End Date Bobbi Conte MD PCP - General Internal Medicine 11/06/20 Kacy Velasquez MD [address] [address] Surgeon Neurosurgery 07/09/23 Akua Crenshaw PA-C [address] [address] Specialist Neurosurgery 07/09/23 Alden Coates PA-C [address] [address] Specialist Neurosurgery 07/09/23 documented as of this encounter
--- OUTSIDE RECORDS SUMMARY | 2024-11-16 15:11 | XMS_ITS | Encounter Summary ---
Author Organization [facility] Address [address] [place] [address] Care Team Providers Care Combiner Name Role Phone Bobbi Conte MD Primary Care Provider [phone]- [phone] Kacy Velasquez MD Unavailable [phone] Akua Crenshaw PA-C Unavailable [phone] Alden Coates PA-C Unavailable [phone] Encounter Details Date Type Department Care Team Description 04/20/2023 Pt. Non Urgent Medical Question Internal Medicine - [address], [address] [place] [address] Lizy Carpio MD [address] [place] [address] Social History Tobacco Use Types Packs/Day [...] know when will I be able to burr picker my work letter? documented in this encounter Plan of Treatment Not on file documented as of this encounter Visit Diagnoses Not on filedocumented in this encounter Care Teams Combiner Relationship Specialty Start Date End Date Bobbi Cnote MD PCP - General Internal Medicine 11/06/20 Kacy Velasquez MD [address] [address] Surgeon Neurosurgery 07/09/23 Akua Crenshaw PA-C [address] [address] Specialist Neurosurgery 07/09/23 Alden Coates PA-C [address] [address] Specialist Neurosurgery 07/09/23 documented as of this encounter
--- OUTSIDE RECORDS SUMMARY | 2024-11-16 15:11 | XMS_ITS | Encounter Summary ---
Author Organization [facility] Address [address] [place] [address] Care Team Providers Care Operations Chief Name Role Phone Bobbi Conte MD Primary Care Provider [phone]- [phone] Kacy Velasquez MD Unavailable [phone] Akua Crenshaw PA-C Unavailable [phone] Alden Coates PA-C Unavailable [phone] Encounter Details Date Type Department Care Team Description 01/28/2021 SCAN Medical Records [address] [place] [address] Abstract, Provider Chronic pain of both knees [...] knees documented in this encounter Care Teams Operations Chief Relationship Specialty Start Date End Date Bobbi Conte MD PCP - General Internal Medicine 11/06/20 Kacy Velasquez MD [address] [address] Surgeon Neurosurgery 07/09/23 Akua Crenshaw PA-C [address] [address] Specialist Neurosurgery 07/09/23 Alden Coates PA-C [address] [address] Specialist Neurosurgery 07/09/23 documented as of this encounter
--- OUTSIDE RECORDS SUMMARY | 2024-11-16 15:11 | XMS_ITS | Encounter Summary ---
Author Organization [facility] Address [address] [place] [address] Care Team Providers Care Family Consumer Science Fcs Teacher Name Role Phone Community, Pcp Primary Care Provider Nikko Rogers Primary Care Provider Basil Conroy MD Primary Care Provider Bobbi Meek MD Primary Care Provider Kacy Velasquez MD Unavailable [phone] Akua Crenshaw PA-C Unavailable [phone] Alden Coates PA-C Unavailable [phone] Encounter Details Date Type Department Care Team Description 02/19/2017 Release of Information Medical Records [address] [place] [address] Abstract, Provider Social History Tobacco Use Types [...] on filedocumented in this encounter Care Teams Family Consumer Science Fcs Teacher Relationship Specialty Start Date End Date [facility], Pcp PCP - General Internal Medicine 11/04/11 10/15/17 Nikko Kaufman PCP - General Internal Medicine 10/16/17 07/27/19 Basil Mcallister MD PCP - General Internal Medicine 07/28/19 11/05/20 Bobbi Conte MD PCP - General Internal Medicine 11/06/20 Kacy Velasquez MD [address] [address] Surgeon Neurosurgery 07/09/23 Akua Crenshaw PA-C [address] [address] Specialist Neurosurgery 07/09/23 Alden Coatse PA-C 175 [facility] [address] [place] [address] Specialist Neurosurgery 07/09/23 documented as of this encounter
--- OUTSIDE RECORDS SUMMARY | 2024-11-16 15:11 | XMS_ITS | Encounter Summary ---
Author Organization [facility] Address [address] [place] [address] Care Team Providers Care Stockroom Coordinator Name Role Phone Bobbi Conte MD Primary Care Provider [phone]- [phone] Kacy Velasquez MD Unavailable [phone] Akua Crenshaw PA-C Unavailable [phone] Alden Coates PA-C Unavailable [phone] Reason for Visit * Reason Onset Date Comments Letter 04/23/2023 Encounter Details Date Type Department Care Team Description 04/23/2023 Telephone Internal Medicine - [address], [address] [place] [address] Bobbi Conte MD [address] [place] [phone] Letter Social History Tobacco Use Types [...] written informed pt left in front for spanish moss picker * Telephone Encounter - Prema Vann [...] or concerns please contact my office at [phone]. ADD: accommodate the patient to go to a different classroom, if possible (the classroom patient is in has no place for patient to rest her leg-that is why she needs to go to a different classroom). Patient will spanish moss picker the letter - call @ [phone] documented in this encounter Plan of Treatment Not on file documented as of this encounter Visit Diagnoses Not on filedocumented in this encounter Care Teams Stockroom Coordinator Relationship Specialty Start Date End Date Bobbi Conte MD PCP - General Internal Medicine 11/06/20 Kacy Velasquez MD [address] [address] Surgeon Neurosurgery 07/09/23 Akua Crenshaw PA-C [address] [address] Specialist Neurosurgery 07/09/23 Alden Coates PA-C [address] [address] Specialist Neurosurgery 07/09/23 documented as of this encounter
--- OUTSIDE RECORDS SUMMARY | 2024-11-16 15:11 | XMS_ITS | Encounter Summary ---
Author Organization [facility] Address [address] [place] [address] Care Team Providers Care Manager Parking Name Role Phone Bobbi Conte MD Primary Care Provider [phone]- [phone] Kacy Velasquez MD Unavailable [phone] Akua Crenshaw PA-C Unavailable [phone] Alden Coates PA-C Unavailable [phone] Encounter Details Date Type Department Care Team Description 11/16/2023 Pt. Non Urgent Medical Question OBGYN - 271 [facility] [address] [place] [address] Chelsie Pal CN 175 [place] [address] Social History Tobacco Use Types [...] filedocumented in this encounter Care Teams Manager Parking Relationship Specialty Start Date End Date Bobbi Conte MD PCP - General Internal Medicine 11/06/20 Kacy Velasquez MD [address] [address] Surgeon Neurosurgery 07/09/23 Akua Crenshaw PA-C [address] [address] Specialist Neurosurgery 07/09/23 Alden Coates PA-C [address] [address] Specialist Neurosurgery 07/09/23 documented as of this encounter
--- OUTSIDE RECORDS SUMMARY | 2024-11-16 15:11 | XMS_ITS | Encounter Summary ---
Author Organization [facility] Address [address] [place] [address] Care Team Providers Care Service Observer Name Role Phone Bobbi Conte MD Primary Care Provider +[phone]- [phone] Kacy Velasquez MD Unavailable [phone] Akua Crenshaw PA-C Unavailable [phone] Alden Coates PA-C Unavailable [phone] Encounter Details Date Type Department Care Team Description 09/19/2021 Telephone Adult Medicine [facility] [address] [place] [address] Bobbi Conte MD [address] [place] [address] Social History Tobacco Use Types Packs/Day [...] filedocumented in this encounter Care Teams Service Observer Relationship Specialty Start Date End Date Bobbi Conte MD PCP - General Internal Medicine 11/06/20 Kacy Velasquez MD 175 [facility] [address] [place] [address] Surgeon Neurosurgery 07/09/23 Akua Crenshaw PA-C [address] [address] Specialist Neurosurgery 07/09/23 Alden Coates PA-C 175 [facility] [address] [place] [address] Specialist Neurosurgery 07/09/23 documented as of this encounter
--- OUTSIDE RECORDS SUMMARY | 2024-11-16 15:11 | XMS_ITS | Encounter Summary ---
Author Organization [facility] Address [address] [place] [address] Care Team Providers Care Deep Fat Cook Fry Name Role Phone Bobbi Conte MD Primary Care Provider +[phone] Kacy Velasquez MD Unavailable [phone] Akua Crenshaw PA-C Unavailable [phone] Alden Coates PA-C Unavailable [phone] Encounter Details Date Type Department Care Team Description 08/02/2021 Refill Internal Medicine - [address], [address] [place] [address] Bobbi Conte MD [address] [place] [phone] Social History Tobacco Use Types Packs/Day [...] on filedocumented in this encounter Care Teams Deep Fat Cook Fry Relationship Specialty Start Date End Date Bobbi Conte MD PCP - General Internal Medicine 11/06/20 Kacy Velasquez MD 175 [facility] [address] [place] [address] Surgeon Neurosurgery 07/09/23 Akua Crenshaw PA-C [address] [address] Specialist Neurosurgery 07/09/23 Alden Coates PA-C 175 [facility] [address] [place] [address] Specialist Neurosurgery 07/09/23 documented as of this encounter
--- OUTSIDE RECORDS SUMMARY | 2024-11-16 15:11 | XMS_ITS | Encounter Summary ---
Author Organization [facility] Address [address] [place] [address] Care Team Providers Care Rn Clinical Name Role Phone Bobbi Conte MD Primary Care Provider [phone] Kacy Velasquez MD Unavailable [phone] Akua Crenshaw PA-C Unavailable [phone] Alden Coates PA-C Unavailable [phone] Reason for Referral * EXTERNAL (Routine) - Authorized/Booked Specialty Diagnoses / Procedures Referred By Daljit morel Referred To Contact Physical Therapy Diagnoses Pelvic pressure in female Encounter for supervision of other normal , first trimester Procedures REFERRAL TO PHYSICAL THERAPY Rahat Ram DO [address] [place] [address] Referral ID Status Reason Start Date Expiration Date V isits Requested Visits Authorized [id number] Authorized/B ooked 06/04/2023 09/23/2023 1 1 Encounter Details Date Type Department Care Team Description 06/04/2023 Orders Only OBGYN - [address] [address] Rahat Ram DO Pelvic pressure in female [...] trimester documented in this encounter Care Teams Rn Clinical Relationship Specialty Start Date End Date Bobbi Conte MD PCP - General Internal Medicine 11/06/20 Kacy Velasquez MD [address] [address] Surgeon Neurosurgery 07/09/23 Akua Crenshaw PA-C [address] [address] Specialist Neurosurgery 07/09/23 Alden Coates PA-C [address] [address] Specialist Neurosurgery 07/09/23 documented as of this encounter
--- NOTE | 2024-11-16 15:14 | HO.SPINEOV ---
Intake Visit Reasons: discuss surgery Intake Note: Ms. Isaac is here today to Discuss Surgery. Commercial Helicopter Pilot Required: No Allergies No Known Allergies Allergy (Verified 11/14/24 15:25) Assessment & Plan Assessment & Plan (1) Hx of decompressive lumbar laminectomy: Onset Date: 05/19/24 Code(s): Z98.890 - Other specified postprocedural states Category: Surgical Plan Operation: Left L5 Laminotomy, Partial facetectomy and foraminotomy Leslie comes in today for discussion of her continued symptoms despite surgical attempts to resolve her problem via left L5 decompression in May of 2024. She reports that she has had continued left foot drop and numbness in her left leg since she saw me last. She also states that she recently had a left L5 TFESI with our colleagues in pain management but unfortunately reports no real relief of her symptoms after the injection. Based on what we observed during surgery, and her response to injections, I do not believe subsequent intervention via surgery would be beneficial for her. The left sided L5 nerve was completely free after the procedure, and a nerve hook was easily passed into the foramen under the nerve. I believe her symptoms are a result of longstanding nerve damage that we see occasionally with disc herniations. I would like Leslie to follow up with our colleague Dr. Cooper in [place] at [facility]. I feel he may be able to offer her some kind of conservative treatment at least for pain control if not anything else. Dante Zelaya MD,PhD [facility] Coding Level of Care Code Global (97072) Diagnoses Hx of decompressive lumbar laminectomy Z98.890
== END 2024-11-16 15:47 | disposition home or self-care (01) ==
LOC: HO.HNS 15:08
PROVIDERS: Visit Provider Physician Assistant
DX: Z98.890 Other specified postprocedural states (principal)
CPT/HCPCS: 99213

== ENCOUNTER → 2024-11-16 15:07 | Outpatient (BNVA) | payer OTHER, SELFPAY | PROVIDERS: Visit Provider Physician Assistant | DX: M21.372 Foot drop, left foot (principal); R20.0 Anesthesia of skin; Z98.890 Other specified postprocedural states | CPT/HCPCS: 99212 ==

== ENCOUNTER 2024-12-19 10:55 | Outpatient (AMB) | payer OTHER, SELFPAY ==
[2024-12-19 10:56] VITALS: BMI 36.6
--- NOTE | 2024-12-19 10:56 | MHC.OFFVIS ---
Vital Signs 12/19/24 10:56 Height 5 ft 5 in Weight 220 lb BMI 36.6 Intake Visit Reasons: Tingling in her foot Intake Note: Patient presents follow up on her rt tingling/numbness in right foot. also wants to talk about medication sideeffects Allergies No Known Allergies Allergy (Verified 12/19/24 10:56) HPI Comments Details: 29y/o female presents for a telelhealth visit due to r. leg pain, numbness and weakness since Thursday. 11/2024 MRI reviewed with patient, and pain management stimulator implant consult 12/20/2924. 10/2024 Labs reviewed with patient. EMG showed Left L4-5 radiculopathy. 09/01/2024 with Anila. She stopped Gabapentin, 300mg TID and tried Duloxetin 30mg daily, but due to hot flashes she stopped this also. December 2023 [facility] Lumbar decompression and laminectomy,, with little relief L5 nerve root impingement at S1, Neuritis. She is being followed by the Dish Cloth Inspector for pain management of L5/S1 nerve root compression and neuritis, and L. sided moderate foraminal narrowing. Today she c/o R. Leg pain, tingling, and weakness which started on Thursday when she was completing errands. She continues to have pain with spasms of the r. toes with difficulty on flexion and extension, she can not move her foot without cramps. She did not use her wheelchair since this was a quick stop on Thursday but typically she always uses her wheel chair outside of the house. She uses her walker in the house to ambulate. She continues to have difficulty caring for her 1 year old baby, and feels overwhelmed as she gets very anxious because she has no support completing tasks around the house with cooking, cleaning, and caring for her baby. She feels dizzy upon standing, and continues to have gait and balance difficulties, bp is normal and denies falls and vertigo, and headaches. IMPRESSION: November 2024 1. Persistent enhancement of the paraspinal soft tissues at L5-S1 on the left with involvement of the facet joint consistent with facet joint synovitis and myositis. No organizing or drainable fluid collection identified. 2. Zioanqfr-xs-chfhmm left-sided neural foraminal narrowing at L5-S1 This document has been electronically signed by: Mohinder Hector MD on 11/07/2024 17:32:44 [facility] Medical History Acquired left foot drop Lumbosacral radiculopathy at S1 Numbness and tingling of left leg Foot drop, left foot Neuropathy Obesity UTI (urinary tract infection) Anxiety Bilateral carpal tunnel syndrome Multiple renal cysts Right ovarian cyst Surgical History Hx of decompressive lumbar laminectomy (05/19/24) Hx of partial nephrectomy (~1999) Social History Household Members: Spouse and Children Household Members Other:: in laws Housing: Apartment Are you a primary family day carer to a significant other at home: No Do you presently have visiting nurse or other home services: No Alcohol intake: current Alcohol intake frequency: former alcohol drinker Comment: Seldom Patient Tobacco Use Status: Former Tobacco user Years Smoked: quit 2 years ago- on and off x 10years Physical Exam Vital Signs: BMI result Body Mass Index 36.6 Neuro Other: Telehealth completed today. Psych Appearance: well kempt Speech and movement: Psychomotor agitation in speech present Affect: Irritable affect present Attitude: cooperative Telehealth Telehealth Telehealth [facility] Location of provider rendering services: practice address Location of patient: address on file Patient Identification confirmed using: Name, : Yes Telehealth method: video Patient verbally consented to treatment: Yes Patient verbally consented to billing insurance company: Yes Patient informed of any privacy concerns related to visit: Yes Minutes spent on Phone/Video with Pt.: 20 Results Reviewed Results Reviewed: MRI 11/2024 IMPRESSION: 1. Persistent enhancement of the paraspinal soft tissues at L5-S1 on the left with involvement of the facet joint consistent with facet joint synovitis and myositis. No organizing or drainable fluid collection identified. 2. Ukitgjcp-my-rkzphm left-sided neural foraminal narrowing at L5-S1 This document has been electronically signed by: Mohinder Hector MD on 11/07/2024 17:32:44 Assessment & Plan Assessment & Plan (1) Anxiety about treatment: Comment: overwhelmed with baby today and wants her to start anti-depressant also. Code(s): R45.89 - Other symptoms and signs involving emotional state Category: Medical (2) Neuropathy of right foot: Code(s): G57.91 - Unspecified mononeuropathy of right lower limb Category: Medical (3) Hx of decompressive lumbar laminectomy: Onset Date: 05/19/24 Comment: she has a F/U with brush material preparer December 20. Implant- Nerve stimulator Code(s): Z98.890 - Other specified postprocedural states Category: Surgical (4) Lumbosacral radiculopathy at S1: Code(s): M54.17 - Radiculopathy, lumbosacral region Category: Medical Plan Anxiety and depression start Buproprion 100mg PO daily at bedtime, continue for a 2 week period and we will assess effectiveness of medication and dose adjustments. R. foot numbness and weakness with Lumbar Radiculopathy start pregabalin 50mg daily at bedtime. Hold Gabapentin 300mg PO TID not effective, s/e dark moods. Hold Duloxetine 30mg PO daily, s/e of hot flashes and mood irritability. Reviewed MRI 11/2024 notes with patient. EMG reviewed with patient. F/U with Pain Management Dish Cloth Inspector for consultation of Nerve stimulator implantation. 12/20/2024 Continue PT for left and right leg weakness and foot drop AFOs f/u with Karla or check [employer]. foot orthosis. Orders: Orders PT Evaluation and Treatment Today M21.372 - Foot drop, left foot Medications: New bupropion HCl SR (Wellbutrin SR) take one tablet daily at bedtime for anxiety. 100 mg PO BEDTIME 60 tabs 1RF anxiety 2 months MDD 100mg R45.89 - Other symptoms and signs involving emotional state pregabalin (Lyrica) take one tablet daily by mouth at bedtime will assess for effectiveness in 2 weeks. 50 mg PO BEDTIME 90 caps 0RF nueritis 3 months MDD 50mg G57.91 - Unspecified mononeuropathy of right lower limb On Hold duloxetine Hold Comment: Doctor's Order 30 mg PO DAILY 30 caps 0RF gabapentin Hold Comment: Doctor's Order 300 mg PO TID 90 caps 0RF Patient Instructions: Sleep Hygiene provided: set a scheduled bedtime and wake time to help regulate the circadian rhythm and balance the release of pituitary hormones. Sleep in a dark room, temperatures below 68 degrees, and no devices n bed. Limit caffeinated products 6 hours prior to bed, and limit fluids 2-4 hours prior to bed. Gentle night yoga, diffusing essential oils, and playing soft music can be relaxing. Dish Cloth Inspector f/u. PT f/u use foot brace daily. Will f/u next week for in clinic evaluation. Coding Level of Care Code Tele Est Pt Level 4 (53485) Diagnoses Anxiety about treatment R45.89 Neuropathy of right foot G57.91 Hx of decompressive lumbar laminectomy Z98.890 Lumbosacral radiculopathy at S1 M54.17 Time Spent (min) 20 Comment evaluation of neuropathy and r. foot drop with neuropathy
== END 2024-12-19 16:16 | disposition home or self-care (01) ==
PROVIDERS: PCP Internal Medicine; Visit Provider Physician Assistant Medical
DX: R45.89 Other symptoms and signs involving emotional state (principal); G57.91 Unspecified mononeuropathy of right lower limb; Z98.890 Other specified postprocedural states; M54.17 Radiculopathy, lumbosacral region
CPT/HCPCS: 99214

== ENCOUNTER 2025-01-25 13:20 | Outpatient (AMB) | payer OTHER, SELFPAY ==
--- NOTE | 2025-01-25 13:30 | MHC.OFFVIS ---
Vital Signs 01/25/25 13:31 Height 5 ft 5 in Weight 220 lb 2 oz BMI 36.6 BP 140/92 H Blood Pressure Location Lt brachial Position Sitting Pulse 86 Pulse Source Pulse Oximeter Pulse Oximetry (%) 98 Oxygen Delivery Method Room Air Intake Visit Reasons: F/U for left foot drop and etc Intake Note: Patient presents for left foot drop medication. PT notes in chart. has not taken wellbutrin and pregabalin(scared due to side effects). noting changed has appointment in [place]. Accompanied by: Spouse Allergies No Known Allergies Allergy (Verified 01/25/25 13:34) HPI Comments Details: 29y/o female presents for a telelhealth visit due to r. leg pain, numbness and weakness since Thursday. 11/2024 MRI reviewed with patient, and pain management stimulator implant consult 12/20/2924. Labs reviewed with patient. EMG showed Left L4-5 radiculopathy. 09/01/2024 with Anila. She stopped Gabapentin, 300mg TID and tried Duloxetin 30mg daily, but due to hot flashes she stopped this also. December [address] [facility] Lumbar decompression and laminectomy,, with little relief L5 nerve root impingement at S1, Neuritis. She is being followed by the Senior Biostatistician and pain management for L5/S1 nerve root compression and neuritis. She has l. sided moderate foraminal narrowing on MRI, November 2024. Today she c/o radiating l. leg pain, tingling, and weakness. She continues to have pain with stiff spasms of her toes, and difficulty with flexion/ extension, she can not move her foot due to cramps. Since starting the corticosteroid injections she says the pain has improved mildly. She uses the walker in the house, however is no longer using the wheel chair. She feels dizzy upon standing, and continues to have gait and balance difficulties, bp is normal and denies falls and vertigo, and headaches. She continues to have difficulty caring for her 1 year old baby, and feels overwhelmed as she becomes anxious because she has no support completing tasks around the house with cooking, cleaning, and caring for her baby. [facility] Medical History Acquired left foot drop Lumbosacral radiculopathy at S1 Numbness and tingling of left leg Foot drop, left foot Neuropathy Obesity UTI (urinary tract infection) Anxiety Bilateral carpal tunnel syndrome Multiple renal cysts Right ovarian cyst Surgical History Hx of decompressive lumbar laminectomy (05/19/24) Hx of partial nephrectomy (~1999) Social History Household Members: Spouse and Children Household Members Other:: in laws Housing: Apartment Are you a primary childcare teacher to a significant other at home: No Do you presently have visiting nurse or other home services: No Alcohol intake: current Alcohol intake frequency: former alcohol drinker Comment: Seldom Patient Tobacco Use Status: Former Tobacco user Years Smoked: quit 2 years ago- on and off x 10years Physical Exam Vital Signs: Last Vital Signs Pulse 86 01/25/25 13:31 BP 140/92 H 01/25/25 13:31 Pulse Ox 98 01/25/25 13:31 Oxygen Delivery Method Room Air 01/25/25 13:31 BMI result Body Mass Index 36.6 Const General: cooperative, healthy appearing and comfortable Nutritional Appearance: obese Orientation/consciousness: patient oriented x3 Neuro Other: Left foot drop- weakness of left dorsiflexion - 1/5 Knee extension 4/5 Gait- compensation, mild high steppage on right General: patient oriented x3 and moves all extremities Cranial nerves: Yes Nystagmus not present, Yes Normal facial strength present, Yes Midline tongue present and Yes Symmetric palate elevation present Cognition (Neuro): normal cognition Motor exam (neuro): Normal motor muscle tone present throughout Psych Appearance: grossly normal Mental Status: mental status grossly normal Attitude: cooperative Thought content: Normal thought content present Results Reviewed Results Reviewed: IMPRESSION: November 2024 1. Persistent enhancement of the paraspinal soft tissues at L5-S1 on the left with involvement of the facet joint consistent with facet joint synovitis and myositis. No organizing or drainable fluid collection identified. 2. Wgsycxch-ch-jlwteu left-sided neural foraminal narrowing at L5-S1 This document has been electronically signed by: Mohinder Hector MD on 11/07/2024 17:32:44 Assessment & Plan Assessment & Plan (1) Anxiety about treatment: Comment: overwhelmed with baby today and wants her to start anti-depressant also. 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 Implant- Nerve stimulator Code(s): Z98.890 - Other specified postprocedural states Category: Surgical (4) Lumbosacral radiculopathy at S1: Code(s): M54.17 - Radiculopathy, lumbosacral region Category: Medical Plan Neuropathy bilateral feet with weakness. Continue to take magnesium 400mg po daily at bedtime. Lumbar Radiculopathy start pregabalin 50mg daily at bedtime and follow up in one month for dose adjustments. Anxiety and depression start Buproprion 100mg PO daily at bedtime, continue for a 2 week period and we will assess effectiveness of medication and dose adjustments in one month. Patient education provided today re: adherence of medication, one dose will not take effect immediately, it takes 2 weeek for Buproprion to reach therapeutic levels and 100mg is a subtherapeutic dose to start her slow taper. Hold Gabapentin 300mg PO TID not effective, s/e dark moods. Hold Duloxetine 30mg PO daily, s/e of hot flashes and mood irritability. Reviewed MRI 11/2024 notes with patient. F/U with Pain management / Senior Biostatistician for corticosteroid injections. F/U with Pain Management Senior Biostatistician for consultation of Nerve stimulator implantation. 12/20/2024, pt declined. Continue PT for left and right leg weakness and foot drop -AFOs f/u with Karla or check [employer] foot orthosis. Patient Instructions: Sleep Hygiene provided: set a scheduled bedtime and wake time to help regulate the circadian rhythm and balance the release of pituitary hormones. Sleep in a dark room, temperatures below 68 degrees, and no devices n bed. Limit caffeinated products 6 hours prior to bed, and limit fluids 2-4 hours prior to bed. Gentle night yoga, diffusing essential oils, and playing soft music can be relaxing. Coding Level of Care Code Est Pt Level 4 (81506) Diagnoses Anxiety about treatment R45.89 Neuropathy of right foot G57.91 Hx of decompressive lumbar laminectomy Z98.890 Lumbosacral radiculopathy at S1 M54.17 Time Spent (min) 24 Comment pain improved mildly
[2025-01-25 13:31] VITALS: BP 140/92; PULSE 86; O2SAT 98; BMI 36.6
--- OUTSIDE RECORDS SUMMARY | 2025-01-25 13:51 | XMS_ITS | Clinical Summary ---
Author Organization [facility] Address [address] [place] [address] Phone Care Team Providers Care Vessel Scrapper Name Role Phone Bobbi Conte MD Primary Care Provider [phone] Allergies Active Allergy Reactions Criticality Noted Date [...] She went to the emergency room at [facility] and it resolved spontaneously. She says [...] will try to obtain the report from [facility] emergency room. 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 Her MRI from [facility] on March 17, 2024 revealed degenerative changes [...] for alpha thalessemia 06/15/2023 pt notified via [employer] in regards to getting fob tested.- NAYELI,RN [...] BMI of 50 by 28wks transfer to [facility] DVT prophylaxis- Lovenox if CS and BMI >35 Neuropathy 05/25/2023 Overview (05/18/2024): Of left leg and left foot Being followed by dr veras and physiatry. Pt wearing leg brace. She states the customer services coordinator will provide fmla forms if the condition should worsen as the progresses. UTI in , antepartum 05/25/2023 Overview (05/18/2024): Tx'd 05-20-23 WAN: 06/02/2023- Neg Anxiety 05/20/2023 Overview (05/18/2024): 05-19-23 pt advised she can take the vistaril as rx'd for anxiety and depression sx. Her pcp at [facility] was going to refer her to [...] (05/18/2024): Dr garcia referred pt to pelvic floorworker 05-18-23 Last Assessment & Plan: GC/CT and [...] upper pole nephrectomy age 4; multiple cysts Immunizations Name Administration Dates Next Due DTaP (Infanrix) 6wks to less than 7yo ,01/26/1996,12/23/1994,07/29,04/07/1994 [id number] (Pentacel) 2mo to less than 5yo 01/26/1996,07/29/1994,04/07/1994 [...] for your loved ones. For example, child support officer or elderly care for an older adult? [...] N Livin g Jesse Complications:None [facility] 2023 Term 38w 6d 3260 g (115 oz) F Vag-S pont Epidur al Livin g 8 9 Nhung ndra Allar d CNM Complications:None,Gestation al diabetes mellitus (GDM) Delivery Location:[facility] Comments:SROM. nuchal body cord & true knot. GDMA1 Last Filed Vital Signs Vital Sign Reading Time Taken Comments Blood Pressure 124/86 10/11/2024 3:43 PM EDT Pulse 70 10/11/2024 3:43 PM EDT Temperature 36.4 C (97.5 F) 10/11/2024 3:43 PM EDT Respiratory Rate 18 09/29/2024 2:16 PM EDT [...] AM EDT Office Visit Bariatric Surgery - [place] [address] [id number] Prachi Roque PA [address] [address] Health Maintenance Due Date Last Done Comments COVID-19 Vaccine ( season) 2024 10/16/2020, 09/25/2020 Influenza Vaccine (#1) 2025 , 05/21/2020, 05/09/2014, Additional history exists Social Influencers of Health Screening 08/18/2025 08/18/2024 [...] 05/25/2023 MMR Vaccines Completed 12/13/2023, 01/04, 12/23/1994 Depression Screening Completed 08/18/2024, 05/19/20 23 Meningococcal B Vaccine Aged Out No l onger eligible based on patient's age to complete this topic Pneumococcal Vaccine: Pediatrics (0 to 5 Years) and At-Risk Patients (6 to 49 Years) Aged Out No longer eligible based [...] XRAY REPORT 10/27/2024 EXTERNAL XRAY REPORT 10/27/2024 HPV Routine 06/08/2023 HEPATITIS C SCREENING Routine 05/25/2023 HIV SCREENING Routine 05/25/2023 DEPRESSION SCREENING Routine 05/19/2023 LIPID PANEL Routine 12/26/2022 from Last 3 Months or Most Recently Relevant to Health Maintenance Results * External Xray Report (10/27/2024) Only the most recent of2 resultswithin the time period is included. Anatomical Region Laterality Modality Radiographic Taylor ging Result [facility] Provider [facility] IMG XR PROCEDURES Final Result * External clinical lab (10/27/2024) Only the most recent of2 resultswithin the time period is included. Provider [facility] LAB BLOOD ORDERABLES Fin al Result * Cervical Cancer Screening: HPV (06/08/2023) [facility] Cervical Cancer Screening: HPV positive, abstracted Result [facility] Provider HEALTH MAINTENANCE Final Result * HIV Screening (05/25/2023) [facility] HIV Screening abstracted Result [facility] Provider HEALTH MAINTENANCE Final Result * Hepatitis C Screening (05/25/2023) [facility] Hepatitis C Screening abstracted Result [facility] Provider HEALTH MAINTENANCE Final Result * Depression Screening (05/19/2023) [facility] Depression Screening abstracted Result [facility] Provider HEALTH MAINTENANCE Final Result * Lipid panel (12/26/2022) [facility] LDL/HDL Ratio 3 0 - 4 Triglycerides 95 0 - 150 mg/dL Cholesterol 135 0 - 200 mg/dL HDL 46 >=40 mg/dL LDL Cholesterol 70 0 - 100 mg/dL Blood Venous blood specimen / Unknown Result [facility] Provider [place] LAB BLOOD ORDERABLES Maribell l Result from Last 3 Months or Most Recently Relevant to Health Maintenance Insurance [employer] Care Teams Vessel Scrapper Relationship Specialty Start Date End Date Bobbi Conte MD [address] [place] [address] [phone] PCP - General Internal Medicine 06/07/24
--- OUTSIDE RECORDS SUMMARY | 2025-01-25 13:52 | XMS_ITS ---
Author Name [facility] Organization Unknown Care Team Organization Name Specialty Phone Email Start Date End Da te [facility] Primary Care 05/13/2022 02/22/20 24
== END 2025-01-25 14:16 | disposition home or self-care (01) ==
LOC: HO.HSMS 13:21
PROVIDERS: PCP Internal Medicine; Visit Provider Physician Assistant Medical
DX: R45.89 Other symptoms and signs involving emotional state (principal); G57.91 Unspecified mononeuropathy of right lower limb; Z98.890 Other specified postprocedural states; M54.17 Radiculopathy, lumbosacral region
CPT/HCPCS: 99214

== ENCOUNTER → 2025-01-25 13:20 | Outpatient (BNVA) | payer OTHER, SELFPAY | PROVIDERS: PCP Internal Medicine; Visit Provider Physician Assistant Medical | DX: G57.91 Unspecified mononeuropathy of right lower limb (principal); M54.17 Radiculopathy, lumbosacral region; R45.89 Other symptoms and signs involving emotional state; Z98.890 Other specified postprocedural states | CPT/HCPCS: 99212 ==

== ENCOUNTER → 2025-04-19 14:45 | Outpatient (REF) | payer OTHER, SELFPAY | LOC: HO.SL 14:45 | PROVIDERS: PCP Internal Medicine; Visit Provider Physician Assistant Medical | DX: G47.19 Other hypersomnia (principal) | CPT/HCPCS: 95806 ==

== ENCOUNTER → 2025-04-19 14:56 | Outpatient (BNV) | payer OTHER, SELFPAY | PROVIDERS: PCP Internal Medicine; Visit Provider Psychiatry & Neurology Neurology | DX: R06.83 Snoring (principal) | CPT/HCPCS: 95806 ==

== ENCOUNTER 2025-05-22 09:06 | Outpatient (AMB) | payer OTHER, SELFPAY ==
[2025-05-22 09:10] VITALS: BP 171/95; PULSE 81; RESP 16; O2SAT 96; BMI 37.3
--- NOTE | 2025-05-22 09:10 | MHC.OFFVIS ---
Vital Signs 05/22/25 09:10 Height 5 ft 5 in Weight 224 lb BMI 37.3 BP 171/95 H Blood Pressure Location Lt brachial Position Sitting Respiration 16 Pulse 81 Pulse Source Pulse Oximeter Pulse Oximetry (%) 96 Oxygen Delivery Method Room Air Intake Visit Reasons: Pain and left leg nerve spasms Data Conversion Developer Required: No Accompanied by: Life Partner Allergies No Known Allergies Allergy (Verified 05/22/25 09:14) HPI Comments Details: The patient is a 29-year-old female presenting with chronic pain in the left leg. She has a history of decompressive lumbar laminectomy, left L5 laminotomy, partial facetectomy, and foraminotomy performed on May 19, 2024 and therapeutic KD injection earlier this year. Despite these interventions, she continues to experience significant pain, which has not been alleviated by previous injections. Patient reports she was recently seen by Dr. Cooper for back injection with upcoming follow up next week. She reports ongoing left leg neuropathy with spasms, chronic left foot drop with weakness and numbness and axial low back pain. The patient reports that recent Neurosurgery evaluation was deemed unnecessary as her symptoms are attributed to longstanding nerve damage. She has been experiencing left foot drop and weakness with left dorsiflexion and knee extension, which have progressively worsened. Patient is wearing AFO ankle brace. She has tried various medications, including pregabalin and paroxetine per Neurology, but has had limited success in managing her symptoms. Patient is interested to proceed with neuromodulation with lumbar SCS trial to improve her quality of life, reduce pain and improve mobility and daily functioning. Her significant other reports he had to stop working to assist patient with daily activities and childcare for their baby. Denies any recent cough, cold, infection, fever or any other significant changes in medical history since last office visit. - Onset: Chronic pain following lumbar surgery - Quality: Burning sensation in the left leg - Location: Primarily in the lower back and left leg - Exacerbating factors: Physical activity, even minimal exertion - Relieving factors: Icing provides temporary relief - Interference: Affects daily activities and causes significant distress - Affect: Pain significantly impacts mood and psychological wellbeing, contributing to depression. - Analgesia: Current medications include pregabalin and paroxetine, with limited pain relief. - Adverse Effects: Allergic reaction to gabapentin, resulting in rash. - Activities of Daily Living: Pain interferes with daily activities, including walking and self-care. - Aberrant Drug Related Behaviors: No evidence of medication misuse or abuse reported. PRIOR 11/14/24: The patient is a 28-year-old female presenting with persistent back pain and episodic urinary incontinence, transient left buttock weakness s/p Left L5-S1 TFESI on 10/27/24. The recent MRI ruled out an epidural hematoma but detected ongoing [id number] left-sided neural foraminal narrowing at L5-S1 as well as persistent enhancement of the paraspinal soft tissues at L5-S1 on the left with involvement of the facet joint consistent with facet joint synovitis and myositis. No organizing or drainable fluid collection identified. Patient reports had 2 day partial pain relief after injection without significant improvement in her daily activities or functioning. Lifestyle factors including obesity are complicating factors. She monitors her symptoms and plans to make lifestyle changes upon consultation with her primary care doctor. Her current functional activities, primarily caring for a young child, are hindered by her symptoms, positioning weight management and alleviation of symptoms in her long-term goals. She is wearing left AFO support although notes that is uncomfortable and plans to exchanges to a different AFO brace. Past Procedures: 10/27/24: Left L5-S1 TFESI-40% pain relief for 2 days PRIOR: Patient is a pleasant 28-year-old female with history of recent left L5 Laminotomy, partial facetectomy and foraminotomy (05/19/24 Dr. Zelaya), presents today for initial evaluation of lower back pain with left-sided radiculopathy accompanied with constant burning, aching and numbness sensations. She reports back pain and left leg pain symptoms initially started in January of 2023 while she was in [employer] in [facility] and noted her left foot and toes with jerking movements and with shooting pains into her left hip. Patient completed EMG in May 2023 showing a peroneal and tibial neuropathy. She then got and had her baby girl in December 2023 but notes she has been experiencing significant shooting and sharp pains during in her pelvic floor and vagina without relief with Pelvic floor PT at that time. She continues to experiences same symptoms periodically. Patient reports no significant pain, left leg numbness and weakness improvement with recent back surgery. She is currently in active PT through [facility] but completes it virtually at home. Patient is concerned about ongoing back pain and left leg weakness which limits her ADLs, mobility, functioning or taking care of her baby. She was provided with AFO boot and also has been utilizing walker at home. Back pain is axial and also radiates into her left buttock and into her lateral calf and into her left foot. Pain is most severe during 10:00-15:00, rated at 8-9/10 and least severe at bedtime 21:00-0900, rated at 4-5/10. Denies previous spine injections. She has been taking Ibuprofen for pain and most of the time avoids medication as she is currently . Patient notes her menses are late by 18 days but recent home test was negative. Denies any fever or chills, rash, abdominal or groin pain, bladder or bowel dysfunction or saddle anesthesia. Patient also reports neck pain and bilateral hand weakness with numbness and tingling. Reports history of bilateral carpal tunnel syndrome. Oswestry Low Back Pain Disability Score=32 (severe disability) Location: Lower back radiates into left leg with left foot drop Duration: Chronic pain for 1.5 years Characteristics of symptom or complaint: Throbbing, stabbing, shooting, numbness, sharp, tingling, cramping Aggravating or associated factors: Movements, walking, climbing, bending, twisting, ADLs, weather changes Relieving factors: Ibuprofen, heat/cold therapy, rest, activity modifications Treatment: PT at [facility] ([facility] at home), Left L5 foraminotomy (2023) [facility] Medical History Acquired left foot drop Lumbosacral radiculopathy at S1 Numbness and tingling of left leg Foot drop, left foot Neuropathy Obesity UTI (urinary tract infection) Anxiety Bilateral carpal tunnel syndrome Multiple renal cysts Right ovarian cyst Surgical History Hx of decompressive lumbar laminectomy (05/19/24) Hx of partial nephrectomy (~1999) Social History Household Members: Spouse and Children Household Members Other:: in laws Housing: Apartment Are you a primary rn progressive care to a significant other at home: No Do you presently have visiting nurse or other home services: No Alcohol intake: current Alcohol intake frequency: former alcohol drinker Comment: Seldom Patient Tobacco Use Status: Former Tobacco user Years Smoked: quit 2 years ago- on and off x 10years Review of Systems Const Details: - Neurological: Reports chronic left leg pain and burning sensation, weakness with dorsiflexion and knee extension, and left foot drop. - Musculoskeletal: Reports difficulty with physical activity due to pain. - Psychiatric: Reports depression related to chronic pain. All systems reviewed & are unremarkable except as noted in HPI and below Physical Exam Vital Signs: Last Vital Signs Pulse 81 05/22/25 09:10 Resp 16 05/22/25 09:10 BP 171/95 H 05/22/25 09:10 Pulse Ox 96 05/22/25 09:10 Oxygen Delivery Method Room Air 05/22/25 09:10 BMI result Body Mass Index 37.3 General: Appears afebrile. Alert and oriented. Mood and affect appropriate. Follows and participates in conversation appropriately. Respiratory effort is unlabored. No cough. Able to transition from sit to stand unassisted. Ambulates with right normal heel strike and toe off. Left foot drop with weakness, wearing AFO brace. General: Yes no CVA tenderness Back/Spine/Pelvis Other: Patient is able to walk and stand on heels and tip toes with difficulty on the left due to pain and foot drop on the left. Antalgic gait with steppage on the right. Lumbar flexion and bending reproduces moderate-severe pain, lumbar extension reproduces mild to moderate pain. Demonstrates 5/5 right and 4/5 left strength of quadriceps bilaterally as well as 5/5 right and 3/5 left flexion/dorsiflexion of bilateral feet against resistance. 2+ pedal pulses bilaterally. +1 patellar and + +1 achilles reflexes bilaterally. Facet loading test positive bilaterally. Adele sign, Segun?s, Gaenslen and Stinchfield tests are positive bilaterally, left>right. No groin pain with I/E hip rotations. Valsalva maneuver is negative. Back: no CVA tenderness Cervical Spine: cervical ROM normal, cervical muscular tenderness, pain with cervical ROM, No Cervical spine scars present and No Cervical spine tenderness Thoracic/Lumbar Spine: thoracic and lumbar spine normal to inspection, Thoracic/lumbar spine scar(s), Lasegue's sign negative, straight leg raise negative bilaterally, pain with thoraco-lumbar ROM, paraspinal muscle tenderness, thoraco-lumbar ROM limited, No thoracic spinal tenderness and lumbar spinal tenderness (L4-S1) Pelvis: buttock tenderness on the left Sacroiliac joints: bilaterally (left>right) tender to palpation Extrem General: Yes capillary refill normal, Yes no clubbing, cyanosis or edema and Yes no calf tenderness Results Reviewed Results Reviewed: MR lumbar spine wo/w con 11/07/24 CLINICAL HISTORY: R20.0 - Anesthesia of skin --- Additional Notes or Special Instructions: Status post Left L5-S1 TFESI on 10 27 24, now reports leg numbness and pain in low back. Left leg/foot twitching uncontrollable, unable to repeat any picture due to pt was in so much pain. COMPARISON: MR lumbar spine dated 08/20/24 at 13:25 EST FINDINGS: Normal alignment of the anterior and posterior elements without evidence of subluxation. Vertebral heights are maintained. Marrow signal is benign. The conus terminates at inferior endplate of L1 and is otherwise unremarkable. Increased sclerosis along the sacroiliac joints bilaterally, unchanged. L5-S1: Desiccation of the disc. Posterior disc annular tear. Facet joint arthrosis. Ipxlurwv-zm-[id number] left neural foraminal narrowing. There is persistent enhancement of the paraspinal muscles at L5-S1 on the left. And No organizing fluid collection. L4-L5: Intervertebral disc is normal in height. No significant disc bulge or central canal stenosis. L3-L4: Intervertebral disc is normal in height. No significant disc bulge or central canal stenosis. L2-L3: Intervertebral disc is normal in height. No significant disc bulge or central canal stenosis. L1-L2: Intervertebral disc is normal in height. No significant disc bulge or central canal stenosis. IMPRESSION: 1. Persistent enhancement of the paraspinal soft tissues at L5-S1 on the left with involvement of the facet joint consistent with facet joint synovitis and myositis. No organizing or drainable fluid collection identified. 2. Olcqheup-dm-tnektm left-sided neural foraminal narrowing at L5-S1 NE electromyogram (EMG); NE nerve conduction velocity 09/01/24 FINDINGS: All motor and sensory nerves tested showed normal latencies, amplitudes and conduction velocities. Concentric needle EMG was performed in selected muscles of the bilateral upper extremities and left lower extremity. Study did not reveal signs of electric abnormalities as shown in the table above. IMPRESSION: 1. This is a normal study. 2. There is no electrodiagnostic evidence for median neuropathy, ulnar neuropathy, brachial plexopathy, or cervical radiculopathy on bilateral upper extremities. 3. There is no electrodiagnostic evidence for peroneal neuropathy, tibial neuropathy, lumbosacral plexopathy, lumbar radiculopathy, or peripheral neuropathy on left lower extremity. Clinical comment: Although still within normal, noted slight prolongation of left peroneal distal latency compared to study 03/31/2024. But no conduction block seen across fibular neck. Tibial and sural nerves within normal. Needle EMG did not show any active denervation on any peroneal or L5 innervated muscles. Assessment & Plan Assessment & Plan (1) Lumbar radiculopathy: Code(s): M54.16 - Radiculopathy, lumbar region Category: Medical (2) Acquired left foot drop: Comment: Left L5 radiculopathy s/P laminotomy on 05/2024 Code(s): M21.372 - Foot drop, left foot Category: Medical (3) Lumbar spondylosis: Code(s): M47.816 - Spondylosis without myelopathy or radiculopathy, lumbar region Category: Medical (4) Lumbar post-laminectomy syndrome: Code(s): M96.1 - Postlaminectomy syndrome, not elsewhere classified Category: Medical (5) Numbness and tingling of left leg: Code(s): R20.0 - Anesthesia of skin; R20.2 - Paresthesia of skin Category: Medical Plan The plan includes considering a lumbar spinal cord stimulator trial to manage the patient's chronic radiculopathy and neuropathy, as surgical options have been exhausted and injections have not provided relief. A psychological evaluation is required to assess the patient's suitability for the spinal cord stimulator. Placed referral for psychology clearance in anticipation of SCS trial. Extensive discussion regarding the risks and benefits of SCS trial and implant procedures and all questions were answered to patient satisfaction. Will proceed with Nevro Lumbar SCS trial pending psychology clearance. All questions and concerns have been answered and patient agreed with the treatment plan. Follow up as needed. Patient was informed and verbally consented to the use of an ambient scribe for clinic note documentation during this visit. Coding Level of Care Code Est Pt Level 4 (51420) Complex EM visit Add On G2211 Diagnoses Lumbar radiculopathy M54.16 Acquired left foot drop M21.372 Lumbar spondylosis M47.816 Lumbar post-laminectomy syndrome M96.1 Numbness and tingling of left leg R20.0; R20.2
== END 2025-05-22 09:34 | disposition home or self-care (01) ==
LOC: HO.PMC 09:07
PROVIDERS: PCP Internal Medicine; Visit Provider Nurse Practitioner Family
DX: M54.16 Radiculopathy, lumbar region (principal); M21.372 Foot drop, left foot; M47.816 Spondylosis without myelopathy or radiculopathy, lumbar region; M96.1 Postlaminectomy syndrome, not elsewhere classified; R20.0 Anesthesia of skin; R20.2 Paresthesia of skin
CPT/HCPCS: 99214

== ENCOUNTER → 2025-05-22 09:06 | Outpatient (BNVA) | payer OTHER, SELFPAY | PROVIDERS: PCP Internal Medicine; Visit Provider Nurse Practitioner Family | DX: M54.16 Radiculopathy, lumbar region (principal); M96.1 Postlaminectomy syndrome, not elsewhere classified; M21.372 Foot drop, left foot; M47.816 Spondylosis without myelopathy or radiculopathy, lumbar region; R20.0 Anesthesia of skin; R20.2 Paresthesia of skin | CPT/HCPCS: 99212 ==